=== PATIENT | male | born 1935 | race Caucasian/White ===

== ENCOUNTER 2016-11-17 00:15 | Inpatient (IN) | payer MEDICARE, BC, OTHER ==
[~2016-11-17] VITALS: Ht 175.3 cm; Wt 97.6 kg
[2016-11-17] VITALS (14 sets, daily range): BP systolic 132–182; BP diastolic 69–89; PULSE 83–114; RESP 18–26; TEMP 97.8–98.6; O2SAT 94–100
--- NOTE | 2016-11-17 00:27 | PD ---
HPI Chief Complaint: Stroke Alert Time Seen by Provider: 00:26 Travel History International Travel<30 days: No Contact w/Intl Traveler<30days: No Traveled to known affect area: No History of Present Illness HPI The patient is an 81 year old male who presents to the [facility] emergency department with a history of walking out of the bathroom according to his and having sudden onset of difficulty speaking. She reports that he was trying to talk, however none of the things that he was saying made any sense. She told him to clear his throat and try again, however he continued to not be able to talk. She reports that he was trying to talk and seemed to understand what she was saying. She also noticed that he was experiencing right upper and right lower extremity weakness. He was however able to weight-bear. The patient's symptoms began at 10 PM. The patient denies any prior history of stroke. He denies having any recent surgeries. He denies being on any aspirin or other blood thinners. His reports that his recent history is significant for undergoing radiation therapy to his face related to a skin cancer. The patient also has a history of intermittent hematuria that is cauterized by cystoscopy by his urologist. Within the last few days he did have an episode of pink urine. She denies denies him having any blood in his stool or black or tarry stools. The patient is unable to provide any history other than to shake his head yes or no to answer questions due to aphasia. The patient is awake and alert and able to follow commands. They deny him having any recent fevers, cough, congestion, chest pain, chest pressure, or shortness of breath. He has not had any vomiting, or diarrhea. He has not had any abdominal pain. He has been experiencing pains in his arms and legs recently. [facility] Past Medical History Narrative Medical The patient's past medical history is significant for neuropathy, skin cancer, rheumatoid arthritis diabetes, gout, hypercholesterolemia, hypertension, history of prostate cancer status post radiation treatment. Past Surgical History Narrative Surgical The patient's past surgical history is significant for radiation treatment for prostate cancer Social History Alcohol Use: No Tobacco Use: No Substance Use: No Allergies-Medications (Allergen,Severity, Reaction): Coded Allergies: No Known Allergies (Unverified , 11/17/16) Review of Systems Except as stated in HPI: all other systems reviewed are Neg General / Constitutional: No: Fever Eyes: No: Visual changes HENT: No: Headaches Cardiovascular: No: Chest Pain or Discomfort Respiratory: No: Shortness of Breath Gastrointestinal: No: Abdominal Pain Genitourinary: No: Dysuria Musculoskeletal: No: Pain Skin: No Rash Neurologic: Positive: Weakness, Focal Abnormalities, Slurred Speech, Other ( aphasia), No: Change in Mentation, Sensory Disturbance Psychiatric: No: Depression Endocrine: No: Polydipsia Hematologic/Lymphatic: No: Easy Bruising Physical Exam Narrative General: The patient is a well-developed well-nourished male, noted to be drooling initially on arrival of the right side of his mouth. The patient attempts to answer questions with unintelligible speech. Head and Neck exam: Head is normocephalic atraumatic. Eyes: EOMI, pupils are equal round and reactive to light. Nose: Midline septum with pink mucous membranes Mouth: Dentition unremarkable. Moist mucus membranes. Posterior oropharynx is not erythematous. No tonsillar hypertrophy. Uvula midline. Airway patent. Neck: No palpable lymphadenopathy. No nuchal rigidity. No thyromegaly. Cardiovascular: Sinus tachycardia in the low 100s without murmurs, gallops, or rubs. No pulse deficit to the extremities and simultaneous auscultation and palpation of his radial artery. Lungs: Clear to auscultation bilaterally. No wheezes, rhonchi, or rales. Abdomen: Soft, without tenderness to palpation in all 4 quadrants of the abdomen. No guarding, rebound, or rigidity. Normal bowel sounds are audible. Extremities: No clubbing, cyanosis, or edema. 2+ pulses in all 4 extremities. No Tenderness on palpation. Back: No spinous process tenderness to palpation. No costovertebral angle tenderness to palpation. Neurologic Exam: The patient on examination is alert, however he is unable to speak words intelligibly. The patient is able to shake his head yes and no to answer questions. He is also able to follow commands easily. The patient is unable to repeat any phrases. The patient has 4 over 5 strength in the right upper and right lower extremity, 5 over 5 strength in the left upper and left lower extremity. No change in sensation over all dermatomes. No dysdiadochokinesis. Good finger to nose and Heel to olivera bilaterally. Skin Exam: No rash noted. Intact skin that is warm and dry. Data Data Last Documented VS Vital Signs Date Time Temp Pulse Resp B/P Pulse Ox O2 Delivery O2 Flow Rate FiO2 11/17/16 00:20 96 Nasal Cannula 2 11/17/16 00:20 18 11/17/16 00:19 98.6 114 138/89 Orders Diet Npo (11/17/16 Breakfast) Activity Bed Rest (11/17/16 ) Electrocardiogram (11/17/16 ) I-Stat Creatinine (11/17/16 00:27) I-Stat Profile (11/17/16:) Prothrombin Time / Inr (Pt) (11/17/16:) Act Partial Throm Time (Ptt) (11/17/16:) Complete Blood Count With Diff (11/17/16:) Fibrinogen (11/17/16:) Creatine Kinase (Cpk) (11/17/16:) Troponin I (11/17/16:) Ua Includes Microscopic (11/17/16:) Drug Screen, Random Urine (11/17/16:) Type And Screen (11/17/16:) Ct Brain W/O Iv Contrast(Rout) (11/17/16 ) Cta Brain W Iv Contrast W 3d (11/17/16:27) Cta Neck W Iv Contrast W 3d (11/17/16 00:27) Consult Neurology (11/17/16 ) Blood Glucose (11/17/16 00:27) Ecg Monitoring (11/17/16 00:) Neuro Checks Q2HX12,Q4H (11/17/16 00:) Nursing Bedside Swallow Assess .ONCE (11/17/16 00:27) Iv Access Insert/Monitor (11/17/16 00:27) NPO (11/17/16 00:27) Oximetry (11/17/16 00:27) Oxygen Administration (11/17/16:) Resp Oxygen Jong C Titrat 1-4 L (11/17/16 00:27) Cath For Specimen (11/17/16 00:27) Sodium Chlor 0.9% 1000 Ml Inj (Ns 1000 M (11/17/16 01:00) ^ Call Pharmacy (11/17/16 00:55) Nih Stroke Scale - Nihss .ONCE (11/17/16 00:55) Urinary Catheter Management [id number].[id number] (11/17/16 00:55) Urinary Catheter Insert/Apply (11/17/16 00:55) ^ Anticoagulant Alert (11/17/16 00:55) ^ Post Infusion Restrictions (11/17/16 00:55) ^ Medication Alert (11/17/16 00:55) Vital Signs (Adult) .As directed (11/17/16 00:55) ^ Notify Dr: Blood Pressure (11/17/16 00:55) ^ Medication Alert (11/17/16 00:55) Alteplase Bolus (Activase Bolus) (11/17/16 01:00) Alteplase Drip (Activase Drip) (11/17/16 01:00) Misc Nursing Information (11/17/16 01:00) Resp Oxygen Jong C Titrat 1-4 L (11/17/16 ) (Hub Use Only)Inp Phy Cons/Ref (11/17/16 ) Labetalol Inj (Trandate Inj) (11/17/16 01:15) Labetalol Inj (Trandate Inj) (11/17/16 01:45) Admit Order (Ed Use Only) (11/17/16 01:57) Labs Laboratory Tests Test 11/17/16 11/17/16 00:30 01:00 White Blood Count 16.6 TH/MM3 Red Blood Count 4.73 MIL/MM3 Hemoglobin 15.1 GM/DL Bedside Hemoglobin 15.0 G/DL Hematocrit 44.7 % Bedside Hematocrit 44.0 % Mean Corpuscular Volume 94.4 FL Mean Corpuscular Hemoglobin 32.0 PG Mean Corpuscular Hemoglobin 33.9 % Concent Red Cell Distribution Width 14.8 % Platelet Count 86 TH/MM3 Mean Platelet Volume 7.0 FL Neutrophils (%) (Auto) 39.4 % Lymphocytes (%) (Auto) 56.1 % Monocytes (%) (Auto) 4.0 % Eosinophils (%) (Auto) 0.3 % Basophils (%) (Auto) 0.2 % Neutrophils # (Auto) 6.5 TH/MM3 Lymphocytes # (Auto) 9.3 TH/MM3 Monocytes # (Auto) 0.7 TH/MM3 Eosinophils # (Auto) 0.1 TH/MM3 Basophils # (Auto) 0.0 TH/MM3 CBC Comment AUTO DIFF Differential Total Cells 100 Counted Neutrophils % (Manual) 45 % Lymphocytes % 41 % Monocytes % 3 % Neutrophils # (Manual) 7.5 TH/MM3 Differential Comment FINAL DIFF MANUAL Atypical Lymphocytes 11 % Platelet Estimate LOW Platelet Morphology Comment NORMAL Red Cell Morphology Comment NORMAL Prothrombin Time 11.4 SEC Prothromb Time International 1.0 RATIO Ratio Activated Partial 29.3 SEC Thromboplast Time Fibrinogen 375 mg/dL Bedside Sodium 137 MMOL/L Bedside Potassium 3.9 MMOL/L Bedside Chloride 105 MMOL/L Bedside Blood Urea Nitrogen 22 MG/DL Bedside Creatinine 1.6 MG/DL Bedside Glucose 174 MG/DL Total Creatine Kinase 139 U/L Troponin I 0.15 NG/ML Blood Type O POSITIVE Antibody Screen NEGATIVE Blood Bank Comment Urine Color LIGHT-YELLOW Urine Turbidity CLEAR Urine pH 6.5 Urine Specific [place] 1.007 Urine Protein 100 mg/dL Urine Glucose (UA) NEG mg/dL Urine Ketones NEG mg/dL Urine Occult Blood SMALL Urine Nitrite NEG Urine Bilirubin NEG Urine Urobilinogen LESS THAN 2.0 MG/DL Urine Leukocyte Esterase NEG Urine RBC 14 /hpf Urine WBC LESS THAN 1 /hpf Urine Bacteria RARE /hpf Urine Hyaline Casts 1 /lpf Urine Mucus FEW /lpf Urine Opiates Screen NEG Urine Barbiturates Screen NEG Urine Amphetamines Screen NEG Urine Benzodiazepines Screen NEG Urine Cocaine Screen NEG Urine Cannabinoids Screen NEG MDM Medical Decision Making Medical Screen Exam Complete: Yes Emergency Medical Condition: Yes Medical Record Reviewed: Yes Interpretation(s) Last Impressions Head CT 11/17/16 0000 Signed Impressions: Service Date/Time: Thursday, November 17, 2016 00:33 - CONCLUSION: No acute intracranial abnormality Alex Rose MD Differential Diagnosis Ischemic stroke, versus hemorrhagic stroke, versus intracranial mass Narrative Course During the course of the patients emergency department visit, the patients history, examination, and differential diagnosis were reviewed with the patient. The patient had IV access obtained and blood work sent for analysis. The patient's was on a nurse monitoring with oximetry and blood pressure monitoring. A stroke alert was called immediately on his arrival. I spoke to the neurologist on-call regarding this patient's case. The patient had a blood sugar collected and he was not hypo-glycemic. The patient appear to meet criteria for TPA administration as he arrived within the timeframe and is not on any other blood thinners, no other contraindication has been identified. The patient was provided normal saline at [address] scan was reported to me by the reading radiologist as being negative for acute bleed. I spoke again to the neurologist custom protection officer who was agreeable that the patient met criteria for TPA administration. Risks and benefits for tPA were discussed with the patient's , daughter, and himself. Risks including hemorrhage, including potentially fatal GI and intracranial bleeding which can result in long-term serious disability or were discussed. Benefits including resolution of symptoms were discussed. The patient and the patient's family consented verbally to proceed with therapy. The patients laboratory studies were reviewed and remarkable for a white count of 16.6, hemoglobin 15.1, platelets 86- a call was placed out to the neurologist custom protection officer regarding the patient's thrombocytopenia. The patient's family was not aware of him having a history of low platelets. The patient's case was discussed with Dr. Brooke, the diamond driller helper as well as the neurologist regarding the patient's thrombocytopenia. Both physicians agree that the patient's TPA can be continued in spite of his thrombocytopenia. The patient's PT is 11.4, INR 1.0, PTT 29.3, urinalysis shows 100 protein, small occult blood , 14 rbc's, rare bacteria. Sodium is 137, creatinine 1.6, CPK 139, troponin I 0.15. The patients results were discussed with the patient, including the plan of care. I explained that further testing and/ or monitoring is indicated based on the patients history, examination, and/ or laboratory findings. Therefore, I recommended admission for additional evaluation. The patient expressed understanding and was agreeable with this plan. The patient was admitted to the hospital in guarded condition and sent to a bed under the care of the diamond driller helper. Critical Care Narrative Aggregate critical care time was 52 minutes. Time to perform other separately billable procedures was not included in the critical care time. My time did not include minutes spent treating any other patients simultaneously or on activities that did not directly contribute to the patient's treatment. The services I provided to this patient were to treat and/or prevent clinically significant deterioration that could result in: Respiratory failure, progression of disability and paralysis. I provided critical care services requiring my management, as noted below: Chart data review, documentation time, medication orders and management, vital sign assessments/reviewing monitor data, ordering and reviewing lab tests, ordering and interpreting/reviewing x-rays and diagnostic studies, care of the patient and discussion of the patient with the admitting physicians. Physician Communication Physician Communication At 12:25 AM I spoke to Dr. Alvarado regarding this patient's case and the fact that he is a stroke alert at onset of symptoms reportedly at [address] scan of the brain was read as negative by Dr. Rose and called to me at 12:44 AM 12:46 AM I spoke to again regarding the patient's case. He did agree with the administration of TPA. The patient and the patient's family consented. I spoke to Dr. Brooke, the diamond driller helper custom protection officer at approximately 2 AM regarding this patient's case. He did agree to admit the patient to the intensive care unit for close monitoring. Diagnosis Primary Impression: Stroke Qualified Code: I63.9 - Cerebrovascular accident (CVA), unspecified mechanism Admitting Information Admitting Physician Requests: it Oliva Morrison MD Nov 17, 2016 00:27
--- NOTE | 2016-11-17 00:46 | RADRPT ---
EXAM DATE/TIME: 11/17/2016 00:33 [facility] COMPARISON: No previous studies available for comparison. INDICATIONS : Stroke alert; right sided weakness and dysphasia RADIATION DOSE: 42.84 CTDIvol (mGy) This report was called by Rose to Prince at 12: 44am MEDICAL HISTORY : Non-responsive. SURGICAL HISTORY : Non-responsive. ENCOUNTER: Initial ACUITY: 1 day PAIN SCALE: Non-responsive LOCATION: Bilateral cranial TECHNIQUE: Multiple contiguous axial images were obtained of the head. Using automated exposure control and adj ustment of the mA and/or kV according to patient size, radiation dose was kept as low as reasonably a chievable to obtain optimal diagnostic quality images. FINDINGS: CEREBRUM: The ventricles are normal for age. No evidence of midline shift, mass lesion, hemorrhage or acute in farction. No extra-axial fluid collections are seen. POSTERIOR FOSSA: The cerebellum and brainstem are intact. The 4th ventricle is midline. The cerebellopontine angle i s unremarkable. EXTRACRANIAL: The visualized portion of the orbits is intact. SKULL: The calvaria is intact. No evidence of skull fracture. CONCLUSION: No acute intracranial abnormality Alex Rose MD on November 17, 2016 at 0:41 Board Certified Radiologist. This report was verified electronically.
[2016-11-17 00:47] LABS: AUTOMATED NEUTROPHIL # 6.5 TH/MM3 (1.8-7.7); BASOPHIL % 0.2 % (0.0-2.0); EOSINOPHIL # 0.1 TH/MM3 (0-0.4); EOSINOPHIL % 0.3 % (0.0-4.0); HEMATOCRIT 44.7 % (39.0-51.0); LYMPH % 56.1 % (9.0-44.0); LYMPHOCYTE # 9.3 TH/MM3 (1.0-4.8); MEAN CELL VOLUME 94.4 FL (80.0-100.0); MEAN CORPUSCULAR HGB CONC 33.9 % (32.0-36.0); NEUT % 39.4 % (16.0-70.0); PLATELET COUNT 86 TH/MM3 (150-450); RED BLOOD COUNT 4.73 MIL/MM3 (4.50-5.90); RED CELL DISTRIBUTION WIDTH 14.8 % (11.6-17.2); WHITE BLOOD COUNT 16.6 TH/MM3 (4.0-11.0)
[2016-11-17 00:50] LABS: I-STAT POTASSIUM 3.9 MMOL/L (3.5-4.9)
[2016-11-17 00:54] LABS: APTT (PATIENT) 29.3 SEC (24.3-30.1); PROTHROMBIN TIME - PATIENT 11.4 SEC (9.8-11.6)
[2016-11-17] MEDS ORDERED: SODIUM CHLOR 0.9% 1000 ML INJ 1,000 ML IV SCH (01:00)
[2016-11-17] MEDS ORDERED: ALTEPLASE BOLUS 9 MG/9 ML SYR IV ONE (01:00)
[2016-11-17] MEDS ORDERED: MISCELLANEOUS NURSING INFORMATION XX PRN (01:00)
[2016-11-17] MEDS ORDERED: ALTEPLASE DRIP IV ONE (01:00)
[2016-11-17] MEDS ORDERED: LABETALOL HCL 100 MG/20 ML VIAL IV PUSH ONE ×2 (01:15→01:45)
[2016-11-17 01:22] LABS: HEMO FLAGS AUTO DIFF
[2016-11-17 01:26] LABS: ATYPICAL LYMPHOCYTES 11 % (0-0); NEUTROPHIL # MANUAL DIFF 7.5 TH/MM3 (1.8-7.7); POLYS (SEG NEUTROPHILS) 45 % (16-70); WBC DIFF SAMPLE 100
[2016-11-17 01:29] LABS: SCAN/DIFF FINAL DIFF MANUAL
[2016-11-17 01:30] LABS: PLATELET ESTIMATE SMEAR LOW (NORMAL); PLATELET MORPHOLOGY NORMAL (NORMAL)
[2016-11-17 01:30] LABS: AMPHETAMINE, URINE NEG (NEG); BARBITURATES, URINE NEG (NEG); COCAINE, URINE NEG (NEG)
[2016-11-17 01:40] LABS: BACTERIA, URINE RARE /hpf; BLOOD, URINE SMALL (NEG); GLUCOSE,URINE NEG (NEG); HYALINE CAST, URINE 1 /lpf (RARE); KETONE, URINE NEG (NEG); MUCUS URINE FEW /lpf (OCC); NITRITE,URINE NEG (NEG); PH, URINE 6.5 (5.0-8.5); URINE COLOR LIGHT-YELLOW (YELLW/STRAW)
[2016-11-17] MEDS ORDERED: IOHEXOL 350 MG/ML 10 ML VIAL (for RAD DIAG) IV ONE (02:44)
[2016-11-17] MEDS ORDERED: RAPA8CAP PO (03:02)
[2016-11-17] MEDS ORDERED: ALLO300T2 PO (03:02)
[2016-11-17] MEDS ORDERED: FOLI5CAP PO (03:02)
[2016-11-17] MEDS ORDERED: METO50TA PO (03:02)
[2016-11-17] MEDS ORDERED: THEO200T9 PO (03:02)
[2016-11-17] MEDS ORDERED: LISI-515 PO (03:02)
[2016-11-17] MEDS ORDERED: ATOR40TA16 PO (03:02)
[2016-11-17] MEDS ORDERED: GABA100C4 PO (03:02)
--- NOTE | 2016-11-17 03:17 | RADRPT ---
EXAM DATE/TIME: 11/17/2016 02:37 [facility] COMPARISON: No previous studies available for comparison. INDICATIONS : Dysphasic with right sided weakness. IV CONTRAST: 72 cc Omnipaque 350 (iohexol) IV ; Cumulative dose for multiple exams. RADIATION DOSE: 28.14 CTDIvol (mGy) ; Combined studies MEDICAL HISTORY : Non-responsive. SURGICAL HISTORY : Non-responsive. ENCOUNTER: Initial ACUITY: 1 day PAIN SCALE: 0/10 LOCATION: Bilateral cranial TECHNIQUE: Volumetric scanning was performed using a multi-row detector CT scanner. The data was post processed with a variety of visualization algorithms including full volume maximum intensity projection, multi -planar sliding thin slab reformation, curved planar reformation, and surface rendering techniques. Using automated exposure control and adjustment of the mA and/or kV according to patient size, radiat ion dose was kept as low as reasonably achievable to obtain optimal diagnostic quality images. FINDINGS: There is excellent visualization of the major intracranial arteries out to the second-order branch ve ssels. There is no evidence for aneurysm, vessel truncation or stenosis, and no evidence for vascula r malformation. Anterior communicating artery seen. Left-sided posterior communicating artery noted. CONCLUSION: 1. No aneurysm or stenosis. No thrombus seen. 2. Normal variants as described above. Alex Rose MD on November 17, 2016 at 3:14 Board Certified Radiologist. This report was verified electronically.
--- NOTE | 2016-11-17 03:19 | RADRPT ---
EXAM DATE/TIME: 11/17/2016 02:37 [facility] COMPARISON: No previous studies available for comparison. INDICATIONS : Dysphasic and right sided weakness. IV CONTRAST: 72 cc Omnipaque 350 (iohexol) IV ; Cumulative dose for multiple exams. RADIATION DOSE: 28.14 CTDIvol (mGy) ; Combined studies MEDICAL HISTORY : Non-responsive. SURGICAL HISTORY : Non-responsive. ENCOUNTER: Initial ACUITY: 1 day PAIN SCALE: 0/10 LOCATION: Bilateral neck TECHNIQUE: Volumetric scanning was performed using a multirow detector CT scanner. The data was post processed with a variety of visualization algorithms including full-volume maximum intensity projection, multip lanar sliding thin-slab reformation, curved-planar reformation, and surface-rendering techniques. Us ing automated exposure control and adjustment of the mA and/or kV according to patient size, radiatio n dose was kept as low as reasonably achievable to obtain optimal diagnostic quality images. FINDINGS: AORTIC ARCH: There is a three-vessel origin of the great vessels from the aorta. No evidence of ostial narrowing. RIGHT CAROTID: The common carotid artery is intact. Mild plaque in the right bulb. No stenosis in the internal carot id. The external carotid artery is intact. LEFT CAROTID: The common carotid artery is intact. Mild plaque in the bulb. No stenosis in the internal carotid. Th e external carotid artery is intact. VERTEBRALS: The vertebral arteries have a symmetric diameter. No stenotic lesions are seen. CONCLUSION: 1. No carotid stenosis or thrombus. 2. Vertebral arteries are patent. Alex Rose MD on November 17, 2016 at 3:16 Board Certified Radiologist. This report was verified electronically.
[2016-11-17] MEDS: SODIUM CHLOR 0.9% 1000 ML INJ 1,000 ML IV SCH ×2 (05:06→20:29)
--- NOTE | 2016-11-17 05:06 | HHI.HP ---
HPI Service Critical Care Medicine Primary Care Physician Michael Jeronimo Admission Diagnosis Ischemic stroke s/p TPA Diagnosis: Chief Complaint: Slurred speech, right sided weakness, sudden onset. Travel History International Travel<30 Days: No Contact w/Intl Traveler <30 Da: No Traveled to Known Affected Are: No History of Present Illness 81 y/o right-handed man developed sudden onset slurred speech, right side weakness. 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 Received tPA after discussion with Neurologist. Right side weakness improved and speech improved, though not back to baseline. He also has LLQ tenderness to deep palpation. Review of Systems ROS No chest pain or SOB. Past Family Social History Allergies: Coded Allergies: No Known Allergies (Unverified , 11/17/16) Past Medical History Past Medical History Narrative Medical The patient's past medical history is significant for neuropathy, skin cancer, rheumatoid arthritis diabetes, gout, hypercholesterolemia, hypertension, history of prostate cancer status post radiation treatment. Past Surgical History Narrative Surgical The patient's past surgical history is significant for radiation treatment for prostate cancer Social History Alcohol Use: No Tobacco Use: No Substance Use: No Allergies-Medications (Allergen,Severity, Reaction): Coded Allergies: No Known Allergies (Unverified , 11/17/16) Physical Exam Vital Signs Vital Signs Date Time Temp Pulse Resp B/P Pulse Ox O2 Delivery O2 Flow Rate FiO2 11/17/16 04:00 98.6 96 20 162/77 100 11/17/16 04:00 94 11/17/16 03:52 100 Nasal Cannula 2.00 11/17/16 03:52 98.6 96 20 162/77 100 11/17/16 03:47 98 11/17/16 00:20 96 Nasal Cannula 2 11/17/16 00:20 96 Nasal Cannula 2.00 11/17/16 00:20 18 96 Nasal Cannula 2 11/17/16 00:20 96 2.00 11/17/16 00:19 98.6 114 18 138/89 96 11/17/16 00:19 114 18 96 Room Air Physical Exam PE: Gen: Alert. Head: Atraumatic. Neck: Supple, airway widely patent. Lungs: Clear, no wheezes or crackles. Comfortable pattern. Heart: NL S1S2, freq PMB. RRR. No JVD. Abdomen: Soft but tender LLQ. No peritoneal irritation or guarding. BS active. Extremities: Warm, well perfused. Neuro: O X 3, alert, cooperative. Speech garbles but improved. Moves 4 limbs with 5/5 strength. EOMs, pupil response, shoulder shrug, tongue protrusion, smile, grimace symmetrical and intact. Laboratory Laboratory Tests Test 11/17/16 11/17/16 00:30 01:00 White Blood Count 16.6 Red Blood Count 4.73 Hemoglobin 15.1 Bedside Hemoglobin 15.0 Hematocrit 44.7 Bedside Hematocrit 44.0 Mean Corpuscular Volume 94.4 Mean Corpuscular Hemoglobin 32.0 Mean Corpuscular Hemoglobin 33.9 Concent Red Cell Distribution Width 14.8 Platelet Count 86 Mean Platelet Volume 7.0 Neutrophils (%) (Auto) 39.4 Lymphocytes (%) (Auto) 56.1 Monocytes (%) (Auto) 4.0 Eosinophils (%) (Auto) 0.3 Basophils (%) (Auto) 0.2 Neutrophils # (Auto) 6.5 Lymphocytes # (Auto) 9.3 Monocytes # (Auto) 0.7 Eosinophils # (Auto) 0.1 Basophils # (Auto) 0.0 CBC Comment AUTO DIFF Differential Total Cells 100 Counted Neutrophils % (Manual) 45 Lymphocytes % 41 Monocytes % 3 Neutrophils # (Manual) 7.5 Differential Comment FINAL DIFF MANUAL Atypical Lymphocytes 11 Platelet Estimate LOW Platelet Morphology Comment NORMAL Red Cell Morphology Comment NORMAL Prothrombin Time 11.4 Prothromb Time International 1.0 Ratio Activated Partial 29.3 Thromboplast Time Fibrinogen 375 Bedside Sodium 137 Bedside Potassium 3.9 Bedside Chloride 105 Bedside Blood Urea Nitrogen 22 Bedside Creatinine 1.6 Bedside Glucose 174 Total Creatine Kinase 139 Troponin I 0.15 Blood Type O POSITIVE Antibody Screen NEGATIVE Blood Bank Comment Urine Color LIGHT-YELLOW Urine Turbidity CLEAR Urine pH 6.5 Urine Specific [place] 1.007 Urine Protein 100 Urine Glucose (UA) NEG Urine Ketones NEG Urine Occult Blood SMALL Urine Nitrite NEG Urine Bilirubin NEG Urine Urobilinogen LESS THAN 2.0 Urine Leukocyte Esterase NEG Urine RBC 14 Urine WBC LESS THAN 1 Urine Bacteria RARE Urine Hyaline Casts 1 Urine Mucus FEW Urine Opiates Screen NEG Urine Barbiturates Screen NEG Urine Amphetamines Screen NEG Urine Benzodiazepines Screen NEG Urine Cocaine Screen NEG Urine Cannabinoids Screen NEG Result Diagram: 11/17/16 0030 Assessment and Plan Problem List: (1) Stroke ICD Code: I63.9 Status: Acute Assessment and Plan Assess: 1. Acute CVA with garbled speech and right side motor weakness -> improved after tPA. 2. LLQ pain. Plan: 1. Post-tPA order set. 2. BP control. 3. Serial neuro exam. 4. Cardiac ECHO. 5. Pepcid. 6. Hold chemical DVT px for 24 hours. 7. SCDs. 8. Review WBC, LFTs. Overall impression: Acute CVA, improved after tPA with residual speech difficulty. Stable hemodynamics. Problem Qualifiers (1) Stroke: Qualified Code: I63.9 - Cerebrovascular accident (CVA), unspecified mechanism Ortiz Brooke MD Nov 17, 2016 05:06
[2016-11-17] MEDS ORDERED: ENALAPRILAT 1.25 MG/ML VIAL IV PRN (05:15)
[2016-11-17] MEDS ORDERED: GLUCAGON 1 MG/ML VIAL IM/SQ PRN (05:15)
[2016-11-17] MEDS ORDERED: DEXTROSE 50% IN WATER 50 ML VIAL(D50) IV PUSH PRN (05:15)
[2016-11-17] MEDS ORDERED: SODIUM CHLORIDE 0.9% FLUSH 5 ML FLUSH IVF PRN (05:15)
[2016-11-17] MEDS ORDERED: LABETALOL HCL 100 MG/20 ML VIAL IV PRN (05:15)
--- NOTE | 2016-11-17 06:05 | MB ---
cc: RAÚL CARDONA M.D. DATE OF CONSULTATION 11/16/2016 The patient is seen in neurological consultation. HISTORY OF PRESENT ILLNESS The patient is an 81-year-old who came in and an acute stroke. Stroke Alert was called. I spoke to Dr. Morrison on a couple of occasions before the patient was given the T-PA. Again I spoke to Dr. Morrison at the time of my visit to the patient in the emergency room. Apparently he was doing just fine at 10:00 p.m. when he developed major speech difficulty and some right-sided weakness. The patient lives with his . Initially they waited a little while and then after talking to the family members he was brought to the emergency room. I was called at about 12:30 a.m. His symptoms included significant difficulty verbalizing and some right-sided hemiparesis mostly involving the arm. The patient was felt to be a candidate for T-PA and this was promptly started after the family agreed. The patient has had some recent blood clots to his urine but a catheter was placed and the urine was clear before T-PA was started. PAST HISTORY 1. History of bladder cancer. 2. Prostate cancer. 3. Skin cancer. He has no history of diabetes. No history of stroke or seizures. NEUROLOGICAL EXAMINATION The patient was awake, alert and appears to be grossly oriented at least in a basic manner. He is now able to express himself and he seems to comprehend well. He has mild difficulty with his speech. It is mildly slow and slightly dysarthric/expressively. He seems to comprehend and he is able to express himself with mild difficulty. There is mild right hemiparesis. There is some pronation drift of the right arm/hand. He raised the right leg with mild difficulty in comparison to the left. The reflexes were essentially absent throughout. Plantar response flexor on the right. ASSESSMENT Acute ischemic stroke left hemisphere. He was felt to be a candidate for T-PA and this was a given. He is showing improvement in his neurologic deficits. PLAN 1. T-PA was started at about 3 hours after the onset of symptoms. 2. He is to be further evaluated with echocardiogram, carotid ultrasound, lipid profile. 3. Follow-up CT brain or MRI in about 12 hours. 4. Continue head of bed flat. 5. I will follow the neurological course. Thank you for asking us to assist in his care. MD ALICIA Werner/LIZ /1:56 AM /5:56 AM
[2016-11-17 06:07] LABS: ANION GAP 11 MEQ/L (5-15); BICARBONATE 23.2 MEQ/L (21.0-32.0); BLOOD UREA NITROGEN 20 MG/DL (7-18); CHLORIDE 105 MEQ/L (98-107); GLOMERULAR FILTRATION RATE 39 ML/MIN (>89); POTASSIUM 4.1 MEQ/L (3.5-5.1); SODIUM (NA) 139 MEQ/L (136-145)
[2016-11-17] MEDS: INSULIN ASPART SUPPLEMENTAL SCALE SQ SCH ×4 (06:46→20:29)
[2016-11-17] MEDS ORDERED: EPINEPHrine HCL (1:10,000) 1 MG/10 ML SYRINGE ONE (08:04)
[2016-11-17] MEDS ORDERED: ATROPINE SULFATE 1 MG/10 ML SYRINGE ONE (08:04)
[2016-11-17] MEDS ORDERED: LIDOCAINE HCL 2% 100 MG/5 ML SYRINGE ONE (08:04)
--- NOTE | 2016-11-17 08:48 | RADRPT ---
EXAM DATE/TIME: 11/17/2016 08:34 [facility] COMPARISON: CT BRAIN W/O CONTRAST, November 17, 2016, 0:33. INDICATIONS : Post TPA, now has recurring right side weakness. RADIATION DOSE: 43.38 CTDIvol (mGy) MEDICAL HISTORY : Hypertension. Diabetes mellitus type 1. Carcinoma, prostate. SURGICAL HISTORY : None. ENCOUNTER: Initial ACUITY: 1 day PAIN SCALE: 0/10 LOCATION: cranial TECHNIQUE: Multiple contiguous axial images were obtained of the head. Using automated exposure control and adj ustment of the mA and/or kV according to patient size, radiation dose was kept as low as reasonably a chievable to obtain optimal diagnostic quality images. FINDINGS: CEREBRUM: The ventricles are normal for age. No evidence of midline shift, mass lesion, hemorrhage or acute in farction. No extra-axial fluid collections are seen. POSTERIOR FOSSA: The cerebellum and brainstem are intact. The 4th ventricle is midline. The cerebellopontine angle i s unremarkable. EXTRACRANIAL: The visualized portion of the orbits is intact. SKULL: The calvaria is intact. No evidence of skull fracture. CONCLUSION: Normal examination. Yohana Escamilla MD on November 17, 2016 at 8:44 Board Certified Radiologist. This report was verified electronically.
[2016-11-17] MEDS: SODIUM CHLORIDE 0.9% FLUSH 5 ML FLUSH IVF SCH ×2 (09:00→20:29)
[2016-11-17 17:46] LABS: HEMOGLOBIN A1a 0.9 %; HEMOGLOBIN LA1C 2.4 %; HEMOGLOBIN P3 3.9 %
--- NOTE | 2016-11-17 22:30 | EKG ---
Date Performed: 11/17/2016 Time Performed: 00:26:54 PTAGE: 81 years EKG: SINUS TACHYCARDIA WITH FREQUENT ECTOPIC PREMATURE COMPLEXES MARKED LEFT AXIS DEVIATION NONS PECIFIC T-WAVE ABNORMALITY ABNORMAL ECG NO PREVIOUS TRACING DOCTOR: Yony De La Cruz Interpretating Date/Time 11/17/2016 22:27:43
[2016-11-17] MEDS ORDERED: ACETAMINOPHEN 325 MG TAB PO PRN (22:45)
[2016-11-18] VITALS (12 sets, daily range): BP systolic 161–191; BP diastolic 74–93; PULSE 80–102; RESP 16–26; TEMP 97.7–98.9; O2SAT 93–99
--- NOTE | 2016-11-18 02:09 | RADRPT ---
EXAM DATE/TIME: 11/18/2016 00:24 [facility] COMPARISON: CT BRAIN W/O CONTRAST, November 17, 2016, 8:34. INDICATIONS : Post TPA scan. Evaluate for hemorrhage. RADIATION DOSE: 69.15 CTDIvol (mGy) MEDICAL HISTORY : Hypertension. Diabetes mellitus type 2. Carcinoma, prostate. SURGICAL HISTORY : None. ENCOUNTER: Subsequent ACUITY: 1 day PAIN SCALE: 0/10 LOCATION: cranial TECHNIQUE: Multiple contiguous axial images were obtained of the head. Using automated exposure control and adj ustment of the mA and/or kV according to patient size, radiation dose was kept as low as reasonably a chievable to obtain optimal diagnostic quality images. FINDINGS: CEREBRUM: The ventricles are normal for age. No evidence of midline shift, mass lesion, hemorrhage or acute in farction. No extra-axial fluid collections are seen. POSTERIOR FOSSA: The cerebellum and brainstem are intact. The 4th ventricle is midline. The cerebellopontine angle i s unremarkable. EXTRACRANIAL: The visualized portion of the orbits is intact. SKULL: The calvaria is intact. No evidence of skull fracture. CONCLUSION: No acute intracranial disease. Alex Rose MD on November 18, 2016 at 2:07 Board Certified Radiologist. This report was verified electronically.
[2016-11-18 04:06] LABS: BASOPHIL # 0.1 TH/MM3 (0-0.2); BASOPHIL % 0.3 % (0.0-2.0); EOSINOPHIL # 0.1 TH/MM3 (0-0.4); EOSINOPHIL % 0.6 % (0.0-4.0); HEMATOCRIT 45.2 % (39.0-51.0); LYMPH % 60.3 % (9.0-44.0); LYMPHOCYTE # 10.5 TH/MM3 (1.0-4.8); MEAN CORPUSCULAR HEMOGLOBIN 31.3 PG (27.0-34.0); MEAN CORPUSCULAR HGB CONC 32.9 % (32.0-36.0); MONO % 4.7 % (0.0-8.0); NEUT % 34.1 % (16.0-70.0); PLATELET COUNT 91 TH/MM3 (150-450); RED BLOOD COUNT 4.75 MIL/MM3 (4.50-5.90); RED CELL DISTRIBUTION WIDTH 14.5 % (11.6-17.2); WHITE BLOOD COUNT 17.5 TH/MM3 (4.0-11.0)
[2016-11-18 04:14] LABS: HEMO FLAGS AUTO DIFF
[2016-11-18 04:57] LABS: BANDS 1 % (0-6); NEUTROPHIL # MANUAL DIFF 7.9 TH/MM3 (1.8-7.7); POLYS (SEG NEUTROPHILS) 44 % (16-70); WBC DIFF SAMPLE 100
[2016-11-18 04:58] LABS: PLATELET ESTIMATE SMEAR LOW (NORMAL); PLATELET MORPHOLOGY NORMAL (NORMAL); SMUDGE CELLS PRESENT PRESENT
[2016-11-18 04:59] LABS: SCAN/DIFF FINAL DIFF MANUAL
[2016-11-18 05:18] LABS: ALKALINE PHOSPHATASE 205 U/L (45-117); ALT (GPT) 17 U/L (12-78); ANION GAP 9 MEQ/L (5-15); AST (GOT) 20 U/L (15-37); BICARBONATE 25.8 MEQ/L (21.0-32.0); BLOOD UREA NITROGEN 18 MG/DL (7-18); CHLORIDE 106 MEQ/L (98-107); GLOMERULAR FILTRATION RATE 47 ML/MIN (>89); LDL CHOLESTEROL 53 MG/DL (0-99); POTASSIUM 4.1 MEQ/L (3.5-5.1); SODIUM (NA) 141 MEQ/L (136-145); TOTAL BILIRUBIN ADULT 0.9 MG/DL (0.2-1.0)
[2016-11-18] MEDS: INSULIN ASPART SUPPLEMENTAL SCALE SQ SCH ×4 (06:45→21:00)
--- NOTE | 2016-11-18 07:00 | HHI.CCPN ---
Subjective Remarks/Hospital Course 81 y/o right-handed man developed sudden onset slurred speech, right side weakness. 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 Received tPA after discussion with Neurologist. Right side weakness improved and speech improved, though not back to baseline. Objective Vital Signs Date Time Temp Pulse Resp B/P Pulse Ox O2 Delivery O2 Flow Rate FiO2 11/18/16 04:00 98.7 98 23 191/89 98 11/17/16 20:53 21 11/17/16 20:00 Room Air 11/17/16 08:00 2.00 Intake and Output 11/17/16 11/17/16 11/18/16 08:00 16:00 00:00 Intake Total 345 ml 647 ml 658 ml Output Total 850 ml 650 ml 650 ml Balance -505 ml -3 ml 8 ml Result Diagram: 11/18/1632111/18/16321 Objective Remarks PE: Gen: Alert. Head: Atraumatic. Neck: Supple, airway widely patent. Lungs: Clear, no wheezes or crackles. Comfortable pattern. Heart: NL S1S2, freq PMB. RRR. No JVD. Abdomen: Soft but tender LLQ. No peritoneal irritation or guarding. BS active. Extremities: Warm, well perfused. Neuro: O X 3, alert, cooperative. Speech garbles but improved. Moves 4 limbs with 5/5 strength. EOMs, pupil response, shoulder shrug, tongue protrusion, smile, grimace symmetrical and intact. A/P Problem List: (1) Stroke ICD Code: I63.9 Status: Acute Assessment and Plan Assess: 1. Acute CVA with garbled speech and right side motor weakness -> improved after tPA. 2. LLQ pain. Plan: 1. Post-tPA order set. 2. BP control with a goal of SBP < 180 3. Serial neuro exam per ICU routine 4. Cardiac ECHO 5. Pepcid for GI Prophylaxis 6. Hold chemical DVT px for 24 hours. 7. SCDs. 8.Follow up WBC, LFTs. 9. RUQ US Overall impression: Acute CVA, improved after tPA with residual speech difficulty. Stable hemodynamics. Problem Qualifiers (1) Stroke: Qualified Code: I63.9 - Cerebrovascular accident (CVA), unspecified mechanism Andrew Mancilla MD 12, 2017 07:00
[2016-11-18] MEDS: SODIUM CHLORIDE 0.9% FLUSH 5 ML FLUSH IVF SCH ×2 (09:00→21:08)
--- NOTE | 2016-11-18 09:05 | HHI.PR ---
Review/Management Daily Summary doing well, speech much better overall fully recovered? ldl below 60 echo pending if feasible run mri brain without contrast ok to start bp tx to bring it under control gradually pt/ot, rehab i will out of town, if needed one of my partners will be available Subjective Subjective Comments No acute events reported No headache No chest pain No dyspnea Active Medications Current Medications Medications (Trade) Dose Ordered Sig/Robert Route Start Time Stop Time Status Last Admin (NS Flush) 2 ml BID IVF 11/17/16 09:00 11/17/16 20:29 IV Flush 2 ml 2 ml UNSCH PRN IVF 11/17/16 05:15 (NS 1000 ml Inj) 1,000 ml @ 70 mls/hr [id number] IV 11/17/16 05:06 11/17/16 20:29 (Vasotec Inj) 1.25 mg Q4H PRN IV 11/17/16 05:15 (Trandate Inj) 10 mg Q2H PRN IV 11/17/16 05:15 (D50w (Vial) Inj) 25 ml UNSCH PRN IV PUSH 11/17/16 05:15 (Glucagon Inj) 1 mg UNSCH PRN IM/SQ 11/17/16 05:15 (Tylenol) 650 mg Q6H PRN PO 11/17/16 22:45 11/17/16 23:19 Allergies Allergies Coded Allergies No Known Allergies (Unverified11/17/16) Exam I&O / VS 11/17/16 11/17/16 11/18/16 15:00 23:00 07:00 Intake Total 647 ml 658 ml 601 ml Output Total 650 ml 650 ml 400 ml Balance -3 ml 8 ml 201 ml Intake Oral 100 ml 240 ml 100 ml IV Total 547 ml 418 ml 501 ml Output Urine Total 650 ml 650 ml 400 ml # Bowel Movements 0 0 0 Vital Signs Date Time Temp Pulse Resp B/P Pulse Ox O2 Delivery O2 Flow Rate FiO2 11/18/16 07:48 98 21 11/18/16 04:00 98.7 98 23 191/89 98 11/18/16 00:19 26 11/18/16 00:00 98.9 102 26 161/93 98 11/17/16 20:53 94 21 11/17/16 20:00 100 11/17/16 20:00 98.1 100 24 174/84 94 11/17/16 20:00 Room Air 11/17/16 18:00 100 11/17/16 16:00 97.8 92 25 182/79 97 11/17/16 16:00 92 11/17/16 12:00 97.9 83 26 156/70 96 11/17/16 12:00 83 11/17/16 11:18 98 11/17/16 10:00 81 Objective Micro and Labs Laboratory Tests Test 11/18/16 03:22 White Blood Count 17.5 Red Blood Count 4.75 Hemoglobin 14.9 Hematocrit 45.2 Mean Corpuscular Volume 95.0 Mean Corpuscular Hemoglobin 31.3 Mean Corpuscular Hemoglobin 32.9 Concent Red Cell Distribution Width 14.5 Platelet Count 91 Mean Platelet Volume 6.7 Neutrophils (%) (Auto) 34.1 Lymphocytes (%) (Auto) 60.3 Monocytes (%) (Auto) 4.7 Eosinophils (%) (Auto) 0.6 Basophils (%) (Auto) 0.3 Neutrophils # (Auto) 6.0 Lymphocytes # (Auto) 10.5 Monocytes # (Auto) 0.8 Eosinophils # (Auto) 0.1 Basophils # (Auto) 0.1 CBC Comment AUTO DIFF Differential Total Cells 100 Counted Neutrophils % (Manual) 44 Band Neutrophils % 1 Lymphocytes % 51 Monocytes % 4 Neutrophils # (Manual) 7.9 Differential Comment FINAL DIFF MANUAL Smudge Cells PRESENT Platelet Estimate LOW Platelet Morphology Comment NORMAL Red Cell Morphology Comment NORMAL Sodium Level 141 Potassium Level 4.1 Chloride Level 106 Carbon Dioxide Level 25.8 Anion Gap 9 Blood Urea Nitrogen 18 Creatinine 1.43 Estimat Glomerular Filtration 47 Rate Random Glucose 106 Calcium Level 7.6 Phosphorus Level 3.4 Magnesium Level 2.0 Total Bilirubin 0.9 Aspartate Amino Transf 20 (AST/SGOT) Alanine Aminotransferase 17 (ALT/SGPT) Alkaline Phosphatase 205 Total Protein 5.7 Albumin 2.5 Triglycerides Level 103 Cholesterol Level 125 LDL Cholesterol 53 HDL Cholesterol 51.0 Cholesterol/HDL Ratio 2.45 Ramona Alvarado MD Nov 18, 2016 09:05
[2016-11-18] MEDS: SODIUM CHLOR 0.9% 1000 ML INJ 1,000 ML IV SCH (09:42)
[2016-11-18 10:51] LABS: HEMOGLOBIN A1b 0.9 %; HEMOGLOBIN Ao 85.8 %; HEMOGLOBIN F 1.1 %; HEMOGLOBIN P3 3.7 %
[2016-11-18] MEDS: LISINOPRIL 20 MG TAB PO SCH (14:56)
[2016-11-18] MEDS: METOPROLOL TARTRATE 50 MG TAB PO SCH (16:26)
[2016-11-18] MEDS: GABAPENTIN 100 MG CAP PO SCH (16:29)
[2016-11-18] MEDS: THEOPHYLLINE ER 12 HR 200 MG TABCR PO SCH (16:29)
--- NOTE | 2016-11-18 17:35 | RADRPT ---
EXAM DATE/TIME: 11/18/2016 16:47 [facility] COMPARISON: No previous studies available for comparison. INDICATIONS : Right upper quandant pain. MEDICAL HISTORY : Hypercholesterolemia. Hypertension. Arthritis. Renal disease. Diabetes. Neuropathy. Prostate Cancer. Skin cancer. SURGICAL HISTORY : Prostate radiation and surgery. ENCOUNTER: Initial ACUITY: 3 days PAIN SCORE: 5/10 LOCATION: Right upper quadrant MEASUREMENTS: LIVER: 16.9 cm length COMMON DUCT: 7 mm RIGHT KIDNEY: 10.2 x 4.9 x 6.5 cm FINDINGS: LIVER: Liver is sono dense without ductal dilatation. COMMON DUCT: No intraluminal mass or stone visualized. GALLBLADDER: The wall is thickened without sludge or stones. PANCREAS: The visualized portions are within normal limits. RIGHT KIDNEY: No evidence of hydronephrosis, stone, or mass. CONCLUSION: Minimal gallbladder wall thickening without stones. Amari Ross MD FACR on November 18, 2016 at 17:30 Board Certified Radiologist. This report was verified electronically.
--- NOTE | 2016-11-18 17:49 | RADRPT ---
EXAM DATE/TIME: 11/18/2016 17:14 [facility] COMPARISON: No previous studies available for comparison. INDICATIONS : Stroke. Left facial droop with slurred speech, now resolved. MEDICAL HISTORY : Hypertension. Carcinoma, prostate. Melanoma. SURGICAL HISTORY : Tonsillectomy. ENCOUNTER: Subsequent ACUITY: 2 day PAIN SCORE: 0/10 LOCATION: Head. TECHNIQUE: Multiplanar, multisequence MRI of the brain was performed without contrast. FINDINGS: There is subtle focal restricted diffusion on the cortical surface of the brain sitting at the motor strip. Marked periventricular white matter changes are evident. Midline structures ar e intact. There is no parenchymal hemorrhage. CONCLUSION: Focal area of restricted diffusion high in the left parietal occipital region. This measures less than 1 cm. Two other very faint areas are seen in the left centrum semiovale. Amari Ross MD FACR on November 18, 2016 at 17:38 Board Certified Radiologist. This report was verified electronically.
[2016-11-18] MEDS: ATORVASTATIN 40 MG TAB PO SCH (21:08)
[2016-11-19] VITALS (11 sets, daily range): BP systolic 143–170; BP diastolic 65–79; PULSE 72–85; RESP 19–27; TEMP 97.4–98.4; O2SAT 93–97
[2016-11-19] MEDS: SODIUM CHLOR 0.9% 1000 ML INJ 1,000 ML IV SCH (00:15)
[2016-11-19] MEDS: THEOPHYLLINE ER 12 HR 200 MG TABCR PO SCH ×2 (03:26→16:03)
[2016-11-19 04:35] LABS: AUTOMATED NEUTROPHIL # 7.1 TH/MM3 (1.8-7.7); BASOPHIL # 0.1 TH/MM3 (0-0.2); BASOPHIL % 0.5 % (0.0-2.0); EOSINOPHIL # 0.1 TH/MM3 (0-0.4); EOSINOPHIL % 0.7 % (0.0-4.0); HEMATOCRIT 47.4 % (39.0-51.0); LYMPHOCYTE # 12.4 TH/MM3 (1.0-4.8); MEAN CELL VOLUME 94.1 FL (80.0-100.0); MEAN CORPUSCULAR HEMOGLOBIN 31.3 PG (27.0-34.0); MEAN CORPUSCULAR HGB CONC 33.3 % (32.0-36.0); MONO % 3.1 % (0.0-8.0); NEUT % 34.7 % (16.0-70.0); PLATELET COUNT 92 TH/MM3 (150-450); RED BLOOD COUNT 5.03 MIL/MM3 (4.50-5.90); RED CELL DISTRIBUTION WIDTH 14.5 % (11.6-17.2); WHITE BLOOD COUNT 20.4 TH/MM3 (4.0-11.0)
[2016-11-19 05:02] LABS: HEMO FLAGS AUTO DIFF
[2016-11-19 05:13] LABS: ALKALINE PHOSPHATASE 205 U/L (45-117); ALT (GPT) 18 U/L (12-78); ANION GAP 11 MEQ/L (5-15); AST (GOT) 24 U/L (15-37); BICARBONATE 22.6 MEQ/L (21.0-32.0); BLOOD UREA NITROGEN 18 MG/DL (7-18); CHLORIDE 107 MEQ/L (98-107); GLOMERULAR FILTRATION RATE 51 ML/MIN (>89); MAGNESIUM 2.1 MG/DL (1.5-2.5); SODIUM (NA) 141 MEQ/L (136-145); TOTAL BILIRUBIN ADULT 0.9 MG/DL (0.2-1.0)
[2016-11-19] MEDS: INSULIN ASPART SUPPLEMENTAL SCALE SQ SCH ×4 (06:18→20:40)
[2016-11-19] MEDS: TAMSULOSIN HCL 0.4 MG CAP PO SCH (08:26)
[2016-11-19] MEDS: FOLIC ACID 1 MG TAB PO SCH (08:26)
[2016-11-19] MEDS: ALLOPURINOL 300 MG TAB PO SCH (08:26)
[2016-11-19] MEDS: SODIUM CHLORIDE 0.9% FLUSH 5 ML FLUSH IVF SCH ×2 (08:27→20:40)
[2016-11-19] MEDS: METOPROLOL TARTRATE 50 MG TAB PO SCH (08:27)
[2016-11-19] MEDS: LISINOPRIL 20 MG TAB PO SCH (08:27)
[2016-11-19] MEDS: GABAPENTIN 100 MG CAP PO SCH ×3 (08:27→17:12)
[2016-11-19 09:08] LABS: NEUTROPHIL # MANUAL DIFF 5.3 TH/MM3 (1.8-7.7); POLYS (SEG NEUTROPHILS) 26 % (16-70); SCAN/DIFF FINAL DIFF MANUAL; SMUDGE CELLS PRESENT PRESENT; WBC DIFF SAMPLE 100
[2016-11-19 09:09] LABS: PLATELET ESTIMATE SMEAR LOW (NORMAL); PLATELET MORPHOLOGY NORMAL (NORMAL)
--- NOTE | 2016-11-19 09:34 | EC ---
Study Study Date:11/18/2016 STUDY CONCLUSIONS SUMMARY - Left ventricle: The cavity size was normal. Wall thickness was normal. Systolic function was normal. The estimated ejection fraction was in the range of 50% to 55%. Wall motion was normal; there were no regional wall motion abnormalities. - Mitral valve: Mild regurgitation. - Pulmonary arteries: PA peak pressure: 45mm Hg (S). Impressions: No cardiac source of emboli was indentified. If LV function is below 40, please consider prescribing an ACEI or ARB or document rationale for non-use. PROCEDURE DATA STUDY STATUS: Elective. Procedure: Transthoracic echocardiography. Image quality was good. Scanning was performed from the parasternal, apical, and subcostal acoustic windows. Study completion: The patient tolerated the procedure well. Transthoracic echocardiography. M-mode, complete 2D, complete spectral Doppler, and color Doppler. Patient status: Inpatient. CARDIAC ANATOMY LEFT VENTRICLE: The cavity size was normal. Wall thickness was normal. Systolic function was normal. The estimated ejection fraction was in the range of 50% to 55%. Wall motion was normal; there were no regional wall motion abnormalities. AORTIC VALVE: Trileaflet; normal thickness leaflets. Doppler: Transvalvular velocity was within the normal range. There was no stenosis. No regurgitation. AORTA: Aortic root: The aortic root was normal in size. MITRAL VALVE: Structurally normal valve. Doppler: Transvalvular velocity was within the normal range. There was no evidence for stenosis. Mild regurgitation. Peak gradient: 4mm Hg (D). LEFT ATRIUM: The atrium was normal in size. RIGHT VENTRICLE: The cavity size was normal. Wall thickness was normal. PULMONIC VALVE: Doppler: Transvalvular velocity was within the normal range. There was no evidence for stenosis. No regurgitation. TRICUSPID VALVE: Structurally normal valve. Doppler: Transvalvular velocity was within the normal range. No regurgitation. PULMONARY ARTERY: The main pulmonary artery was normal-sized. Systolic pressure was within the normal range. RIGHT ATRIUM: The atrium was normal in size. PERICARDIUM: There was no pericardial effusion. SYSTEMIC VEINS: Inferior vena cava: The vessel was normal in size. BASIC MEASUREMENTS ADULT NORMAL Left ventricle LV internal dimension, ED, chordal level, 49.1 mm 43-52 PLAX LV posterior wall thickness, ED 8.5 mm IVS/LVPW ratio, ED 1.1 <1.3 Ventricular septum Septal thickness, ED 9.35 mm Aortic valve Leaflet separation 20 mm 15-26 Left atrium Anterior-posterior dimension 40 mm Right ventricle RV internal dimension, ED, PLAX 23.8 mm 19-38 BASIC MEASUREMENTS ADULT NORMAL Aortic valve Leaflet separation 20 mm 15-26 Aorta Root diameter, ED 32 mm 20-37 DOPPLER MEASUREMENTS ADULT NORMAL Main pulmonary artery Pressure, S *45 mm Hg =30 Mitral valve Peak E-wave velocity 104 cm/s Peak A-wave velocity 121 cm/s Peak gradient, D 4 mm Hg Peak E/A ratio 0.9 Tricuspid valve Regurgitant peak velocity 297 cm/s Peak RV-RA gradient, S 35 mm Hg Maximal regurgitant velocity 297 cm/s Systemic veins Estimated CVP 10 mm Hg Right ventricle RV pressure, S *45 mm Hg <30 LEGEND: Mean values are shown as u=mean value. Asterisk (*) arteaga values outside specified normal range. Prepared and signed by Mike Reyes [id number]
--- NOTE | 2016-11-19 10:55 | HHI.PR ---
Subjective Remarks Follow-up CVA. Patient states that he does feel weak, but feels that he is getting much better. No numbness or tingling of his arms or legs. Had a headache this morning, but it has resolved. Denies chest pain or dyspnea. Objective Vitals Vital Signs Date Time Temp Pulse Resp B/P Pulse Ox O2 Delivery O2 Flow Rate FiO2 11/19/16 08:00 97.7 82 27 168/78 95 11/19/16 07:00 94 Room Air 11/19/16 06:00 79 11/19/16 04:00 82 11/19/16 04:00 98.4 82 24 170/77 93 11/19/16 02:00 85 11/19/16 00:00 80 11/19/16 00:00 98.4 80 22 168/74 97 11/18/16 22:00 80 11/18/16 21:04 93 21 11/18/16 20:00 98.0 87 16 176/84 95 11/18/16 20:00 83 11/18/16 19:00 96 Room Air 11/18/16 18:00 88 11/18/16 16:00 90 11/18/16 16:00 97.7 90 26 179/84 95 11/18/16 14:00 88 11/18/16 12:00 86 11/18/16 12:00 97.9 86 23 169/74 99 I/O 11/18/16 11/18/16 11/18/16 11/19/16 11/19/16 11/19/16 07:00 15:00 23:00 07:00 15:00 23:00 Intake Total 601 ml 481 ml 740 ml 530 ml Output Total 400 ml 250 ml 750 ml 550 ml Balance 201 ml 231 ml -10 ml -20 ml Intake Oral 100 ml 200 ml 240 ml 30 ml IV Total 501 ml 281 ml 500 ml 500 ml Output Urine Total 400 ml 250 ml 750 ml 550 ml # Bowel Movements 0 2 1 1 Result Diagram: 11/19/1633611/19/16336 Imaging Last Impressions Gall Bladder Ultrasound 11/18/16 0000 Signed Impressions: Service Date/Time: November 16:47 - CONCLUSION: Minimal gallbladder wall thickening without stones. Amari Ross MD FACR Brain MRI 11/18/16 0000 Signed Impressions: Service Date/Time: November 17:14 - CONCLUSION: Focal area of restricted diffusion high in the left parietal occipital region. This measures less than 1 cm. Two other very faint areas are seen in the left centrum semiovale. Amari Ross MD FACR Head CT 11/17/16 2200 Signed Impressions: Service Date/Time: November 00:24 - CONCLUSION: No acute intracranial disease. Alex Rose MD Neck CTA 11/17/1626 Signed Impressions: Service Date/Time: Thursday, November 17, 2016 02:37 - CONCLUSION: 1. No carotid stenosis or thrombus. 2. Vertebral arteries are patent. Alex Rose MD Head CTA 11/17/1626 Signed Impressions: Service Date/Time: Thursday, November 17, 2016 02:37 - CONCLUSION: 1. No aneurysm or stenosis. No thrombus seen. 2. Normal variants as described above. Alex Rose MD Objective Remarks General: No acute distress. Heart: Regular rate and rhythm. No murmur. Lungs: Clear to auscultation bilaterally. No wheezes, rales, or rhonchi. Breathing is nonlabored. Abdomen: Soft, nontender, nondistended. Extremities: No lower extremity edema. Psych: Alert and oriented. Urinary Catheter: Yes Assessment to: Remove Vascular Central Line Catheter: No A/P Problem List: (1) Acute ischemic stroke ICD Code: I63.9 Status: Acute (2) Received intravenous tissue plasminogen activator (t-PA) in emergency department ICD Code: Z92.82 Status: Acute (3) Diabetes mellitus ICD Code: E11.9 Status: Chronic (4) Hyperlipidemia ICD Code: E78.5 Status: Chronic (5) Neuropathy ICD Code: G62.9 Status: Chronic (6) Hypertension ICD Code: I10 Status: Chronic Assessment and Plan 1. Acute ischemic CVA: Patient presented with speech impairment and right-sided weakness. He was given TPA in the emergency department and had improvement of his motor symptoms. His speech has continued to improve as well. Appreciate neurology recommendations. Echocardiogram is unremarkable. Carotid artery ultrasound ordered. 2. Hyperlipidemia: Continue statin. 3. Hypertension: Blood pressure control improving. Home medications resumed. Continue lisinopril, metoprolol. Discharge Planning Possible discharge to [facility] later today. James Stark MD Nov 19, 2016 10:54
--- NOTE | 2016-11-19 11:00 | HHI.DCPOC ---
Discharge Care Plan Diagnosis: (1) Diabetes mellitus (2) Hyperlipidemia (3) Neuropathy (4) Hypertension (5) Acute ischemic stroke (6) Received intravenous tissue plasminogen activator (t-PA) in emergency department Goals to Promote Your Health * To prevent worsening of your condition and complications * To maintain your health at the optimal level Directions to Meet Your Goals Take your medications as prescribed Follow your dietary instruction Follow activity as directed Keep your appointments as scheduled Take your immunizations and boosters as scheduled If your symptoms worsen call your PCP, if no PCP go to Urgent Care Center or Emergency Room Smoking is Dangerous to Your Health. Avoid second hand smoke Call the 24-hour hour crisis hotline for domestic abuse at James Stark MD Nov 19, 2016 11:00
[2016-11-19] MEDS ORDERED: ASPI1TAB69 PO (12:24)
--- NOTE | 2016-11-19 13:31 | RADRPT ---
EXAM DATE/TIME: 11/19/2016 12:55 [facility] COMPARISON: No previous studies available for comparison. INDICATIONS : Short of breath, evaluate pneumonia MEDICAL HISTORY : Hypertension. Arthritis. Carcinoma, prostatic. renal disease, diabetic, skin cancer SURGICAL HISTORY : prostate ENCOUNTER: Subsequent ACUITY: 4 - 6 days PAIN SCORE: 0/10 LOCATION: Bilateral chest FINDINGS: There is infiltrate in the left base obscured left diaphragm. Likely small associated effusion. There may be minimal parenchymal opacity in the right base. Heart size and pulmonary vascular appear withi n normal limits. CONCLUSION: Basilar infiltrates and effusion, left worse than right Duncan Pitts MD on November 19, 2016 at 13:29 Board Certified Radiologist. This report was verified electronically.
[2016-11-19] MEDS ORDERED: LEVOFLOXACIN 750 MG PREMIX INJ 150 ML IV SCH (14:00)
[2016-11-19] MEDS: ATORVASTATIN 40 MG TAB PO SCH (20:40)
[2016-11-20] VITALS (7 sets, daily range): BP systolic 144–183; BP diastolic 67–86; PULSE 66–82; RESP 20–27; TEMP 97.6–97.9; O2SAT 93–98
[2016-11-20] MEDS: THEOPHYLLINE ER 12 HR 200 MG TABCR PO SCH (04:25)
[2016-11-20 05:12] LABS: BASOPHIL % 0.2 % (0.0-2.0); EOSINOPHIL # 0.1 TH/MM3 (0-0.4); EOSINOPHIL % 0.8 % (0.0-4.0); HEMATOCRIT 43.3 % (39.0-51.0); HEMO FLAGS AUTO DIFF; LYMPH % 61.4 % (9.0-44.0); LYMPHOCYTE # 10.9 TH/MM3 (1.0-4.8); MEAN CELL VOLUME 93.6 FL (80.0-100.0); MEAN CORPUSCULAR HEMOGLOBIN 31.5 PG (27.0-34.0); MEAN CORPUSCULAR HGB CONC 33.6 % (32.0-36.0); NEUT % 33.6 % (16.0-70.0); PLATELET COUNT 98 TH/MM3 (150-450); RED BLOOD COUNT 4.63 MIL/MM3 (4.50-5.90); RED CELL DISTRIBUTION WIDTH 14.5 % (11.6-17.2); WHITE BLOOD COUNT 17.8 TH/MM3 (4.0-11.0)
[2016-11-20] MEDS: INSULIN ASPART SUPPLEMENTAL SCALE SQ SCH ×2 (07:00→11:00)
--- NOTE | 2016-11-20 07:40 | HHI.DS ---
Discharge Summary Admission Date Nov 17, 2016 at 01:59 Discharge Date: Nov 20, 2016 Admitting Diagnosis Ischemic stroke s/p TPA (1) Acute ischemic stroke ICD Code: I63.9 (2) Received intravenous tissue plasminogen activator (t-PA) in emergency department ICD Code: Z92.82 (3) Diabetes mellitus ICD Code: E11.9 (4) Hyperlipidemia ICD Code: E78.5 (5) Neuropathy ICD Code: G62.9 (6) Hypertension ICD Code: I10 Procedures None Brief History - From Admission 81 y/o right-handed man developed sudden onset slurred speech, right side weakness. 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 Received tPA after discussion with Neurologist. Right side weakness improved and speech improved, though not back to baseline. He also has LLQ tenderness to deep palpation. CBC/BMP: 11/20/16 0358 11/19/16 0337 Significant Findings Laboratory Tests Test 11/18/16 11/19/16 11/20/16 03:22 03:37 03:58 White Blood Count 17.5 TH/MM3 20.4 TH/MM3 17.8 TH/MM3 (4.0-11.0) (4.0-11.0) (4.0-11.0) Platelet Count 91 TH/MM3 92 TH/MM3 98 TH/MM3 (150-450) (150-450) (150-450) Mean Platelet Volume 6.7 FL 6.6 FL 6.8 FL (7.0-11.0) (7.0-11.0) (7.0-11.0) Lymphocytes (%) (Auto) 60.3 % 61.0 % 61.4 % (9.0-44.0) (9.0-44.0) (9.0-44.0) Lymphocytes # (Auto) 10.5 TH/MM3 12.4 TH/MM3 10.9 TH/MM3 (1.0-4.8) (1.0-4.8) (1.0-4.8) Lymphocytes % 51 % (9-44) 70 % (9-44) Neutrophils # (Manual) 7.9 TH/MM3 (1.8-7.7) Platelet Estimate LOW (NORMAL) LOW (NORMAL) Creatinine 1.43 MG/DL 1.34 MG/DL (0.60-1.30) (0.60-1.30) Estimat Glomerular Filtration 47 ML/MIN (>89) 51 ML/MIN (>89) Rate Calcium Level 7.6 MG/DL 8.4 MG/DL (8.5-10.1) (8.5-10.1) Alkaline Phosphatase 205 U/L 205 U/L (45-117) (45-117) Total Protein 5.7 GM/DL 6.1 GM/DL (6.4-8.2) (6.4-8.2) Albumin 2.5 GM/DL 2.6 GM/DL (3.4-5.0) (3.4-5.0) Imaging Last Impressions Chest X-Ray 11/19/16 1224 Signed Impressions: Service Date/Time: Saturday, November 19, 2016 12:55 - CONCLUSION: Basilar infiltrates and effusion, left worse than right Duncan Pitts MD Gall Bladder Ultrasound 11/18/16 0000 Signed Impressions: Service Date/Time: November 16:47 - CONCLUSION: Minimal gallbladder wall thickening without stones. Amari Ross MD FACR Brain MRI 11/18/16 0000 Signed Impressions: Service Date/Time: November 17:14 - CONCLUSION: Focal area of restricted diffusion high in the left parietal occipital region. This measures less than 1 cm. Two other very faint areas are seen in the left centrum semiovale. Amari Ross MD FACR Head CT 11/17/16 2200 Signed Impressions: Service Date/Time: November 00:24 - CONCLUSION: No acute intracranial disease. Alex Rose MD Neck CTA 11/17/167 Signed Impressions: Service Date/Time: Thursday, November 17, 2016 02:37 - CONCLUSION: 1. No carotid stenosis or thrombus. 2. Vertebral arteries are patent. Alex Rose MD Head CTA 1/11/17 0027 Signed Impressions: Service Date/Time: Thursday, November 17, 2016 02:37 - CONCLUSION: 1. No aneurysm or stenosis. No thrombus seen. 2. Normal variants as described above. Alex Rose MD PE at Discharge General: No acute distress. Heart: Regular rate and rhythm. No murmur. Lungs: Breath sounds mildly diminished in bases, left greater than right. Otherwise clear. Breathing is nonlabored. Abdomen: Soft, nontender, nondistended. Extremities: No lower extremity edema. Psych: Alert and oriented. Pt update on day of discharge The patient has no complaints at this time. Denies chest pain, dyspnea, headache. Hospital Course The patient was admitted to the critical care service for acute ischemic CVA. Neurology was consulted. He was given TPA in the ER with improvement of his symptoms. His speech improved throughout the hospitalization. Weakness improved as well. PT/OT/ST were continued. Arrangements were made for the patient to be discharged to inpatient rehabilitation. He was noted to have increasing leukocytosis. Chest x-ray showed probable pneumonia. He was started on antibiotics. White blood cell count decreased. The patient remained stable on room air. He was felt to be stable for discharge to inpatient rehabilitation. The patient remained hypertensive. Initially permissive hypertension was allowed. Antihypertensive medications were restarted. Amlodipine was added. Pt Condition on Discharge: Stable Discharge Disposition: Rehab Inpatient Discharge Time: <= 30 minutes Discharge Instructions DIET: Follow Instructions for: Heart Healthy Diet, Diabetic Diet Activities you can perform: See Additionl Instruction Other Activity Instructions: With assistance Follow up Referrals: Neurology - 2 Weeks with Ramona Alvarado MD PCP Follow-up - 1 Week New Medications: Amlodipine (Amlodipine) 5 Mg Tab 5 MG PO DAILY Blood Pressure Management #30 Ref 0 TAB Aspirin (Aspirin) 81 Mg Tabdr 81 MG PO DAILY CVA #30 TAB Continued Medications: Allopurinol (Allopurinol) 300 Mg Tab 300 MG PO DAILY Gout #30 Ref 0 TAB Atorvastatin (Atorvastatin) 40 Mg Tab 40 MG PO HS Cholesterol Management #30 Ref 0 TAB Folic Acid (Folic Acid) 5 Mg Cap 1 MG PO DAILY Nutritional Supplement Ref 0 CAP Gabapentin (Gabapentin) 100 Mg Cap 100 MG PO TID #90 Ref 0 CAP Lisinopril (Lisinopril) 20 Mg Tab 20 MG PO DAILY #30 Ref 0 TAB Metoprolol Tartrate (Metoprolol Tartrate) 50 Mg Tab 50 MG PO DAILY #30 Ref 0 TAB Silodosin (Rapaflo) 8 Mg Cap 8 MG PO DAILY Manage Prostate Problems #30 Ref 0 CAP Theophylline ER 12 HR (Theophylline ER 12 HR) 200 Mg Tab 200 MG PO Q12H #60 Ref 0 TAB James Stark MD Nov 20, 2016 07:40
[2016-11-20] MEDS ORDERED: AMLO5TAB2 PO (07:41)
[2016-11-20] MEDS: METOPROLOL TARTRATE 50 MG TAB PO SCH (08:11)
[2016-11-20] MEDS: TAMSULOSIN HCL 0.4 MG CAP PO SCH (08:11)
[2016-11-20] MEDS: GABAPENTIN 100 MG CAP PO SCH ×2 (08:11→12:41)
[2016-11-20] MEDS: FOLIC ACID 1 MG TAB PO SCH (08:11)
[2016-11-20] MEDS: ALLOPURINOL 300 MG TAB PO SCH (08:11)
[2016-11-20] MEDS: LISINOPRIL 20 MG TAB PO SCH (08:11)
[2016-11-20] MEDS: SODIUM CHLORIDE 0.9% FLUSH 5 ML FLUSH IVF SCH (08:12)
[2016-11-20] MEDS ORDERED: ASPIRIN 81 MG CHEW TAB PO SCH (09:00)
[2016-11-20] MEDS ORDERED: amLODIPine BESYLATE 5 MG TAB PO SCH (09:00)
[2016-11-20 10:10] LABS: EOSINOPHILS 1 % (0-4); NEUTROPHIL # MANUAL DIFF 6.1 TH/MM3 (1.8-7.7); PLATELET ESTIMATE SMEAR LOW (NORMAL); PLATELET MORPHOLOGY NORMAL (NORMAL); POLYS (SEG NEUTROPHILS) 34 % (16-70); SCAN/DIFF FINAL DIFF MANUAL; SMUDGE CELLS PRESENT PRESENT; WBC DIFF SAMPLE 100
[2016-11-27] MEDS ORDERED: AMLO5 PO (15:43)
[2016-11-27] MEDS ORDERED: IPRASOL NEB (15:43)
[2016-11-27] MEDS ORDERED: TAMS5CAP PO (15:43)
[2016-11-27] MEDS ORDERED: LISI-515 PO (15:43)
[2016-11-27] MEDS ORDERED: THEO1CAP2 PO (15:43)
[2016-11-27] MEDS ORDERED: FOLI1TAB4 PO (15:43)
[2016-11-27] MEDS ORDERED: ACET325T PO (15:43)
[2016-11-27] MEDS ORDERED: METO-309 PO (15:43)
[2016-11-27] MEDS ORDERED: ULTR50TA5 PO (15:43)
[2016-11-27] MEDS ORDERED: [UNRECOGNIZED DRUG - OTHER] PO (15:43)
[2016-11-27] MEDS ORDERED: MAG-LIQ PO (15:43)
[2016-11-27] MEDS ORDERED: THERTAB15 PO (15:43)
[2016-11-27] MEDS ORDERED: ASPI81TA11 PO (15:43)
[2016-11-27] MEDS ORDERED: LIPI40TA PO (15:43)
[2016-11-27] MEDS ORDERED: GABA100C4 PO (15:43)
[2016-11-27] MEDS ORDERED: ALLO300 PO (15:43)
[2016-12-16] MEDS ORDERED: WHEEMIS3 (12:36)
[2016-12-16] MEDS ORDERED: COMMODE 3-IN-11 MIS (12:36)
[2017-01-04] MEDS ORDERED: HOSP BED1 (14:42)
[2017-01-11] MEDS ORDERED: VITA100T PO (09:07)
[2017-01-11] MEDS ORDERED: GABA100C4 PO (09:07)
[2017-01-11] MEDS ORDERED: THEO1CAP2 PO (09:07)
[2017-01-11] MEDS ORDERED: CARB25TA9 PO (09:07)
[2017-01-11] MEDS ORDERED: COUM1TAB PO (09:07)
[2017-01-11] MEDS ORDERED: ALLO300 PO (09:07)
[2017-01-11] MEDS ORDERED: LIPI40TA PO (09:07)
[2017-01-11] MEDS ORDERED: FOLI1TAB4 PO (09:07)
[2017-01-11] MEDS ORDERED: THERTAB15 PO (09:07)
[2017-02-14] MEDS ORDERED: LIPI40TA PO (12:43)
[2017-03-11] MEDS ORDERED: GABA100C4 PO (10:37)
[2017-03-11] MEDS ORDERED: CARB25TA9 PO (10:37)
[2017-03-11] MEDS ORDERED: FOLI1TAB4 PO (10:37)
== END 2016-11-20 14:00 | DRG 61 ==
LOC: NEPE 00:15 → NEDA 01:59 → N03B 02:46
PROVIDERS: ADMIT Family Medicine; ATTEND Family Medicine
DX: I63.9 Cerebral infarction, unspecified (principal); J18.9 Pneumonia, unspecified organism; G81.91 Hemiplegia, unspecified affecting right dominant side; D69.6 Thrombocytopenia, unspecified; G62.9 Polyneuropathy, unspecified; R47.01 Aphasia; E11.9 Type 2 diabetes mellitus without complications; R31.9 Hematuria, unspecified; M06.9 Rheumatoid arthritis, unspecified; I10 Essential (primary) hypertension; E78.00 Pure hypercholesterolemia, unspecified; E78.5 Hyperlipidemia, unspecified; M10.9 Gout, unspecified; R10.32 Left lower quadrant pain; R29.707 NIHSS score 7; Z92.3 Personal history of irradiation; Z85.46 Personal history of malignant neoplasm of prostate; Z85.828 Personal history of other malignant neoplasm of skin; Z85.51 Personal history of malignant neoplasm of bladder
CPT/HCPCS: 70450; 70496; 70498; 70551; 71010; 76705; 77412; 80048; 80053; 80061; 80307; 81001; 82435; 82550; 82565; 82947; 82948; 83036; 83735; 84100; 84132; 84295; 84484; 84520; 85007; 85027; 85384; 85610; 85730; 86850; 86900; 86901; 87641; 93005; 93306; 94150; 96361; 96374; 96375; 96376; J0171; J0461; J1815; J1956; J2997; J7030; Q9967

== ENCOUNTER 2016-11-27 15:52 | Inpatient (IN) | payer MEDICARE, BC, OTHER ==
[~2016-11-27] VITALS: Ht 175.3 cm; Wt 105.7 kg
[~2016-11-27 15:52] MED LIST: ACET325T PO; ALLO300 PO; ALLO300T2 PO; AMLO5 PO; AMLO5TAB2 PO; ASPI1TAB69 PO; ASPI81TA11 PO; ATOR40TA16 PO; FOLI1TAB4 PO; FOLI5CAP PO; GABA100C4 PO; IPRASOL NEB; LIPI40TA PO; LISI-515 PO; MAG-LIQ PO; METO-309 PO; METO50TA PO; RAPA8CAP PO; TAMS5CAP PO; THEO1CAP2 PO; THEO200T9 PO; THERTAB15 PO; ULTR50TA5 PO; [UNRECOGNIZED DRUG - OTHER] PO
[2016-11-27 20:00] VITALS: BP 147/83; PULSE 92; RESP 18; TEMP 98.7; O2SAT 95
[2016-11-27] MEDS ORDERED: Vancomycin Consult Pharmacy XX SCH (20:00)
[2016-11-27] MEDS ORDERED: SODIUM CHLORIDE FLUSH PRN IVF (20:00)
[2016-11-27] MEDS ORDERED: ONDANSETRON HCL 4 MG/2 ML VIAL IV PUSH PRN (20:00)
[2016-11-27] MEDS ORDERED: HYDROmorphone HCL PF 1 MG/ML VIAL IV PRN (20:00)
[2016-11-27] MEDS ORDERED: ACETAMINOPHEN 325 MG TAB PO PRN (20:00)
[2016-11-27] MEDS: METRONIDAZOLE 500 MG/100 ML ISONTONIC SOLN IV SCH (20:18)
[2016-11-27] MEDS ORDERED: MIDAZOLAM HCL 5 MG/5 ML VIAL ONE (21:05)
[2016-11-27] MEDS ORDERED: fentaNYL CITRATE 250 MCG/5 ML AMP ONE (21:05)
--- NOTE | 2016-11-27 21:26 | PD.RAD ---
Post Procedure Progress Note Pre Procedure Diagnosis: (1) Acute acalculous cholecystitis Post Procedure Diagnosis: (1) Acute acalculous cholecystitis Procedure Date: Nov 27, 2016 Supervising Radiologist: Jayden Bland Proceduralist/Assist: Lisa Prince, RT(R)(), Seamus Rdz RT(R)() Anesthesia: Local, Analgesia, Conscious Sedation Plan of Activity Patient to Unit: PACU Patient Condition: Good See PACS Report for procedural detail/treatment Drainage Procedure Procedure 1 Imaging Guidance: Fluoroscopy, Ultrasound Side: Right Procedure Type: Cholecystostomy Procedure: Placement Vietnamese: 7 Drainage: Landrum drainage Fluid Description: Bilious (Dark) Jayden Bland MD Nov 27, 2016 21:26
[2016-11-28] VITALS: BP 94/52; PULSE 85; RESP 18; TEMP 97.6; O2SAT 98
[2016-11-28] MEDS: THEOPHYLLINE ER 12 HR 200 MG TABCR PO SCH ×2 (00:17→10:52)
[2016-11-28] MEDS: GABAPENTIN 100 MG CAP PO SCH ×4 (00:17→23:45)
[2016-11-28] MEDS: SODIUM CHLORIDE FLUSH BID IVF SCH ×3 (00:17→21:14)
[2016-11-28] MEDS: cefTRIAXone 1,000 MG/NS 100 ML IV SCH ×4 (00:17→22:45)
[2016-11-28] MEDS: METRONIDAZOLE 500 MG/100 ML ISONTONIC SOLN IV SCH ×4 (03:16→21:14)
[2016-11-28 04:00] VITALS: BP 103/53; PULSE 78; RESP 18; TEMP 98.5; O2SAT 95
[2016-11-28 04:42] LABS: AUTOMATED NEUTROPHIL # 12.2 TH/MM3 (1.8-7.7); BASOPHIL # 0.2 TH/MM3 (0-0.2); BASOPHIL % 0.6 % (0.0-2.0); HEMATOCRIT 44.3 % (39.0-51.0); LYMPH % 50.2 % (9.0-44.0); LYMPHOCYTE # 13.7 TH/MM3 (1.0-4.8); MEAN CELL VOLUME 93.4 FL (80.0-100.0); MEAN CORPUSCULAR HEMOGLOBIN 31.8 PG (27.0-34.0); MONO % 4.6 % (0.0-8.0); NEUT % 44.6 % (16.0-70.0); PLATELET COUNT 128 TH/MM3 (150-450); RED BLOOD COUNT 4.75 MIL/MM3 (4.50-5.90); RED CELL DISTRIBUTION WIDTH 14.5 % (11.6-17.2); WHITE BLOOD COUNT 27.3 TH/MM3 (4.0-11.0)
[2016-11-28 04:45] LABS: HEMO FLAGS AUTO DIFF
[2016-11-28 04:58] LABS: INDIRECT BILIRUBIN 0.5 MG/DL (0.0-0.8); TOTAL BILIRUBIN ADULT 0.9 MG/DL (0.2-1.0)
[2016-11-28] MEDS ORDERED: DIATRIZOATE MEGLUM/DIATRIZOATE SOD 9 ML CUP PO ONE (06:00)
[2016-11-28 08:00] VITALS: BP 109/54; PULSE 76; RESP 16; TEMP 97.7; O2SAT 98
--- NOTE | 2016-11-28 08:36 | MB ---
cc: ZE MIKE DATE OF CONSULTATION: 11/28/[address] Sood. REASON FOR CONSULTATION Acute cholecystitis. HISTORY OF PRESENT ILLNESS The patient is a 81-year-old male who recently experienced a CVA and currently admitted to [facility] for stroke rehab. The patient developed right upper quadrant pain and workup showed dilated gallbladder on ultrasound. The patient underwent a HIDA scan on 11/27/2016 that showed nonvisualization of the gallbladder that could represent acute cholecystitis. The patient also known to have a white blood cell count of 27,000. After discussion with interventional radiology and surgery the patient is recommended to undergo percutaneous cholecystostomy tube due to his recent stroke and risk of anesthesia and overall poor performance status. The patient underwent a previous cholecystostomy on 11/27/2016 without difficulty with dark bile being aspirated. The patient states that he feels better since the aspiration and denies any fevers, chills or night sweats at this time. He states he is hungry and feels like he would like to continue rehab as soon as possible. He has no other complaints. Denies any vision changes, headache, chest pain, shortness of breath, any abdominal pain or any other complaints. REVIEW OF SYSTEMS A 12-point review of systems view of systems was performed with the patient and is negative except for the pertinent positives mentioned above in history of present illness. PAST MEDICAL HISTORY 1. Neuropathy. 2. Rheumatoid arthritis. 3. Diabetes. 4. Gout. 5. Hypertension. 6. Dyslipidemia. 7. History of prostate cancer. PAST SURGICAL HISTORY None. MEDICATIONS 1. Aspirin. 2. Amlodipine. 3. Allopurinol. 4. Metoprolol. 5. Atorvastatin. 6. Rapaflo. 7. Gabapentin. 8. Theophylline. 9. Lisinopril. ALLERGIES NO KNOWN DRUG ALLERGIES. FAMILY HISTORY Noncontributory. SOCIAL HISTORY The patient denies alcohol, tobacco or illicit drug use. Currently in [facility], transferred to inpatient at [facility]. PHYSICAL EXAMINATION VITAL SIGNS: Temperature 98.5 degrees. Blood pressure 103/53. Respiratory rate 18, heart rate 78. GENERAL: Patient is a chronically ill-appearing male in no acute distress. HEENT: Head is normocephalic, atraumatic. Pupils round, reactive accommodation to light. Sclerae anicteric. Mucous membranes are moist. NECK: Supple. No JVD. LUNG: Clear to auscultation and percussion bilaterally. Nonlabored breathing pattern. HEART: Regular rate and rhythm. ABDOMEN: Soft, obese, nontender to palpation. No organomegaly. No Sawyer sign. No rebound tenderness or peritonitis. Cholecystostomy tube in the right upper quadrant with old blood appearing drainage. EXTREMITIES: Positive trace edema. NEUROLOGIC: The patient is awake, alert and appropriate, oriented x4. ASSESSMENT/PLAN The patient is a 81-year-old male with acute cholecystitis as well as cholecystostomy tube with clinical improvement. I recommend continued management of the cholecystostomy tube per interventional radiology recommendations. This will likely stay in for several weeks. The patient to continue rehab once he is medically stable in the next 24-48 hours. I do agree with continued course of IV antibiotics for at least 7 days. We will see the patient when he has completed his rehab to follow with my office for long-term management of the cholecystostomy tube which will be either tube removal in the appropriate setting versus possible delayed cholecystectomy if he is cleared for surgery by his neurologist. Thank you very much, will follow along with the patient while he is in the hospital and will be available as the patient returns to [facility] or any further assistance we may provide. Thank you very much for this consultation. MD ALIDA Braden/TANIA /8:03 AM /8:15 AM
--- NOTE | 2016-11-28 09:10 | RADRPT ---
EXAM DATE/TIME: 11/28/2016 08:38 [facility] COMPARISON: US ABDOMEN - COMPLETE, November 27, 2016, 10:40. INDICATIONS : Abdomen pain, right upper side. nausea. ORAL CONTRAST: Prescribed oral contrast ingested. RADIATION DOSE: 16.48 CTDIvol (mGy) MEDICAL HISTORY : Hypertension. Renal failure, chronic. Carcinoma, prostate.diabetic SURGICAL HISTORY : None. ENCOUNTER: Initial ACUITY: 1 day PAIN SCALE: 5/10 LOCATION: abdomen TECHNIQUE: Volumetric scanning of the abdomen was performed. Using automated exposure control and adjustment of the mA and/or kV according to patient size, radiation dose was kept as low as reasonably achievable to obtain optimal diagnostic quality images. FINDINGS: LOWER LUNGS: There are small bilateral pleural effusions with associated compressive atelectasis and possible cons olidation. LIVER: Homogeneous density without lesion. There is no dilation of the biliary tree. The pigtail catheter/c holecystostomy tube is present within the fundal aspect of the gallbladder and the gallbladder is dec ompressed. There is induration of the fat surrounding the gallbladder and in the right upper quadrant . There are multiple punctate calcifications in the region of the gallbladder neck. SPLEEN: Enlarged measuring 14.4 cm in length. There is a wedge-shaped area of low density in the posterior as pect measuring approximately 4.1 cm. PANCREAS: Within normal limits. KIDNEYS: Normal in size and shape. There is no mass, stone, or hydronephrosis. ADRENAL GLANDS: Within normal limits. AORTA/RETROPERITONEAL: There is no aneurysm or lymphadenopathy. There is severe atherosclerotic disease. BOWEL/MESENTERY: The stomach and visualized small and large bowel demonstrate no abnormality. There is a small volume of free fluid around the liver and spleen. MUSCULOSKELETAL: There are degenerative changes of the lumbar spine. CONCLUSION: 1. Cholecystostomy tube is present within a decompressed gallbladder. There are inflammatory changes surrounding the gallbladder. These inflammatory changes could be related to the acute gallbladder dis ease or could be related to the recent procedure. There multiple punctate calcifications in the regio n of the gallbladder neck that may represent gallstones. 2. Splenomegaly with a wedge-shaped area of low-density in the posterior aspect. Although this is inc ompletely characterized on this examination the wedge-shaped appearance favors infarct. Mass is felt less likely given the shape but also a possibility. 3. Small bilateral pleural effusions with compressive atelectasis and/or consolidation at the lung ba ses. 4. There is a small volume of free fluid in the abdomen. Duncan Rajput MD on November 28, 2016 at 9:01 Board Certified Radiologist. This report was verified electronically.
[2016-11-28] MEDS: ALLOPURINOL 300 MG TAB PO SCH (09:35)
[2016-11-28] MEDS: ASPIRIN EC 81 MG TABEC PO SCH (09:35)
[2016-11-28] MEDS: LISINOPRIL 20 MG TAB PO SCH (09:35)
[2016-11-28] MEDS: TAMSULOSIN HCL 0.4 MG CAP PO SCH (09:35)
[2016-11-28] MEDS: FOLIC ACID 1 MG TAB PO SCH (09:35)
[2016-11-28] MEDS: ACETAMINOPHEN/HYDROcodone 325 MG/10 MG TAB PO PRN ×2 (09:41→21:15)
--- NOTE | 2016-11-28 09:44 | HHI.HP ---
HPI Service [facility] Hospitalists Primary Care Physician Unknown Admission Diagnosis Acute Cholecystitis Diagnoses: Chief Complaint: Abdominal pain Travel History International Travel<30 Days: No Contact w/Intl Traveler <30 Da: No Traveled to Known Affected Are: No Sepsis Criteria SIRS Criteria (2 or more): Heart rate over 90, WBC > 36602, < 4000 or > 10% bands Sepsis Criteria (SIRS+source): Infect source susp/known Severe Sepsis (+one): Acute Oliguria/Renal Failure Criteria Outcome: Meets severe sepsis criteria History of Present Illness This is an 81-year-old male who was initially admitted at [facility] for right-sided weakness, the patient was found to have an acute left ischemic CVA with speech impairment and right-sided weakness. Patient was given TPA in the emergency department which improved his symptoms. He was seen by neurology and he was cleared for discharge. Echocardiogram was unremarkable, CTA did not show any carotid stenosis or thrombus. On the day of discharge, patient started having leukocytosis, a chest x-ray showed infiltrates in the left lung base hence patient was started Levaquin for pneumonia. Patient was admitted at [facility]. While he was at [facility], patient started to complain of abdominal pain, described as midepigastric to the right upper quadrant region. He had episode of nausea and vomiting previous day. Pain started to get worse yesterday, WBC was elevated 21.5, HR 100-104. Patient meeting SIRS, severe sepsis criteria. His KUB did not show any significant changes or bowel obstruction. Ultrasound abdomen - Showed Distended gallbladder with mild wall thickening. No gallstones are present. However, the shuttlecock assembler reported the patient having focal pain when imaging over the gallbladder. This may represent acalculus cholecystitis. HIDA scan may be of benefit to evaluate for cystic duct obstruction. Stable coarsened echotexture of the liver with questionable nodular contour. Although nonspecific this raises suspicion for chronic liver disease/cirrhosis. There is also mild splenomegaly. Mild renal cortical thinning bilaterally. Total bili 0.9, AST 35, AST 26, alkaline phosphatase 230. Patient was started on ceftriaxone 1 g every 24, Flagyl 500 mg every 8, vancomycin 1500 mg. HIDA scan was done, showed nonvisualization of the gallbladder. In the appropriate clinical setting, findings could represent acute cholecystitis. Patient went to intravascular radiology for percutaneous cholangiogram, placement of cholecystostomy tube. Patient seen today. States his doing a lot better. Denies any abdominal pain, abdominal cramping. On 2 L nasal cannula but states he is not short of breath more than usual. Seen by Dr. Longoria this morning. Patient is worried about continuing rehabilitation with cholecystostomy tube. Discussed and explained with patient that he may go to rehabilitation with cholecystostomy tube as long as he is medically stable and okay for rehabilitation. Otherwise, denies pain and discomfort. Denies SOB/ dyspnea. Denies chestpain, palpitations, headaches, dizziness. Denies fevers, chills, n/v/d. Review of Systems Other Negative except for what is noted on history of present illness. Past Family Social History Past Medical History Neuropathy Skin cancer Rheumatoid arthritis Diabetes mellitus Got Dyslipidemia Hypertension Prostate cancer test was radiation treatment - followed by Dr. Elam cystoscopy every 3 months Past Surgical History Radiation treatment for prostate cancer Reported Medications Amlodipine (Amlodipine Besylate) 5 Mg Tab 5 Mg PO DAILY Aspirin 81 Mg Tabdr 81 Mg PO DAILY Allopurinol 300 Mg Tab 300 Mg PO DAILY Metoprolol Tartrate 50 Mg Tab 50 Mg PO DAILY Folic Acid 5 Mg Cap 1 Mg PO DAILY Atorvastatin (Atorvastatin Calcium) 40 Mg Tab 40 Mg PO HS Rapaflo (Silodosin) 8 Mg Cap 8 Mg PO DAILY Gabapentin 100 Mg Cap 100 Mg PO TID Theophylline ER 12 HR (Theophylline) 200 Mg Tab 200 Mg PO Q12H Lisinopril 20 Mg Tab 20 Mg PO MATY Allergies: Coded Allergies: No Known Allergies (Unverified , 11/17/16) Active Ordered Medications Current Medications Medications (Trade) Dose Ordered Sig/Robert Route Start Time Stop Time Status Last Admin Metronidazole 100 ml @ 100 mls/hr Q6H IV 11/27/16 20:00 11/28/16 03:16 (Rocephin Inj/NS Inj) 100 ml @ 200 mls/hr Q24H IV 11/27/16 21:00 11/28/16 00:17 (Dilaudid Pf Inj) 1 mg Q4H PRN IV 11/27/16 20:00 (NS Flush) 2 ml BID IVF 11/27/16 21:00 11/28/16 00:17 (NS Flush) 2 ml UNSCH PRN IVF 11/27/16 20:00 (Tylenol) 650 mg Q4H PRN PO 11/27/16 20:00 Ondansetron HCl 4 mg 4 mg Q6H PRN IV PUSH 11/27/16 20:00 (Vancomycin Consult Pharmacy) ml @ 0 mls/hr UNSCH XX 11/27/16 20:00 ([place] 10-325 Mg) 1 tab Q4H PRN PO 11/27/16 23:15 (Zyloprim) 300 mg DAILY PO 11/28/16 09:00 (Ecotrin Ec) 81 mg DAILY PO 11/28/16 09:00 (Folate) 1 mg DAILY PO 11/28/16 09:00 (Neurontin) 100 mg Q8H PO 11/27/16 23:00 11/28/16 05:28 (Prinivil) 20 mg DAILY PO 11/28/16 09:00 (Flomax) 0.4 mg DAILY PO 11/28/16 09:00 (Theochron) 200 mg Q12H PO 11/27/16 23:15 11/28/16 00:17 (Yaron-24) 200 mg DAILY@20 PO 11/28/16 20:00 Family History No family history of stroke or seizures Social History Denies alcohol use Denies tobacco use Denies illicit drug use Physical Exam Vital Signs Vital Signs Date Time Temp Pulse Resp B/P Pulse Ox O2 Delivery O2 Flow Rate FiO2 11/28/16 08:00 97.7 76 16 109/54 98 11/28/16 04:00 98.5 78 18 103/53 95 11/28/16 00:49 18 11/28/16 00:00 97.6 85 18 94/52 98 11/27/16 22:30 92 14 112/57 97 Nasal Cannula 2 11/27/16 22:15 98.1 89 12 105/53 97 Nasal Cannula 2 11/27/16 22:00 89 12 129/74 96 Nasal Cannula 2 11/27/16 21:50 92 12 126/75 91 Nasal Cannula 2 11/27/16 21:45 98.3 91 12 139/77 93 Room Air 11/27/16 20:00 98.7 92 18 147/83 95 Physical Exam GENERAL: This is a well-nourished, well-developed patient, in no apparent distress. SKIN: No rashes, ecchymoses or lesions. Cool and dry. HEAD: Atraumatic. Normocephalic. No temporal or scalp tenderness. EYES: Pupils equal round and reactive. Extraocular motions intact. No scleral icterus. No injection or drainage. ENT: Nose without bleeding. Throat without erythema. Uvula midline. Airway patent. NECK: Trachea midline. No JVD or lymphadenopathy. Supple, nontender, no meningeal signs. CARDIOVASCULAR: Regular rate and rhythm without murmurs, gallops, or rubs. RESPIRATORY: Clear to auscultation. Breath sounds equal bilaterally. No wheezes , rales, or rhonchi. GASTROINTESTINAL: Abdomen soft, non-tender, nondistended. Cholecystostomy tube and right upper quadrant draining serosanguineous/bilious-colored drain. MUSCULOSKELETAL: Extremities without clubbing, cyanosis, bilateral lower extremity trace edema. No joint tenderness, effusion, or edema noted. No calf tenderness. Negative Homans sign bilaterally. NEUROLOGICAL: Awake and alert. Oriented 3. Motor and sensory grossly within normal limits. Normal speech. Laboratory Laboratory Tests Test 11/28/16 04:28 White Blood Count 27.3 Red Blood Count 4.75 Hemoglobin 15.1 Hematocrit 44.3 Mean Corpuscular Volume 93.4 Mean Corpuscular Hemoglobin 31.8 Mean Corpuscular Hemoglobin 34.0 Concent Red Cell Distribution Width 14.5 Platelet Count 128 Mean Platelet Volume 6.7 Neutrophils (%) (Auto) 44.6 Lymphocytes (%) (Auto) 50.2 Monocytes (%) (Auto) 4.6 Eosinophils (%) (Auto) 0.0 Basophils (%) (Auto) 0.6 Neutrophils # (Auto) 12.2 Lymphocytes # (Auto) 13.7 Monocytes # (Auto) 1.3 Eosinophils # (Auto) 0.0 Basophils # (Auto) 0.2 CBC Comment AUTO DIFF Creatinine 2.03 Estimat Glomerular Filtration 32 Rate Total Bilirubin 0.9 Direct Bilirubin 0.4 Indirect Bilirubin 0.5 Aspartate Amino Transf 29 (AST/SGOT) Alanine Aminotransferase 22 (ALT/SGPT) Alkaline Phosphatase 188 Total Protein 5.5 Albumin 2.2 Random Vancomycin Level 12.4 Result Diagram: 11/28/1642711/28/16427 Assessment and Plan Problem List: (1) Acute acalculous cholecystitis ICD Code: K81.0 Status: Acute (2) Pneumonia ICD Code: J18.9 Status: Acute (3) Diabetes mellitus ICD Code: E11.9 Status: Resolved (4) Hypertension ICD Code: I10 Status: Chronic (5) Neuropathy ICD Code: G62.9 Status: Chronic (6) Hyperlipidemia ICD Code: E78.5 Status: Chronic (7) Acute ischemic stroke ICD Code: I63.9 Status: Acute (8) Abdominal pain ICD Code: R10.9 Status: Acute (9) Severe sepsis ICD Code: A41.9 Status: Acute (10) Acute renal failure ICD Code: N17.9 Status: Acute Assessment and Plan This is an 81-year-old male with recent left ischemic CVA with right sided weakness also discharged with pneumonia. Admitted to [facility]. Patient developed abdominal pain, found to have acute cholecystitis, severe sepsis. Transferred back to inpatient [facility] for further management. Abdominal x-ray showed Nonobstructed bowel gas pattern with out pneumoperitoneum. S-shaped scoliosis of the thoracolumbar spine with associated degenerative changes. Ultrasound abdomen - Showed Distended gallbladder with mild wall thickening. No gallstones are present. However, the shuttlecock assembler reported the patient having focal pain when imaging over the gallbladder. This may represent acalculus cholecystitis. HIDA scan may be of benefit to evaluate for cystic duct obstruction. Stable coarsened echotexture of the liver with questionable nodular contour. Although nonspecific this raises suspicion for chronic liver disease/cirrhosis. There is also mild splenomegaly. Mild renal cortical thinning bilaterally. HIDA scan was done, showed nonvisualization of the gallbladder. In the appropriate clinical setting, findings could represent acute cholecystitis. Patient went to intravascular radiology for percutaneous cholangiogram, placement of cholecystostomy tube. SIRS, severe Sepsis Acute Cholecystitis, status post cholecystostomy tube placement - Continue Ceftriaxone 1gm q24, Flagyl 500mg Q8, Vancomycin pharmacy to dose. If patient better, may stop vancomycin in a day or 2 - General surgery consulted, input appreciated. Discussed extensively with Dr. Longoria. Recommended jose-cholecystostomy tube placement, discussed with Dr. Bland, continue with cholecystostomy tube. Patient will follow up as outpatient for long-term management of cholecystostomy tube, removal of the tube versus surgical intervention. Patient will probably need to chew for several weeks, once more stable, transfer back to [facility] for therapy. - WBC 27.3 11/28/15 -Check labs marguerite Left ischemic infarct- with very mild right-sided weakness, improved, continue therapy. Continue aspirin, statin and blood pressure control. Very mild residuals. History left-sided pneumonia - DuoNeb's schedule, continue theophylline. -Monitor respiratory status Hypertension-controlled, continue Norvasc, metoprolol, clonidine as needed. Acute kidney failure on chronic kidney disease - Possible chronic kidney disease -Baseline creatinine around 1.3-1.5. - [employer] 2.03 - IV fluid hydration NS 100 mL - Check BMP tomorrow DVT prophylaxis SCDs Written by Da Fisher, acting as scribe for Dr. Sood on 11/28/16 at 08: 13. The documentation accurately reflects the work performed [id number] by me on at 08:13 Code Status Full code Discussed Condition With Patient, nursing, Dr. Longoria, Dr. Bland Physician Certification 2 Midnight Certification Type: Admission for Inpatient Services Order for Inpatient Services The services are ordered in accordance with Medicare regulations or non- Medicare payer requirements, as applicable. In the case of services not specified as inpatient-only, they are appropriately provided as inpatient services in accordance with the 2-midnight benchmark. Estimated LOS (days): 2 days is the estimated time the patient will need to remain in the hospital, assuming treatment plan goals are met and no additional complications. Post-Hospital Plan: Inpatient Rehab [facility] Nov 28, 2016 09:44 Kj Sood MD Nov 28, 2016 10:45 days is the estimated time the patient will need to remain in the hospital, assuming treatment plan goals are met and no additional complications. Post-Hospital Plan: Inpatient Rehab [facility] Nov 28, 2016 09:44
[2016-11-28] MEDS ORDERED: RESP: ALBUTEROL 2.5 MG/IPRATROPIUM 0.5 MG NEB (PRN) NEB (09:45)
[2016-11-28 10:05] LABS: NEUTROPHIL # MANUAL DIFF 7.9 TH/MM3 (1.8-7.7); POLYS (SEG NEUTROPHILS) 29 % (16-70); WBC DIFF SAMPLE 100
[2016-11-28 10:07] LABS: PLATELET ESTIMATE SMEAR LOW (NORMAL); PLATELET MORPHOLOGY NORMAL (NORMAL); SCAN/DIFF FINAL DIFF MANUAL; SMUDGE CELLS PRESENT PRESENT
[2016-11-28] MEDS: SODIUM CHLOR 0.9% 1000 ML INJ 1,000 ML IV SCH ×2 (10:47→21:13)
[2016-11-28 12:00] VITALS: BP 108/57; PULSE 90; RESP 17; TEMP 98.5; O2SAT 93
[2016-11-28] MEDS: RESP: ALBUTEROL 2.5 MG/IPRATROPIUM 0.5 MG NEB (SCH) NEB ×2 (12:21→19:43)
[2016-11-28] MEDS: THEOPHYLLINE 200 MG EXTENDED RELEASE CAP PO SCH (14:34)
[2016-11-28] MEDS ORDERED: VANCOMYCIN INJ 1,500 MG in SODIUM CHLORID 0.9% 500 ML INJ 500 ML IV ONE (15:00)
[2016-11-28 16:00] VITALS: BP 102/54; PULSE 86; RESP 16; TEMP 96; O2SAT 96
--- NOTE | 2016-11-28 16:29 | RADRPT ---
EXAM DATE/TIME: 11/27/2016 21:07 [place] COMPARISON: No previous studies available for comparison. INDICATIONS : Patient with a history of acute cholecystitis. MEDICAL HISTORY : Neuropathy Skin cancer Rheumatoid arthritis Diabetes Gout Hypercholesterolemia HTN Prostate cancer SURGICAL HISTORY : Radiation treatment for prostate cancer ENCOUNTER: Initial ACUITY: 1 day PAIN SCORE: 7/10 LOCATION: flank FLUORO TIME: 0.7 minutes SEDATION TIME: 30 minutes MEDICATION(S): 1.) 0.5 mg midazolam (Versed) IV 2.) 50 mcg fentanyl (Sublimaze) IV DEVICE(S): 1.) 7 [place]an 7FR Skater catheter PROCEDURE : 1. Ultrasound guided puncture of the gallbladder. 2. Percutaneous cholangiogram. 3. Percutaneous cholecystostomy tube placement. 4. Conscious sedation with continuous EKG and oximetry monitoring. The risks, benefits and alternatives to the procedure were explained and verbal and written consent w as obtained. The site was prepped in sterile fashion. Full sterile technique was used, including ca p, mask, sterile gloves and gown and a large sterile sheet. Hand hygiene and 2% chlorhexidine and/or betadine/alcohol prep was utilized per protocol for cutaneous antisepsis. The skin and subcutaneous tissues were infiltrated with local anesthetic solution. With ultrasound and fluoroscopic guidance the gallbladder was punctured with a micropuncture set and a 4 [place]an dilator was placed. Injection of positive contrast demonstrates position within the gallb ladder. A 0.035 guidewire was placed within the gallbladder lumen and dilatation was performed to ac cept the prescribed catheter. Conscious sedation was performed with the prescribed dosages and duration as above. The patient tole rated the procedure well and there were no complications. EKG and oximetry remained stable throughou t the procedure. The patient was sent to post anesthesia recovery in stable condition. CONCLUSION: Uncomplicated percutaneous cholecystostomy as above. Jayden Bland MD on November 28, 2016 at 16:27 Board Certified Radiologist. This report was verified electronically.
[2016-11-29] VITALS (8 sets, daily range): BP systolic 99–124; BP diastolic 54–60; PULSE 82–108; RESP 18–20; TEMP 96.2–98.1; O2SAT 94–99
[2016-11-29] MEDS: METRONIDAZOLE 500 MG/100 ML ISONTONIC SOLN IV SCH ×4 (02:30→21:01)
[2016-11-29] MEDS: ACETAMINOPHEN/HYDROcodone 325 MG/10 MG TAB PO PRN ×2 (05:50→16:40)
[2016-11-29] MEDS: SODIUM CHLOR 0.9% 1000 ML INJ 1,000 ML IV SCH ×2 (05:50→15:45)
[2016-11-29] MEDS: GABAPENTIN 100 MG CAP PO SCH ×3 (05:50→14:02)
[2016-11-29 05:55] LABS: AUTOMATED NEUTROPHIL # 6.2 TH/MM3 (1.8-7.7); BASOPHIL % 0.2 % (0.0-2.0); EOSINOPHIL % 0.2 % (0.0-4.0); LYMPH % 65.1 % (9.0-44.0); LYMPHOCYTE # 12.8 TH/MM3 (1.0-4.8); MEAN CELL VOLUME 94.2 FL (80.0-100.0); MEAN CORPUSCULAR HEMOGLOBIN 31.6 PG (27.0-34.0); MEAN CORPUSCULAR HGB CONC 33.6 % (32.0-36.0); MONO % 2.9 % (0.0-8.0); NEUT % 31.6 % (16.0-70.0); PLATELET COUNT 112 TH/MM3 (150-450); RED BLOOD COUNT 4.03 MIL/MM3 (4.50-5.90); RED CELL DISTRIBUTION WIDTH 14.4 % (11.6-17.2); WHITE BLOOD COUNT 19.7 TH/MM3 (4.0-11.0)
[2016-11-29 06:24] LABS: BICARBONATE 24.9 MEQ/L (21.0-32.0); CALCIUM-PROTEIN CORRECTED 8.4 MG/DL (8.5-10.1); POTASSIUM 4.1 MEQ/L (3.5-5.1); TOTAL BILIRUBIN ADULT 0.6 MG/DL (0.2-1.0)
[2016-11-29 06:26] LABS: HEMO FLAGS AUTO DIFF
[2016-11-29] MEDS: RESP: ALBUTEROL 2.5 MG/IPRATROPIUM 0.5 MG NEB (SCH) NEB (07:26)
[2016-11-29] MEDS: FOLIC ACID 1 MG TAB PO SCH (07:51)
[2016-11-29] MEDS: LISINOPRIL 20 MG TAB PO SCH (07:52)
[2016-11-29] MEDS: ASPIRIN EC 81 MG TABEC PO SCH (07:52)
[2016-11-29] MEDS: TAMSULOSIN HCL 0.4 MG CAP PO SCH (07:52)
[2016-11-29] MEDS: ALLOPURINOL 300 MG TAB PO SCH (07:52)
[2016-11-29] MEDS: THEOPHYLLINE 200 MG EXTENDED RELEASE CAP PO SCH (07:53)
[2016-11-29] MEDS: SODIUM CHLORIDE FLUSH BID IVF SCH ×2 (07:53→21:00)
[2016-11-29 09:30] LABS: BANDS 1 % (0-6); BASOPHILS 1 % (0-2); EOSINOPHILS 1 % (0-4); NEUTROPHIL # MANUAL DIFF 6.3 TH/MM3 (1.8-7.7); POLYS (SEG NEUTROPHILS) 31 % (16-70); WBC DIFF SAMPLE 100
[2016-11-29 09:31] LABS: SMUDGE CELLS PRESENT PRESENT
[2016-11-29 09:32] LABS: PLATELET ESTIMATE SMEAR LOW (NORMAL); PLATELET MORPHOLOGY NORMAL (NORMAL); SCAN/DIFF FINAL DIFF MANUAL
[2016-11-29] MEDS ORDERED: VANCOMYCIN INJ 1,500 MG in SODIUM CHLORID 0.9% 500 ML INJ 500 ML IV ONE (17:00)
--- NOTE | 2016-11-29 17:49 | HHI.PR ---
Subjective Remarks Patient feels better states felt chills after getting [place] denies cp/sob denies fevers denies nausea or vomiting passing gas Objective Vitals Vital Signs Date Time Temp Pulse Resp B/P Pulse Ox O2 Delivery O2 Flow Rate FiO2 11/29/16 12:00 96.9 107 20 121/58 95 11/29/16 08:00 96.2 87 18 112/56 99 11/29/16 07:29 98 21 11/29/16 04:00 98.0 91 20 99/54 94 11/29/16 00:00 97.4 82 18 110/58 97 11/28/16 22:45 16 I/O 11/28/16 11/28/16 11/28/16 11/29/16 11/29/16 11/29/16 07:00 15:00 23:00 07:00 15:00 23:00 Intake Total 1549 ml 1200 ml 480 ml 0 ml 650 ml Output Total 425 ml 100 ml 500 ml 500 ml 450 ml Balance 1124 ml 1100 ml -20 ml -500 ml 200 ml Intake Oral 240 ml 1200 ml 480 ml 0 ml 650 ml IV Total 1309 ml 0 ml Output Urine Total 300 ml 500 ml 500 ml 450 ml Drainage Total 125 ml 100 ml # Voids 2 # Bowel Movements 2 0 0 Result Diagram: 11/29/16 0502 11/29/16 0502 Imaging Last Impressions Percutaneous Cholangiogram 11/27/16 0000 Signed Impressions: Service Date/Time: Sunday, November 27, 2016 21:07 - CONCLUSION: Uncomplicated percutaneous cholecystostomy as above. Jayden Bland MD Abdomen CT 11/27/16 0000 Signed Impressions: Service Date/Time: Monday, November 28, 2016 08:38 - CONCLUSION: 1. Cholecystostomy tube is present within a decompressed gallbladder. There are inflammatory changes surrounding the gallbladder. These inflammatory changes could be related to the acute gallbladder disease or could be related to the recent procedure. There multiple punctate calcifications in the region of the gallbladder neck that may represent gallstones. 2. Splenomegaly with a wedge-shaped area of low-density in the posterior aspect. Although this is incompletely characterized on this examination the wedge-shaped appearance favors infarct. Mass is felt less likely given the shape but also a possibility. 3. Small bilateral pleural effusions with compressive atelectasis and/or consolidation at the lung bases. 4. There is a small volume of free fluid in the abdomen. Duncan Rajput MD Objective Remarks GENERAL: This is a well-nourished, well-developed patient, in no apparent distress. SKIN: No rashes, ecchymoses or lesions. Cool and dry. HEAD: Atraumatic. Normocephalic. No temporal or scalp tenderness. EYES: Pupils equal round and reactive. Extraocular motions intact. No scleral icterus. No injection or drainage. ENT: Nose without bleeding. Throat without erythema. Uvula midline. Airway patent. NECK: Trachea midline. No JVD or lymphadenopathy. Supple, nontender, no meningeal signs. CARDIOVASCULAR: Regular rate and rhythm without murmurs, gallops, or rubs. RESPIRATORY: Clear to auscultation. Breath sounds equal bilaterally. No wheezes , rales, or rhonchi. GASTROINTESTINAL: Abdomen soft, non-tender, nondistended. Cholecystostomy tube and right upper quadrant draining bilious-colored drain. MUSCULOSKELETAL: Extremities without clubbing, cyanosis, bilateral lower extremity trace edema. No joint tenderness, effusion, or edema noted. No calf tenderness. Negative Homans sign bilaterally. NEUROLOGICAL: Awake and alert. Oriented 3. Motor and sensory grossly within normal limits. Normal speech. Procedures Percutaneous cholecystostomy tube drain placement on 11/28/16 Medications and IVs Current Medications Medications (Trade) Dose Ordered Sig/Robert Route Start Time Stop Time Status Last Admin (Flagyl 500 Mg Inj) 100 ml @ 100 mls/hr Q6H IV 11/27/16 20:00 11/29/16 14:02 (Dilaudid Pf Inj) 1 mg Q4H PRN IV 11/27/16 20:00 (NS Flush) 2 ml BID IVF 11/27/16 21:00 11/28/16 21:14 (NS Flush) 2 ml UNSCH PRN IVF 11/27/16 20:00 (Tylenol) 650 mg Q4H PRN PO 11/27/16 20:00 Ondansetron HCl 4 mg 4 mg Q6H PRN IV PUSH 11/27/16 20:00 (Vancomycin Consult Pharmacy) ml @ 0 mls/hr UNSCH XX 11/27/16 20:00 (Zyloprim) 300 mg DAILY PO 11/28/16 09:00 11/29/16 07:52 (Ecotrin Ec) 81 mg DAILY PO 11/28/16 09:00 11/29/16 07:52 (Folate) 1 mg DAILY PO 11/28/16 09:00 11/29/16 07:51 (Neurontin) 100 mg Q8H PO 11/27/16 23:00 11/29/16 14:02 (Prinivil) 20 mg DAILY PO 11/28/16 09:00 11/29/16 07:52 (Flomax) 0.4 mg DAILY PO 11/28/16 09:00 11/29/16 07:52 Theophylline 400 mg 400 mg DAILY PO 11/28/16 16:00 11/29/16 07:53 (NS 1000 ml Inj) 1,000 ml @ 100 mls/hr Q10H IV 11/28/16 09:45 11/29/16 05:50 Miscellaneous Information SPECIFIC LAB TO BE DRAWN:THEOPHYL... ONCE ONCE XX 11/30/16 08:00 11/30/16 08:01 Vancomycin HCl 1500 mg/Sodium Chloride 515 ml @ 257.5 mls/ hr ONCE ONCE IV 11/29/16 17:00 11/29/16 18:59 11/29/16 18:10 Ciprofloxacin/ Dextrose 200 ml @ 200 mls/hr Q24H IV 11/29/16 18:00 (Calcium Chloride Inj/NS Inj) 120 ml @ 120 mls/hr ONCE ONCE IV 11/29/16 18:30 11/29/16 19:29 (Percocet 5-325 Mg) 1 tab Q4H PRN PO 11/29/16 18:00 A/P Problem List: (1) Sepsis ICD Code: A41.9 Status: Acute Plan: Sepsis due to acalculous cholecystitis. Surgery consulted and following. Follow up recommendations. Patient is status post placement of percutaneous cholecystostomy draining tube by interventional radiology. Sepsis syndrome improving with leukocytosis trending down, patient still tachycardic, no fever. Continue to monitor vital signs, IV fluids. I will discontinue IV Rocephin and start IV ciprofloxacin and continue metronidazole and discontinue IV vancomycin given rise in creatinine. Blood cultures are negative to date, continue to monitor (2) Acute acalculous cholecystitis ICD Code: K81.0 Status: Acute Plan: As above. Alkaline phosphatase trending down. (3) Diabetes mellitus ICD Code: E11.9 Status: Resolved (4) Hypertension ICD Code: I10 Status: Chronic Plan: Patient had an episode of hypotension this am, bp now better. Will increase IV fluid rate to 125 ml/hour. Continue to monitor bp. I will hold LULU inhibitor due to rising creatinine but will continue other antihypertensive medications with holding parameters. (5) Acute ischemic stroke ICD Code: I63.9 Status: Resolved Plan: With very mild right-sided weakness, improved, continue physical therapy. Continue aspirin and statin and blood pressure control. (6) Abdominal pain ICD Code: R10.9 Status: Resolved Plan: Due to acalculous cholecystitis. Continue pain control with oral Percocet. We'll discontinue [place] due to the patient complaining of chills after ingestion of this medication. (7) ANDREI (acute kidney injury) ICD Code: N17.9 Status: Acute Plan: AK I on chronic kidney disease stage III. Patient's baseline creatinine is around 1.3 to 1.4. Patient's creatinine slightly elevated from 2.03-2.20. Will discontinue vancomycin, increase IV normal saline to 125 mL per hour and continue to monitor BUN/creatinine. Renally adjust antibiotics and medications , monitor strict I's and O's. Should there be worsening of the patient's kidney function then we'll consider consulting nephrology. Problem Qualifiers (1) Sepsis: Qualified Code: A41.9 - Sepsis, due to unspecified organism (2) Diabetes mellitus: Isma Robertson MD Nov 29, 2016 17:49
[2016-11-29] MEDS ORDERED: CIPROFLOXACIN 400 MG PREMIX 200 ML IV SCH ×2 (18:00→20:00)
[2016-11-29] MEDS ORDERED: oxyCODONE/ACETAMINOPHEN 5 MG/325 MG TAB PO PRN (18:00)
[2016-11-29] MEDS: CALCIUM CHLORIDE INJ 2 GM in SODIUM CHLORIDE 0.9% INJ 100 ML IV ONE (18:27)
[2016-11-30] VITALS: BP 142/66; PULSE 89; RESP 20; TEMP 96.8; O2SAT 97
[2016-11-30] MEDS: CALCIUM CHLORIDE INJ 2 GM in SODIUM CHLORIDE 0.9% INJ 100 ML IV ONE (00:01)
[2016-11-30] MEDS: SODIUM CHLOR 0.9% 1000 ML INJ 1,000 ML IV SCH ×3 (00:18→17:17)
[2016-11-30] MEDS: METRONIDAZOLE 500 MG/100 ML ISONTONIC SOLN IV SCH ×4 (03:32→20:31)
[2016-11-30] MEDS: GABAPENTIN 100 MG CAP PO SCH ×3 (06:15→20:31)
[2016-11-30 08:00] VITALS: BP 157/75; PULSE 104; RESP 18; TEMP 96.5; O2SAT 97
[2016-11-30] MEDS ORDERED: PHARMACY ORDERED LAB XX ONE (08:00)
[2016-11-30] MEDS: TAMSULOSIN HCL 0.4 MG CAP PO SCH (09:07)
[2016-11-30] MEDS: FOLIC ACID 1 MG TAB PO SCH (09:08)
[2016-11-30] MEDS: ALLOPURINOL 300 MG TAB PO SCH (09:08)
[2016-11-30] MEDS: ASPIRIN EC 81 MG TABEC PO SCH (09:08)
[2016-11-30] MEDS: SODIUM CHLORIDE FLUSH BID IVF SCH ×2 (09:09→20:32)
[2016-11-30 10:39] LABS: AUTOMATED NEUTROPHIL # 8.1 TH/MM3 (1.8-7.7); BASOPHIL # 0.1 TH/MM3 (0-0.2); BASOPHIL % 0.6 % (0.0-2.0); EOSINOPHIL # 0.1 TH/MM3 (0-0.4); EOSINOPHIL % 0.5 % (0.0-4.0); HEMATOCRIT 44.7 % (39.0-51.0); LYMPH % 56.8 % (9.0-44.0); LYMPHOCYTE # 11.5 TH/MM3 (1.0-4.8); MEAN CELL VOLUME 93.9 FL (80.0-100.0); MEAN CORPUSCULAR HEMOGLOBIN 31.3 PG (27.0-34.0); MEAN CORPUSCULAR HGB CONC 33.3 % (32.0-36.0); MONO % 2.2 % (0.0-8.0); NEUT % 39.9 % (16.0-70.0); PLATELET COUNT 138 TH/MM3 (150-450); RED BLOOD COUNT 4.75 MIL/MM3 (4.50-5.90); RED CELL DISTRIBUTION WIDTH 14.3 % (11.6-17.2); WHITE BLOOD COUNT 20.2 TH/MM3 (4.0-11.0)
[2016-11-30 10:42] LABS: HEMO FLAGS AUTO DIFF
[2016-11-30] MEDS: THEOPHYLLINE 200 MG EXTENDED RELEASE CAP PO SCH (10:53)
[2016-11-30 11:04] LABS: ALKALINE PHOSPHATASE 178 U/L (45-117); ALT (GPT) 19 U/L (12-78); ANION GAP 8 MEQ/L (5-15); AST (GOT) 23 U/L (15-37); BICARBONATE 25.5 MEQ/L (21.0-32.0); BLOOD UREA NITROGEN 36 MG/DL (7-18); CHLORIDE 107 MEQ/L (98-107); GLOMERULAR FILTRATION RATE 39 ML/MIN (>89); MAGNESIUM 2.2 MG/DL (1.5-2.5); POTASSIUM 4.2 MEQ/L (3.5-5.1); SODIUM (NA) 140 MEQ/L (136-145); TOTAL BILIRUBIN ADULT 0.7 MG/DL (0.2-1.0)
[2016-11-30 11:15] LABS: BASOPHILS 1 % (0-2); NEUTROPHIL # MANUAL DIFF 7.3 TH/MM3 (1.8-7.7); POLYS (SEG NEUTROPHILS) 36 % (16-70); WBC DIFF SAMPLE 100
[2016-11-30 11:17] LABS: PLATELET ESTIMATE SMEAR LOW (NORMAL); PLATELET MORPHOLOGY NORMAL (NORMAL); SCAN/DIFF FINAL DIFF MANUAL; SMUDGE CELLS PRESENT PRESENT
--- NOTE | 2016-11-30 11:37 | HHI.PR ---
Subjective Remarks Patient feels better c/o left lower extremity edema denies cp/sob denies fevers/chills patient still tachycardic c/o pain in the RUQ Objective Vitals Vital Signs Date Time Temp Pulse Resp B/P Pulse Ox O2 Delivery O2 Flow Rate FiO2 11/30/16 08:00 96.5 104 18 157/75 97 11/30/16 00:00 96.8 89 20 142/66 97 11/29/16 21:10 95 Nasal Cannula 11/29/16 20:00 98.1 93 19 120/60 97 11/29/16 16:00 97.1 108 20 124/58 94 11/29/16 12:00 96.9 107 20 121/58 95 I/O 11/29/16 11/29/16 11/29/16 11/30/16 11/30/16 11/30/16 07:00 15:00 23:00 07:00 15:00 23:00 Intake Total 0 ml 1237 ml 834 ml 666 ml Output Total 500 ml 550 ml 475 ml 1050 ml Balance -500 ml 687 ml 359 ml -384 ml Intake Oral 0 ml 650 ml 240 ml 120 ml IV Total 587 ml 594 ml 546 ml Output Urine Total 500 ml 450 ml 400 ml 950 ml Drainage Total 100 ml 75 ml 100 ml # Voids 1 2 # Bowel Movements 0 0 0 Result Diagram: 11/30/16 1016 11/30/16 1016 Objective Remarks GENERAL: This is a well-nourished, well-developed patient, in no apparent distress. SKIN: No rashes, ecchymoses or lesions. Cool and dry. HEAD: Atraumatic. Normocephalic. No temporal or scalp tenderness. EYES: Pupils equal round and reactive. Extraocular motions intact. No scleral icterus. No injection or drainage. ENT: Nose without bleeding. Throat without erythema. Uvula midline. Airway patent. NECK: Trachea midline. No JVD or lymphadenopathy. Supple, nontender, no meningeal signs. CARDIOVASCULAR: Regular rate and rhythm without murmurs, gallops, or rubs. RESPIRATORY: Clear to auscultation. Breath sounds equal bilaterally. No wheezes , rales, or rhonchi. GASTROINTESTINAL: Abdomen soft, non-tender, nondistended. Cholecystostomy tube and right upper quadrant draining bilious-colored drain. MUSCULOSKELETAL: Extremities without clubbing, cyanosis, bilateral lower extremity trace edema. No joint tenderness, effusion, or edema noted. No calf tenderness. Negative Homans sign bilaterally. NEUROLOGICAL: Awake and alert. Oriented 3. Motor and sensory grossly within normal limits. Normal speech. Procedures Percutaneous cholecystostomy tube drain placement on 11/28/16 Medications and IVs Current Medications Medications (Trade) Dose Ordered Sig/Robert Route Start Time Stop Time Status Last Admin (Flagyl 500 Mg Inj) 100 ml @ 100 mls/hr Q6H IV 11/27/16 20:00 11/30/16 20:31 (Dilaudid Pf Inj) 1 mg Q4H PRN IV 11/27/16 20:00 (NS Flush) 2 ml BID IVF 11/27/16 21:00 11/30/16 09:09 (NS Flush) 2 ml UNSCH PRN IVF 11/27/16 20:00 (Tylenol) 650 mg Q4H PRN PO 11/27/16 20:00 Ondansetron HCl 4 mg 4 mg Q6H PRN IV PUSH 11/27/16 20:00 (Vancomycin Consult Pharmacy) ml @ 0 mls/hr UNSCH XX 11/27/16 20:00 (Zyloprim) 300 mg DAILY PO 11/28/16 09:00 11/30/16 09:08 (Ecotrin Ec) 81 mg DAILY PO 11/28/16 09:00 11/30/16 09:08 (Folate) 1 mg DAILY PO 11/28/16 09:00 11/30/16 09:08 (Neurontin) 100 mg Q8H PO 11/27/16 23:00 11/30/16 20:31 (Prinivil) 20 mg DAILY PO 11/28/16 09:00 Hold 11/29/16 07:52 (Flomax) 0.4 mg DAILY PO 11/28/16 09:00 11/30/16 09:07 Theophylline 400 mg 400 mg DAILY PO 11/28/16 16:00 11/30/16 10:53 (NS 1000 ml Inj) 1,000 ml @ 84 mls/hr [id number] IV 11/28/16 09:45 11/29/16 05:50 (Percocet 5-325 Mg) 1 tab Q4H PRN PO 11/29/16 18:00 Clonidine 0.1 mg 0.1 mg Q6H PRN PO 11/30/16 10:00 11/30/16 20:40 (Cipro 400 Mg Premix) 200 ml @ 200 mls/hr Q12H IV 12/01/16 02:00 A/P Problem List: (1) Sepsis ICD Code: A41.9 Status: Acute (2) Acute acalculous cholecystitis ICD Code: K81.0 Status: Acute (3) Diabetes mellitus ICD Code: E11.9 Status: Resolved (4) Hypertension ICD Code: I10 Status: Chronic (5) Acute ischemic stroke ICD Code: I63.9 Status: Resolved (6) Abdominal pain ICD Code: R10.9 Status: Resolved (7) ANDREI (acute kidney injury) ICD Code: N17.9 Status: Acute (8) Edema of left lower extremity ICD Code: R60.0 Status: Acute Assessment and Plan (1) Sepsis Plan: Sepsis due to acalculous cholecystitis. Surgery consulted and following. Follow up recommendations. Patient is status post placement of percutaneous cholecystostomy draining tube by interventional radiology. Sepsis syndrome improving with leukocytosis trending down, patient still tachycardic, no fever. Continue to monitor vital signs, IV fluids. I will discontinue IV Rocephin and start IV ciprofloxacin and continue metronidazole and discontinue IV vancomycin given rise in creatinine. Blood cultures are negative to date, continue to monitor 11/30 WBC still elevated, Continue Cipro and Flagyl IV, resume Vancomycin. Will consult ID. (2) Acute acalculous cholecystitis Plan: As above. Alkaline phosphatase trending down. (3) Diabetes mellitus Check hemoglobin A1c, Blood sugar stable this am. Monitor accuchecks and place on SSI with insulin Novolog. (4) Hypertension Patient had an episode of hypotension on 11/29 improved after Iv fluid administration. Will increase IV fluid rate to 125 ml/hour. Continue to monitor bp. I will hold LULU inhibitor due to rising creatinine but will continue other antihypertensive medications with holding parameters. 11/30 resume LULU inhibitor. (5) Acute ischemic stroke Plan: With very mild right-sided weakness, improved, continue physical therapy. Continue aspirin and statin and blood pressure control. (6) Abdominal pain Plan: Due to acalculous cholecystitis. Continue pain control with oral Percocet. We'll discontinue [place] due to the patient complaining of chills after ingestion of this medication. (7) ANDREI (acute kidney injury) Plan: AK I on chronic kidney disease stage III. Patient's baseline creatinine is around 1.3 to 1.4. Patient's creatinine slightly elevated from 2.03-2.20. Will discontinue vancomycin, increase IV normal saline to 125 mL per hour and continue to monitor BUN/creatinine. Renally adjust antibiotics and medications , monitor strict I's and O's. Should there be worsening of the patient's kidney function then we'll consider consulting nephrology. Problem Qualifiers (1) Sepsis: Qualified Code: A41.9 - Sepsis, due to unspecified organism (2) Diabetes mellitus: Isma Robertson MD Nov 30, 2016 11:37
[2016-11-30] MEDS ORDERED: VANCOMYCIN INJ 1,000 MG in SODIUM CHLOR 0.9% 250 ML INJ 250 ML IV SCH (11:45)
[2016-11-30 12:00] VITALS: BP 161/72; PULSE 96; RESP 18; TEMP 96.2; O2SAT 98
[2016-11-30] MEDS ORDERED: CIPROFLOXACIN 400 MG PREMIX 200 ML IV SCH (13:00)
[2016-11-30 16:00] VITALS: BP 155/72; PULSE 84; RESP 19; TEMP 96.2; O2SAT 97
--- NOTE | 2016-11-30 17:35 | RADRPT ---
EXAM DATE/TIME: 11/30/2016 16:32 [facility] COMPARISON: No previous studies available for comparison. INDICATIONS : Swelling in left lower extremity. MEDICAL HISTORY : Hypercholesterolemia. Hypertension. Arthritis. Neuropathy. Sleep apnea - CPAP. Renal disease. Pros turner cancer. Diabetes. Melanoma right face. SURGICAL HISTORY : Cataract surgery. Tooth extractions. Bladder cystoscopy. Radiation - right eye. Percutaneous cholecys tostomy drain. ENCOUNTER: Initial ACUITY: 3 months PAIN SCORE: 5/10 LOCATION: Left leg. TECHNIQUE: Venous ultrasound of the leg was performed from the inguinal ligament to the proximal calf. Real-rusty e, color Doppler and spectral tracing, compression and augmentation techniques were used. FINDINGS: There is normal compressibility of the deep venous system from the inguinal region to the proximal ca lf. No echogenic clot is seen in the lumen of the common femoral, femoral, popliteal, and posterior tibial veins. There is a normal response of the venous system to proximal and distal augmentation an d respiration. CONCLUSION: Normal examination. No evidence of DVT Jitendra Arias MD on November 30, 2016 at 17:33 Board Certified Radiologist. This report was verified electronically.
[2016-11-30 20:00] VITALS: BP 125/68; PULSE 94; RESP 20; TEMP 96.6; O2SAT 96
[2016-11-30] MEDS: cloNIDine HCL 0.1 MG TAB PO PRN (20:40)
[2016-12-01] VITALS: BP 122/92; PULSE 94; RESP 20; TEMP 96.6; O2SAT 96
[2016-12-01] MEDS: CIPROFLOXACIN/DEXT 400 MG/200 ML IV SCH ×2 (01:43→14:36)
[2016-12-01] MEDS: METRONIDAZOLE 500 MG/100 ML ISONTONIC SOLN IV SCH ×3 (02:29→14:37)
[2016-12-01] MEDS: GABAPENTIN 100 MG CAP PO SCH ×3 (05:01→21:24)
[2016-12-01] MEDS: SODIUM CHLOR 0.9% 1000 ML INJ 1,000 ML IV SCH ×2 (05:03→17:57)
[2016-12-01 08:00] VITALS: BP 127/60; PULSE 82; RESP 18; TEMP 98.6; O2SAT 95
[2016-12-01] MEDS: ASPIRIN EC 81 MG TABEC PO SCH (09:00)
[2016-12-01] MEDS: SODIUM CHLORIDE FLUSH BID IVF SCH ×2 (09:48→21:07)
[2016-12-01] MEDS: FOLIC ACID 1 MG TAB PO SCH (09:49)
[2016-12-01] MEDS: TAMSULOSIN HCL 0.4 MG CAP PO SCH (09:49)
[2016-12-01] MEDS: ALLOPURINOL 300 MG TAB PO SCH (09:50)
[2016-12-01] MEDS: THEOPHYLLINE 200 MG EXTENDED RELEASE CAP PO SCH (09:50)
[2016-12-01] MEDS: LISINOPRIL 20 MG TAB PO SCH (09:53)
[2016-12-01 12:00] VITALS: BP 160/96; PULSE 66; RESP 18; TEMP 98; O2SAT 96
[2016-12-01] MEDS ORDERED: VANCOMYCIN INJ 1,750 MG in SODIUM CHLORID 0.9% 500 ML INJ 500 ML IV ONE (14:00)
[2016-12-01 16:00] VITALS: BP 119/58; PULSE 75; RESP 16; TEMP 98.2; O2SAT 97
--- NOTE | 2016-12-01 17:04 | RADRPT ---
EXAM DATE/TIME: 12/01/2016 16:30 [facility] COMPARISON: CHEST PA & LAT, November 23, 2016, 15:19. INDICATIONS : Short of breath. MEDICAL HISTORY : Hypertension. Carcinoma, prostate. Melanoma. SURGICAL HISTORY : None. ENCOUNTER: Initial ACUITY: 2 weeks PAIN SCORE: 0/10 LOCATION: Bilateral chest FINDINGS: A single view of the chest demonstrates the lungs to be symmetrically aerated without evidence of mas s, infiltrate or effusion. The cardiomediastinal contours are unremarkable. Osseous structures are intact mild scoliosis of the mid to lower thoracic spine to the right and mild hypertrophic spurring. . CONCLUSION: No acute disease. No significant change has occurred. Jitendra Arias MD on December 01, 2016 at 17:02 Board Certified Radiologist. This report was verified electronically.
--- NOTE | 2016-12-01 17:39 | PD.ID.CON ---
History of Present Illness Service ID Consult Requested By Dr. Roland Reason for Consult Evaluation and Mment of possible sepsis, high grade leucocytosis in patient with Cholecystitis s/p Cholecystostomy tube. Primary Care Physician Unknown Diagnoses: History of Present Illness is an 81 y/o CM who was admitted to for ischemic CVA with speech impairment and right sided weakness. Patient was given TPA in the emergency department which improved his symptoms. He was seen by neurology and he was cleared for discharge. Echocardiogram was unremarkable, CTA did not show any carotid stenosis or thrombus. On the day of discharge, patient started having leukocytosis, a chest x-ray showed infiltrates in the left lung base hence patient was started Levaquin for pneumonia. Patient was admitted at [facility]. While he was at [place], patient started to complain of abdominal pain, described as midepigastric to the right upper quadrant region. He had episode of nausea and vomiting previous day. Pain started to get worse yesterday, WBC was elevated 21.5, HR 100-104. Patient meeting SIRS, severe sepsis criteria. His KUB did not show any significant changes or bowel obstruction. Ultrasound abdomen - s/o acalculous cholecystitis. HIDA scan was done, showed nonvisualization of the gallbladder. In the appropriate clinical setting, findings could represent acute cholecystitis. Patient went to intravascular radiology for percutaneous cholangiogram, placement of cholecystostomy tube. Denies SOB/ dyspnea. Denies chestpain, palpitations, headaches, dizziness. Denies fevers, chills, n/v/d. ID was consulted for concern for sepsis given IC status and high grade leucocytosis. Review of Systems Constitutional: DENIES: Diaphoretic episodes, Fatigue, Fever, Weight gain, Weight loss, Chills, Dizziness, Change in appetite, Night Sweats Endocrine: DENIES: Heat/cold intolerance, Polydipsia, Polyuria, Polyphagia Eyes: DENIES: Blurred vision, Diplopia, Eye inflammation, Eye pain, Vision loss , Photosensitivity, Double Vision Ears, nose, mouth, throat: DENIES: Tinnitus, Hearing loss, Vertigo, Nasal discharge, Oral lesions, Throat pain, Hoarseness, Ear Pain, Running Nose, Epistaxis, Sinus Pain, Toothache, Odynophagia Respiratory: DENIES: Apneas, Cough, Snoring, Wheezing, Hemoptysis, Sputum production, Shortness of breath Cardiovascular: DENIES: Chest pain, Palpitations, Syncope, Dyspnea on Exertion , PND, Lower Extremity Edema, Orthopnea, Claudication Gastrointestinal: COMPLAINS OF: Abdominal pain, DENIES: Black stools, Bloody stools, Constipation, Diarrhea, Nausea, Vomiting, Difficulty Swallowing, Anorexia Genitourinary: DENIES: Sexual dysfunction, Urinary frequency, Urinary incontinence, Urgency, Hematuria, Dysuria, Nocturia, Penile Discharge, Testicular Pain, Testicular Swelling Musculoskeletal: DENIES: Joint pain, Muscle aches, Stiffness, Joint Swelling, Back pain, Neck pain Integumentary: DENIES: Abnormal pigmentation, Nail changes, Pruritus, Rash Hematologic/lymphatic: DENIES: Bruising, Lymphadenopathy Immunologic/allergic: DENIES: Eczema, Urticaria Neurologic: DENIES: Abnormal gait, Headache, Localized weakness, Paresthesias, Seizures, Speech Problems, Tremor, Poor Balance Psychiatric: DENIES: Anxiety, Confusion, Mood changes, Depression, Hallucinations, Agitation, Suicidal Ideation, Homicidal Ideation, Delusions Past Family Social History Allergies: Coded Allergies: No Known Allergies (Unverified , 11/17/16) Past Medical History Neuropathy Skin cancer Rheumatoid arthritis Diabetes mellitus Gout Dyslipidemia Hypertension Prostate cancer test was radiation treatment - followed by Dr. Elam cystoscopy every 3 months Patient reports he sees a [facility] Nurse [facility] who follows his high WBC and thinks he may have been told he has leukemia. Past Surgical History Radiation treatment for prostate cancer. Cholecystostomy tube placement. Reported Medications Reported Meds & Active Scripts Active Ultram (Tramadol HCl) 50 Mg Tab 50 Mg PO Q6H PRN 1 Days Yaron-24 (Theophylline) 200 Mg Cap 200 Mg PO DAILY@20 1 Days Flomax (Tamsulosin HCl) 0.4 Mg Cap 0.4 Mg PO DAILY 1 Days Thera/Beta-Carotene (Multiple Vitamin) 1 Tab Tab 1 Tab PO DAILY 1 Days Lopressor (Metoprolol Tartrate) 50 Mg Tab 50 Mg PO DAILY 1 Days Sm Magnesium Citrate (Magnesium Citrate) 1.745 Gm/30 Ml Sulma 300 Ml PO DAILY PRN 1 Days Lisinopril 20 Mg Tab 20 Mg PO DAILY 1 Days Duoneb (Ipratropium-Albuterol Neb) 0.5-2.5 Mg/3 Ml Neb 1 Ampule NEB Q6HR NEB PRN 3 Days Gabapentin 100 Mg Cap 100 Mg PO Q8H 1 Days Folate (Folic Acid) 1 Mg Tab 1 Mg PO DAILY 1 Days Lipitor (Atorvastatin Calcium) 40 Mg Tab 40 Mg PO HS 1 Days Aspirin EC (Aspirin) 81 Mg Tabdr 81 Mg PO DAILY 1 Days Norvasc (Amlodipine Besylate) 5 Mg Tab 5 Mg PO DAILY 1 Days Mag-Al Plus Liq (Tegopfno-Gtgufnoxx-Ezavaiiwxtg Liq) 200-200-20 Mg/5 Ml Susp 30 Ml PO Q6H PRN 1 Days Zyloprim (Allopurinol) 300 Mg Tab 300 Mg PO DAILY 1 Days Acetaminophen 325 Mg Tab 650 Mg PO Q4H PRN 1 Days Reported Theophylline ER 12 HR (Theophylline) 200 Mg Tab 200 Mg PO Q12H Active Ordered Medications Current Medications Medications (Trade) Dose Ordered Sig/Robert Route Start Time Stop Time Status Last Admin (Dilaudid Pf Inj) 1 mg Q4H PRN IV 11/27/16 20:00 (NS Flush) 2 ml BID IVF 11/27/16 21:00 12/01/16 09:48 (NS Flush) 2 ml UNSCH PRN IVF 11/27/16 20:00 (Tylenol) 650 mg Q4H PRN PO 11/27/16 20:00 (Zofran Inj) 4 mg Q6H PRN IV PUSH 11/27/16 20:00 (Zyloprim) 300 mg DAILY PO 11/28/16 09:00 12/01/16 09:50 (Ecotrin Ec) 81 mg DAILY PO 11/28/16 09:00 12/01/16 09:00 (Folate) 1 mg DAILY PO 11/28/16 09:00 12/01/16 09:49 (Neurontin) 100 mg Q8H PO 11/27/16 23:00 12/01/16 21:24 (Prinivil) 20 mg DAILY PO 11/28/16 09:00 12/01/16 09:53 (Flomax) 0.4 mg DAILY PO 11/28/16 09:00 12/01/16 09:49 (Yaron-24) 400 mg DAILY PO 11/28/16 16:00 12/01/16 09:50 (Percocet 5-325 Mg) 1 tab Q4H PRN PO 11/29/16 18:00 Clonidine 0.1 mg 0.1 mg Q6H PRN PO 11/30/16 10:00 12/01/16 21:26 (Maxipime Inj/NS Inj) 100 ml @ 200 mls/hr Q12H IV 12/01/16 18:00 12/01/16 18:11 (Flagyl) 500 mg Q8HR PO 12/01/16 22:00 12/01/16 21:24 (Diflucan) 100 mg DAILY PO 12/01/16 17:30 12/01/16 18:12 (D50w (Vial) Inj) 25 ml UNSCH PRN IV PUSH 12/01/16 18:45 (Glucagon Inj) 1 mg UNSCH PRN OTHER 12/01/16 18:45 Family History reviewed and NC to age. Social History lives at home with . Daughter in room. Denies alcohol, smoking or drugs. Physical Exam Vital Signs Vital Signs Date Time Temp Pulse Resp B/P Pulse Ox O2 Delivery O2 Flow Rate FiO2 12/01/16 16:00 98.2 75 16 119/58 97 12/01/16 12:00 98.0 66 18 160/96 96 12/01/16 08:00 98.6 82 18 127/60 95 12/01/16 00:00 96.6 94 20 122/92 96 11/30/16 22:39 Full Face Mask 21.0 11/30/16 20:00 96.6 94 20 125/68 96 Physical Exam GENERAL: This is a well-nourished, well-developed patient, in no apparent distress. SKIN: No rashes, ecchymoses or lesions. Cool and dry. HEAD: Atraumatic. Normocephalic. No temporal or scalp tenderness. EYES: Pupils equal round and reactive. Extraocular motions intact. No scleral icterus. No injection or drainage. ENT: Nose without bleeding, purulent drainage or septal hematoma. Throat without erythema, tonsillar hypertrophy or exudate. Uvula midline. Airway patent. NECK: Trachea midline. Supple, nontender, no meningeal signs. CARDIOVASCULAR: HS audible RESPIRATORY: Clear to auscultation. Breath sounds equal bilaterally. No wheezes , rales, or rhonchi. GASTROINTESTINAL: Abdomen soft, non-tender, nondistended. Cholecystostomy tube in place. MUSCULOSKELETAL: Extremities without clubbing, cyanosis, or edema. No joint tenderness, effusion, or edema noted. No calf tenderness. Negative Homans sign bilaterally. NEUROLOGICAL: Awake and alert. Oriented x 3 Psych: pleasant, cooperative IV line sites with no e/o infection. Laboratory Laboratory Tests Test 12/01/16 06:30 Creatinine 1.51 Estimat Glomerular Filtration 44 Rate Random Vancomycin Level 11.9 Date/Time Procedure Status Source Growth 11/30/16 10:27 Aerobic Blood Culture - Preliminary Resulted Blood Peripheral NO GROWTH IN 1 DAY 11/30/16 10:27 Anaerobic Blood Culture - Preliminary Resulted Blood Peripheral NO GROWTH IN 1 DAY Result Diagram: 11/30/16 1016 12/01/16 0630 Imaging Last Impressions Chest X-Ray 12/01/16 0000 Signed Impressions: Service Date/Time: Thursday, December 01, 2016 16:30 - CONCLUSION: No acute disease. No significant change has occurred. Jitendra Arias MD Lower Extremity Ultrasound 11/30/16 0000 Signed Impressions: Service Date/Time: Wednesday, November 30, 2016 16:32 - CONCLUSION: Normal examination. No evidence of DVT Jitendra Arias MD Percutaneous Cholangiogram 11/27/16 0000 Signed Impressions: Service Date/Time: Sunday, November 27, 2016 21:07 - CONCLUSION: Uncomplicated percutaneous cholecystostomy as above. Jayden Bland MD Abdomen CT 11/27/16 0000 Signed Impressions: Service Date/Time: Monday, November 28, 2016 08:38 - CONCLUSION: 1. Cholecystostomy tube is present within a decompressed gallbladder. There are inflammatory changes surrounding the gallbladder. These inflammatory changes could be related to the acute gallbladder disease or could be related to the recent procedure. There multiple punctate calcifications in the region of the gallbladder neck that may represent gallstones. 2. Splenomegaly with a wedge-shaped area of low-density in the posterior aspect. Although this is incompletely characterized on this examination the wedge-shaped appearance favors infarct. Mass is felt less likely given the shape but also a possibility. 3. Small bilateral pleural effusions with compressive atelectasis and/or consolidation at the lung bases. 4. There is a small volume of free fluid in the abdomen. Duncan Rajput MD Assessment and Plan Assessment and Plan Acalculous cholecystitis s/p cholecystostomy tube placement by IR. High grade leucocytosis: ? CLL, component of infection, cholecystitis. 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 Skin cancer Rheumatoid arthritis Diabetes mellitus Gout Dyslipidemia Hypertension Recs: DC Cipro IV Start Cefepime IV Change flagyl to oral. Start Diflucan DC Vanco IV Follow cultures Follow clinically. Upon discussion with patient and family it appears he was seeing some [facility] Nurse Staff as outpt who was following his white count. 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 Consult Hematology to help with establishing hematological cause for high grade leucocytosis so we can tease out what his baseline is and if there is any residual infection if at all at this point. Also recommend checking Immuneglobulins to assess his immune status and risk for recurrent infections. Pamella Cantu and patients family. Eula Reyes MD Dec 01, 2016 17:39
[2016-12-01] MEDS: CEFEPIME INJ 2,000 MG in SODIUM CHLORIDE 0.9% INJ 100 ML IV SCH (18:11)
[2016-12-01] MEDS: FLUCONAZOLE 100 MG TAB PO SCH (18:12)
[2016-12-01] MEDS ORDERED: DEXTROSE 50% IN WATER 50 ML VIAL(D50) IV PUSH PRN (18:45)
[2016-12-01] MEDS ORDERED: GLUCAGON 1 MG/ML VIAL OTHER PRN (18:45)
--- NOTE | 2016-12-01 18:47 | HHI.PR ---
Subjective Remarks Patient feels much better today was up and ambulating denies cp/sob denies fevers or chills no abdominal pain no nausea or vomiting Objective Vitals Vital Signs Date Time Temp Pulse Resp B/P Pulse Ox O2 Delivery O2 Flow Rate FiO2 12/01/16 16:00 98.2 75 16 119/58 97 12/01/16 12:00 98.0 66 18 160/96 96 12/01/16 08:00 98.6 82 18 127/60 95 12/01/16 00:00 96.6 94 20 122/92 96 11/30/16 22:39 Full Face Mask 21.0 11/30/16 20:00 96.6 94 20 125/68 96 I/O 11/30/16 11/30/16 11/30/16 12/01/16 12/01/16 12/01/16 07:00 15:00 23:00 07:00 15:00 23:00 Intake Total 666 ml 500 ml 842 ml 782 ml 600 ml Output Total 1050 ml 250 ml 800 ml 500 ml 300 ml Balance -384 ml 250 ml 42 ml 282 ml 300 ml Intake Oral 120 ml 500 ml 240 ml 120 ml 600 ml IV Total 546 ml 602 ml 662 ml Output Urine Total 950 ml 250 ml 700 ml 500 ml 200 ml Drainage Total 100 ml 100 ml 100 ml # Voids 2 2 1 1 # Bowel Movements 0 1 0 0 1 Result Diagram: 11/30/16 1016 12/01/16 0630 Imaging Last Impressions Chest X-Ray 12/01/16 0000 Signed Impressions: Service Date/Time: Thursday, December 01, 2016 16:30 - CONCLUSION: No acute disease. No significant change has occurred. Jitendra Arias MD Lower Extremity Ultrasound 11/30/16 0000 Signed Impressions: Service Date/Time: Wednesday, November 30, 2016 16:32 - CONCLUSION: Normal examination. No evidence of DVT Jitendra Arias MD Percutaneous Cholangiogram 11/27/16 0000 Signed Impressions: Service Date/Time: Sunday, November 27, 2016 21:07 - CONCLUSION: Uncomplicated percutaneous cholecystostomy as above. Jayden Bland MD Abdomen CT 11/27/16 0000 Signed Impressions: Service Date/Time: Monday, November 28, 2016 08:38 - CONCLUSION: 1. Cholecystostomy tube is present within a decompressed gallbladder. There are inflammatory changes surrounding the gallbladder. These inflammatory changes could be related to the acute gallbladder disease or could be related to the recent procedure. There multiple punctate calcifications in the region of the gallbladder neck that may represent gallstones. 2. Splenomegaly with a wedge-shaped area of low-density in the posterior aspect. Although this is incompletely characterized on this examination the wedge-shaped appearance favors infarct. Mass is felt less likely given the shape but also a possibility. 3. Small bilateral pleural effusions with compressive atelectasis and/or consolidation at the lung bases. 4. There is a small volume of free fluid in the abdomen. Duncan Rajput MD Objective Remarks GENERAL: This is a well-nourished, well-developed patient, in no apparent distress. SKIN: No rashes, ecchymoses or lesions. Cool and dry. HEAD: Atraumatic. Normocephalic. No temporal or scalp tenderness. EYES: Pupils equal round and reactive. Extraocular motions intact. No scleral icterus. No injection or drainage. ENT: Nose without bleeding. Throat without erythema. Uvula midline. Airway patent. NECK: Trachea midline. No JVD or lymphadenopathy. Supple, nontender, no meningeal signs. CARDIOVASCULAR: Regular rate and rhythm without murmurs, gallops, or rubs. RESPIRATORY: Clear to auscultation. Breath sounds equal bilaterally. No wheezes , rales, or rhonchi. GASTROINTESTINAL: Abdomen soft, non-tender, nondistended. Cholecystostomy tube and right upper quadrant draining bilious-colored drain. MUSCULOSKELETAL: Extremities without clubbing, cyanosis, bilateral lower extremity trace edema. No joint tenderness, effusion, or edema noted. No calf tenderness. Negative Homans sign bilaterally. NEUROLOGICAL: Awake and alert. Oriented 3. Motor and sensory grossly within normal limits. Normal speech. Procedures Percutaneous cholecystostomy tube drain placement on 11/28/16 Medications and IVs Current Medications Medications (Trade) Dose Ordered Sig/Robert Route Start Time Stop Time Status Last Admin (Dilaudid Pf Inj) 1 mg Q4H PRN IV 11/27/16 20:00 (NS Flush) 2 ml BID IVF 11/27/16 21:00 12/01/16 09:48 (NS Flush) 2 ml UNSCH PRN IVF 11/27/16 20:00 (Tylenol) 650 mg Q4H PRN PO 11/27/16 20:00 (Zofran Inj) 4 mg Q6H PRN IV PUSH 11/27/16 20:00 (Zyloprim) 300 mg DAILY PO 11/28/16 09:00 12/01/16 09:50 (Ecotrin Ec) 81 mg DAILY PO 11/28/16 09:00 12/01/16 09:00 (Folate) 1 mg DAILY PO 11/28/16 09:00 12/01/16 09:49 (Neurontin) 100 mg Q8H PO 11/27/16 23:00 12/01/16 14:36 (Prinivil) 20 mg DAILY PO 11/28/16 09:00 12/01/16 09:53 (Flomax) 0.4 mg DAILY PO 11/28/16 09:00 12/01/16 09:49 Theophylline 400 mg 400 mg DAILY PO 11/28/16 16:00 12/01/16 09:50 (NS 1000 ml Inj) 1,000 ml @ 84 mls/hr [id number] IV 11/28/16 09:45 11/29/16 05:50 (Percocet 5-325 Mg) 1 tab Q4H PRN PO 11/29/16 18:00 Clonidine 0.1 mg 0.1 mg Q6H PRN PO 11/30/16 10:00 11/30/16 20:40 (Maxipime Inj/NS Inj) 100 ml @ 200 mls/hr Q12H IV 12/01/16 18:00 12/01/16 18:11 (Flagyl) 500 mg Q8HR PO 12/01/16 22:00 (Diflucan) 100 mg DAILY PO 12/01/16 17:30 12/01/16 18:12 Urinary Catheter: No Vascular Central Line Catheter: No A/P Problem List: (1) Sepsis ICD Code: A41.9 Status: Acute (2) Acute acalculous cholecystitis ICD Code: K81.0 Status: Acute (3) Diabetes mellitus ICD Code: E11.9 Status: Resolved (4) Hypertension ICD Code: I10 Status: Chronic (5) Acute ischemic stroke ICD Code: I63.9 Status: Resolved (6) Abdominal pain ICD Code: R10.9 Status: Resolved (7) ANDREI (acute kidney injury) ICD Code: N17.9 Status: Acute (8) Edema of left lower extremity ICD Code: R60.0 Status: Acute (9) Leukocytosis ICD Code: D72.829 Status: Acute Plan: With lymphocytosis. Patient's elicits that patient has history of Leukemia and follows up with Dr Mantilla from [facility]. Will consult hematology. This is likely the cause of the persistent leukocytosis. Assessment and Plan (1) Sepsis Plan: Sepsis due to acalculous cholecystitis. Surgery consulted and following. Follow up recommendations. Patient is status post placement of percutaneous cholecystostomy draining tube by interventional radiology. Sepsis syndrome improving with leukocytosis trending down, patient still tachycardic, no fever. Continue to monitor vital signs, IV fluids. I will discontinue IV Rocephin and start IV ciprofloxacin and continue metronidazole and discontinue IV vancomycin given rise in creatinine. Blood cultures are negative to date, continue to monitor 11/30 WBC still elevated, Continue Cipro and Flagyl IV, resume Vancomycin. Will consult ID. 12/01 Stable vital signs, afebrile, tachycardia resolved. 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 Consult hematology. Blood cultures negative to date. (2) Acute acalculous cholecystitis Plan: As above. Alkaline phosphatase trending down. (3) Diabetes mellitus Check hemoglobin A1c, Blood sugar stable this am. Monitor accuchecks and place on SSI with insulin Novolog. (4) Hypertension Patient had an episode of hypotension on 11/29 improved after Iv fluid administration. Will increase IV fluid rate to 125 ml/hour. Continue to monitor bp. I will hold LULU inhibitor due to rising creatinine but will continue other antihypertensive medications with holding parameters. 11/30 resume LULU inhibitor. 12/01 Bp stable, continue to monitor BP. (5) Acute ischemic stroke Plan: With very mild right-sided weakness, improved, continue physical therapy. Continue aspirin and statin and blood pressure control. (6) Abdominal pain Plan: Due to acalculous cholecystitis. Continue pain control with oral Percocet. We'll discontinue [place] due to the patient complaining of chills after ingestion of this medication. (7) ANDREI (acute kidney injury) Plan: AK I on chronic kidney disease stage III. Patient's baseline creatinine is around 1.3 to 1.4. Patient's creatinine slightly elevated from 2.03-2.20. Will discontinue vancomycin, increase IV normal saline to 125 mL per hour and continue to monitor BUN/creatinine. Renally adjust antibiotics and medications , monitor strict I's and O's. Should there be worsening of the patient's kidney function then we'll consider consulting nephrology. 12/01 Creatinine much improved and trending down to 1.5. Will DC IV fluids and continue to monitor BUN and creatinine as well as I's and O's. Encourage oral intake of fluids. Discharge Planning Pending hematology consult and ID clearance. Problem Qualifiers (1) Sepsis: Qualified Code: A41.9 - Sepsis, due to unspecified organism (2) Diabetes mellitus: (3) Leukocytosis: Qualified Code: D72.820 - Lymphocytosis Isma Robertson MD Dec 01, 2016 18:47
[2016-12-01 20:00] VITALS: BP 168/82; PULSE 96; RESP 18; TEMP 97.8; O2SAT 97
[2016-12-01] MEDS: INSULIN ASPART SUPPLEMENTAL SCALE SQ SCH (21:00)
[2016-12-01] MEDS: metroNIDAZOLE 500 MG TAB PO SCH (21:24)
[2016-12-01] MEDS: cloNIDine HCL 0.1 MG TAB PO PRN (21:26)
[2016-12-02] VITALS (10 sets, daily range): BP systolic 108–146; BP diastolic 55–71; PULSE 88–95; RESP 16–22; TEMP 96.9–98.7; O2SAT 94–98
[2016-12-02] MEDS: CEFEPIME INJ 2,000 MG in SODIUM CHLORIDE 0.9% INJ 100 ML IV SCH ×2 (05:18→18:15)
[2016-12-02] MEDS: GABAPENTIN 100 MG CAP PO SCH ×3 (05:18→21:47)
[2016-12-02] MEDS: metroNIDAZOLE 500 MG TAB PO SCH ×3 (05:18→21:47)
[2016-12-02] MEDS: INSULIN ASPART SUPPLEMENTAL SCALE SQ SCH ×4 (05:25→21:00)
[2016-12-02 05:31] LABS: BASOPHIL # 0.1 TH/MM3 (0-0.2); BASOPHIL % 0.4 % (0.0-2.0); EOSINOPHIL # 0.1 TH/MM3 (0-0.4); EOSINOPHIL % 0.7 % (0.0-4.0); HEMATOCRIT 36.2 % (39.0-51.0); LYMPH % 55.6 % (9.0-44.0); LYMPHOCYTE # 7.2 TH/MM3 (1.0-4.8); MEAN CELL VOLUME 93.5 FL (80.0-100.0); MEAN CORPUSCULAR HEMOGLOBIN 31.9 PG (27.0-34.0); MEAN CORPUSCULAR HGB CONC 34.1 % (32.0-36.0); MONO % 4.6 % (0.0-8.0); NEUT % 38.7 % (16.0-70.0); PLATELET COUNT 100 TH/MM3 (150-450); RED BLOOD COUNT 3.87 MIL/MM3 (4.50-5.90); RED CELL DISTRIBUTION WIDTH 14.1 % (11.6-17.2)
[2016-12-02 05:33] LABS: HEMO FLAGS AUTO DIFF
[2016-12-02 05:57] LABS: ALKALINE PHOSPHATASE 152 U/L (45-117); ALT (GPT) 15 U/L (12-78); ANION GAP 7 MEQ/L (5-15); AST (GOT) 27 U/L (15-37); BICARBONATE 24.1 MEQ/L (21.0-32.0); BLOOD UREA NITROGEN 24 MG/DL (7-18); CALCIUM-PROTEIN CORRECTED 8.7 MG/DL (8.5-10.1); CHLORIDE 110 MEQ/L (98-107); GLOMERULAR FILTRATION RATE 42 ML/MIN (>89); MAGNESIUM 1.7 MG/DL (1.5-2.5); POTASSIUM 3.8 MEQ/L (3.5-5.1); SODIUM (NA) 141 MEQ/L (136-145); TOTAL BILIRUBIN ADULT 0.5 MG/DL (0.2-1.0)
[2016-12-02 08:22] LABS: EOSINOPHILS 1 % (0-4); NEUTROPHIL # MANUAL DIFF 3.5 TH/MM3 (1.8-7.7); POLYS (SEG NEUTROPHILS) 27 % (16-70); WBC DIFF SAMPLE 100
[2016-12-02 08:23] LABS: SCAN/DIFF FINAL DIFF MANUAL
[2016-12-02 08:24] LABS: PLATELET ESTIMATE SMEAR LOW (NORMAL); PLATELET MORPHOLOGY NORMAL (NORMAL); SMUDGE CELLS PRESENT PRESENT
[2016-12-02] MEDS: LISINOPRIL 20 MG TAB PO SCH (08:59)
[2016-12-02] MEDS: TAMSULOSIN HCL 0.4 MG CAP PO SCH (08:59)
[2016-12-02] MEDS: FLUCONAZOLE 100 MG TAB PO SCH (08:59)
[2016-12-02] MEDS: ALLOPURINOL 300 MG TAB PO SCH (09:00)
[2016-12-02] MEDS: FOLIC ACID 1 MG TAB PO SCH (09:00)
[2016-12-02] MEDS: THEOPHYLLINE 200 MG EXTENDED RELEASE CAP PO SCH (09:00)
[2016-12-02] MEDS: ASPIRIN EC 81 MG TABEC PO SCH (09:02)
[2016-12-02] MEDS: SODIUM CHLOR 0.9% 1000 ML INJ 1,000 ML IV SCH ×2 (11:47→20:00)
[2016-12-02] MEDS: SODIUM CHLORIDE FLUSH BID IVF SCH ×2 (11:49→21:47)
[2016-12-02 11:58] LABS: HEMOGLOBIN Ao 85.1 %; HEMOGLOBIN LA1C 2.3 %
--- NOTE | 2016-12-02 13:43 | HHI.PR ---
Subjective Remarks The patient denies any chest pain or shortness of breath and Denies fevers or chills Stable vital signs Creatinine slightly higher WBC trending down As per was at bedside, patient not drinking much fluids Objective Vitals Vital Signs Date Time Temp Pulse Resp B/P Pulse Ox O2 Delivery O2 Flow Rate FiO2 12/02/16 12:00 96.9 92 16 108/55 97 12/02/16 09:29 94 21 12/02/16 08:00 97.7 88 17 129/71 96 12/02/16 07:55 Room Air 12/02/16 00:00 98.1 90 18 130/65 97 12/01/16 22:00 Room Air 12/01/16 20:00 97.8 96 18 168/82 97 12/01/16 16:00 98.2 75 16 119/58 97 I/O 12/01/16 12/01/16 12/01/16 12/02/16 12/02/16 12/02/16 07:00 15:00 23:00 07:00 15:00 23:00 Intake Total 782 ml 600 ml 840 ml 320 ml Output Total 500 ml 300 ml 300 ml 250 ml Balance 282 ml 300 ml 540 ml 70 ml Intake Oral 120 ml 600 ml 240 ml 120 ml IV Total 662 ml 600 ml 200 ml Output Urine Total 500 ml 200 ml 200 ml 200 ml Drainage Total 100 ml 100 ml 50 ml # Voids 1 # Bowel Movements 0 1 1 0 Result Diagram: 12/02/165 12/02/16 0425 Imaging Last Impressions Chest X-Ray 12/01/16 0000 Signed Impressions: Service Date/Time: Thursday, December 01, 2016 16:30 - CONCLUSION: No acute disease. No significant change has occurred. Jitendra Arias MD Lower Extremity Ultrasound 11/30/16 0000 Signed Impressions: Service Date/Time: Wednesday, November 30, 2016 16:32 - CONCLUSION: Normal examination. No evidence of DVT Jitendra Arias MD Percutaneous Cholangiogram 11/27/16 0000 Signed Impressions: Service Date/Time: Sunday, November 27, 2016 21:07 - CONCLUSION: Uncomplicated percutaneous cholecystostomy as above. Jayden Bland MD Abdomen CT 11/27/16 0000 Signed Impressions: Service Date/Time: Monday, November 28, 2016 08:38 - CONCLUSION: 1. Cholecystostomy tube is present within a decompressed gallbladder. There are inflammatory changes surrounding the gallbladder. These inflammatory changes could be related to the acute gallbladder disease or could be related to the recent procedure. There multiple punctate calcifications in the region of the gallbladder neck that may represent gallstones. 2. Splenomegaly with a wedge-shaped area of low-density in the posterior aspect. Although this is incompletely characterized on this examination the wedge-shaped appearance favors infarct. Mass is felt less likely given the shape but also a possibility. 3. Small bilateral pleural effusions with compressive atelectasis and/or consolidation at the lung bases. 4. There is a small volume of free fluid in the abdomen. Duncan Rajput MD Objective Remarks GENERAL: This is a well-nourished, well-developed patient, in no apparent distress. SKIN: No rashes, ecchymoses or lesions. Cool and dry. HEAD: Atraumatic. Normocephalic. No temporal or scalp tenderness. EYES: Pupils equal round and reactive. Extraocular motions intact. No scleral icterus. No injection or drainage. ENT: Nose without bleeding. Throat without erythema. Uvula midline. Airway patent. NECK: Trachea midline. No JVD or lymphadenopathy. Supple, nontender, no meningeal signs. CARDIOVASCULAR: Regular rate and rhythm without murmurs, gallops, or rubs. RESPIRATORY: Clear to auscultation. Breath sounds equal bilaterally. No wheezes , rales, or rhonchi. GASTROINTESTINAL: Abdomen soft, non-tender, nondistended. Cholecystostomy tube and right upper quadrant draining bilious-colored drain. MUSCULOSKELETAL: Extremities without clubbing, cyanosis, bilateral lower extremity trace edema. No joint tenderness, effusion, or edema noted. No calf tenderness. Negative Homans sign bilaterally. NEUROLOGICAL: Awake and alert. Oriented 3. Motor and sensory grossly within normal limits. Normal speech. Procedures Percutaneous cholecystostomy tube drain placement on 11/28/16 Medications and IVs Current Medications Medications (Trade) Dose Ordered Sig/Robert Route Start Time Stop Time Status Last Admin (Dilaudid Pf Inj) 1 mg Q4H PRN IV 11/27/16 20:00 (NS Flush) 2 ml BID IVF 11/27/16 21:00 12/02/16 11:49 (NS Flush) 2 ml UNSCH PRN IVF 11/27/16 20:00 (Tylenol) 650 mg Q4H PRN PO 11/27/16 20:00 (Zofran Inj) 4 mg Q6H PRN IV PUSH 11/27/16 20:00 (Zyloprim) 300 mg DAILY PO 11/28/16 09:00 12/02/16 09:00 (Ecotrin Ec) 81 mg DAILY PO 11/28/16 09:00 12/02/16 09:02 (Folate) 1 mg DAILY PO 11/28/16 09:00 12/02/16 09:00 (Neurontin) 100 mg Q8H PO 11/27/16 23:00 12/02/16 05:18 (Prinivil) 20 mg DAILY PO 11/28/16 09:00 12/02/16 08:59 (Flomax) 0.4 mg DAILY PO 11/28/16 09:00 12/02/16 08:59 (Yaron-24) 400 mg DAILY PO 11/28/16 16:00 12/02/16 09:00 (Percocet 5-325 Mg) 1 tab Q4H PRN PO 11/29/16 18:00 Clonidine 0.1 mg 0.1 mg Q6H PRN PO 11/30/16 10:00 12/01/16 21:26 (Maxipime Inj/NS Inj) 100 ml @ 200 mls/hr Q12H IV 12/01/16 18:00 12/02/16 05:18 (Flagyl) 500 mg Q8HR PO 12/01/16 22:00 12/02/16 12:35 (Diflucan) 100 mg DAILY PO 12/01/16 17:30 12/02/16 08:59 (D50w (Vial) Inj) 25 ml UNSCH PRN IV PUSH 12/01/16 18:45 Glucagon 1 mg 1 mg UNSCH PRN OTHER 12/01/16 18:45 (NS 1000 ml Inj) 1,000 ml @ 100 mls/hr Q10H IV 12/02/16 10:00 12/02/16 11:47 (K-Phos Neutral) 250 mg Q6HR PO 12/02/16 13:45 Urinary Catheter: No Vascular Central Line Catheter: No A/P Problem List: (1) Sepsis ICD Code: A41.9 Status: Acute (2) Acute acalculous cholecystitis ICD Code: K81.0 Status: Acute (3) Diabetes mellitus ICD Code: E11.9 Status: Resolved (4) Hypertension ICD Code: I10 Status: Chronic (5) Acute ischemic stroke ICD Code: I63.9 Status: Resolved (6) Abdominal pain ICD Code: R10.9 Status: Resolved (7) ANDREI (acute kidney injury) ICD Code: N17.9 Status: Acute (8) Edema of left lower extremity ICD Code: R60.0 Status: Acute (9) Leukocytosis ICD Code: D72.829 Status: Acute Assessment and Plan (1) Sepsis Plan: Sepsis due to acalculous cholecystitis. Surgery consulted and following. Follow up recommendations. Patient is status post placement of percutaneous cholecystostomy draining tube by interventional radiology. Sepsis syndrome improving with leukocytosis trending down, patient still tachycardic, no fever. Continue to monitor vital signs, IV fluids. I will discontinue IV Rocephin and start IV ciprofloxacin and continue metronidazole and discontinue IV vancomycin given rise in creatinine. Blood cultures are negative to date, continue to monitor 11/30 WBC still elevated, Continue Cipro and Flagyl IV, resume Vancomycin. Will consult ID. 12/01 Stable vital signs, afebrile, tachycardia resolved. 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 Consult hematology. Blood cultures negative to date. 12/02 stable vital signs, afebrile. Hematology consult still pending. Continue IV antibiotics as per ID. Patient currently on cefepime IV, fluconazole and Flagyl (2) Acute acalculous cholecystitis Plan: As above. Alkaline phosphatase trending down. (3) Diabetes mellitus A1c 5.4. Continue SSI with insulin NovoLog. Blood sugar seems to be very stable. (4) Hypertension Patient had an episode of hypotension on 11/29 improved after Iv fluid administration. Will increase IV fluid rate to 125 ml/hour. Continue to monitor bp. I will hold LULU inhibitor due to rising creatinine but will continue other antihypertensive medications with holding parameters. 11/30 resume LULU inhibitor. 12/01 Bp stable, continue to monitor BP. (5) Acute ischemic stroke Plan: With very mild right-sided weakness, improved, continue physical therapy. Continue aspirin and statin and blood pressure control. (6) Abdominal pain Plan: Due to acalculous cholecystitis. Continue pain control with oral Percocet. We'll discontinue [place] due to the patient complaining of chills after ingestion of this medication. (7) ANDREI (acute kidney injury) Plan: AK I on chronic kidney disease stage III. Patient's baseline creatinine is around 1.3 to 1.4. Patient's creatinine slightly elevated from 2.03-2.20. Will discontinue vancomycin, increase IV normal saline to 125 mL per hour and continue to monitor BUN/creatinine. Renally adjust antibiotics and medications , monitor strict I's and O's. Should there be worsening of the patient's kidney function then we'll consider consulting nephrology. 12/01 Creatinine much improved and trending down to 1.5. Will DC IV fluids and continue to monitor BUN and creatinine as well as I's and O's. Encourage oral intake of fluids. 12/02 resume IV fluids since creatinine trending up, now 1.59. Discharge Planning Possible discharge in a.m. pending hematology and ID clearance. Problem Qualifiers (1) Sepsis: Qualified Code: A41.9 - Sepsis, due to unspecified organism (2) Diabetes mellitus: (3) Leukocytosis: Qualified Code: D72.820 - Lymphocytosis Isma Robertson MD Dec 02, 2016 13:43
[2016-12-02] MEDS: POTASSIUM PHOSPHATE/SODIUM PHOSPHATE 250 MG TAB PO SCH ×2 (18:00→18:15)
--- NOTE | 2016-12-02 19:35 | HHI.IDPN ---
Subjective Subjective Remarks is an 81 y/o CM who was admitted to for ischemic CVA with speech impairment and right sided weakness. s/p TPA and Cholecystostomy tube. Overnight events reviewed. No fever No rash No diarrhea. Antibiotics Cefepime IV flagyl oral diflucan oral. Lines Line sites with no e.o infection. Past Medical History reviewed Allergies: Coded Allergies: No Known Allergies (Unverified , 11/17/16) Objective . Vital Signs Date Time Temp Pulse Resp B/P Pulse Ox O2 Delivery O2 Flow Rate FiO2 12/02/16 19:25 96 Nasal Cannula 12/02/16 16:00 97.6 89 17 146/70 98 12/02/16 12:00 96.9 92 16 108/55 97 12/02/16 09:29 94 21 12/02/16 08:00 97.7 88 17 129/71 96 12/02/16 07:55 Room Air 12/02/16 00:00 98.1 90 18 130/65 97 12/01/16 22:00 Room Air 12/01/16 20:00 97.8 96 18 168/82 97 12/01/16 12/01/16 12/02/16 15:00 23:00 07:00 Intake Total 600 ml 840 ml 320 ml Output Total 300 ml 300 ml 250 ml Balance 300 ml 540 ml 70 ml Intake Oral 600 ml 240 ml 120 ml IV Total 600 ml 200 ml Output Urine Total 200 ml 200 ml 200 ml Drainage Total 100 ml 100 ml 50 ml # Bowel Movements 1 1 0 . Laboratory Tests Test 12/02/16 04:25 White Blood Count 13.0 TH/MM3 Red Blood Count 3.87 MIL/MM3 Hemoglobin 12.3 GM/DL Hematocrit 36.2 % Mean Corpuscular Volume 93.5 FL Mean Corpuscular Hemoglobin 31.9 PG Mean Corpuscular Hemoglobin 34.1 % Concent Red Cell Distribution Width 14.1 % Platelet Count 100 TH/MM3 Mean Platelet Volume 6.8 FL Neutrophils (%) (Auto) 38.7 % Lymphocytes (%) (Auto) 55.6 % Monocytes (%) (Auto) 4.6 % Eosinophils (%) (Auto) 0.7 % Basophils (%) (Auto) 0.4 % Neutrophils # (Auto) 5.0 TH/MM3 Lymphocytes # (Auto) 7.2 TH/MM3 Monocytes # (Auto) 0.6 TH/MM3 Eosinophils # (Auto) 0.1 TH/MM3 Basophils # (Auto) 0.1 TH/MM3 CBC Comment AUTO DIFF Differential Total Cells 100 Counted Neutrophils % (Manual) 27 % Lymphocytes % 69 % Monocytes % 3 % Eosinophils % 1 % Neutrophils # (Manual) 3.5 TH/MM3 Differential Comment FINAL DIFF MANUAL Smudge Cells PRESENT Platelet Estimate LOW Platelet Morphology Comment NORMAL Laboratory Tests Test 12/01/16 12/02/16 06:30 04:25 Creatinine 1.51 MG/DL 1.59 MG/DL Estimat Glomerular Filtration 44 ML/MIN 42 ML/MIN Rate Sodium Level 141 MEQ/L Potassium Level 3.8 MEQ/L Chloride Level 110 MEQ/L Carbon Dioxide Level 24.1 MEQ/L Anion Gap 7 MEQ/L Blood Urea Nitrogen 24 MG/DL Random Glucose 118 MG/DL Hemoglobin A1c 5.4 % Calcium Level 7.3 MG/DL Protein Corrected Calcium 8.7 MG/DL Phosphorus Level 2.1 MG/DL Magnesium Level 1.7 MG/DL Total Bilirubin 0.5 MG/DL Aspartate Amino Transf 27 U/L (AST/SGOT) Alanine Aminotransferase 15 U/L (ALT/SGPT) Alkaline Phosphatase 152 U/L Total Protein 4.7 GM/DL Albumin 2.0 GM/DL Microbiology Date/Time Procedure Status Source Growth 11/30/16 10:16 Aerobic Blood Culture - Preliminary Resulted Blood Peripheral NO GROWTH IN 2 DAYS 11/30/16 10:16 Anaerobic Blood Culture - Preliminary Resulted Blood Peripheral NO GROWTH IN 2 DAYS 11/30/16 10:27 Aerobic Blood Culture - Preliminary Resulted Blood Peripheral NO GROWTH IN 2 DAYS 11/30/16 10:27 Anaerobic Blood Culture - Preliminary Resulted Blood Peripheral NO GROWTH IN 2 DAYS Imaging Last Impressions Chest X-Ray 12/01/16 0000 Signed Impressions: Service Date/Time: Thursday, December 01, 2016 16:30 - CONCLUSION: No acute disease. No significant change has occurred. Jitendra Arias MD Lower Extremity Ultrasound 11/30/16 0000 Signed Impressions: Service Date/Time: Wednesday, November 30, 2016 16:32 - CONCLUSION: Normal examination. No evidence of DVT Jitendra Arias MD Percutaneous Cholangiogram 11/27/16 0000 Signed Impressions: Service Date/Time: Sunday, November 27, 2016 21:07 - CONCLUSION: Uncomplicated percutaneous cholecystostomy as above. Jayden Bland MD Abdomen CT 11/27/16 0000 Signed Impressions: Service Date/Time: Monday, November 28, 2016 08:38 - CONCLUSION: 1. Cholecystostomy tube is present within a decompressed gallbladder. There are inflammatory changes surrounding the gallbladder. These inflammatory changes could be related to the acute gallbladder disease or could be related to the recent procedure. There multiple punctate calcifications in the region of the gallbladder neck that may represent gallstones. 2. Splenomegaly with a wedge-shaped area of low-density in the posterior aspect. Although this is incompletely characterized on this examination the wedge-shaped appearance favors infarct. Mass is felt less likely given the shape but also a possibility. 3. Small bilateral pleural effusions with compressive atelectasis and/or consolidation at the lung bases. 4. There is a small volume of free fluid in the abdomen. Duncan Rajput MD Physical Exam GENERAL: This is a well-nourished, well-developed patient, in no apparent distress. SKIN: No rashes, ecchymoses or lesions. Cool and dry. HEAD: Atraumatic. Normocephalic. No temporal or scalp tenderness. EYES: Pupils equal round and reactive. Extraocular motions intact. No scleral icterus. No injection or drainage. ENT: Nose without bleeding, purulent drainage or septal hematoma. Throat without erythema, tonsillar hypertrophy or exudate. Uvula midline. Airway patent. NECK: Trachea midline. Supple, nontender, no meningeal signs. CARDIOVASCULAR: HS audible RESPIRATORY: Clear to auscultation. Breath sounds equal bilaterally. No wheezes , rales, or rhonchi. GASTROINTESTINAL: Abdomen soft, non-tender, nondistended. Cholecystostomy tube in place. MUSCULOSKELETAL: Extremities without clubbing, cyanosis, or edema. No joint tenderness, effusion, or edema noted. No calf tenderness. Negative Homans sign bilaterally. NEUROLOGICAL: Awake and alert. Oriented x 3 Psych: pleasant, cooperative IV line sites with no e/o infection. Assessment & Plan Remarks Acalculous cholecystitis s/p cholecystostomy tube placement by IR. High grade leucocytosis: ? CLL, component of infection, cholecystitis. 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 Skin cancer Rheumatoid arthritis Diabetes mellitus Gout Dyslipidemia Hypertension Recs: DC Cefepime IV Start Levaquin oral recommend 10 more days. Continue oral flagyl recommend 10 more days. Continue Diflucan recommend 10 more days. Follow cultures Follow clinically. [place].w and patients family. If with new regimen WBC trends down further ok to DC to rehab from my standpoint. Will sign off please call back if any change in clinical condition. Eula Reyes MD Dec 02, 2016 19:35
[2016-12-02] MEDS ORDERED: LEVOFLOXACIN 500 MG TAB PO ONE (20:00)
[2016-12-03] VITALS (7 sets, daily range): BP systolic 123–157; BP diastolic 60–72; PULSE 84–99; RESP 16–24; TEMP 96–99.3; O2SAT 95–99
[2016-12-03] MEDS: SODIUM CHLOR 0.9% 1000 ML INJ 1,000 ML IV SCH (05:15)
[2016-12-03] MEDS: POTASSIUM PHOSPHATE/SODIUM PHOSPHATE 250 MG TAB PO SCH ×5 (05:15→23:04)
[2016-12-03] MEDS: metroNIDAZOLE 500 MG TAB PO SCH ×3 (05:15→20:33)
[2016-12-03] MEDS: GABAPENTIN 100 MG CAP PO SCH ×3 (05:18→23:04)
[2016-12-03] MEDS: INSULIN ASPART SUPPLEMENTAL SCALE SQ SCH ×4 (05:18→20:36)
[2016-12-03 06:10] LABS: AUTOMATED NEUTROPHIL # 5.9 TH/MM3 (1.8-7.7); BASOPHIL # 0.1 TH/MM3 (0-0.2); BASOPHIL % 0.3 % (0.0-2.0); EOSINOPHIL # 0.1 TH/MM3 (0-0.4); EOSINOPHIL % 0.6 % (0.0-4.0); HEMATOCRIT 37.1 % (39.0-51.0); LYMPH % 53.3 % (9.0-44.0); LYMPHOCYTE # 7.7 TH/MM3 (1.0-4.8); MEAN CELL VOLUME 93.7 FL (80.0-100.0); MEAN CORPUSCULAR HEMOGLOBIN 31.6 PG (27.0-34.0); MEAN CORPUSCULAR HGB CONC 33.8 % (32.0-36.0); MONO % 5.1 % (0.0-8.0); NEUT % 40.7 % (16.0-70.0); PLATELET COUNT 101 TH/MM3 (150-450); RED BLOOD COUNT 3.97 MIL/MM3 (4.50-5.90); RED CELL DISTRIBUTION WIDTH 14.3 % (11.6-17.2); WHITE BLOOD COUNT 14.5 TH/MM3 (4.0-11.0)
[2016-12-03 06:13] LABS: HEMO FLAGS AUTO DIFF
[2016-12-03 06:30] LABS: BICARBONATE 22.2 MEQ/L (21.0-32.0); MAGNESIUM 1.6 MG/DL (1.5-2.5)
[2016-12-03 06:33] LABS: CALCIUM-PROTEIN CORRECTED 8.8 MG/DL (8.5-10.1); TOTAL BILIRUBIN ADULT 0.7 MG/DL (0.2-1.0)
[2016-12-03 07:55] LABS: BASOPHILS 1 % (0-2); EOSINOPHILS 1 % (0-4); NEUTROPHIL # MANUAL DIFF 5.5 TH/MM3 (1.8-7.7); POLYS (SEG NEUTROPHILS) 38 % (16-70); WBC DIFF SAMPLE 100
[2016-12-03 07:56] LABS: PLATELET ESTIMATE SMEAR LOW (NORMAL); PLATELET MORPHOLOGY NORMAL (NORMAL); SCAN/DIFF FINAL DIFF MANUAL; SMUDGE CELLS PRESENT PRESENT
--- NOTE | 2016-12-03 08:27 | MB ---
cc: ADOLPH PIÑA DATE OF CONSULTATION: 12/02/2016 REASON FOR CONSULTATION Elevated white count with an elevated lymphocyte count and the possibility that the patient might have chronic lymphocytic leukemia. PATIENT PROFILE The patient is an 81-year-old male. He is . He has four children. He was born in [facility]. He is retired. He had worked for the [employer]. He stopped smoking 41 years ago and smoked approximately a pack a day for 18 years. Alcohol intake is rare. HISTORY OF PRESENT ILLNESS The patient is an 81-year-old male who had a recent stroke leaving him with left-sided weakness. He was admitted to [facility] facility. He developed right upper quadrant pain and was felt to have acute cholecystitis. He was transferred to [facility] for evaluation and treatment. He was found to have a consistently elevated white cell count and consistently elevated lymphocyte count. He has had white counts ranging from as low as 13,000 on 12/02/2016 to as high as 21,000 on 11/27/2016. The peripheral smears have consistently revealed a lymphocytosis with a normal neutrophil count. On 11/30/2016 hemoglobin was 14.9, white count 20,000, platelets 138,000, 56% lymphocytes, 39% neutrophils. On 12/02/2016 hemoglobin 12.3, white count 13,000, platelets 100,000 with 55% lymphocytes, which produces an absolute lymphocyte count of 7200. The neutrophil count is normal at 5000. He had a CAT scan of the abdomen and pelvis performed on 11/27/2016. There is no lymphadenopathy. The spleen is enlarged measuring 14.4 cm in length. There is a wedge-shaped area of low density in the posterior aspect measuring 4.1 cm. On 11/27/2016 he had an ultrasound-guided puncture of the gallbladder. He is on antibiotics and appears to be doing well with decreasing pain in the right upper quadrant and is afebrile with a falling white count. PAST SURGICAL HISTORY 1. The patient has frequent cystoscopies about every 3-4 months. At some point he was identified as having superficial bladder cancer. These cystoscopies are done by Dr. Kehinde Elam. 2. Approximately 10 years ago he was found to have a prostate cancer and was treated with radiation therapy. He indicates that there has been no evidence of recurrence and he believes the PSA is approximately 4. PAST MEDICAL HISTORY 1. Recent stroke resulting in left-sided weakness. 2. Rheumatoid arthritis. 3. Diabetes. 4. Gout. 5. Hypertension. 6. Hyperlipidemia. 7. 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 ALLERGIES No known allergies. FAMILY HISTORY Noncontributory. REVIEW OF SYSTEMS No change in vision or hearing. No chest pain. No shortness of breath. He has had recent right upper quadrant abdominal pain. He has weakness on the left side. PHYSICAL EXAMINATION GENERAL: An obese male. He is comfortable. He has a drain in the right upper quadrant. VITAL SIGNS: Blood pressure 140/70, respiratory rate 18, pulse 80, afebrile, 96% saturation. HEENT: Normocephalic. Sclera and conjunctiva are normal. LYMPH NODE SURVEY: There is no cervical, supraclavicular, axillary or inguinal adenopathy. HEART: Regular rhythm. LUNGS: Decreased sounds at the bases. ABDOMEN: The abdomen is soft. There is a drain in the right upper quadrant, minimal if any tenderness there. The belly is protuberant. I cannot feel the spleen. EXTREMITIES: +1 edema. MUSCULOSKELETAL: No obvious bone pain. NEUROLOGIC: Mild left arm and left leg weakness. ASSESSMENT The patient is an 81-year male. He has a persistent lymphocytosis and splenomegaly. This is consistent with chronic lymphocytic leukemia. In speaking to him I learned that he saw Dr. Austin Mantilla who is a cereal chemist oncologist. I called Dr. Mantilla this evening and Dr. Mantilla has seen Mr. Olivier on three or four occasions. The patient has undergone flow cytometry. A diagnosis of CLL was established and both Dr. 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 No treatment is indicated and at the present time the lymphocytosis should be ignored. The patient will follow-up with Dr. Mantilla. MD JORDEN Cummins/ANISH /7:56 PM /8:17 AM JANELLE
[2016-12-03] MEDS: SODIUM CHLORIDE FLUSH BID IVF SCH ×2 (09:00→20:33)
[2016-12-03] MEDS: LISINOPRIL 20 MG TAB PO SCH (09:08)
[2016-12-03] MEDS: ASPIRIN EC 81 MG TABEC PO SCH (09:08)
[2016-12-03] MEDS: FOLIC ACID 1 MG TAB PO SCH (09:08)
[2016-12-03] MEDS: ALLOPURINOL 300 MG TAB PO SCH (09:08)
[2016-12-03] MEDS: TAMSULOSIN HCL 0.4 MG CAP PO SCH (09:08)
[2016-12-03] MEDS: FLUCONAZOLE 100 MG TAB PO SCH (09:08)
[2016-12-03] MEDS: THEOPHYLLINE 200 MG EXTENDED RELEASE CAP PO SCH (13:01)
--- NOTE | 2016-12-03 14:41 | HHI.PR ---
Subjective Remarks denies cp/sob denies fevers/chills stable vital signs creatinine improved good oral intake as per who is at bedside son at bedside as well Objective Vitals Vital Signs Date Time Temp Pulse Resp B/P Pulse Ox O2 Delivery O2 Flow Rate FiO2 12/03/16 12:00 96.0 84 21 123/60 98 12/03/16 08:00 96.6 92 16 136/63 95 12/03/16 00:00 99.3 99 22 132/63 95 12/02/16 23:30 96 21 12/02/16 22:39 96 21 12/02/16 21:10 96 12/02/16 21:10 Room Air 12/02/16 20:00 98.7 95 22 141/65 96 12/02/16 19:25 96 Nasal Cannula 12/02/16 16:00 97.6 89 17 146/70 98 I/O 12/02/16 12/02/16 12/02/16 12/03/16 12/03/16 12/03/16 07:00 15:00 23:00 07:00 15:00 23:00 Intake Total 320 ml 1500 ml 977 ml Output Total 250 ml 400 ml 550 ml Balance 70 ml 1100 ml 427 ml Intake Oral 120 ml 1200 ml 320 ml IV Total 200 ml 300 ml 657 ml Output Urine Total 200 ml 400 ml 400 ml Drainage Total 50 ml 150 ml # Voids 1 # Bowel Movements 0 1 2 Result Diagram: 12/03/16 0530 12/03/16 0530 Imaging Last Impressions Chest X-Ray 12/01/16 0000 Signed Impressions: Service Date/Time: Thursday, December 01, 2016 16:30 - CONCLUSION: No acute disease. No significant change has occurred. Jitendra Arias MD Lower Extremity Ultrasound 11/30/16 0000 Signed Impressions: Service Date/Time: Wednesday, November 30, 2016 16:32 - CONCLUSION: Normal examination. No evidence of DVT Jitendra Arias MD Percutaneous Cholangiogram 11/27/16 0000 Signed Impressions: Service Date/Time: Sunday, November 27, 2016 21:07 - CONCLUSION: Uncomplicated percutaneous cholecystostomy as above. Jayden Bland MD Abdomen CT 11/27/16 0000 Signed Impressions: Service Date/Time: Monday, November 28, 2016 08:38 - CONCLUSION: 1. Cholecystostomy tube is present within a decompressed gallbladder. There are inflammatory changes surrounding the gallbladder. These inflammatory changes could be related to the acute gallbladder disease or could be related to the recent procedure. There multiple punctate calcifications in the region of the gallbladder neck that may represent gallstones. 2. Splenomegaly with a wedge-shaped area of low-density in the posterior aspect. Although this is incompletely characterized on this examination the wedge-shaped appearance favors infarct. Mass is felt less likely given the shape but also a possibility. 3. Small bilateral pleural effusions with compressive atelectasis and/or consolidation at the lung bases. 4. There is a small volume of free fluid in the abdomen. Duncan Rajput MD Objective Remarks GENERAL: This is a well-nourished, well-developed patient, in no apparent distress. SKIN: No rashes, ecchymoses or lesions. Cool and dry. HEAD: Atraumatic. Normocephalic. No temporal or scalp tenderness. EYES: Pupils equal round and reactive. Extraocular motions intact. No scleral icterus. No injection or drainage. ENT: Nose without bleeding. Throat without erythema. Uvula midline. Airway patent. NECK: Trachea midline. No JVD or lymphadenopathy. Supple, nontender, no meningeal signs. CARDIOVASCULAR: Regular rate and rhythm without murmurs, gallops, or rubs. RESPIRATORY: Clear to auscultation. Breath sounds equal bilaterally. No wheezes , rales, or rhonchi. GASTROINTESTINAL: Abdomen soft, non-tender, nondistended. Cholecystostomy tube and right upper quadrant draining bilious-colored drain. MUSCULOSKELETAL: Extremities without clubbing, cyanosis, bilateral lower extremity trace edema. No joint tenderness, effusion, or edema noted. No calf tenderness. Negative Homans sign bilaterally. NEUROLOGICAL: Awake and alert. Oriented 3. Motor and sensory grossly within normal limits. Normal speech. Procedures Percutaneous cholecystostomy tube drain placement on 11/28/16 Medications and IVs Current Medications Medications (Trade) Dose Ordered Sig/Robert Route Start Time Stop Time Status Last Admin (Dilaudid Pf Inj) 1 mg Q4H PRN IV 11/27/16 20:00 (NS Flush) 2 ml BID IVF 11/27/16 21:00 12/02/16 21:47 (NS Flush) 2 ml UNSCH PRN IVF 11/27/16 20:00 (Tylenol) 650 mg Q4H PRN PO 11/27/16 20:00 (Zofran Inj) 4 mg Q6H PRN IV PUSH 11/27/16 20:00 (Zyloprim) 300 mg DAILY PO 11/28/16 09:00 12/03/16 09:08 (Ecotrin Ec) 81 mg DAILY PO 11/28/16 09:00 12/03/16 09:08 (Folate) 1 mg DAILY PO 11/28/16 09:00 12/03/16 09:08 (Neurontin) 100 mg Q8H PO 11/27/16 23:00 12/03/16 05:18 (Prinivil) 20 mg DAILY PO 11/28/16 09:00 12/03/16 09:08 (Flomax) 0.4 mg DAILY PO 11/28/16 09:00 12/03/16 09:08 (Yaron-24) 400 mg DAILY PO 11/28/16 16:00 12/03/16 13:01 (Percocet 5-325 Mg) 1 tab Q4H PRN PO 11/29/16 18:00 (Catapres) 0.1 mg Q6H PRN PO 11/30/16 10:00 12/01/16 21:26 (Flagyl) 500 mg Q8HR PO 12/01/16 22:00 12/03/16 13:01 (Diflucan) 100 mg DAILY PO 12/01/16 17:30 12/03/16 09:08 (D50w (Vial) Inj) 25 ml UNSCH PRN IV PUSH 12/01/16 18:45 (Glucagon Inj) 1 mg UNSCH PRN OTHER 12/01/16 18:45 Potassium Phos/ Sodium Phos 250 mg 250 mg Q6HR PO 12/02/16 13:45 12/03/16 13:01 (Levaquin 250 Mg Premix Inj) 50 ml @ 50 mls/hr Q24H IV 12/03/16 20:00 Urinary Catheter: No Vascular Central Line Catheter: No A/P Problem List: (1) Sepsis ICD Code: A41.9 Status: Resolved (2) Acute acalculous cholecystitis ICD Code: K81.0 Status: Resolved (3) Diabetes mellitus ICD Code: E11.9 Status: Resolved (4) Hypertension ICD Code: I10 Status: Chronic (5) Acute ischemic stroke ICD Code: I63.9 Status: Resolved (6) Abdominal pain ICD Code: R10.9 Status: Resolved (7) ANDREI (acute kidney injury) ICD Code: N17.9 Status: Acute (8) Edema of left lower extremity ICD Code: R60.0 Status: Acute (9) Leukocytosis ICD Code: D72.829 Status: Chronic Plan: With lymphocytosis likely due to previously diagnosed CLL. appreciate Hematology consultation. Patient has followed up for this with Dr Mantilla. Patient advised to follow up. Assessment and Plan (1) Sepsis Plan: Sepsis due to acalculous cholecystitis. Surgery consulted and following. Follow up recommendations. Patient is status post placement of percutaneous cholecystostomy draining tube by interventional radiology. Sepsis syndrome improving with leukocytosis trending down, patient still tachycardic, no fever. Continue to monitor vital signs, IV fluids. I will discontinue IV Rocephin and start IV ciprofloxacin and continue metronidazole and discontinue IV vancomycin given rise in creatinine. Blood cultures are negative to date, continue to monitor 11/30 WBC still elevated, Continue Cipro and Flagyl IV, resume Vancomycin. Will consult ID. 12/01 Stable vital signs, afebrile, tachycardia resolved. 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 Consult hematology. Blood cultures negative to date. 12/02 stable vital signs, afebrile. Hematology consult still pending. Continue IV antibiotics as per ID. Patient currently on cefepime IV, fluconazole and Flagyl 12/03 IV antibiotics switched to PO Levaquin x 10 more days (2) Acute acalculous cholecystitis Plan: As above. Alkaline phosphatase trending down. (3) Diabetes mellitus A1c 5.4. Continue SSI with insulin NovoLog. Blood sugar seems to be very stable. Diabetes is controlled. (4) Hypertension Patient had an episode of hypotension on 11/29 improved after Iv fluid administration. Will increase IV fluid rate to 125 ml/hour. Continue to monitor bp. I will hold LULU inhibitor due to rising creatinine but will continue other antihypertensive medications with holding parameters. 11/30 resume LULU inhibitor. 12/01 Bp stable, continue to monitor BP. (5) Acute ischemic stroke Plan: With very mild right-sided weakness, improved, continue physical therapy. Continue aspirin and statin and blood pressure control. (6) Abdominal pain Plan: Due to acalculous cholecystitis. Continue pain control with oral Percocet. We'll discontinue [place] due to the patient complaining of chills after ingestion of this medication. (7) ANDREI (acute kidney injury) Plan: AK I on chronic kidney disease stage III. Patient's baseline creatinine is around 1.3 to 1.4. Patient's creatinine slightly elevated from 2.03-2.20. Will discontinue vancomycin, increase IV normal saline to 125 mL per hour and continue to monitor BUN/creatinine. Renally adjust antibiotics and medications , monitor strict I's and O's. Should there be worsening of the patient's kidney function then we'll consider consulting nephrology. 12/01 Creatinine much improved and trending down to 1.5. Will DC IV fluids and continue to monitor BUN and creatinine as well as I's and O's. Encourage oral intake of fluids. 12/02 resume IV fluids since creatinine trending up, now 1.59. 12/03 Creatinine trending down now 1.52, patient has good oral intake. Dc IV fluids. Discharge Planning As per case management note there is no bed available at inpatient rehabilitation today. I will discharge more morning. Problem Qualifiers (1) Sepsis: Qualified Code: A41.9 - Sepsis, due to unspecified organism (2) Diabetes mellitus: (3) Leukocytosis: Qualified Code: D72.820 - Lymphocytosis Isma Robertson MD Dec 03, 2016 14:41
[2016-12-03] MEDS ORDERED: LEVA750T PO (14:48)
--- NOTE | 2016-12-03 14:51 | HHI.DCPOC ---
Discharge Care Plan Diagnosis: (1) Sepsis (2) Leukocytosis (3) Acute acalculous cholecystitis (4) Edema of left lower extremity (5) ANDREI (acute kidney injury) (6) Acute ischemic stroke (7) Abdominal pain (8) Severe sepsis (9) Pneumonia (10) Hypertension (11) Neuropathy (12) Hyperlipidemia (13) Diabetes mellitus (14) CLL (chronic lymphocytic leukemia) Goals to Promote Your Health * To prevent worsening of your condition and complications * To maintain your health at the optimal level Directions to Meet Your Goals Take your medications as prescribed Follow your dietary instruction Follow activity as directed Keep your appointments as scheduled Take your immunizations and boosters as scheduled If your symptoms worsen call your PCP, if no PCP go to Urgent Care Center or Emergency Room Smoking is Dangerous to Your Health. Avoid second hand smoke Call the 24-hour hour crisis hotline for domestic abuse at Isma Robertson MD Dec 03, 2016 14:51
--- NOTE | 2016-12-03 15:01 | HHI.DS ---
Discharge Summary Admission Date Nov 27, 2016 at 19:20 Discharge Date: Dec 04, 2016 Admitting Diagnosis Acute Cholecystitis (1) Sepsis ICD Code: A41.9 Diagnosis: Principal (2) Acute acalculous cholecystitis ICD Code: K81.0 Diagnosis: Principal (3) Diabetes mellitus ICD Code: E11.9 Diagnosis: Secondary (4) Hypertension ICD Code: I10 Diagnosis: Secondary (5) Acute ischemic stroke ICD Code: I63.9 Diagnosis: Principal (6) Abdominal pain ICD Code: R10.9 Diagnosis: Principal (7) ANDREI (acute kidney injury) ICD Code: N17.9 Diagnosis: Principal (8) Edema of left lower extremity ICD Code: R60.0 Diagnosis: Principal (9) Leukocytosis ICD Code: D72.829 Diagnosis: Principal Procedures Percutaneous cholecystostomy tube drain placement on 11/28/16 Brief History - From Admission This is an 81-year-old male who was initially admitted at [facility] for right-sided weakness, the patient was found to have an acute left ischemic CVA with speech impairment and right-sided weakness. Patient was given TPA in the emergency department which improved his symptoms. He was seen by neurology and he was cleared for discharge. Echocardiogram was unremarkable, CTA did not show any carotid stenosis or thrombus. On the day of discharge, patient started having leukocytosis, a chest x-ray showed infiltrates in the left lung base hence patient was started Levaquin for pneumonia. Patient was admitted at [facility]. While he was at [place], patient started to complain of abdominal pain, described as midepigastric to the right upper quadrant region. He had episode of nausea and vomiting previous day. Pain started to get worse yesterday, WBC was elevated 21.5, HR 100-104. Patient meeting SIRS, severe sepsis criteria. His KUB did not show any significant changes or bowel obstruction. Ultrasound abdomen - Showed Distended gallbladder with mild wall thickening. No gallstones are present. However, the roving can tender reported the patient having focal pain when imaging over the gallbladder. This may represent acalculus cholecystitis. HIDA scan may be of benefit to evaluate for cystic duct obstruction. Stable coarsened echotexture of the liver with questionable nodular contour. Although nonspecific this raises suspicion for chronic liver disease/cirrhosis. There is also mild splenomegaly. Mild renal cortical thinning bilaterally. Total bili 0.9, AST 35, AST 26, alkaline phosphatase 230. Patient was started on ceftriaxone 1 g every 24, Flagyl 500 mg every 8, vancomycin 1500 mg. HIDA scan was done, showed nonvisualization of the gallbladder. In the appropriate clinical setting, findings could represent acute cholecystitis. Patient went to intravascular radiology for percutaneous cholangiogram, placement of cholecystostomy tube. Patient seen today. States his doing a lot better. Denies any abdominal pain, abdominal cramping. On 2 L nasal cannula but states he is not short of breath more than usual. Seen by Dr. Longoria this morning. Patient is worried about continuing rehabilitation with cholecystostomy tube. Discussed and explained with patient that he may go to rehabilitation with cholecystostomy tube as long as he is medically stable and okay for rehabilitation. Otherwise, denies pain and discomfort. Denies SOB/ dyspnea. Denies chestpain, palpitations, headaches, dizziness. Denies fevers, chills, n/v/d. CBC/BMP: 12/03/16 0530 12/03/16 0530 Significant Findings Laboratory Tests Test 12/01/16 12/02/16 12/03/16 06:30 04:25 05:30 Creatinine 1.51 MG/DL 1.59 MG/DL 1.52 MG/DL (0.60-1.30) (0.60-1.30) (0.60-1.30) Estimat Glomerular Filtration 44 ML/MIN (>89) 42 ML/MIN (>89) 44 ML/MIN (>89) Rate White Blood Count 13.0 TH/MM3 14.5 TH/MM3 (4.0-11.0) (4.0-11.0) Red Blood Count 3.87 MIL/MM3 3.97 MIL/MM3 (4.50-5.90) (4.50-5.90) Hemoglobin 12.3 GM/DL 12.5 GM/DL (13.0-17.0) (13.0-17.0) Hematocrit 36.2 % 37.1 % (39.0-51.0) (39.0-51.0) Platelet Count 100 TH/MM3 101 TH/MM3 (150-450) (150-450) Mean Platelet Volume 6.8 FL 6.8 FL (7.0-11.0) (7.0-11.0) Lymphocytes (%) (Auto) 55.6 % 53.3 % (9.0-44.0) (9.0-44.0) Lymphocytes # (Auto) 7.2 TH/MM3 7.7 TH/MM3 (1.0-4.8) (1.0-4.8) Lymphocytes % 69 % (9-44) 59 % (9-44) Platelet Estimate LOW (NORMAL) LOW (NORMAL) Chloride Level 110 MEQ/L 110 MEQ/L (98-107) (98-107) Blood Urea Nitrogen 24 MG/DL (7-18) 20 MG/DL (7-18) Random Glucose 118 MG/DL (74-106) Calcium Level 7.3 MG/DL 7.4 MG/DL (8.5-10.1) (8.5-10.1) Phosphorus Level 2.1 MG/DL 2.3 MG/DL (2.5-4.9) (2.5-4.9) Alkaline Phosphatase 152 U/L 133 U/L (45-117) (45-117) Total Protein 4.7 GM/DL 4.7 GM/DL (6.4-8.2) (6.4-8.2) Albumin 2.0 GM/DL 2.0 GM/DL (3.4-5.0) (3.4-5.0) Imaging Last Impressions Chest X-Ray 12/01/16 0000 Signed Impressions: Service Date/Time: Thursday, December 01, 2016 16:30 - CONCLUSION: No acute disease. No significant change has occurred. Jitendra Arias MD Lower Extremity Ultrasound 11/30/16 0000 Signed Impressions: Service Date/Time: Wednesday, November 30, 2016 16:32 - CONCLUSION: Normal examination. No evidence of DVT Jitendra Arias MD Percutaneous Cholangiogram 11/27/16 0000 Signed Impressions: Service Date/Time: Sunday, November 27, 2016 21:07 - CONCLUSION: Uncomplicated percutaneous cholecystostomy as above. Jayden Bland MD Abdomen CT 11/27/16 0000 Signed Impressions: Service Date/Time: Monday, November 28, 2016 08:38 - CONCLUSION: 1. Cholecystostomy tube is present within a decompressed gallbladder. There are inflammatory changes surrounding the gallbladder. These inflammatory changes could be related to the acute gallbladder disease or could be related to the recent procedure. There multiple punctate calcifications in the region of the gallbladder neck that may represent gallstones. 2. Splenomegaly with a wedge-shaped area of low-density in the posterior aspect. Although this is incompletely characterized on this examination the wedge-shaped appearance favors infarct. Mass is felt less likely given the shape but also a possibility. 3. Small bilateral pleural effusions with compressive atelectasis and/or consolidation at the lung bases. 4. There is a small volume of free fluid in the abdomen. Duncan Rajput MD PE at Discharge GENERAL: This is a well-nourished, well-developed patient, in no apparent distress. SKIN: No rashes, ecchymoses or lesions. Cool and dry. HEAD: Atraumatic. Normocephalic. No temporal or scalp tenderness. EYES: Pupils equal round and reactive. Extraocular motions intact. No scleral icterus. No injection or drainage. ENT: Nose without bleeding. Throat without erythema. Uvula midline. Airway patent. NECK: Trachea midline. No JVD or lymphadenopathy. Supple, nontender, no meningeal signs. CARDIOVASCULAR: Regular rate and rhythm without murmurs, gallops, or rubs. RESPIRATORY: Clear to auscultation. Breath sounds equal bilaterally. No wheezes , rales, or rhonchi. GASTROINTESTINAL: Abdomen soft, non-tender, nondistended. Cholecystostomy tube and right upper quadrant draining bilious-colored drain. MUSCULOSKELETAL: Extremities without clubbing, cyanosis, bilateral lower extremity trace edema. No joint tenderness, effusion, or edema noted. No calf tenderness. Negative Homans sign bilaterally. NEUROLOGICAL: Awake and alert. Oriented 3. Motor and sensory grossly within normal limits. Normal speech. Hospital Course (1) Sepsis Sepsis due to acalculous cholecystitis. Surgery consulted and following. Follow up recommendations. Patient is status post placement of percutaneous cholecystostomy draining tube by interventional radiology. Sepsis syndrome improving with leukocytosis trending down, patient still tachycardic, no fever. Continue to monitor vital signs, IV fluids. I will discontinue IV Rocephin and start IV ciprofloxacin and continue metronidazole and discontinue IV vancomycin given rise in creatinine. Blood cultures are negative to date, continue to monitor 11/30 WBC still elevated, Continue Cipro and Flagyl IV, resume Vancomycin. Will consult ID. 12/01 Stable vital signs, afebrile, tachycardia resolved. 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 Consult hematology. Blood cultures negative to date. 12/02 stable vital signs, afebrile. Hematology consult still pending. Continue IV antibiotics as per ID. 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 Being followed outpatient by Dr. Mantilla. Patient to follow up as an outpatient. sepsis resolved prior to DC. (2) Acute acalculous cholecystitis As above. Alkaline phosphatase trending down. (3) Diabetes mellitus A1c 5.4. Continue SSI with insulin NovoLog. Blood sugar seems to be very stable. Diabetes is controlled. (4) Hypertension Patient had an episode of hypotension on 11/29 improved after Iv fluid administration. Will increase IV fluid rate to 125 ml/hour. Continue to monitor bp. I will hold LULU inhibitor due to rising creatinine but will continue other antihypertensive medications with holding parameters. 11/30 resume LULU inhibitor. 12/01 Bp stable, continue to monitor BP. (5) Acute ischemic stroke Plan: With very mild right-sided weakness, improved, continue physical therapy. Continue aspirin and statin and blood pressure control. (6) Abdominal pain Plan: Due to acalculous cholecystitis. Continue pain control with oral Percocet. We'll discontinue [place] due to the patient complaining of chills after ingestion of this medication. (7) ANDREI (acute kidney injury) Plan: AK I on chronic kidney disease stage III. Patient's baseline creatinine is around 1.3 to 1.4. Patient's creatinine slightly elevated from 2.03-2.20. Will discontinue vancomycin, increase IV normal saline to 125 mL per hour and continue to monitor BUN/creatinine. Renally adjust antibiotics and medications , monitor strict I's and O's. Should there be worsening of the patient's kidney function then we'll consider consulting nephrology. 12/01 Creatinine much improved and trending down to 1.5. Will DC IV fluids and continue to monitor BUN and creatinine as well as I's and O's. Encourage oral intake of fluids. 12/02 resume IV fluids since creatinine trending up, now 1.59. 12/03 Creatinine trending down now 1.52, patient has good oral intake. Dc IV fluids. Pt Condition on Discharge: Stable Discharge Disposition: Rehab Inpatient Discharge Time: > 30 minutes Discharge Instructions DIET: Follow Instructions for: As Tolerated, No Restrictions Activities you can perform: See Additionl Instruction Activities to Avoid: Strenuous Activity Other Activity Instructions: OOB with assistance Follow up Referrals: PCP Follow-up - 1 Week Surgical - 1 Week with Juan Antonio Longoria MD New Medications: Levofloxacin (Levaquin) 750 Mg Tab 750 MG PO DAILY Infection #7 Ref 0 TAB Continued Medications: Acetaminophen (Acetaminophen) 325 Mg Tab 650 MG PO Q4H PRN Fever/ Pain 1-2 Days 1 TAB Allopurinol (Zyloprim) 300 Mg Tab 300 MG PO DAILY Days 1 TAB Vzmyttqo-Urwohjemc-Csqbdmgbguv Liq (Mag-Al Plus Liq) 200-200-20 Mg/5 Ml Susp 30 ML PO Q6H PRN GI DISTRESS Days 1 ML Amlodipine (Norvasc) 5 Mg Tab 5 MG PO DAILY Days [address] (Aspirin EC) 81 Mg Tabdr 81 MG PO DAILY Days 1 TAB Atorvastatin (Lipitor) 40 Mg Tab 40 MG PO HS Days 1 TAB Folic Acid (Folate) 1 Mg Tab 1 MG PO DAILY Days 1 TAB Gabapentin (Gabapentin) 100 Mg Cap 100 MG PO Q8H Days 1 CAP Ipratropium-Albuterol Neb (Duoneb) 0.5-2.5 Mg/3 Ml Neb 1 AMPULE NEB Q6HR NEB PRN sob Days 3 ML Lisinopril (Lisinopril) 20 Mg Tab 20 MG PO DAILY Days 1 TAB Magnesium Citrate (Sm Magnesium Citrate) 1.745 Gm/30 Ml Sulma 300 ML PO DAILY PRN constipation Days 1 ML Metoprolol Tartrate (Lopressor) 50 Mg Tab 50 MG PO DAILY Days 1 TAB Multiple Vitamin (Thera/Beta-Carotene) 1 Tab Tab 1 TAB PO DAILY Days 1 TAB Tamsulosin (Flomax) 0.4 Mg Cap 0.4 MG PO DAILY Days 1 CAP Theophylline ER 12 HR (Theophylline ER 12 HR) 200 Mg Tab 200 MG PO Q12H #60 Ref 0 TAB Theophylline ER 24 HR (Yaron-24) 200 Mg Cap 200 MG PO DAILY@20 Days 1 CAP Tramadol (Ultram) 50 Mg Tab 50 MG PO Q6H PRN pain 3-10 Days 1 TAB Isma Robertson MD Dec 03, 2016 15:01
[2016-12-03] MEDS ORDERED: LEVOFLOXACIN/DEXTROSE 250 MG/50 ML IV SCH (20:00)
[2016-12-04] VITALS: BP 131/63; PULSE 105; RESP 24; TEMP 99.8; O2SAT 96
[2016-12-04] MEDS: POTASSIUM PHOSPHATE/SODIUM PHOSPHATE 250 MG TAB PO SCH (04:48)
[2016-12-04] MEDS: GABAPENTIN 100 MG CAP PO SCH (04:48)
[2016-12-04] MEDS: metroNIDAZOLE 500 MG TAB PO SCH (04:48)
[2016-12-04] MEDS: INSULIN ASPART SUPPLEMENTAL SCALE SQ SCH (04:50)
[2016-12-04] MEDS: FLUCONAZOLE 100 MG TAB PO SCH (07:52)
[2016-12-04] MEDS: ALLOPURINOL 300 MG TAB PO SCH (07:52)
[2016-12-04] MEDS: SODIUM CHLORIDE FLUSH BID IVF SCH (07:53)
[2016-12-04] MEDS: ASPIRIN EC 81 MG TABEC PO SCH (07:53)
[2016-12-04] MEDS: FOLIC ACID 1 MG TAB PO SCH (07:53)
[2016-12-04] MEDS: LISINOPRIL 20 MG TAB PO SCH (07:53)
[2016-12-04] MEDS: THEOPHYLLINE 200 MG EXTENDED RELEASE CAP PO SCH (07:53)
[2016-12-04] MEDS: TAMSULOSIN HCL 0.4 MG CAP PO SCH (07:53)
[2016-12-04 08:00] VITALS: BP 116/69; PULSE 117; RESP 18; TEMP 97.7; O2SAT 95
[2016-12-16] MEDS ORDERED: WHEEMIS3 (12:36)
[2016-12-16] MEDS ORDERED: COMMODE 3-IN-11 MIS (12:36)
[2017-01-04] MEDS ORDERED: HOSP BED1 (14:42)
[2017-01-11] MEDS ORDERED: LIPI40TA PO (09:07)
[2017-01-11] MEDS ORDERED: THERTAB15 PO (09:07)
[2017-01-11] MEDS ORDERED: FOLI1TAB4 PO (09:07)
[2017-01-11] MEDS ORDERED: GABA100C4 PO (09:07)
[2017-01-11] MEDS ORDERED: CARB25TA9 PO (09:07)
[2017-01-11] MEDS ORDERED: THEO1CAP2 PO (09:07)
[2017-01-11] MEDS ORDERED: ALLO300 PO (09:07)
[2017-01-11] MEDS ORDERED: VITA100T PO (09:07)
[2017-01-11] MEDS ORDERED: COUM1TAB PO (09:07)
[2017-02-14] MEDS ORDERED: LIPI40TA PO (12:43)
[2017-03-11] MEDS ORDERED: FOLI1TAB4 PO (10:37)
[2017-03-11] MEDS ORDERED: CARB25TA9 PO (10:37)
[2017-03-11] MEDS ORDERED: GABA100C4 PO (10:37)
== END 2016-12-04 10:09 | DRG 871 ==
LOC: N07B 19:20
PROVIDERS: ADMIT Hospitalist; ATTEND Hospitalist
PROC: 0F9430Z Drainage of Gallbladder with Drainage Device, Percutaneous Approach (ICD-10-PCS; principal; 2016-11-27)
PROC: BF121ZZ Fluoroscopy of Gallbladder using Low Osmolar Contrast (ICD-10-PCS; 2016-11-27)
DX: A41.9 Sepsis, unspecified organism (principal); J18.9 Pneumonia, unspecified organism; N17.9 Acute kidney failure, unspecified; K81.0 Acute cholecystitis; C91.10 Chronic lymphocytic leukemia of B-cell type not having achieved remission; N18.3 Chronic kidney disease, stage 3 (moderate); E11.22 Type 2 diabetes mellitus with diabetic chronic kidney disease; I69.351 Hemiplegia and hemiparesis following cerebral infarction affecting right dominant side; E11.40 Type 2 diabetes mellitus with diabetic neuropathy, unspecified; M06.9 Rheumatoid arthritis, unspecified; Z85.51 Personal history of malignant neoplasm of bladder; Z85.46 Personal history of malignant neoplasm of prostate; Z92.3 Personal history of irradiation; M41.9 Scoliosis, unspecified; I12.9 Hypertensive chronic kidney disease with stage 1 through stage 4 chronic kidney disease, or unspecified chronic kidney disease; E78.5 Hyperlipidemia, unspecified; M10.9 Gout, unspecified; Z85.828 Personal history of other malignant neoplasm of skin
CPT/HCPCS: 47490; 71010; 74150; 76937; 80053; 80076; 80198; 80202; 82565; 82948; 83036; 83735; 84100; 85007; 85027; 87040; 93971; 94002; 94640; 94664; 99152; 99153; C1729; C1769; J0692; J0696; J0744; J1956; J2250; J3010; J3370; J7030; J7040; Q9963

== ENCOUNTER 2016-12-17 09:58 | Inpatient (IN) | payer MEDICARE, BC, OTHER ==
[~2016-12-17 09:58] MED LIST changes: -ALLO300T2 PO; -AMLO5TAB2 PO; -ASPI1TAB69 PO; -ATOR40TA16 PO; +COMMODE 3-IN-11 MIS; -FOLI5CAP PO; +LEVA750T PO; -METO50TA PO; -RAPA8CAP PO; +WHEEMIS3
[2016-12-17] MEDS ORDERED: HEPARIN SODIUM - IV 10,000 UNITS/10 ML VIAL ONE (11:08)
--- NOTE | 2016-12-17 12:09 | MB ---
cc: SARATH WOODS DATE OF CONSULTATION: 12/17/2016 HISTORY OF PRESENT ILLNESS An 81-year-old right-handed man with a history of some chronic renal insufficiency, bladder cancer, who had a stroke on November 17, 2016, seen by Dr. Alvarado. He came in with an acute stroke. A Stroke Alert was called. He had speech problems and right-sided weakness. He was brought to the ER. The patient got TPA. He was able to express himself. He had some mild right-sided weakness. An echocardiogram showed a normal ejection fraction. The aortic valve was normal, mitral valve was normal, left atrial size was read as normal, left atrium was read as 40. He was put on aspirin and sent to rehab. A CTA of the neck and morongo of Wright were normal. He was in the shower this morning, approximately 30 minutes ago, when he developed a left facial droop, left upper extremity weakness, and a Stroke Alert was called. MEDICATIONS 1. He has been on 81 mg of aspirin a day. 2. p.r.n. tramadol. 3. Tylenol. 4. Catapres. 5. Neurontin 100 q.8h. 6. Lipitor. 7. Theophylline. 8. Flomax. 9. Theragran 10.Zyloprim. 11.Lopressor. REVIEW OF SYSTEMS He denied any history of hypertension, diabetes, hypercholesterolemia, CA, atrial fibrillation, Coumadin, hepatic or pulmonary disease, thyroid disease, lupus, ulcer, seizure. SOCIAL HISTORY He is not a smoker or a drinker. Lives with his . FAMILY HISTORY Negative for cancer, seizure or stroke. PHYSICAL EXAMINATION VITAL SIGNS: 123/72, 20. He has not been on tele. Afebrile. NECK: There were no carotid bruits. HEART: Regular rhythm at this time. NEUROLOGIC: Pupils are equal. Visual rivera are full. Extraocular movements are intact. He has a left facial droop. It is hard to tell his sensation. He says he feels a pinprick all over even when I am checking with the blunt end of the pin. He does have a neuropathy. Toes are downgoing bilaterally. He knows the year. Speech is slurred but not aphasic. He has normal strength in the upper and lower extremities bilaterally. He is awake and alert. LABORATORY DATA White count today was 19. CBC otherwise unremarkable. UA a few days ago: 11 white cells, small amount of leukocyte esterase. Creatinine is 1.7 today. His GFR has been about 39-41. Creatinine has come down a bit. Glucose 116. Sodium is normal. Other labs are pending here. LDL cholesterol was normal in November when he had a stroke. LFTs are normal. Urine drug screen negative in November. Coags were normal in November. IMAGING CTA as noted of the neck and morongo of Wright were normal prior. MRI of the brain was positive for a left hemisphere infarct. In reviewing those films he has acute infarcts about his left hemisphere, about four or five of them. There is probably some shine through area on the high right hemisphere also. This was done 11/18/2016. No hemorrhage was noted. IMPRESSION Likely a cardioembolic event. I would want to put him on anticoagulation. He is in MRI right now. If there is anything that could be occluded we could go up and try to pull that out with an extraction device but he appears to have had significant improvement here in radiology at this time. Right now his NIH Stroke Scale I would put at a 2. He will need prolonged cardiac monitoring for atrial fibrillation. ADDENDUM The patient did not get TPA when he first presented in rehab because he just had a stroke on November 17, 2016. As such he was not a candidate for IV TPA, but we did find a right middle cerebral artery proximal occlusion and he was sent to the interventional lab and they were able to extract the clot. Now that he has had bilateral events in the last 30 days, we are going to start him on some IV heparin as long as the follow-up MRI does not show any bleeding and put him on Coumadin, and will have to do some prolonged monitoring. MD ACE Wilson/ANISH /9:44 AM /2:30 PM
[2016-12-17] MEDS ORDERED: ALUMINUM/MAGNESIUM/SIMETH 30 ML CUP PO PRN (14:30)
[2016-12-17] MEDS ORDERED: NALOXONE HCL 0.4 MG/ML AMP IV PRN (14:30)
[2016-12-17] MEDS ORDERED: ACETAMINOPHEN 325 MG TAB PO PRN (14:30)
[2016-12-17] MEDS ORDERED: SODIUM CHLORIDE 0.9% FLUSH 5 ML FLUSH FLUSH PRN (14:30)
[2016-12-17] MEDS ORDERED: MAGNESIUM CITRATE SOLN 300 ML BTL PO PRN (14:30)
[2016-12-17] MEDS: SODIUM CHLOR 0.9% 1000 ML INJ 1,000 ML IV SCH ×2 (15:00→20:45)
[2016-12-17] MEDS ORDERED: DEXTROSE 50% IN WATER 50 ML VIAL(D50) IV PUSH PRN (15:15)
[2016-12-17] MEDS ORDERED: GLUCAGON 1 MG/ML VIAL OTHER PRN (15:15)
[2016-12-17] MEDS ORDERED: RESP: ALBUTEROL 2.5 MG/IPRATROPIUM 0.5 MG NEB (PRN) NEB (15:15)
--- NOTE | 2016-12-17 15:59 | MB ---
cc: ERICA TAVAREZ M.D. DATE OF CONSULTATION: 12/17/2016. HISTORY OF PRESENT ILLNESS: The patient is an 81-year-old male with past medical history of prostate cancer, dyslipidemia, hypertension, diabetes mellitus and CVA on November 17 status post tPA. The patient was admitted back on November 17 for stroke and was seen by Dr. Alvarado. He had speech problems and right-sided weakness. He underwent tPA and an echocardiogram showed normal ejection fraction and a CT of the neck and ruby of Wright were normal. He also underwent cholecystostomy tube placement on November 27 for acalculous cholecystitis and was on broad-spectrum antibiotics per infectious disease. The patient was placed on aspirin and eventually was sent to [facility]. Earlier today the patient developed left facial droop and left upper extremity weakness and a stroke alert was called. The patient was seen by Dr. Parekh from neurology and he had an MRA of the head which showed the truncation of the proximal portion of the right middle cerebral artery with no significant filling of the distal branches suggesting thrombosis. MRA of the neck showed no evidence of any hemodynamically significant lesion. The patient also underwent MRI of the brain which showed areas of diffusion restriction in the high parietal convexities bilaterally suggesting an embolic event to the intracranial circulation. The patient was sent to interventional radiology where he underwent thrombectomy. The patient was transferred to [facility] for close observation and critical care medicine was consulted for critical care management. The patient is on 2 liters oxygen with good saturation. On admission his current blood pressure is 133/62 with a pulse of 83. The patient denies any chest pain, shortness of breath, cough or any constitutional symptoms. In addition, he denies any nausea, vomiting or abdominal pain. PAST MEDICAL HISTORY: His past medical history is significant for: 1. CVA with left-sided weakness. 2. Neuropathy. 3. Rheumatoid arthritis. 4. Hypertension. 5. Diabetes mellitus. 6. Dyslipidemia. 7. Prostate cancer treated with radiation treatment. PAST SURGICAL HISTORY: 1. Previous cholecystostomy tube placement for acalculous cholecystitis on November 27. 2. Previous cystoscopy for bladder cancer. ALLERGIES: LYRICA. MEDICATIONS: Current medications include: 1. Allopurinol. 2. Folic acid. 3. Flomax. 4. Lipitor. 5. Neurontin. FAMILY HISTORY: Noncontributory. SOCIAL HISTORY: Remote history of tobacco and alcohol use; quit over 50 years ago. REVIEW OF SYSTEMS: The review of systems is as per the history of present illness, and the rest of the review of systems is unremarkable. PHYSICAL EXAMINATION: GENERAL: An 81-year-old male lying in bed in no acute respiratory distress. VITAL SIGNS: Afebrile, pulse of 83, blood pressure 133/62, saturation of 94% to 98%. HEAD, EYES, EARS, NOSE, THROAT: Normocephalic and atraumatic. Pupils equal, round and reactive to light and accommodation. Extraocular muscles intact. Conjunctivae are pink. Nonicteric sclerae. Oral mucosa within normal limits. NECK: The neck is supple. No jugular venous distention, adenopathy or thyromegaly. Trachea in the midline. CARDIOVASCULAR: Regular rate and rhythm. Normal S1 and S2. No murmurs, rubs or gallops noted. PULMONARY: Bilateral equal air entry. No rales or wheezing. ABDOMEN: The abdomen is soft, nontender and no distention. Positive bowel sounds. EXTREMITIES: No cyanosis, clubbing or edema. NEUROLOGIC: Mild left facial droop noted. Mild slurred speech. Normal strength in the upper and lower extremities. The patient is awake, alert. LABORATORY DATA: WBCs 19.2, hemoglobin 14, hematocrit 42, platelet count 113,000. Sodium 138, potassium 3.8, chloride 100, CO2 26, BUN 30, creatinine 1.6, glucose 116. INR 1.2, PT 13.1, PTT 29.5. RADIOGRAPHY: CT of the brain showed mild periventricular and subcortical white matter small vessel ischemic changes noted. No acute infarct, acute hemorrhage or mass effect. MRI of the brain showed diffusion restriction suggesting an embolic event to the intracranial circulation. MRA of the brain showed findings suggestive of thrombosis in the proximal portion of the right middle cerebral artery. IMPRESSION: 1. Acute CVA involving the right middle cerebral artery status post thrombectomy. 2. Recent CVA on November 17 status post tPA. 3. Acalculous cholecystitis status post cholecystostomy tube placement on November 27. 4. Leukocytosis. 5. Chronic kidney disease. 6. Diabetes. 7. Hypertension. 8. Dyslipidemia. 9. History of prostate and bladder CA. RECOMMENDATIONS: 1. Monitor neuro status closely and avoid any sedatives. 2. Patient status post thrombectomy, neurology is following, Dr. Parekh. 3. No further anticoagulation. 4. Will defer further anticoagulation with IV heparin for neurology. 5. MRI of the brain from this morning showed findings compatible with cardioembolic events to the intracranial circulation. 6. Continue with oxygen and maintain sats above 92%. 7. Bronchodilators in the form of DuoNeb q. 6+ q. 2 p.r.n. for shortness of breath. 8. Monitor heart rate and blood pressure closely and maintain MAP greater than 65 mmHg. 9. Monitor renal function, intakes and outputs and electrolyte replacement as needed. 10. Continue with IV fluids. The patient is on normal saline at 75 mL an hour. 11. Keep n.p.o. 12. Speech evaluation. 13. Diet per speech. 14. Monitor CBC for signs of infection which include fever and WBCs. 15. The patient is status post antibiotics. He was given Levaquin, Diflucan and Flagyl. 16. Re-consult infectious disease. 17. Cultures for any fever. 18. Monitor CBC and coags. 19. Sliding scale insulin if needed for glycemic control. 20. GI prophylaxis and DVT prophylaxis. Further recommendations will be based on the hospital course. The case was discussed with Dr. Aguila from [facility] and the ICU nursing staff. MD ZOLTAN Jasimne/HAILEY /3:14 PM /3:46 PM
[2016-12-17 16:00] VITALS: BP 132/67; PULSE 86; RESP 20; TEMP 98.5; O2SAT 95
[2016-12-17] MEDS: GABAPENTIN 100 MG CAP PO SCH ×2 (16:00→21:57)
[2016-12-17] MEDS: INSULIN NovoLIN REGULAR SUPPLEMENTAL SCALE SQ SCH ×2 (16:00→22:00)
[2016-12-17] MEDS: RESP: ALBUTEROL 2.5 MG/IPRATROPIUM 0.5 MG NEB (SCH) NEB ×2 (16:17→20:22)
[2016-12-17 16:18] VITALS: O2SAT 95
--- NOTE | 2016-12-17 16:28 | RADRPT ---
EXAM DATE/TIME: 12/17/2016 15:33 [place] COMPARISON: CHEST SINGLE AP, December 01, 2016, 16:30. INDICATIONS : Short of breath. MEDICAL HISTORY : Stroke. Carcinoma, prostatic. SURGICAL HISTORY : None. ENCOUNTER: Initial ACUITY: 1 day PAIN SCORE: 7/10 LOCATION: Bilateral chest FINDINGS: A single view of the chest demonstrates the lungs to be symmetrically aerated with bibasilar atelecta tic changes and possible small associated effusions. Heart size is normal. Degenerative spurring of t he dorsal spine. Osseous structures are otherwise intact. CONCLUSION: 1. Minimal bibasilar atelectatic changes and possible small associated effusions. 2. Heart size is normal. Jayden Bland MD on December 17, 2016 at 16:18 Board Certified Radiologist. This report was verified electronically.
--- NOTE | 2016-12-17 16:28 | RADRPT ---
EXAM DATE/TIME: 12/17/2016 15:14 [facility] COMPARISON: CT BRAIN W/O CONTRAST, December 17, 2016, 9:31. MRI BRAIN W/O CONTRAST, December 17, 2016, 10:17. INDICATIONS : CVA. Post TPA. MEDICAL HISTORY : Hypertension. Carcinoma, prostate. SURGICAL HISTORY : Tonsillectomy. ENCOUNTER: Initial ACUITY: 1 day PAIN SCORE: 0/10 LOCATION: head TECHNIQUE: Multiplanar, multisequence MRI of the brain was performed without contrast. FINDINGS: CEREBRUM: The ventricles are normal for age. There are gyriform areas of increased T2 flair signal intensity in the subarachnoid space of the right temporal lobe and high convexity left parietal lobe characterist ic of subarachnoid hemorrhage. The pituitary gland and suprasellar cistern are normal in configurati on. WHITE MATTER: Stable periventricular white matter changes. POSTERIOR FOSSA: The cerebellum and brainstem are intact. The 4th ventricle is midline. The cerebellopontine angle is unremarkable. The cerebellar tonsils are normal in position. DIFFUSION IMAGING: Focal areas of diffusion restriction in the right jorgensen radiata and bilateral centrum semiovale sugg esting small embolic infarcts, unchanged from the exam earlier this morning. EXTRACRANIAL: The visualized portions of the orbits and paranasal sinuses are unremarkable. CONCLUSION: 1. MR findings suggest interval development of small amount subarachnoid hemorrhage in the right temp oral lobe and high convexity left parietal lobe. 2. Otherwise stable with periventricular and deep white matter tracks no vessel ischemic demyelinatio n and probable subacute embolic event to the right jorgensen radiata and bilateral centrum semiovale. 3. Results were called to Dr. Parekh at this dictation. Jayden Bland MD on December 17, 2016 at 15:47 Board Certified Radiologist. This report was verified electronically.
[2016-12-17 17:12] LABS: AUTOMATED NEUTROPHIL # 5.3 TH/MM3 (1.8-7.7); BASOPHIL % 0.2 % (0.0-2.0); EOSINOPHIL # 0.1 TH/MM3 (0-0.4); EOSINOPHIL % 0.8 % (0.0-4.0); HEMATOCRIT 37.8 % (39.0-51.0); LYMPH % 61.5 % (9.0-44.0); LYMPHOCYTE # 9.6 TH/MM3 (1.0-4.8); MEAN CELL VOLUME 91.7 FL (80.0-100.0); MEAN CORPUSCULAR HEMOGLOBIN 31.6 PG (27.0-34.0); MEAN CORPUSCULAR HGB CONC 34.5 % (32.0-36.0); MONO % 3.5 % (0.0-8.0); PLATELET COUNT 104 TH/MM3 (150-450); RED BLOOD COUNT 4.13 MIL/MM3 (4.50-5.90); WHITE BLOOD COUNT 15.6 TH/MM3 (4.0-11.0)
[2016-12-17 17:15] LABS: HEMO FLAGS AUTO DIFF
[2016-12-17 17:29] LABS: ALT (GPT) 13 U/L (12-78); ANION GAP 8 MEQ/L (5-15); AST (GOT) 27 U/L (15-37); BICARBONATE 27.2 MEQ/L (21.0-32.0); BLOOD UREA NITROGEN 30 MG/DL (7-18); CHLORIDE 106 MEQ/L (98-107); GLOMERULAR FILTRATION RATE 47 ML/MIN (>89); MAGNESIUM 2.8 MG/DL (1.5-2.5); POTASSIUM 4.6 MEQ/L (3.5-5.1); SODIUM (NA) 141 MEQ/L (136-145)
[2016-12-17 17:31] LABS: ALKALINE PHOSPHATASE 140 U/L (45-117); TOTAL BILIRUBIN ADULT 0.7 MG/DL (0.2-1.0)
[2016-12-17 18:02] LABS: EOSINOPHILS 1 % (0-4); NEUTROPHIL # MANUAL DIFF 7.5 TH/MM3 (1.8-7.7); POLYS (SEG NEUTROPHILS) 48 % (16-70); WBC DIFF SAMPLE 100
[2016-12-17 18:03] LABS: PLATELET ESTIMATE SMEAR LOW (NORMAL); PLATELET MORPHOLOGY NORMAL (NORMAL); SCAN/DIFF FINAL DIFF MANUAL; SMUDGE CELLS PRESENT PRESENT
--- NOTE | 2016-12-17 18:24 | PD.CONS ---
HPI Service Neurosurgery Consult Requested By Dr Parekh Reason for Consult SAH after thrombectomy Primary Care Physician Unknown History of Present Illness 81 yr old gentleman with prostate CA had a successful right M2 thrombectomy this am but follow up MRI of the brain showed a trace SAH in the left hemisphere. No diffusion defect is seen though in the right MCA distribution. This is the second stroke for this gentleman; he had a successful TPA injection for left sided thrombus last November. He has limited mobility from neuropathy and tremor but walks with a wheeled walker and is oriented x 3. He is fully aware of the present medical condition. Review of Systems Constitutional: DENIES: Diaphoretic episodes, Fatigue, Fever, Weight gain, Weight loss, Chills, Dizziness, Change in appetite, Night Sweats Endocrine: DENIES: Heat/cold intolerance, Polydipsia, Polyuria, Polyphagia Eyes: DENIES: Blurred vision, Diplopia, Eye inflammation, Eye pain, Vision loss , Photosensitivity, Double Vision Ears, nose, mouth, throat: DENIES: Tinnitus, Hearing loss, Vertigo, Nasal discharge, Oral lesions, Throat pain, Hoarseness, Ear Pain, Running Nose, Epistaxis, Sinus Pain, Toothache, Odynophagia Respiratory: DENIES: Apneas, Cough, Snoring, Wheezing, Hemoptysis, Sputum production, Shortness of breath Cardiovascular: DENIES: Chest pain, Palpitations, Syncope, Dyspnea on Exertion , PND, Lower Extremity Edema, Orthopnea, Claudication Gastrointestinal: DENIES: Abdominal pain, Black stools, Bloody stools, Constipation, Diarrhea, Nausea, Vomiting, Difficulty Swallowing, Anorexia Musculoskeletal: DENIES: Joint pain, Muscle aches, Stiffness, Joint Swelling, Back pain, Neck pain Integumentary: DENIES: Abnormal pigmentation, Nail changes, Pruritus, Rash Hematologic/lymphatic: COMPLAINS OF: Bruising Immunologic/allergic: DENIES: Eczema, Urticaria Neurologic: COMPLAINS OF: Tremor, Poor Balance Psychiatric: DENIES: Anxiety, Confusion, Mood changes, Depression, Hallucinations, Agitation, Suicidal Ideation, Homicidal Ideation, Delusions Past Family Social History Allergies: Coded Allergies: Lyrica (Verified Allergy, Severe, Drowsiness, 1/28/17) Past Medical History HTN especially with exertion Prostate CA, cauterized by his urologist in the past several yrs. Neuropathy Past Surgical History recent biliary stent Reported Medications Reported Meds & Active Scripts Active Commode 3-in-1 (Device) 1 Mis Mis 1 Ea .ROUTE DIRECTED Wheelchair (Device) 1 Mis Mis 1 Ea .ROUTE DIRECTED Ultram (Tramadol HCl) 50 Mg Tab 50 Mg PO Q6H PRN 1 Days Yaron-24 (Theophylline) 200 Mg Cap 200 Mg PO DAILY@20 1 Days Flomax (Tamsulosin HCl) 0.4 Mg Cap 0.4 Mg PO DAILY 1 Days Thera/Beta-Carotene (Multiple Vitamin) 1 Tab Tab 1 Tab PO DAILY 1 Days Sm Magnesium Citrate (Magnesium Citrate) 1.745 Gm/30 Ml Sulma 300 Ml PO DAILY PRN 1 Days Gabapentin 100 Mg Cap 100 Mg PO Q8H 1 Days Folate (Folic Acid) 1 Mg Tab 1 Mg PO DAILY 1 Days Lipitor (Atorvastatin Calcium) 40 Mg Tab 40 Mg PO HS 1 Days Aspirin EC (Aspirin) 81 Mg Tabdr 81 Mg PO DAILY 1 Days Mag-Al Plus Liq (Lieeatsh-Pgkhbemzw-Calpkudveyg Liq) 200-200-20 Mg/5 Ml Susp 30 Ml PO Q6H PRN 1 Days Zyloprim (Allopurinol) 300 Mg Tab 300 Mg PO DAILY 1 Days Acetaminophen 325 Mg Tab 650 Mg PO Q4H PRN 1 Days Family History Father had prostate CA, Social History Lives with his family, does not smoke Physical Exam Vital Signs Vital Signs Date Time Temp Pulse Resp B/P Pulse Ox O2 Delivery O2 Flow Rate FiO2 12/17/16 16:18 95 Nasal Cannula 2.00 Physical Exam Alert and oriented x 3, pupils equal, EOMI, face symmetric, Voice normal, tongue midline, No pronator drift, some difficulty with fine motor repetitive finger taping bilaterally, Action tremor in both hands, mild Motor strength at least 4/5 in both grasps, bic/tri, gatsroc, ant tib Peripheral pulses DP palpable christiana, peripheral edema and sensory loss christiana, no claf tenderness Extensive bruising in both hands Laboratory Laboratory Tests Test 12/17/16 12/17/16 16:20 16:26 Sodium Level 141 Potassium Level 4.6 Chloride Level 106 Carbon Dioxide Level 27.2 Anion Gap 8 Blood Urea Nitrogen 30 Creatinine 1.44 Estimat Glomerular Filtration 47 Rate Random Glucose 99 Calcium Level 7.7 Phosphorus Level 2.7 Magnesium Level 2.8 Total Bilirubin 0.7 Aspartate Amino Transf 27 (AST/SGOT) Alanine Aminotransferase 13 (ALT/SGPT) Alkaline Phosphatase 140 Total Protein 5.6 Albumin 2.3 White Blood Count 15.6 Red Blood Count 4.13 Hemoglobin 13.0 Hematocrit 37.8 Mean Corpuscular Volume 91.7 Mean Corpuscular Hemoglobin 31.6 Mean Corpuscular Hemoglobin 34.5 Concent Red Cell Distribution Width 14.0 Platelet Count 104 Mean Platelet Volume 7.3 Neutrophils (%) (Auto) 34.0 Lymphocytes (%) (Auto) 61.5 Monocytes (%) (Auto) 3.5 Eosinophils (%) (Auto) 0.8 Basophils (%) (Auto) 0.2 Neutrophils # (Auto) 5.3 Lymphocytes # (Auto) 9.6 Monocytes # (Auto) 0.5 Eosinophils # (Auto) 0.1 Basophils # (Auto) 0.0 CBC Comment AUTO DIFF Result Diagram: 12/17/16 1626 12/17/16 1620 Imaging Last Impressions Brain MRI 12/17/16 1401 Signed Impressions: Service Date/Time: Saturday, December 17, 2016 15:14 - CONCLUSION: 1. MR findings suggest interval development of small amount subarachnoid hemorrhage in the right temporal lobe and high convexity left parietal lobe. 2. Otherwise stable with periventricular and deep white matter tracks no vessel ischemic demyelination and probable subacute embolic event to the right jorgensen radiata and bilateral centrum semiovale. 3. Results were called to Dr. Parekh at this dictation. Jayden Bland MD Chest X-Ray 12/17/16 0000 Signed Impressions: Service Date/Time: Saturday, December 17, 2016 15:33 - CONCLUSION: 1. Minimal bibasilar atelectatic changes and possible small associated effusions. 2. Heart size is normal. Jayden Bland MD Assessment and Plan Diagnosis: (1) SAH (subarachnoid hemorrhage) Plan: Small amount of SAH due to heparin bolus for thrombectomy, will be followed by CT in the am. If it is improved, low dose heparin SQ can be initiated. 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 We will start low dose heparin as soon as possible and recommend low dose coumadin with INR 2-2.5 if low dose heparin is tolerated. SCDs ordered when he is in bed. I will follow. ICD Code: I63.9 Problem Qualifiers (1) Stroke: Qualified Code: I63.311 - Cerebrovascular accident (CVA) due to thrombosis of right middle cerebral artery Andrey Albert Dec 17, 2016 18:24
[2016-12-17 20:00] VITALS: BP 130/69; PULSE 101; RESP 22; TEMP 98.1; O2SAT 95
[2016-12-17] MEDS ORDERED: niMODipine 30 MG CAP PO SCH (20:00)
[2016-12-17 20:22] VITALS: O2SAT 95
[2016-12-17] MEDS: SODIUM CHLORIDE 0.9% FLUSH 5 ML FLUSH FLUSH SCH (20:44)
[2016-12-17] MEDS: ATORVASTATIN 40 MG TAB PO SCH ×2 (20:52→21:00)
[2016-12-17 22:00] VITALS: PULSE 108
[2016-12-17] MEDS: CHLORHEXIDINE GLUCONATE 2 % 1 PACK (2 CLOTHS)(taper/protocol) TOP SCH (22:28)
[2016-12-17] MEDS ORDERED: CHLORHEXIDINE GLUCONATE 2 % 1 PACK (2 CLOTHS)(extra cloths) TOP PRN (22:30)
[2016-12-18] VITALS (14 sets, daily range): BP systolic 110–140; BP diastolic 56–67; PULSE 100–119; RESP 16–28; TEMP 98–99; O2SAT 93–98
[2016-12-18] MEDS: INSULIN NovoLIN REGULAR SUPPLEMENTAL SCALE SQ SCH ×4 (03:01→21:09)
[2016-12-18] MEDS: RESP: ALBUTEROL 2.5 MG/IPRATROPIUM 0.5 MG NEB (SCH) NEB ×4 (03:37→20:28)
[2016-12-18] MEDS ORDERED: EPINEPHrine HCL (1:10,000) 1 MG/10 ML SYRINGE ONE (05:20)
[2016-12-18 05:54] LABS: AUTOMATED NEUTROPHIL # 5.4 TH/MM3 (1.8-7.7); BASOPHIL # 0.1 TH/MM3 (0-0.2); BASOPHIL % 0.4 % (0.0-2.0); EOSINOPHIL # 0.1 TH/MM3 (0-0.4); EOSINOPHIL % 0.5 % (0.0-4.0); HEMATOCRIT 36.8 % (39.0-51.0); LYMPH % 55.3 % (9.0-44.0); LYMPHOCYTE # 7.6 TH/MM3 (1.0-4.8); MEAN CELL VOLUME 93.1 FL (80.0-100.0); MEAN CORPUSCULAR HEMOGLOBIN 30.8 PG (27.0-34.0); MEAN CORPUSCULAR HGB CONC 33.1 % (32.0-36.0); MONO % 4.2 % (0.0-8.0); NEUT % 39.6 % (16.0-70.0); PLATELET COUNT 95 TH/MM3 (150-450); RED BLOOD COUNT 3.96 MIL/MM3 (4.50-5.90); RED CELL DISTRIBUTION WIDTH 14.1 % (11.6-17.2); WHITE BLOOD COUNT 13.7 TH/MM3 (4.0-11.0)
--- NOTE | 2016-12-18 06:00 | RADRPT ---
EXAM DATE/TIME: 12/18/2016 05:47 [facility] COMPARISON: MRI BRAIN W/O CONTRAST, December 17, 2016, 15:14. CT BRAIN W/O CONTRAST, December 17, 2016, 9:31. INDICATIONS : Follow up stroke. RADIATION DOSE: 64.08 CTDIvol (mGy) MEDICAL HISTORY : Hypertension. Cardiovascular disease Prostate cancer, Diabetes SURGICAL HISTORY : None. ENCOUNTER: Subsequent ACUITY: 1 day PAIN SCALE: Non-responsive LOCATION: cranial TECHNIQUE: Multiple contiguous axial images were obtained of the head. Using automated exposure control and adj ustment of the mA and/or kV according to patient size, radiation dose was kept as low as reasonably a chievable to obtain optimal diagnostic quality images. FINDINGS: CEREBRUM: The ventricles are normal for age. No evidence of midline shift, mass lesion, hemorrhage or acute in farction. The suspected small subarachnoid hemorrhage on the comparison MRI is not clearly seen. No extra-axial fluid collections are seen. POSTERIOR FOSSA: The cerebellum and brainstem are intact. The 4th ventricle is midline. The cerebellopontine angle i s unremarkable. EXTRACRANIAL: The visualized portion of the orbits is intact. SKULL: The calvaria is intact. No evidence of skull fracture. CONCLUSION: There remains no evidence of an acute abnormality by non-contrast head CT. The small subarachnoid blo od and scattered embolic infarcts evident by MRI are not clearly seen. Duncan Johnson MD on December 18, 2016 at 5:55 Board Certified Radiologist. This report was verified electronically.
[2016-12-18 06:04] LABS: HEMO FLAGS AUTO DIFF
[2016-12-18 06:09] LABS: BICARBONATE 25.2 MEQ/L (21.0-32.0); POTASSIUM 4.4 MEQ/L (3.5-5.1)
[2016-12-18] MEDS: FOLIC ACID 1 MG TAB PO SCH (08:45)
[2016-12-18] MEDS: GABAPENTIN 100 MG CAP PO SCH ×2 (08:45→15:57)
[2016-12-18] MEDS: TAMSULOSIN HCL 0.4 MG CAP PO SCH (08:45)
[2016-12-18] MEDS: HEPARIN SODIUM - SQ 10,000 UNITS/ML VIAL SQ SCH ×2 (08:45→20:08)
[2016-12-18] MEDS: SODIUM CHLORIDE 0.9% FLUSH 5 ML FLUSH FLUSH SCH ×2 (08:46→20:08)
[2016-12-18] MEDS: ALLOPURINOL 300 MG TAB PO SCH (08:46)
[2016-12-18] MEDS ORDERED: METOPROLOL SUCCINATE 25 MG EXTENDED RELEASE TAB PO SCH (09:00)
[2016-12-18 09:23] LABS: NEUTROPHIL # MANUAL DIFF 5.1 TH/MM3 (1.8-7.7); POLYS (SEG NEUTROPHILS) 37 % (16-70); WBC DIFF SAMPLE 100
[2016-12-18 09:24] LABS: SMUDGE CELLS PRESENT PRESENT
[2016-12-18 09:25] LABS: PLATELET ESTIMATE SMEAR LOW (NORMAL); PLATELET MORPHOLOGY NORMAL (NORMAL); SCAN/DIFF FINAL DIFF MANUAL
--- NOTE | 2016-12-18 10:05 | HHI.PR ---
Objective Vital Signs Date Time Temp Pulse Resp B/P Pulse Ox O2 Delivery O2 Flow Rate FiO2 12/18/16 10:00 100 12/18/16 08:00 109 12/18/16 08:00 98.3 109 21 126/66 96 12/18/16 06:00 110 12/18/16 04:00 109 12/18/16 04:00 98.0 109 20 129/61 98 12/18/16 02:00 107 12/18/16 00:00 108 12/18/16 00:00 98.6 108 22 110/65 95 12/17/16 22:00 108 12/17/16 20:22 95 Nasal Cannula 2.00 12/17/16 20:00 101 12/17/16 20:00 98.1 101 22 130/69 95 12/17/16 16:18 95 Nasal Cannula 2.00 12/17/16 16:00 98.5 86 20 132/67 95 I/O 12/17/16 12/17/16 12/17/16 12/18/16 12/18/16 12/18/16 07:00 15:00 23:00 07:00 15:00 23:00 Intake Total 220 ml 688 ml Output Total 450 ml 450 ml Balance -230 ml 238 ml Intake IV Total 220 ml 688 ml Output Urine Total 450 ml 450 ml Result Diagram: 12/18/16 0537 12/18/16 0537 Objective Remarks awake alert no new co vff face sym 5/5 t/o bilat speech nl Assessment and Plan Assessment and Plan imp ct neg blood i will recheck mri in am and if blood cleared start coumadin then Pete Parekh MD Dec 18, 2016 10:05
--- NOTE | 2016-12-18 12:36 | HHI.CCPN ---
Subjective Remarks/Hospital Course The patient is an 81-year-old male with past medical history of prostate cancer , dyslipidemia, hypertension, diabetes mellitus and CVA on November 17 status post tPA. The patient was admitted back on November 17 for stroke and was seen by Dr. Alvarado. He had speech problems and right-sided weakness. He underwent tPA and an echocardiogram showed normal ejection fraction and a CT of the neck and [place] were normal. He also underwent cholecystostomy tube placement on November 27 for acalculous cholecystitis and was on broad-spectrum antibiotics per infectious disease. The patient was placed on aspirin and eventually was sent to [facility] Earlier today the patient developed left facial droop and left upper extremity weakness and a stroke alert was called. The patient was seen by Dr. Parekh from neurology and he had an MRA of the head which showed the truncation of the proximal portion of the right middle cerebral artery with no significant filling of the distal branches suggesting thrombosis. MRA of the neck showed no evidence of any hemodynamically significant lesion. The patient also underwent MRI of the brain which showed areas of diffusion restriction in the high parietal convexities bilaterally suggesting an embolic event to the intracranial circulation The patient was sent to interventional radiology where he underwent thrombectomy. The patient was transferred to [facility] for close observation and critical care medicine was consulted for critical care management. The patient is on 2 liters oxygen with good saturation. On admission his current blood pressure is 133/62 with a pulse of 83. The patient denies any chest pain, shortness of breath, cough or any constitutional symptoms. In addition, he denies any nausea, vomiting or abdominal pain. Subjective 12/18: Currently resting in bed. Afebrile. Positive BM. Tolerating diet. Has left facial droop which is his baseline according to records otherwise neurologically unchanged. Does have peripheral neuropathy. Speech somewhat slurred. Objective Vital Signs Date Time Temp Pulse Resp B/P Pulse Ox O2 Delivery O2 Flow Rate FiO2 12/18/16 10:11 94 Nasal Cannula 1.00 12/18/16 10:00 100 12/18/16 08:00 98.3 21 126/66 Intake and Output 12/17/16 12/17/16 12/18/16 08:00 16:00 00:00 Intake Total 220 ml Output Total 450 ml Balance -230 ml Result Diagram: 12/18/16 0537 12/18/16 0537 Imaging Last Impressions Head CT 12/18/16 0600 Signed Impressions: Service Date/Time: Sunday, December 18, 2016 05:47 - CONCLUSION: There remains no evidence of an acute abnormality by non-contrast head CT. The small subarachnoid blood and scattered embolic infarcts evident by MRI are not clearly seen. Duncan Johnson MD Brain MRI 12/17/16 1401 Signed Impressions: Service Date/Time: Saturday, December 17, 2016 15:14 - CONCLUSION: 1. MR findings suggest interval development of small amount subarachnoid hemorrhage in the right temporal lobe and high convexity left parietal lobe. 2. Otherwise stable with periventricular and deep white matter tracks no vessel ischemic demyelination and probable subacute embolic event to the right jorgensen radiata and bilateral centrum semiovale. 3. Results were called to Dr. Parekh at this dictation. Jayden Bland MD Chest X-Ray 12/17/16 0000 Signed Impressions: Service Date/Time: Saturday, December 17, 2016 15:33 - CONCLUSION: 1. Minimal bibasilar atelectatic changes and possible small associated effusions. 2. Heart size is normal. Jayden Bland MD Objective Remarks GENERAL: 81-year-old male, resting in bed in no acute distress SKIN: Warm and dry. No rash HEAD: Atraumatic. Normocephalic. EYES: Pupils equal and round about 3 mm bilaterally and reactive. No scleral icterus. No injection or drainage. ENT: No nasal bleeding or discharge. Mucous membranes pink and moist. NECK: Trachea midline. No JVD. CARDIOVASCULAR: Regular rate and rhythm. S1, S2. No S4. Without murmur RESPIRATORY: Socially clear to auscultation laterally without wheezes rales or rhonchi. Breath sounds equal bilaterally. GASTROINTESTINAL: Abdomen soft, non-tender, nondistended. MUSCULOSKELETAL: Extremities without significant peripheral edema. No obvious deformities. NEUROLOGICAL: Awake and alert. Left facial droop. Motor grossly within normal limits. Five out of 5 muscle strength in the arms and legs. Slurred speech. 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 Continue Neurontin 100 mg by mouth 3 times a day for neuropathy/home medication Acetaminophen for fever Neuro checks every hour Follow up MRI brain in a.m. per Dr. Parekh. Initiate heparin/Coumadin at that time CV: Hypertension Dyslipidemia Echocardiogram 11/23 revealed EF 50-55%. No regional wall motion abnormality. Mild MR.. PAT 45 mmHg. No cardiac embolic source identified Currently on Lipitor 40 milligrams by mouth daily for dyslipidemia. Goal systolic blood pressure less than 150. Use labetalol/hydralazine and Nitropaste Resp: Obstructive sleep apnea Nasal cannula to maintain saturations greater than equal to 92% Incentive spirometry while awake As RT regarding's CPAP at night. He states his machine is broken at home. As needed bronchodilator therapy On theophylline 200 mg by mouth daily. Recheck level in a.m. 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 IV fluids discontinued Accurate I's and O's Monitor closely Urine output Heme: Leukocytosis Normocytic anemia CLL? Monitor CBC daily. Follow trends ID: Monitor for infection FEN: Replace electrolyte as clinically indicated Rheum/MSK: Rheumatoid arthritis? Currently in folic acid 1 mg daily. Access - Utilize peripheral IV. Central line if indicated Prophylaxis - GI - Protonix - DVT - SCD/heparin/Coumadin order per neurosurgery Critical Care: The total critical care time was 35 minutes. Time to perform other separately billable procedures was not included in the critical care time. Jack Simon MD Dec 18, 2016 12:36
[2016-12-18 13:54] LABS: INTERNATIONAL NORMALIZED RATIO 1.2 RATIO; PROTHROMBIN TIME - PATIENT 13.1 SEC (9.8-11.6)
[2016-12-18] MEDS ORDERED: hydrALAZINE HCL 20 MG/ML VIAL IV PUSH PRN (15:15)
[2016-12-18] MEDS ORDERED: NITROGLYCERIN 2% OINT 1 GM PACKET TOPICAL PRN (15:15)
[2016-12-18] MEDS ORDERED: LABETALOL HCL 100 MG/20 ML VIAL IV PUSH PRN (15:15)
[2016-12-18] MEDS: WARFARIN SOD 5 MG TAB PO SCH (15:57)
--- NOTE | 2016-12-18 16:14 | HHI.NSPN ---
History Chief Complaint: tired Interval History Day 2 after thrombectomy of the right MCA, awaiting rehab evaluation. He tolerated PT this am but has not yet been OOB Review of Systems General: Negative for: fever, chills, insomnia Cardiovascular: Negative for: chest pain, palpitations, orthopnea Gastrointestinal: Negative for: nausea, vomitting, diarrhea, constipation Exam Results Vital Signs Date Time Temp Pulse Resp B/P Pulse Ox O2 Delivery O2 Flow Rate FiO2 12/18/16 10:11 94 Nasal Cannula 1.00 12/18/16 10:00 100 12/18/16 08:00 98.3 21 126/66 Intake and Output 12/17/16 12/17/16 12/18/16 08:00 16:00 00:00 Intake Total 220 ml Output Total 450 ml Balance -230 ml Physical Examination Awake, cooperative, oriented to place date and events Pupils are small, EOMI, face symmetric, voice wnl No pronator drift, moves all extremities with good strength mild left leg neglect Lab, Micro, Other Results Last Impressions Head CT 12/18/16 0600 Signed Impressions: Service Date/Time: Sunday, December 18, 2016 05:47 - CONCLUSION: There remains no evidence of an acute abnormality by non-contrast head CT. The small subarachnoid blood and scattered embolic infarcts evident by MRI are not clearly seen. Duncan Johnson MD Brain MRI 12/17/16 1401 Signed Impressions: Service Date/Time: Saturday, December 17, 2016 15:14 - CONCLUSION: 1. MR findings suggest interval development of small amount subarachnoid hemorrhage in the right temporal lobe and high convexity left parietal lobe. 2. Otherwise stable with periventricular and deep white matter tracks no vessel ischemic demyelination and probable subacute embolic event to the right jorgensen radiata and bilateral centrum semiovale. 3. Results were called to Dr. Parekh at this dictation. Jayden Bland MD Chest X-Ray 12/17/16 0000 Signed Impressions: Service Date/Time: Saturday, December 17, 2016 15:33 - CONCLUSION: 1. Minimal bibasilar atelectatic changes and possible small associated effusions. 2. Heart size is normal. Jayden Bland MD Laboratory Tests Test 12/17/16 12/17/16 12/18/16 12/18/16 16:20 16:26 05:37 12:22 Sodium Level 141 MEQ/L 140 MEQ/L Potassium Level 4.6 MEQ/L 4.4 MEQ/L Chloride Level 106 MEQ/L 107 MEQ/L Carbon Dioxide Level 27.2 MEQ/L 25.2 MEQ/L Anion Gap 8 MEQ/L 8 MEQ/L Blood Urea Nitrogen 30 MG/DL 26 MG/DL Creatinine 1.44 MG/DL 1.35 MG/DL Estimat Glomerular Filtration 47 ML/MIN 50 ML/MIN Rate Random Glucose 99 MG/DL 90 MG/DL Calcium Level 7.7 MG/DL 7.5 MG/DL Phosphorus Level 2.7 MG/DL Magnesium Level 2.8 MG/DL Total Bilirubin 0.7 MG/DL Aspartate Amino Transf 27 U/L (AST/SGOT) Alanine Aminotransferase 13 U/L (ALT/SGPT) Alkaline Phosphatase 140 U/L Total Protein 5.6 GM/DL Albumin 2.3 GM/DL White Blood Count 15.6 TH/MM3 13.7 TH/MM3 Red Blood Count 4.13 MIL/MM3 3.96 MIL/MM3 Hemoglobin 13.0 GM/DL 12.2 GM/DL Hematocrit 37.8 % 36.8 % Mean Corpuscular Volume 91.7 FL 93.1 FL Mean Corpuscular Hemoglobin 31.6 PG 30.8 PG Mean Corpuscular Hemoglobin 34.5 % 33.1 % Concent Red Cell Distribution Width 14.0 % 14.1 % Platelet Count 104 TH/MM3 95 TH/MM3 Mean Platelet Volume 7.3 FL 7.0 FL Neutrophils (%) (Auto) 34.0 % 39.6 % Lymphocytes (%) (Auto) 61.5 % 55.3 % Monocytes (%) (Auto) 3.5 % 4.2 % Eosinophils (%) (Auto) 0.8 % 0.5 % Basophils (%) (Auto) 0.2 % 0.4 % Neutrophils # (Auto) 5.3 TH/MM3 5.4 TH/MM3 Lymphocytes # (Auto) 9.6 TH/MM3 7.6 TH/MM3 Monocytes # (Auto) 0.5 TH/MM3 0.6 TH/MM3 Eosinophils # (Auto) 0.1 TH/MM3 0.1 TH/MM3 Basophils # (Auto) 0.0 TH/MM3 0.1 TH/MM3 CBC Comment AUTO DIFF AUTO DIFF Differential Total Cells 100 100 Counted Neutrophils % (Manual) 48 % 37 % Lymphocytes % 49 % 61 % Monocytes % 2 % 2 % Eosinophils % 1 % Neutrophils # (Manual) 7.5 TH/MM3 5.1 TH/MM3 Differential Comment FINAL DIFF FINAL DIFF MANUAL MANUAL Smudge Cells PRESENT PRESENT Platelet Estimate LOW LOW Platelet Morphology Comment NORMAL NORMAL Red Cell Morphology Comment NORMAL NORMAL Prostate Specific Antigen 3.17 NG/ML Screen Prothrombin Time 13.1 SEC Prothromb Time International 1.2 RATIO Ratio Medical Decision Making Impression and Plan 81 yr old s/p thrombectomy, now on low dose heparin, awaiting repeat MRI in the am. Plan for continued rehab. He is stable neurologically at this time. Total Minutes: 10 Andrey Albert Dec 18, 2016 16:14
[2016-12-18] MEDS ORDERED: METOPROLOL TARTRATE 25 MG TAB PO ONE (16:30)
[2016-12-18] MEDS: THEOPHYLLINE 200 MG EXTENDED RELEASE CAP PO SCH (20:08)
[2016-12-18] MEDS: METOPROLOL TARTRATE 25 MG TAB PO SCH (20:08)
[2016-12-18] MEDS: ATORVASTATIN 40 MG TAB PO SCH (20:08)
[2016-12-19] VITALS (14 sets, daily range): BP systolic 113–125; BP diastolic 56–69; PULSE 86–107; RESP 22–24; TEMP 98.4–99.3; O2SAT 92–98
[2016-12-19] MEDS: GABAPENTIN 100 MG CAP PO SCH ×3 (00:47→16:28)
[2016-12-19] MEDS: CHLORHEXIDINE GLUCONATE 2 % 1 PACK (2 CLOTHS)(taper/protocol) TOP SCH (04:00)
[2016-12-19] MEDS: INSULIN NovoLIN REGULAR SUPPLEMENTAL SCALE SQ SCH ×4 (04:00→21:37)
[2016-12-19] MEDS: RESP: ALBUTEROL 2.5 MG/IPRATROPIUM 0.5 MG NEB (SCH) NEB ×4 (04:14→21:19)
--- NOTE | 2016-12-19 04:59 | RADRPT ---
EXAM DATE/TIME: 12/19/2016 03:19 [facility] COMPARISON: CHEST SINGLE AP, December 17, 2016, 15:33. INDICATIONS : Shortness of breath, possible pulmonary disease. MEDICAL HISTORY : Stroke. Carcinoma, prostatic. SURGICAL HISTORY : None. ENCOUNTER: Subsequent ACUITY: 2 days PAIN SCORE: Non-responsive. LOCATION: Bilateral chest FINDINGS: There is worsening bibasilar consolidation and small to moderate pleural effusions. No pneumothorax s een. Heart size stable, upper limits of normal. CONCLUSION: Worsening bibasilar consolidation/effusions. Duncan Johnson MD on December 19, 2016 at 4:57 Board Certified Radiologist. This report was verified electronically.
[2016-12-19 06:06] LABS: AUTOMATED NEUTROPHIL # 3.9 TH/MM3 (1.8-7.7); BASOPHIL % 0.3 % (0.0-2.0); EOSINOPHIL # 0.1 TH/MM3 (0-0.4); EOSINOPHIL % 0.6 % (0.0-4.0); HEMATOCRIT 34.4 % (39.0-51.0); LYMPH % 64.7 % (9.0-44.0); LYMPHOCYTE # 8.1 TH/MM3 (1.0-4.8); MEAN CELL VOLUME 95.5 FL (80.0-100.0); MEAN CORPUSCULAR HEMOGLOBIN 31.5 PG (27.0-34.0); MONO % 3.5 % (0.0-8.0); NEUT % 30.9 % (16.0-70.0); PLATELET COUNT 96 TH/MM3 (150-450); RED CELL DISTRIBUTION WIDTH 14.4 % (11.6-17.2); WHITE BLOOD COUNT 12.5 TH/MM3 (4.0-11.0)
[2016-12-19 06:07] LABS: HEMO FLAGS AUTO DIFF
[2016-12-19 06:08] LABS: APTT (PATIENT) 33.4 SEC (24.3-30.1); INTERNATIONAL NORMALIZED RATIO 1.2 RATIO; PROTHROMBIN TIME - PATIENT 13.2 SEC (9.8-11.6)
[2016-12-19 06:28] LABS: BICARBONATE 23.2 MEQ/L (21.0-32.0); CALCIUM-PROTEIN CORRECTED 8.5 MG/DL (8.5-10.1); MAGNESIUM 2.4 MG/DL (1.5-2.5); POTASSIUM 4.3 MEQ/L (3.5-5.1); THEOPHYLLINE 2.2 MCG/ML (10.0-20.0); TOTAL BILIRUBIN ADULT 0.6 MG/DL (0.2-1.0)
[2016-12-19 07:48] LABS: NEUTROPHIL # MANUAL DIFF 3.6 TH/MM3 (1.8-7.7); POLYS (SEG NEUTROPHILS) 29 % (16-70); WBC DIFF SAMPLE 100
[2016-12-19 07:49] LABS: PLATELET ESTIMATE SMEAR LOW (NORMAL); PLATELET MORPHOLOGY NORMAL (NORMAL); SMUDGE CELLS PRESENT PRESENT
[2016-12-19 07:50] LABS: SCAN/DIFF FINAL DIFF MANUAL
[2016-12-19] MEDS: METOPROLOL TARTRATE 25 MG TAB PO SCH ×2 (08:31→20:00)
[2016-12-19] MEDS: FOLIC ACID 1 MG TAB PO SCH (08:31)
[2016-12-19] MEDS: HEPARIN SODIUM - SQ 10,000 UNITS/ML VIAL SQ SCH ×2 (08:31→20:01)
[2016-12-19] MEDS: SODIUM CHLORIDE 0.9% FLUSH 5 ML FLUSH FLUSH SCH ×2 (08:31→20:00)
[2016-12-19] MEDS: ALLOPURINOL 300 MG TAB PO SCH (08:31)
[2016-12-19] MEDS: TAMSULOSIN HCL 0.4 MG CAP PO SCH (08:31)
--- NOTE | 2016-12-19 09:01 | HHI.PR ---
Objective Vital Signs Date Time Temp Pulse Resp B/P Pulse Ox O2 Delivery O2 Flow Rate FiO2 12/19/16 08:34 94 Nasal Cannula 2.00 12/19/16 06:00 94 12/19/16 04:00 90 12/19/16 04:00 98.6 86 23 113/56 96 12/19/16 02:00 90 12/19/16 00:00 98.5 92 23 120/60 92 12/19/16 00:00 92 12/18/16 22:00 105 12/18/16 20:28 95 Nasal Cannula 2.00 12/18/16 20:00 112 12/18/16 20:00 98.0 112 16 127/56 93 12/18/16 18:00 112 12/18/16 16:00 119 12/18/16 16:00 99.0 119 28 137/63 95 12/18/16 14:00 112 12/18/16 12:00 101 12/18/16 12:00 98.4 101 20 140/67 96 12/18/16 10:11 94 Nasal Cannula 1.00 12/18/16 10:00 100 I/O 12/18/16 12/18/16 12/18/16 12/19/16 12/19/16 12/19/16 07:00 15:00 23:00 07:00 15:00 23:00 Intake Total 688 ml 540 ml 980 ml Output Total 450 ml 500 ml 150 ml 150 ml Balance 238 ml 40 ml -150 ml 830 ml Intake Oral 120 ml 480 ml IV Total 688 ml 420 ml 500 ml Output Urine Total 450 ml 500 ml 150 ml Drainage Total 150 ml # Voids 2 Result Diagram: 12/19/1618 12/19/1618 Objective Remarks awake alert no new co vff face sym 5/5 t/o bilat speech nl still no change Assessment and Plan Assessment and Plan imp ct neg blood i will recheck mri this am already on coumadin and sq hep stable neuro Pete Parekh MD Dec 19, 2016 09:01
--- NOTE | 2016-12-19 10:52 | HHI.CCPN ---
Subjective Remarks/Hospital Course The patient is an 81-year-old male with past medical history of prostate cancer , dyslipidemia, hypertension, diabetes mellitus and CVA on November 17 status post tPA. The patient was admitted back on November 17 for stroke and was seen by Dr. Alvarado. He had speech problems and right-sided weakness. He underwent tPA and an echocardiogram showed normal ejection fraction and a CT of the neck and [place] of [place] were normal. He also underwent cholecystostomy tube placement on November 27 for acalculous cholecystitis and was on broad-spectrum antibiotics per infectious disease. The patient was placed on aspirin and eventually was sent to [facility] Earlier today the patient developed left facial droop and left upper extremity weakness and a stroke alert was called. The patient was seen by Dr. Parekh from neurology and he had an MRA of the head which showed the truncation of the proximal portion of the right middle cerebral artery with no significant filling of the distal branches suggesting thrombosis. MRA of the neck showed no evidence of any hemodynamically significant lesion. The patient also underwent MRI of the brain which showed areas of diffusion restriction in the high parietal convexities bilaterally suggesting an embolic event to the intracranial circulation The patient was sent to interventional radiology where he underwent thrombectomy. The patient was transferred to [facility] for close observation and critical care medicine was consulted for critical care management. The patient is on 2 liters oxygen with good saturation. On admission his current blood pressure is 133/62 with a pulse of 83. The patient denies any chest pain, shortness of breath, cough or any constitutional symptoms. In addition, he denies any nausea, vomiting or abdominal pain. Subjective 12/18: Currently resting in bed. Afebrile. Positive BM. Tolerating diet. Has left facial droop which is his baseline according to records otherwise neurologically unchanged. Does have peripheral neuropathy. Speech somewhat slurred. 12/19: Afebrile. Patient awake and alert sitting up in bed watching TV. No dysarthria noted, facial symmetry. Awaiting transport to MRI. Objective Vital Signs Date Time Temp Pulse Resp B/P Pulse Ox O2 Delivery O2 Flow Rate FiO2 12/19/16 10:00 98 12/19/16 08:34 94 Nasal Cannula 2.00 12/19/16 08:00 98.4 24 123/61 Intake and Output 12/18/16 12/18/16 12/19/16 08:00 16:00 00:00 Intake Total 688 ml 540 ml Output Total 450 ml 500 ml 150 ml Balance 238 ml 40 ml -150 ml Result Diagram: 12/19/1651712/19/16 0518 Imaging Last Impressions Head CT 12/18/16 0600 Signed Impressions: Service Date/Time: Sunday, December 18, 2016 05:47 - CONCLUSION: There remains no evidence of an acute abnormality by non-contrast head CT. The small subarachnoid blood and scattered embolic infarcts evident by MRI are not clearly seen. Duncan Johnson MD Brain MRI 12/17/16 1401 Signed Impressions: Service Date/Time: Saturday, December 17, 2016 15:14 - CONCLUSION: 1. MR findings suggest interval development of small amount subarachnoid hemorrhage in the right temporal lobe and high convexity left parietal lobe. 2. Otherwise stable with periventricular and deep white matter tracks no vessel ischemic demyelination and probable subacute embolic event to the right jorgensen radiata and bilateral centrum semiovale. 3. Results were called to Dr. Parekh at this dictation. Jayden Bland MD Chest X-Ray 12/17/16 0000 Signed Impressions: Service Date/Time: Saturday, December 17, 2016 15:33 - CONCLUSION: 1. Minimal bibasilar atelectatic changes and possible small associated effusions. 2. Heart size is normal. Jayden Bland MD Objective Remarks GENERAL: 81-year-old male, resting in bed . SKIN: Warm and dry. HEAD: Atraumatic. Normocephalic. EYES: Pupils equal and round about 3 mm bilaterally and reactive. EOMI. No scleral icterus. No injection or drainage. ENT: No nasal bleeding or discharge. Mucous membranes pink and moist. NECK: Trachea midline. No JVD. CARDIOVASCULAR: Regular rate and rhythm. S1, S2. No S4. Without murmur. Holter monitor RESPIRATORY: Socially clear to auscultation laterally without wheezes rales or rhonchi. Breath sounds equal bilaterally. GASTROINTESTINAL: Abdomen soft, non-tender, nondistended. Normoactive bowel sounds MUSCULOSKELETAL: Extremities without significant peripheral edema. No obvious deformities. NEUROLOGICAL: Awake and alert. Facial symmetry. Motor grossly within normal limits. 5/ 5 muscle strength in the arms and legs, left, 4/5 RUE. 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 Continue Neurontin 100 mg by mouth 3 times a day for neuropathy/home medication Acetaminophen for fever Neuro checks every hour Follow up MRI brain this am per Dr. Parekh. Initiate heparin/Coumadin at that time CV: Hypertension Dyslipidemia Echocardiogram 11/23 revealed EF 50-55%. No regional wall motion abnormality. Mild MR.. PAT 45 mmHg. No cardiac embolic source identified Currently on Lipitor 40 milligrams by mouth daily for dyslipidemia. Goal systolic blood pressure less than 150. Use labetalol/hydralazine and Nitropaste PRN Multifocal PVCs, Holter monitoring in progress. Resp: Obstructive sleep apnea Nasal cannula to maintain saturations greater than equal to 92% Incentive spirometry while awake As RT regarding's CPAP at night. He states his machine is broken at home. As needed bronchodilator therapy On theophylline 200 mg by mouth daily. Recheck level in a.m. GI: Regular diet Protonix for GI prophylaxis Colace/as needed Senokot for bowel regimen : BPH Continue Flomax 4 mg by mouth daily/home medication Endo: Gout Continue allopurinol 300 mg by mouth daily Renal: Chronic kidney disease stage II to III Creatinine currently 1.35. IV fluids discontinued Accurate I's and O's Monitor closely Urine output Heme: Leukocytosis Normocytic anemia CLL? Monitor CBC daily. Follow trends ID: Monitor for infection FEN: Replace electrolyte as clinically indicated Rheum/MSK: Rheumatoid arthritis? Currently in folic acid 1 mg daily. Access - Utilize peripheral IV. Central line if indicated Prophylaxis - GI - Protonix - DVT - SCD/heparin/Coumadin order per neurosurgery Critical Care: Level 3 Physician Leta Silveira MD Dec 19, 2016 10:52
--- NOTE | 2016-12-19 13:20 | RADRPT ---
EXAM DATE/TIME: 12/19/2016 11:47 [place] COMPARISON: MRI BRAIN W/O CONTRAST, December 17, 2016, 15:14. INDICATIONS : CVA. MEDICAL HISTORY : Hypertension. Diabetes mellitus type 2. Carcinoma, bladder. Carcinoma, prostate, chronic renal insuff iciency SURGICAL HISTORY : Tonsillectomy. Biliary drain. ENCOUNTER: Initial ACUITY: 3 day PAIN SCORE: 0/10 LOCATION: cranial TECHNIQUE: Multiplanar, multisequence MRI of the brain was performed without contrast. FINDINGS: Today's exam is compared to the prior study. There continue to be several tiny scattered high signal areas on the diffusion weighted images which were previously seen on the study of 12/17/2016. Most of them appear to be stable. However there appears to be a new tiny area of increased signal along the r ight insula which did not appear to be present on the prior study. Otherwise, the diffusion weighted images are stable. The bilateral chronic white matter changes are stable. The previously described alaniz barachnoid hemorrhage along the left cerebral vertex is no longer demonstrated. There is no mass effe ct or midline shift. The ventricles cisterns and sulci are stable and within normal limits for patien t's age.. CONCLUSION: 1. The previously described subarachnoid hemorrhage is no longer demonstrated on this examination. 2. Single new tiny area of increased signal in the right insular area on the diffusion weighted image s. Otherwise, the rest of the diffusion images are stable compared to the prior study. 3. Stable bilateral cortical atrophy and chronic bilateral white matter changes. Danilo Del Rosario MD on December 19, 2016 at 13:15 Board Certified Radiologist. This report was verified electronically.
[2016-12-19] MEDS: WARFARIN SOD 5 MG TAB PO SCH (16:28)
[2016-12-19] MEDS: THEOPHYLLINE 200 MG EXTENDED RELEASE CAP PO SCH (20:00)
[2016-12-19] MEDS: ATORVASTATIN 40 MG TAB PO SCH (20:00)
[2016-12-20] VITALS (14 sets, daily range): BP systolic 108–137; BP diastolic 55–64; PULSE 86–107; RESP 18–24; TEMP 97.9–98.6; O2SAT 92–98
[2016-12-20] MEDS: GABAPENTIN 100 MG CAP PO SCH ×3 (00:27→16:14)
[2016-12-20] MEDS: RESP: ALBUTEROL 2.5 MG/IPRATROPIUM 0.5 MG NEB (SCH) NEB ×4 (03:52→20:37)
[2016-12-20] MEDS: INSULIN NovoLIN REGULAR SUPPLEMENTAL SCALE SQ SCH ×5 (04:00→23:50)
[2016-12-20] MEDS: CHLORHEXIDINE GLUCONATE 2 % 1 PACK (2 CLOTHS)(taper/protocol) TOP SCH (04:00)
[2016-12-20 04:44] LABS: HEMATOCRIT 34.2 % (39.0-51.0); MEAN CELL VOLUME 92.3 FL (80.0-100.0); MEAN CORPUSCULAR HEMOGLOBIN 30.7 PG (27.0-34.0); MEAN CORPUSCULAR HGB CONC 33.3 % (32.0-36.0); PLATELET COUNT 94 TH/MM3 (150-450); RED BLOOD COUNT 3.71 MIL/MM3 (4.50-5.90); RED CELL DISTRIBUTION WIDTH 14.2 % (11.6-17.2); WHITE BLOOD COUNT 12.9 TH/MM3 (4.0-11.0)
[2016-12-20 04:47] LABS: INTERNATIONAL NORMALIZED RATIO 1.4 RATIO
[2016-12-20 04:48] LABS: REVIEW FLAG FINAL
[2016-12-20 05:15] LABS: BICARBONATE 23.5 MEQ/L (21.0-32.0); MAGNESIUM 2.3 MG/DL (1.5-2.5); POTASSIUM 4.3 MEQ/L (3.5-5.1)
--- NOTE | 2016-12-20 08:30 | HHI.PR ---
Subjective Remarks nonew spells Objective Vital Signs Date Time Temp Pulse Resp B/P Pulse Ox O2 Delivery O2 Flow Rate FiO2 12/20/16 08:27 96 Nasal Cannula 2.00 12/20/16 06:00 107 12/20/16 04:00 98.6 93 24 122/60 94 12/20/16 04:00 93 12/20/16 02:00 96 12/20/16 00:00 98.5 96 22 119/56 94 12/20/16 00:00 96 12/19/16 22:00 103 12/19/16 20:00 104 12/19/16 20:00 98.6 104 24 125/58 92 12/19/16 19:33 98 12/19/16 19:00 95 Nasal Cannula 2.00 12/19/16 18:00 107 12/19/16 16:00 99.3 105 24 120/63 94 12/19/16 16:00 105 12/19/16 14:00 90 12/19/16 12:00 98.5 94 22 124/69 95 12/19/16 12:00 95 12/19/16 10:00 98 12/19/16 08:34 94 Nasal Cannula 2.00 I/O 12/19/16 12/19/16 12/19/16 12/20/16 12/20/16 12/20/16 07:00 15:00 23:00 07:00 15:00 23:00 Intake Total 980 ml 720 ml 240 ml 240 ml Output Total 150 ml 420 ml 150 ml Balance 830 ml 300 ml 90 ml 240 ml Intake Oral 480 ml 720 ml 240 ml 240 ml IV Total 500 ml Output Urine Total 150 ml 400 ml 150 ml Drainage Total 20 ml # Voids 2 2 1 Result Diagram: 12/20/1640212/20/16402 Objective Remarks awake alert no new co vff face sym 5/5 t/o bilat speech nl still no change again Assessment and Plan Assessment and Plan imp ct neg blood mri yest blood all gone small r cva already on coumadin and sq hep inr 1.4 stable neuro ok to tele floor Pete Espino MD Dec 20, 2016 08:30
[2016-12-20] MEDS: SODIUM CHLORIDE 0.9% FLUSH 5 ML FLUSH FLUSH SCH ×2 (09:17→20:28)
[2016-12-20] MEDS: FOLIC ACID 1 MG TAB PO SCH (09:17)
[2016-12-20] MEDS: ALLOPURINOL 300 MG TAB PO SCH (09:17)
[2016-12-20] MEDS: TAMSULOSIN HCL 0.4 MG CAP PO SCH (09:17)
[2016-12-20] MEDS: METOPROLOL TARTRATE 25 MG TAB PO SCH ×2 (09:17→20:28)
[2016-12-20] MEDS: HEPARIN SODIUM - SQ 10,000 UNITS/ML VIAL SQ SCH ×2 (09:18→20:29)
--- NOTE | 2016-12-20 15:55 | HHI.CCPN ---
Subjective Remarks/Hospital Course The patient is an 81-year-old male with past medical history of prostate cancer , dyslipidemia, hypertension, diabetes mellitus and CVA on November 17 status post tPA. The patient was admitted back on November 17 for stroke and was seen by Dr. Alvarado. He had speech problems and right-sided weakness. He underwent tPA and an echocardiogram showed normal ejection fraction and a CT of the neck and [place] of [place] were normal. He also underwent cholecystostomy tube placement on November 27 for acalculous cholecystitis and was on broad-spectrum antibiotics per infectious disease. The patient was placed on aspirin and eventually was sent to [facility] Earlier today the patient developed left facial droop and left upper extremity weakness and a stroke alert was called. The patient was seen by Dr. Parekh from neurology and he had an MRA of the head which showed the truncation of the proximal portion of the right middle cerebral artery with no significant filling of the distal branches suggesting thrombosis. MRA of the neck showed no evidence of any hemodynamically significant lesion. The patient also underwent MRI of the brain which showed areas of diffusion restriction in the high parietal convexities bilaterally suggesting an embolic event to the intracranial circulation The patient was sent to interventional radiology where he underwent thrombectomy. The patient was transferred to [facility] for close observation and critical care medicine was consulted for critical care management. The patient is on 2 liters oxygen with good saturation. On admission his current blood pressure is 133/62 with a pulse of 83. The patient denies any chest pain, shortness of breath, cough or any constitutional symptoms. In addition, he denies any nausea, vomiting or abdominal pain. Subjective 12/18: Currently resting in bed. Afebrile. Positive BM. Tolerating diet. Has left facial droop which is his baseline according to records otherwise neurologically unchanged. Does have peripheral neuropathy. Speech somewhat slurred. 12/19: Afebrile. Patient awake and alert sitting up in bed watching TV. No dysarthria noted, facial symmetry. Awaiting transport to MRI. 12/20: No acute events overnight. Neuro status unchanged. Leila revealed previous subarachnoid hemorrhage not longer demonstrated. Cholecystostomy tube minimal drainage 75 cc in the last 24 hours. Objective Vital Signs Date Time Temp Pulse Resp B/P Pulse Ox O2 Delivery O2 Flow Rate FiO2 12/20/16 14:00 86 12/20/16 12:00 98.1 22 110/61 96 12/20/16 08:27 Nasal Cannula 2.00 Intake and Output 12/19/16 12/19/16 12/20/16 08:00 16:00 00:00 Intake Total 980 ml 720 ml 240 ml Output Total 150 ml 420 ml 150 ml Balance 830 ml 300 ml 90 ml Result Diagram: 12/20/16 04012/20/16 0403 Imaging Last Impressions Chest X-Ray 12/19/16599 Signed Impressions: Service Date/Time: Monday, December 19, 2016 03:19 - CONCLUSION: Worsening bibasilar consolidation/effusions. Duncan Johnson MD Brain MRI 12/19/16599 Signed Impressions: Service Date/Time: Monday, December 19, 2016 11:47 - CONCLUSION: 1. The previously described subarachnoid hemorrhage is no longer demonstrated on this examination. 2. Single new tiny area of increased signal in the right insular area on the diffusion weighted images. Otherwise, the rest of the diffusion images are stable compared to the prior study. 3. Stable bilateral cortical atrophy and chronic bilateral white matter changes. Danilo Del Rosario MD Head CT 12/18/16599 Signed Impressions: Service Date/Time: Sunday, December 18, 2016 05:47 - CONCLUSION: There remains no evidence of an acute abnormality by non-contrast head CT. The small subarachnoid blood and scattered embolic infarcts evident by MRI are not clearly seen. Duncan Johnson MD Last Impressions Head CT 12/18/16599 Signed Impressions: Service Date/Time: Sunday, December 18, 2016 05:47 - CONCLUSION: There remains no evidence of an acute abnormality by non-contrast head CT. The small subarachnoid blood and scattered embolic infarcts evident by MRI are not clearly seen. Duncan Johnson MD Brain MRI 12/17/16 1401 Signed Impressions: Service Date/Time: Saturday, December 17, 2016 15:14 - CONCLUSION: 1. MR findings suggest interval development of small amount subarachnoid hemorrhage in the right temporal lobe and high convexity left parietal lobe. 2. Otherwise stable with periventricular and deep white matter tracks no vessel ischemic demyelination and probable subacute embolic event to the right jorgensen radiata and bilateral centrum semiovale. 3. Results were called to Dr. Parekh at this dictation. Jayden Bland MD Chest X-Ray 2/10/17 0000 Signed Impressions: Service Date/Time: Saturday, December 17, 2016 15:33 - CONCLUSION: 1. Minimal bibasilar atelectatic changes and possible small associated effusions. 2. Heart size is normal. Jayden Bland MD Objective Remarks GENERAL: 81-year-old male, semirecumbent in bed in no acute distress SKIN: Warm and dry. HEAD: Atraumatic. Normocephalic. EYES: Pupils equal and round about 3 mm bilaterally and reactive. EOMI. No scleral icterus. No injection or drainage. ENT: No nasal bleeding or discharge. Mucous membranes pink and moist. Nasal cannula NECK: Trachea midline. No JVD. CARDIOVASCULAR: Regular rate and rhythm. S1, S2. No S4. Without murmur. Holter monitor RESPIRATORY: Breath sounds equal bilaterally. Clear to auscultation GASTROINTESTINAL: Abdomen soft, non-tender, nondistended. Normoactive bowel sounds MUSCULOSKELETAL: Extremities without significant peripheral edema. No obvious deformities. NEUROLOGICAL: Awake and alert. Facial symmetry. Motor grossly within normal limits. 5/ 5 muscle strength in the arms and legs, left, 4/5 RUE. 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 Repeat MRI 12/19 subarachnoid hemorrhage no longer demonstrated Continue Neurontin 100 mg by mouth 3 times a day for neuropathy/home medication Acetaminophen for fever Neuro checks every hour Initiated Heparin/Coumadin 12/[address] Albert GCS 15 CV: Hypertension Dyslipidemia Echocardiogram 11/23 revealed EF 50-55%. No regional wall motion abnormality. Mild MR.. PAT 45 mmHg. No cardiac embolic source identified Currently on Lipitor 40 milligrams by mouth daily for dyslipidemia. Goal systolic blood pressure less than 150. Use labetalol/hydralazine and Nitropaste PRN S/P Holter monitor 12/19 F/U report Resp: Obstructive sleep apnea Nasal cannula to maintain saturations greater than equal to 92% Incentive spirometry while awake As RT regarding's CPAP at night. He states his machine is broken at home. As needed bronchodilator therapy On theophylline 200 mg by mouth daily. GI: Regular diet Protonix for GI prophylaxis Colace/as needed Senokot for bowel regimen Cholecystostomy drain 95cc in 24 hours IR to assess cholecystostomy drain today regarding possible removal : BPH Continue Flomax 4 mg by mouth daily/home medication Endo: Gout Continue allopurinol 300 mg by mouth daily Renal: Chronic kidney disease stage II to III Creatinine currently 1.3 IV heplocked Accurate I's and O's Monitor closely Urine output Heme: Leukocytosis Normocytic anemia CLL? Monitor CBC daily. Follow trends ID: Monitor for infection FEN: Replace electrolyte as clinically indicated Rheum/MSK: Rheumatoid arthritis? Currently in folic acid 1 mg daily. Access - Utilize peripheral IV. Central line if indicated Prophylaxis - GI - Protonix - DVT - SCD/heparin/Coumadin order per neurosurgery Critical Care: Level 2 Dispo: Transfer to Center hospitalist. Transfer to neuro floor 5N Physician Leta Silveira MD Dec 20, 2016 15:55
[2016-12-20] MEDS: WARFARIN SOD 5 MG TAB PO SCH (16:14)
[2016-12-20] MEDS: ATORVASTATIN 40 MG TAB PO SCH (20:28)
[2016-12-20] MEDS: THEOPHYLLINE 200 MG EXTENDED RELEASE CAP PO SCH (20:28)
[2016-12-21] VITALS (9 sets, daily range): BP systolic 102–117; BP diastolic 56–61; PULSE 73–92; RESP 15–31; TEMP 97.6–98.5; O2SAT 92–96
[2016-12-21] MEDS: GABAPENTIN 100 MG CAP PO SCH ×2 (01:12→08:14)
[2016-12-21] MEDS: CHLORHEXIDINE GLUCONATE 2 % 1 PACK (2 CLOTHS)(taper/protocol) TOP SCH (04:00)
[2016-12-21] MEDS: RESP: ALBUTEROL 2.5 MG/IPRATROPIUM 0.5 MG NEB (SCH) NEB ×2 (04:34→09:38)
[2016-12-21] MEDS: INSULIN NovoLIN REGULAR SUPPLEMENTAL SCALE SQ SCH ×2 (04:53→12:00)
[2016-12-21 07:30] LABS: INTERNATIONAL NORMALIZED RATIO 1.7 RATIO; PROTHROMBIN TIME - PATIENT 19.3 SEC (9.8-11.6)
[2016-12-21 07:47] LABS: POTASSIUM 4.3 MEQ/L (3.5-5.1); THEOPHYLLINE 2.1 MCG/ML (10.0-20.0)
--- NOTE | 2016-12-21 08:01 | HHI.PR ---
Subjective Remarks nonew spells sr Objective Vital Signs Date Time Temp Pulse Resp B/P Pulse Ox O2 Delivery O2 Flow Rate FiO2 12/21/16 07:00 93 Nasal Cannula 2.00 12/21/16 06:00 87 12/21/16 04:00 98.4 85 28 117/56 96 12/21/16 04:00 85 12/21/16 02:00 86 12/21/16 00:00 98.5 92 15 102/57 96 12/21/16 00:00 92 12/20/16 22:00 106 12/20/16 20:38 98 Nasal Cannula 2.00 12/20/16 20:00 100 12/20/16 20:00 98.3 100 23 116/56 92 12/20/16 19:00 92 Nasal Cannula 3.00 12/20/16 18:00 104 12/20/16 16:00 97.9 91 18 137/64 93 12/20/16 16:00 91 12/20/16 14:00 86 12/20/16 12:00 98.1 100 22 110/61 96 12/20/16 12:00 100 12/20/16 10:00 98 12/20/16 08:27 96 Nasal Cannula 2.00 I/O 12/20/16 12/20/16 12/20/16 12/21/16 12/21/16 12/21/16 07:00 15:00 23:00 07:00 15:00 23:00 Intake Total 240 ml 680 ml 120 ml 240 ml Output Total 400 ml 225 ml 150 ml Balance 240 ml 280 ml -105 ml 90 ml Intake Oral 240 ml 680 ml 120 ml 240 ml IV Total 0 ml 0 ml Output Urine Total 325 ml 225 ml 150 ml Stool Total 0 ml Drainage Total 75 ml 0 ml 0 ml # Voids 1 # Bowel Movements 0 0 0 Result Diagram: 12/20/16 0403 12/21/16 0534 Objective Remarks awake alert no new co vff face sym 5/5 t/o bilat speech nl still Assessment and Plan Assessment and Plan imp ct neg blood mri yest blood all gone small r cva already on coumadin and sq hep inr 1.7 stable neuro ok to tele floor oob staqble overnoc Pete Parekh MD Dec 21, 2016 08:01
[2016-12-21] MEDS: TAMSULOSIN HCL 0.4 MG CAP PO SCH (08:14)
[2016-12-21] MEDS: SODIUM CHLORIDE 0.9% FLUSH 5 ML FLUSH FLUSH SCH (08:14)
[2016-12-21] MEDS: METOPROLOL TARTRATE 25 MG TAB PO SCH (08:14)
[2016-12-21] MEDS: ALLOPURINOL 300 MG TAB PO SCH (08:14)
[2016-12-21] MEDS: FOLIC ACID 1 MG TAB PO SCH (08:14)
[2016-12-21] MEDS: HEPARIN SODIUM - SQ 10,000 UNITS/ML VIAL SQ SCH (08:15)
[2016-12-21] MEDS ORDERED: BISACODYL 10 MG SUPP PR PRN (08:30)
[2016-12-21] MEDS ORDERED: DOCUSATE SODIUM 100 MG CAP PO PRN (08:30)
[2016-12-21] MEDS ORDERED: LACTULOSE SYRUP 20 GM/30 ML CUP PO PRN (08:30)
[2016-12-21] MEDS ORDERED: DOCUSATE SODIUM 50 MG/SENNA 8.6 MG TAB PO SCH (09:00)
--- NOTE | 2016-12-21 11:17 | HHI.PR ---
Subjective Remarks Follow-up CVA. Consulted by critical care medicine for transfer care medical management. Chart reviewed. Case discussed with RN. Patient has no complaints denies headache, dizziness, chest pain and shortness of breath. Cholecystostomy tube without drainage for the past 24 hours. He is going to IR to evaluate the tube Objective Vitals Vital Signs Date Time Temp Pulse Resp B/P Pulse Ox O2 Delivery O2 Flow Rate FiO2 12/21/16 10:00 90 12/21/16 09:39 93 Nasal Cannula 2.00 12/21/16 08:00 84 12/21/16 08:00 97.9 85 23 112/59 92 12/21/16 07:00 93 Nasal Cannula 2.00 12/21/16 06:00 87 12/21/16 04:00 98.4 85 28 117/56 96 12/21/16 04:00 85 12/21/16 02:00 86 12/21/16 00:00 98.5 92 15 102/57 96 12/21/16 00:00 92 12/20/16 22:00 106 12/20/16 20:38 98 Nasal Cannula 2.00 12/20/16 20:00 100 12/20/16 20:00 98.3 100 23 116/56 92 12/20/16 19:00 92 Nasal Cannula 3.00 12/20/16 18:00 104 12/20/16 16:00 97.9 91 18 137/64 93 12/20/16 16:00 91 12/20/16 14:00 86 12/20/16 12:00 98.1 100 22 110/61 96 12/20/16 12:00 100 I/O 12/20/16 12/20/16 12/20/16 12/21/16 12/21/16 12/21/16 07:00 15:00 23:00 07:00 15:00 23:00 Intake Total 240 ml 680 ml 120 ml 240 ml Output Total 400 ml 225 ml 150 ml Balance 240 ml 280 ml -105 ml 90 ml Intake Oral 240 ml 680 ml 120 ml 240 ml IV Total 0 ml 0 ml Output Urine Total 325 ml 225 ml 150 ml Stool Total 0 ml Drainage Total 75 ml 0 ml 0 ml # Voids 1 # Bowel Movements 0 0 0 Result Diagram: 12/20/16 0403 12/21/16 0534 Imaging Last Impressions Chest X-Ray 12/19/16599 Signed Impressions: Service Date/Time: Monday, December 19, 2016 03:19 - CONCLUSION: Worsening bibasilar consolidation/effusions. Duncan Johnson MD Brain MRI 12/19/16599 Signed Impressions: Service Date/Time: Monday, December 19, 2016 11:47 - CONCLUSION: 1. The previously described subarachnoid hemorrhage is no longer demonstrated on this examination. 2. Single new tiny area of increased signal in the right insular area on the diffusion weighted images. Otherwise, the rest of the diffusion images are stable compared to the prior study. 3. Stable bilateral cortical atrophy and chronic bilateral white matter changes. Danilo Del Rosario MD Head CT 12/18/16599 Signed Impressions: Service Date/Time: Sunday, December 18, 2016 05:47 - CONCLUSION: There remains no evidence of an acute abnormality by non-contrast head CT. The small subarachnoid blood and scattered embolic infarcts evident by MRI are not clearly seen. Duncan Johnson MD Objective Remarks GENERAL: 81-year-old male, obese, well-developed in no distress SKIN: Warm and dry. HEAD: Atraumatic. Normocephalic. EYES: Pupils equal and round about 3 mm bilaterally and reactive. EOMI. No scleral icterus. No injection or drainage. ENT: No nasal bleeding or discharge. Mucous membranes pink and moist. Nasal cannula NECK: Trachea midline. No JVD. CARDIOVASCULAR: Regular rate and rhythm. S1, S2. No S4. Without murmur. Holter monitor RESPIRATORY: Breath sounds equal bilaterally. Clear to auscultation GASTROINTESTINAL: Abdomen soft, non-tender, nondistended. Normoactive bowel sounds MUSCULOSKELETAL: Extremities without significant peripheral edema. No obvious deformities. NEUROLOGICAL: Awake and alert. Facial symmetry. Motor grossly within normal limits. 5/ 5 muscle strength in the arms and legs, left, 4/5 RUE. 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 Repeat MRI 12/19 subarachnoid hemorrhage no longer demonstrated Continue Neurontin 100 mg by mouth 3 times a day for neuropathy/home medication Acetaminophen for fever Neuro checks every hour Initiated Heparin/Coumadin 12/[address] Albert keep INR between 2-2.5 GCS 15 CV: Hypertension Dyslipidemia Echocardiogram 11/23 revealed EF 50-55%. No regional wall motion abnormality. Mild MR.. PAT 45 mmHg. No cardiac embolic source identified Currently on Lipitor 40 milligrams by mouth daily for dyslipidemia. Goal systolic blood pressure less than 150. Use labetalol/hydralazine and Nitropaste PRN S/P Holter monitor 12/19 F/U report Resp: Obstructive sleep apnea Nasal cannula to maintain saturations greater than equal to 92% Incentive spirometry while awake As RT regarding's CPAP at night. He states his machine is broken at home. As needed bronchodilator therapy On theophylline 200 mg by mouth daily. GI: Regular diet Protonix for GI prophylaxis Colace/as needed Senokot for bowel regimen Cholecystostomy drain without drainage in 24 hours IR to assess cholecystostomy drain today regarding possible removal : BPH Continue Flomax 4 mg by mouth daily/home medication Endo: A1c 5.4 Gout Continue allopurinol 300 mg by mouth daily Renal: Chronic kidney disease stage II to III Creatinine currently 1.3 IV heplocked. Repeat BMP and magnesium in the morning. Avoid nephrotoxins Accurate I's and O's Monitor closely Urine output Heme: Leukocytosis Normocytic anemia History of CLL Monitor CBC daily. Follow trends ID: Monitor for infection FEN: Replace electrolyte as clinically indicated Rheum/MSK: Rheumatoid arthritis? Currently in folic acid 1 mg daily. Access - Utilize peripheral IV. Central line if indicated Prophylaxis - GI - Protonix - DVT - SCD/heparin/Coumadin order per neurosurgery Discharge Planning He is stable for transfer to floor and discharge back to rehabilitation Problem Qualifiers (1) Stroke: Qualified Code: I63.311 - Cerebrovascular accident (CVA) due to thrombosis of right middle cerebral artery Víctor Liz MD Dec 21, 2016 11:17
--- NOTE | 2016-12-21 14:14 | PD.RAD ---
Post Procedure Progress Note Pre Procedure Diagnosis: (1) Acute acalculous cholecystitis Post Procedure Diagnosis: (1) Acute acalculous cholecystitis Procedure Date: Dec 21, 2016 Supervising Radiologist: Daniele Ross Plan of Activity Patient to Unit: Nursing Unit Patient Condition: Fair Additional Comments: Cholangiogram demonstrates stones with the gallbladder and a single small stone in the proximal CBD. Cystic duct and CBD are patent. Tube removed from the gallbladder See PACS Report for procedural detail/treatment Daniele Ross MD Dec 21, 2016 14:14
[2016-12-21] MEDS ORDERED: IOHEXOL 350 MG/ML 50 ML BTL (for RAD DIAG) IV ONE (14:30)
[2016-12-21] MEDS ORDERED: METO25TA3 PO (15:08)
[2016-12-21] MEDS ORDERED: HEPA10003 SQ (15:08)
[2016-12-21] MEDS ORDERED: SENN1TAB PO (15:08)
[2016-12-21] MEDS ORDERED: COUM5TAB PO (15:08)
--- NOTE | 2016-12-21 15:09 | HHI.DCPOC ---
Discharge Care Plan Diagnosis: (1) Stroke (2) SAH (subarachnoid hemorrhage) Your Health Problems Are: Difficulty with ADL Exercise Tolerance Goals to Promote Your Health * To prevent worsening of your condition and complications * To maintain your health at the optimal level Directions to Meet Your Goals Take your medications as prescribed Follow your dietary instruction Follow activity as directed Keep your appointments as scheduled Take your immunizations and boosters as scheduled If your symptoms worsen call your PCP, if no PCP go to Urgent Care Center or Emergency Room Smoking is Dangerous to Your Health. Avoid second hand smoke Call the 24-hour hour crisis hotline for domestic abuse at Víctor Liz MD Dec 21, 2016 15:09
--- NOTE | 2016-12-22 05:41 | HHI.DS ---
Discharge Summary Admission Date Dec 17, 2016 at 10:41 Discharge Date: Dec 21, 2016 Admitting Diagnosis (1) SAH (subarachnoid hemorrhage) ICD Code: I60.9 Diagnosis: Principal (2) Stroke ICD Code: I63.9 Diagnosis: Principal Procedures right M2 thrombectomy Brief History - From Admission The patient is an 81-year-old male with past medical history of prostate cancer, dyslipidemia, hypertension, diabetes mellitus and CVA on November 17 status post tPA. The patient was admitted back on November 17 for stroke and was seen by Dr. Alvarado. He had speech problems and right-sided weakness. He underwent tPA and an echocardiogram showed normal ejection fraction and a CT of the neck and [place] were normal. He also underwent cholecystostomy tube placement on November 27 for acalculous cholecystitis and was on broad-spectrum antibiotics per infectious disease. The patient was placed on aspirin and eventually was sent to [facility]. Earlier today the patient developed left facial droop and left upper extremity weakness and a stroke alert was called. CBC/BMP: 12/20/16 0403 12/21/16 0534 Significant Findings Laboratory Tests Test 12/20/16 12/21/16 04:03 05:34 White Blood Count 12.9 TH/MM3 (4.0-11.0) Red Blood Count 3.71 MIL/MM3 (4.50-5.90) Hemoglobin 11.4 GM/DL (13.0-17.0) Hematocrit 34.2 % (39.0-51.0) Platelet Count 94 TH/MM3 (150-450) Mean Platelet Volume 6.8 FL (7.0-11.0) Prothrombin Time 16.0 SEC 19.3 SEC (9.8-11.6) (9.8-11.6) Chloride Level 108 MEQ/L (98-107) Blood Urea Nitrogen 20 MG/DL (7-18) 19 MG/DL (7-18) Creatinine 1.31 MG/DL 1.38 MG/DL (0.60-1.30) (0.60-1.30) Estimat Glomerular Filtration 52 ML/MIN (>89) 49 ML/MIN (>89) Rate Random Glucose 110 MG/DL (74-106) Calcium Level 7.8 MG/DL 7.5 MG/DL (8.5-10.1) (8.5-10.1) Theophylline Level 2.1 MCG/ML (10.0-20.0) Imaging Last Impressions Chest X-Ray 12/19/16599 Signed Impressions: Service Date/Time: Monday, December 19, 2016 03:19 - CONCLUSION: Worsening bibasilar consolidation/effusions. Duncan Johnson MD Brain MRI 12/19/16599 Signed Impressions: Service Date/Time: Monday, December 19, 2016 11:47 - CONCLUSION: 1. The previously described subarachnoid hemorrhage is no longer demonstrated on this examination. 2. Single new tiny area of increased signal in the right insular area on the diffusion weighted images. Otherwise, the rest of the diffusion images are stable compared to the prior study. 3. Stable bilateral cortical atrophy and chronic bilateral white matter changes. Danilo Del Rosario MD Head CT 12/18/16599 Signed Impressions: Service Date/Time: Sunday, December 18, 2016 05:47 - CONCLUSION: There remains no evidence of an acute abnormality by non-contrast head CT. The small subarachnoid blood and scattered embolic infarcts evident by MRI are not clearly seen. Duncan Johnson MD PE at Discharge GENERAL: 81-year-old male, obese, well-developed in no distress SKIN: Warm and dry. HEAD: Atraumatic. Normocephalic. EYES: Pupils equal and round about 3 mm bilaterally and reactive. EOMI. No scleral icterus. No injection or drainage. ENT: No nasal bleeding or discharge. Mucous membranes pink and moist. Nasal cannula NECK: Trachea midline. No JVD. CARDIOVASCULAR: Regular rate and rhythm. S1, S2. No S4. Without murmur. Holter monitor RESPIRATORY: Breath sounds equal bilaterally. Clear to auscultation GASTROINTESTINAL: Abdomen soft, non-tender, nondistended. Normoactive bowel sounds MUSCULOSKELETAL: Extremities without significant peripheral edema. No obvious deformities. NEUROLOGICAL: Awake and alert. Facial symmetry. Motor grossly within normal limits. 5/ 5 muscle strength in the arms and legs, left, 4/5 RUE. 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 Repeat MRI 12/19 subarachnoid hemorrhage no longer demonstrated Continue Neurontin 100 mg by mouth 3 times a day for neuropathy/home medication Acetaminophen for fever Neuro checks every hour Initiated Heparin/Coumadin 12/[address] Albert keep INR between 2-2.5 GCS 15 CV: Hypertension Dyslipidemia Echocardiogram 11/23 revealed EF 50-55%. No regional wall motion abnormality. Mild MR.. PAT 45 mmHg. No cardiac embolic source identified Currently on Lipitor 40 milligrams by mouth daily for dyslipidemia. Goal systolic blood pressure less than 150. Use labetalol/hydralazine and Nitropaste PRN S/P Holter monitor 12/19 F/U report Resp: Obstructive sleep apnea Nasal cannula to maintain saturations greater than equal to 92% Incentive spirometry while awake As RT regarding's CPAP at night. He states his machine is broken at home. As needed bronchodilator therapy On theophylline 200 mg by mouth daily. GI: Regular diet Protonix for GI prophylaxis Colace/as needed Senokot for bowel regimen Cholecystostomy drain without drainage in 24 hours IR to assess cholecystostomy drain today regarding possible removal : BPH Continue Flomax 4 mg by mouth daily/home medication Endo: A1c 5.4 Gout Continue allopurinol 300 mg by mouth daily Renal: Chronic kidney disease stage II to III Creatinine currently 1.3 IV heplocked. Repeat BMP and magnesium in the morning. Avoid nephrotoxins Accurate I's and O's Monitor closely Urine output Heme: Leukocytosis Normocytic anemia History of CLL Monitor CBC daily. Follow trends ID: Monitor for infection FEN: Replace electrolyte as clinically indicated Rheum/MSK: Rheumatoid arthritis? Currently in folic acid 1 mg daily. Access - Utilize peripheral IV. Central line if indicated Prophylaxis - GI - Protonix - DVT - SCD/heparin/Coumadin order per neurosurgery Pt Condition on Discharge: Stable Discharge Disposition: Rehab Inpatient Discharge Time: > 30 minutes Discharge Instructions DIET: Follow Instructions for: Heart Healthy Diet Activities you can perform: Regular-No Restrictions Activities to Avoid: Driving Follow up Referrals: PCP Follow-up - 1 Week New Medications: Heparin Sodium (Porcine) (Heparin Sodium) 10,000 Unit/Ml Inj 5000 UNITS SQ Q12HR stop when INR > 2 Prevent Blood Clot #14 INJECTION Metoprolol Tartrate (Metoprolol Tartrate) 25 Mg Tab 25 MG PO Q12HR Blood Pressure Management #60 TAB Sennosides-Docusate Sodium (Senna Plus 8.6-50 mg) 1 Tab Tab 2 TAB PO BID Prevent Constipation #60 TAB Warfarin (Coumadin) 5 Mg Tab 5 MG PO DAILY@1600 keep INR 2-2.5 Prevent Blood Clot #30 TAB Continued Medications: Acetaminophen (Acetaminophen) 325 Mg Tab 650 MG PO Q4H PRN Fever/ Pain 1-2 Days 1 TAB Allopurinol (Zyloprim) 300 Mg Tab 300 MG PO DAILY Days 1 TAB Atorvastatin (Lipitor) 40 Mg Tab 40 MG PO HS Days 1 TAB Folic Acid (Folate) 1 Mg Tab 1 MG PO DAILY Days 1 TAB Gabapentin (Gabapentin) 100 Mg Cap 100 MG PO Q8H Days 1 CAP Multiple Vitamin (Thera/Beta-Carotene) 1 Tab Tab 1 TAB PO DAILY Days 1 TAB Tamsulosin (Flomax) 0.4 Mg Cap 0.4 MG PO DAILY Days 1 CAP Theophylline ER 24 HR (Yaron-24) 200 Mg Cap 200 MG PO DAILY@20 Days 1 CAP Víctor Liz MD Dec 22, 2016 05:41
--- NOTE | 2016-12-22 12:19 | RADRPT ---
EXAM DATE/TIME: 12/21/2016 13:51 [place] COMPARISON: CHOLANGIOGRAM THRU EXISTING CATHETER, December 21, 2016, 0:00. INDICATIONS : Patient presents with acute cholecystitis in need of cholangiogram with possible removal. MEDICAL HISTORY : Hx stroke Skin cancer HTN Diabetes Gout Dyslipidemia Prostate cancer Rheumatoid arthritis SURGICAL HISTORY : Radiation treatment for prostate cancer ENCOUNTER: Subsequent ACUITY: 4 - 6 days PAIN SCORE: 0/10 LOCATION: N/A FLUORO TIME: 1.9 minutes CONTRAST: 10 cc Omnipaque (iohexol) 350 PROCEDURE : The examination demonstrates gallstones within the gallbladder. The cystic duct is widely patent. The common duct is patent. There are 2 small stones within the common duct the first is at the junction of the cystic duct and CBD the second is in the distal common duct approximately 1 cm above the ampul la. Contrast freely flowed around these areas CONCLUSION: 1. The cystic duct and common duct are patent. There are 2 small filling defects within the common du ct most consistent with small stones. There is flow of contrast around these areas. The common duct i s normal in caliber. 2. There are stones within the gallbladder. 3. The patient's cholecystostomy drain was removed at the conclusion of the exam. Daniele Ross MD on December 22, 2016 at 8:21 Board Certified Radiologist. This report was verified electronically.
[2017-01-04] MEDS ORDERED: HOSP BED1 (14:42)
[2017-01-11] MEDS ORDERED: COUM1TAB PO (09:07)
[2017-01-11] MEDS ORDERED: THERTAB15 PO (09:07)
[2017-01-11] MEDS ORDERED: THEO1CAP2 PO (09:07)
[2017-01-11] MEDS ORDERED: VITA100T PO (09:07)
[2017-01-11] MEDS ORDERED: FOLI1TAB4 PO (09:07)
[2017-01-11] MEDS ORDERED: CARB25TA9 PO (09:07)
[2017-01-11] MEDS ORDERED: LIPI40TA PO (09:07)
[2017-01-11] MEDS ORDERED: GABA100C4 PO (09:07)
[2017-01-11] MEDS ORDERED: ALLO300 PO (09:07)
[2017-02-14] MEDS ORDERED: LIPI40TA PO (12:43)
[2017-03-11] MEDS ORDERED: FOLI1TAB4 PO (10:37)
[2017-03-11] MEDS ORDERED: GABA100C4 PO (10:37)
[2017-03-11] MEDS ORDERED: CARB25TA9 PO (10:37)
== END 2016-12-21 16:10 | DRG 23 ==
LOC: HIMN 10:41
PROVIDERS: ADMIT Internal Medicine; ATTEND Internal Medicine
PROC: 03CG3ZZ Extirpation of Matter from Intracranial Artery, Percutaneous Approach (ICD-10-PCS; 2016-12-17)
PROC: 0FPBX0Z Removal of Drainage Device from Hepatobiliary Duct, External Approach (ICD-10-PCS; principal; 2016-12-21)
DX: I63.311 Cerebral infarction due to thrombosis of right middle cerebral artery (principal); I60.8 Other nontraumatic subarachnoid hemorrhage; I69.354 Hemiplegia and hemiparesis following cerebral infarction affecting left non-dominant side; E11.22 Type 2 diabetes mellitus with diabetic chronic kidney disease; I12.9 Hypertensive chronic kidney disease with stage 1 through stage 4 chronic kidney disease, or unspecified chronic kidney disease; E78.5 Hyperlipidemia, unspecified; R29.810 Facial weakness; R47.81 Slurred speech; Z85.46 Personal history of malignant neoplasm of prostate; N18.2 Chronic kidney disease, stage 2 (mild); Z92.3 Personal history of irradiation; Z87.891 Personal history of nicotine dependence; Z85.6 Personal history of leukemia; Z85.51 Personal history of malignant neoplasm of bladder; K80.70 Calculus of gallbladder and bile duct without cholecystitis without obstruction; G62.9 Polyneuropathy, unspecified; M06.9 Rheumatoid arthritis, unspecified; G47.33 Obstructive sleep apnea (adult) (pediatric); M10.9 Gout, unspecified; D64.9 Anemia, unspecified
CPT/HCPCS: 47531; 70450; 70551; 71010; 80048; 80053; 80198; 83735; 84100; 85007; 85027; 85384; 85610; 85730; 87641; 94150; 94640; 94664; C1769; G0103; J0171; J1644; J7030; Q9967

== ENCOUNTER 2017-02-01 10:44 | Emergency (ER) | payer MEDICARE, BC, OTHER ==
[~2017-02-01 10:44] MED LIST changes: -AMLO5 PO; -ASPI81TA11 PO; +CARB25TA9 PO; +COUM1TAB PO; +HOSP BED1; -IPRASOL NEB; -LEVA750T PO; -LISI-515 PO; -METO-309 PO; -TAMS5CAP PO; -THEO200T9 PO; -ULTR50TA5 PO; +VITA100T PO; -[UNRECOGNIZED DRUG - OTHER] PO
[2017-02-14] MEDS ORDERED: LIPI40TA PO (12:43)
[2017-03-11] MEDS ORDERED: GABA100C4 PO (10:37)
[2017-03-11] MEDS ORDERED: FOLI1TAB4 PO (10:37)
[2017-03-11] MEDS ORDERED: CARB25TA9 PO (10:37)
== END 2017-02-01 11:29 | disposition left against medical advice (07) ==
LOC: NED 10:44
DX: R10.9 Unspecified abdominal pain (principal)
CPT/HCPCS: 99281

== ENCOUNTER 2017-02-01 11:54 | Inpatient (IN) | payer MEDICARE, BC, OTHER ==
[~2017-02-01] VITALS: Ht 172.7 cm; Wt 102.0 kg
[2017-02-01 12:02] VITALS: BP 178/102; PULSE 100; RESP 16; TEMP 98.7; O2SAT 99
[2017-02-01] MEDS ORDERED: SODIUM CHLORIDE 0.9% FLUSH 10 ML FLUSH IVF PRN (12:30)
[2017-02-01 12:35] VITALS: O2SAT 99
[2017-02-01] MEDS ORDERED: MORPHINE SULFATE 4 MG/ML INJ IV PUSH ONE ×2 (12:45→13:45)
[2017-02-01] MEDS ORDERED: ONDANSETRON HCL 4 MG/2 ML VIAL IV PUSH ONE (12:45)
[2017-02-01 12:47] LABS: BASOPHIL # 0.2 TH/MM3 (0-0.2); EOSINOPHIL % 0.1 % (0.0-4.0); HEMATOCRIT 42.6 % (39.0-51.0); LYMPH % 31.5 % (9.0-44.0); MEAN CELL VOLUME 93.2 FL (80.0-100.0); MEAN CORPUSCULAR HEMOGLOBIN 30.5 PG (27.0-34.0); MEAN CORPUSCULAR HGB CONC 32.8 % (32.0-36.0); MONO % 4.5 % (0.0-8.0); NEUT % 62.9 % (16.0-70.0); PLATELET COUNT 111 TH/MM3 (150-450); RED BLOOD COUNT 4.57 MIL/MM3 (4.50-5.90); RED CELL DISTRIBUTION WIDTH 15.6 % (11.6-17.2); WHITE BLOOD COUNT 15.9 TH/MM3 (4.0-11.0)
[2017-02-01 12:48] LABS: HEMO FLAGS AUTO DIFF
[2017-02-01 12:50] LABS: CHLORIDE 106 MEQ/L (98-107); POTASSIUM 3.5 MEQ/L (3.5-5.1); SODIUM (NA) 144 MEQ/L (136-145)
[2017-02-01 12:54] LABS: ANION GAP 9 MEQ/L (5-15); APTT (PATIENT) 33.2 SEC (24.3-30.1); BICARBONATE 29.5 MEQ/L (21.0-32.0); BLOOD UREA NITROGEN 14 MG/DL (7-18); INTERNATIONAL NORMALIZED RATIO 1.9 RATIO; PROTHROMBIN TIME - PATIENT 21.1 SEC (9.8-11.6)
--- NOTE | 2017-02-01 12:54 | PD ---
HPI Chief Complaint: Hypertension Time Seen by Provider: 12:07 Travel History International Travel<30 days: No Contact w/Intl Traveler<30days: No Traveled to known affect area: No History of Present Illness HPI Patient is an 81-year-old male who presents to emergency room with his family with multiple complaints. Patient reports that he checked his blood pressure this morning, reports that his blood pressure was 190/100, reports that he called EMS and was told to go to the emergency room for evaluation as he was recently discharged from the hospital after he had two "[id number] strokes." Family is concerned as patient is on Coumadin due to his strokes. Patient this time with no headache or dizziness, no vision changes. Patient reports that he does have history of hypertension, reports that he was on lisinopril in the past , reports that he was taken off of lisinopril 2 months ago and was not put on another antihypertensive at that time. Patient also reports that he has been having increased right upper quadrant abdominal pain since last night. Patient reports that he has a "gall bladder problem" and reports that he was supposed to have surgery to his gallbladder by Dr. Longoria, reports that he was deemed too high risk given his 2 strokes as well as the fact that he is on coumadin. Reports that he is still having pains to his right upper quadrant at this time. Patient with no nausea or vomiting at this time. Patient with no fevers or chills. Reports that there was consideration for surgery after he was treated for his strokes PFSH Past Medical History Hx Anticoagulant Therapy: Yes (WARFARIN) Arthritis: Yes Asthma: No Autoimmune Disease: No Anxiety: No Depression: No Heart Rhythm Problems: No Cancer: Yes Cardiovascular Problems: Yes (CHOL) High Cholesterol: Yes Chemotherapy: No Chest Pain: No Congestive Heart Failure: No COPD: Yes Cerebrovascular Accident: Yes (X's 2) Diabetes: Yes Deep Vein Thrombosis: Yes Endocrine: Yes GERD: No Genitourinary: No Hiatal Hernia: No Hypertension: Yes Immune Disorder: No Kidney Stones: No Musculoskeletal: Yes Psychiatric: No Reproductive: No Respiratory: Yes (COPD) Migraines: No Radiation Therapy: Yes Renal Failure: No Seizures: No Sickle Cell Disease: No Sleep Apnea: Yes Thyroid Disease: No Ulcer: No Tetanus Vaccination: Unknown Influenza Vaccination: Yes Past Surgical History Abdominal Surgery: No AICD: No Arteriovenous Shunt: No Cardiac Surgery: No Ear Surgery: No Endocrine Surgery: No Eye Surgery: No Genitourinary Surgery: No Gynecologic Surgery: No Insulin Pump: No Joint Replacement: No Oral Surgery: No Pacemaker: No Thoracic Surgery: No Tonsillectomy: Yes Other Surgery: Yes (PROSTATE) Social History Alcohol Use: Yes (Rarely) Tobacco Use: No Substance Use: No Allergies-Medications (Allergen,Severity, Reaction): Coded Allergies: Lyrica (Verified Adverse Reaction, Severe, Drowsiness, 02/01/17) Reported Meds & Prescriptions Reported Meds & Active Scripts Active Vitamin B-12 (Cyanocobalamin) 100 Mcg Tab 100 Mcg PO DAILY Carbidopa-Levodopa 25-100 Mg Tab 1 Tab PO TID@07,12,16 Coumadin (Warfarin) 1 Mg Tab 1.5 Mg PO DAILY@16 Gabapentin 100 Mg Cap 100 Mg PO Q8H Folate (Folic Acid) 1 Mg Tab 1 Mg PO DAILY Lipitor (Atorvastatin Calcium) 40 Mg Tab 40 Mg PO HS Review of Systems General / Constitutional: No: Fever Eyes: No: Blurred Vision, Photophobia, Drainage, Visual changes HENT: No: Headaches Cardiovascular: No: Chest Pain or Discomfort, Palpitations, Irregular Rhythm, Tachycardia Respiratory: No: Shortness of Breath Gastrointestinal: Positive: Abdominal Pain, No: Nausea, Vomiting Genitourinary: No: Dysuria Musculoskeletal: No: Pain Skin: No Rash Neurologic: No: Weakness Psychiatric: No: Depression Endocrine: No: Polydipsia Hematologic/Lymphatic: No: Easy Bruising Physical Exam Narrative GENERAL: nad, nontoxic SKIN: Warm and dry. HEAD: Atraumatic. Normocephalic. EYES: Pupils equal and round. ENT: No nasal bleeding or discharge. Mucous membranes pink and moist. NECK: Trachea midline. No JVD. CARDIOVASCULAR: Regular rate and rhythm. No murmur appreciated. RESPIRATORY: No accessory muscle use. Clear to auscultation. Breath sounds equal bilaterally. GASTROINTESTINAL: Abdomen soft, non-tender, nondistended. Hepatic and splenic margins not palpable. MUSCULOSKELETAL: No obvious deformities. No clubbing. No cyanosis. +2 edema to B/L lower extremities NEUROLOGICAL: Awake and alert. No obvious cranial nerve deficits. Motor grossly within normal limits. Normal speech. PSYCHIATRIC: Appropriate mood and affect; insight and judgment normal. Data Data Last Documented VS Vital Signs Date Time Temp Pulse Resp B/P Pulse Ox O2 Delivery O2 Flow Rate FiO2 02/01/17 14:35 107 18 181/97 94 Room Air 02/01/17 12:02 98.7 Orders Complete Blood Count With Diff (02/01/17 12:20) Comprehensive Metabolic Panel (02/01/17 12:20) Prothrombin Time / Inr (Pt) (02/01/17 12:20) Act Partial Throm Time (Ptt) (02/01/17 12:20) Ct Brain W/O Iv Contrast(Rout) (02/01/17 12:20) Ecg Monitoring (02/01/17 12:20) Iv Access Insert/Monitor (02/01/17 12:20) Oximetry (02/01/17 12:20) Oxygen Administration (02/01/17 12:20) Sodium Chloride 0.9% Flush (Ns Flush) (02/01/17 12:30) Electrocardiogram (02/01/17 12:20) Lipase (02/01/17 12:20) Chest, Single Ap (02/01/17 12:20) Urinalysis - C+S If Indicated (02/01/17 12:20) Us Abdomen Gallbladder (02/01/17 ) Morphine Inj (Morphine Inj) (02/01/17 12:45) Ondansetron Inj (Zofran Inj) (02/01/17 12:45) Morphine Inj (Morphine Inj) (02/01/17 13:45) Ciprofloxacin 400 Mg Premix (Cipro 400 M (02/01/17 15:15) Metronidazole 500 Mg Inj (Flagyl 500 Mg (02/01/17 15:15) Admit Order (Ed Use Only) (02/01/17 15:12) Consult General Surgery (02/01/17 ) Labs Laboratory Tests Test 02/01/17 02/01/17 12:30 13:20 White Blood Count 15.9 TH/MM3 Red Blood Count 4.57 MIL/MM3 Hemoglobin 13.9 GM/DL Hematocrit 42.6 % Mean Corpuscular Volume 93.2 FL Mean Corpuscular Hemoglobin 30.5 PG Mean Corpuscular Hemoglobin 32.8 % Concent Red Cell Distribution Width 15.6 % Platelet Count 111 TH/MM3 Mean Platelet Volume 6.3 FL Neutrophils (%) (Auto) 62.9 % Lymphocytes (%) (Auto) 31.5 % Monocytes (%) (Auto) 4.5 % Eosinophils (%) (Auto) 0.1 % Basophils (%) (Auto) 1.0 % Neutrophils # (Auto) 10.0 TH/MM3 Lymphocytes # (Auto) 5.0 TH/MM3 Monocytes # (Auto) 0.7 TH/MM3 Eosinophils # (Auto) 0.0 TH/MM3 Basophils # (Auto) 0.2 TH/MM3 CBC Comment AUTO DIFF Differential Total Cells 100 Counted Neutrophils % (Manual) 63 % Band Neutrophils % 3 % Lymphocytes % 23 % Monocytes % 9 % Basophils % 2 % Neutrophils # (Manual) 10.5 TH/MM3 Differential Comment FINAL DIFF MANUAL Platelet Estimate LOW Platelet Morphology Comment NORMAL Red Cell Morphology Comment NORMAL Prothrombin Time 21.1 SEC Prothromb Time International 1.9 RATIO Ratio Activated Partial 33.2 SEC Thromboplast Time Sodium Level 144 MEQ/L Potassium Level 3.5 MEQ/L Chloride Level 106 MEQ/L Carbon Dioxide Level 29.5 MEQ/L Anion Gap 9 MEQ/L Blood Urea Nitrogen 14 MG/DL Creatinine 1.30 MG/DL Estimat Glomerular Filtration 53 ML/MIN Rate Random Glucose 134 MG/DL Calcium Level 8.3 MG/DL Total Bilirubin 1.2 MG/DL Aspartate Amino Transf 30 U/L (AST/SGOT) Alanine Aminotransferase 8 U/L (ALT/SGPT) Alkaline Phosphatase 187 U/L Total Protein 6.7 GM/DL Albumin 2.9 GM/DL Lipase 208 U/L Urine Collection Type CLEAN CATCH Urine Color DARK-YELLOW Urine Turbidity CLEAR Urine pH 6.0 Urine Specific [place] 1.020 Urine Protein 300 OR GREATER mg/dL Urine Glucose (UA) NEG mg/dL Urine Ketones NEG mg/dL Urine Occult Blood MOD Urine Nitrite NEG Urine Bilirubin NEG Urine Leukocyte Esterase NEG Urine RBC 0-3 /hpf Urine WBC 0-2 /hpf Urine Squamous Epithelial 0-5 /hpf Cells Microscopic Urinalysis Comment CULT NOT INDICATED MDM Medical Decision Making Medical Screen Exam Complete: Yes Emergency Medical Condition: Yes Interpretation(s) EKG at 1224: NSR at 94bpm, qt/qtc: 370/429, no acute st or t wave changes Vital Signs Date Time Temp Pulse Resp B/P Pulse Ox O2 Delivery O2 Flow Rate FiO2 02/01/17 12:35 99 Room Air 02/01/17 12:35 99 Room Air 02/01/17 12:02 98.7 100 16 178/102 99 Differential Diagnosis htn, renal insuffiency, arrhythmia, intracranial hemorrhage, cholecystitis, DVT , electrolyte abnormality Narrative Course Patient is an 81-year-old male who presents to emergency room for multiple complaints. 1) hypertension: patient reports history of hypertension in the past and was on lisinopril and was taken off of it 2 months ago, bp at home per family was 190/ 100. BP in ER was 178/102. Labs as well as UA ordered to evaluate for end organ damage. CT of head ordered to evaluate for possible ICH as pt is on Coumadin with recent cva. 2) patient with RUQ abdominal pain since last night. LFTS as well as RUQ US ordered to evaluate for possible acute cholecystitis. Will medicate patient with pain meds and will monitor. Patient does have b/l LE's swelling - patient reports that he was recently diagnosed with DVT to [facility] on last admission and was started on Coumadin for DVT as well as for tx of ischemic stroke. Will check INR. Laboratory Tests Test 02/01/17 02/01/17 12:30 13:20 White Blood Count 15.9 TH/MM3 (4.0-11.0) Red Blood Count 4.57 MIL/MM3 (4.50-5.90) Hemoglobin 13.9 GM/DL (13.0-17.0) Hematocrit 42.6 % (39.0-51.0) Mean Corpuscular Volume 93.2 FL (80.0-100.0) Mean Corpuscular Hemoglobin 30.5 PG (27.0-34.0) Mean Corpuscular Hemoglobin 32.8 % Concent (32.0-36.0) Red Cell Distribution Width 15.6 % (11.6-17.2) Platelet Count 111 TH/MM3 (150-450) Mean Platelet Volume 6.3 FL (7.0-11.0) Neutrophils (%) (Auto) 62.9 % (16.0-70.0) Lymphocytes (%) (Auto) 31.5 % (9.0-44.0) Monocytes (%) (Auto) 4.5 % (0.0-8.0) Eosinophils (%) (Auto) 0.1 % (0.0-4.0) Basophils (%) (Auto) 1.0 % (0.0-2.0) Neutrophils # (Auto) 10.0 TH/MM3 (1.8-7.7) Lymphocytes # (Auto) 5.0 TH/MM3 (1.0-4.8) Monocytes # (Auto) 0.7 TH/MM3 (0-0.9) Eosinophils # (Auto) 0.0 TH/MM3 (0-0.4) Basophils # (Auto) 0.2 TH/MM3 (0-0.2) CBC Comment AUTO DIFF Differential Total Cells 100 Counted Neutrophils % (Manual) 63 % (16-70) Band Neutrophils % 3 % (0-6) Lymphocytes % 23 % (9-44) Monocytes % 9 % (0-8) Basophils % 2 % (0-2) Neutrophils # (Manual) 10.5 TH/MM3 (1.8-7.7) Differential Comment FINAL DIFF MANUAL Platelet Estimate LOW (NORMAL) Platelet Morphology Comment NORMAL (NORMAL) Red Cell Morphology Comment NORMAL (NORMAL) Prothrombin Time 21.1 SEC (9.8-11.6) Prothromb Time International 1.9 RATIO Ratio Activated Partial 33.2 SEC Thromboplast Time (24.3-30.1) Sodium Level 144 MEQ/L (136-145) Potassium Level 3.5 MEQ/L (3.5-5.1) Chloride Level 106 MEQ/L (98-107) Carbon Dioxide Level 29.5 MEQ/L (21.0-32.0) Anion Gap 9 MEQ/L (5-15) Blood Urea Nitrogen 14 MG/DL (7-18) Creatinine 1.30 MG/DL (0.60-1.30) Estimat Glomerular Filtration 53 ML/MIN (>89) Rate Random Glucose 134 MG/DL (74-106) Calcium Level 8.3 MG/DL (8.5-10.1) Total Bilirubin 1.2 MG/DL (0.2-1.0) Aspartate Amino Transf 30 U/L (15-37) (AST/SGOT) Alanine Aminotransferase 8 U/L (12-78) (ALT/SGPT) Alkaline Phosphatase 187 U/L (45-117) Total Protein 6.7 GM/DL (6.4-8.2) Albumin 2.9 GM/DL (3.4-5.0) Lipase 208 U/L (73-393) Urine Collection Type CLEAN CATCH Urine Color DARK-YELLOW (YELLW/STRAW) Urine Turbidity CLEAR (CLEAR) Urine pH 6.0 (5.0-8.5) Urine Specific [place] 1.020 (1.002-1.035) Urine Protein 300 OR GREATER mg/dL (NEG-TRACE) Urine Glucose (UA) NEG mg/dL (NEG) Urine Ketones NEG mg/dL (NEG) Urine Occult Blood MOD (NEG) Urine Nitrite NEG (NEG) Urine Bilirubin NEG (NEG) Urine Leukocyte Esterase NEG (NEG) Urine RBC 0-3 /hpf (0-3) Urine WBC 0-2 /hpf (0-5) Urine Squamous Epithelial 0-5 /hpf (0-5) Cells Microscopic Urinalysis Comment CULT NOT INDICATED Last Impressions Head CT 02/01/17 1220 Signed Impressions: Service Date/Time: Wednesday, February 01, 2017 12:45 - CONCLUSION: No acute intracranial findings. Leonard Blair MD Chest X-Ray 02/01/17 1220 Signed Impressions: Service Date/Time: Wednesday, February 01, 2017 12:27 - CONCLUSION: No acute cardiopulmonary disease identified. Leonard Blair MD Gall Bladder Ultrasound 02/01/17 0000 Signed Impressions: Service Date/Time: Wednesday, February 01, 2017 13:42 - CONCLUSION: 1. Cholelithiasis and diffuse gallbladder wall thickening suggesting acute versus chronic cholecystitis. 2. Diffuse coarse echotexture of the liver, nonspecific. No focal masses. 3. Small amount of free fluid in the right upper quadrant. Leonard Blair MD Case reviewed with Dr. Arellano with Gen. surgery, request the patient be admitted to [facility] for possible cholecystectomy versus percutaneous cholecystostomy tube. Case reviewed with Dr. Stark who accepts pt to service. Discussed course of care with patient and family who are in agreement with plan of care and to transfer [facility] Diagnosis Primary Impression: Acute cholecystitis Admitting Information Admitting Physician Requests: Observation Sera Ng DO Feb 01, 2017 12:54
[2017-02-01 12:57] LABS: ALT (GPT) 8 U/L (12-78); AST (GOT) 30 U/L (15-37); GLOMERULAR FILTRATION RATE 53 ML/MIN (>89)
[2017-02-01 12:59] LABS: TOTAL BILIRUBIN ADULT 1.2 MG/DL (0.2-1.0)
[2017-02-01 13:00] LABS: ALKALINE PHOSPHATASE 187 U/L (45-117)
[2017-02-01 13:08] LABS: BANDS 3 % (0-6); BASOPHILS 2 % (0-2); NEUTROPHIL # MANUAL DIFF 10.5 TH/MM3 (1.8-7.7); POLYS (SEG NEUTROPHILS) 63 % (16-70); WBC DIFF SAMPLE 100
[2017-02-01 13:09] LABS: PLATELET ESTIMATE SMEAR LOW (NORMAL); PLATELET MORPHOLOGY NORMAL (NORMAL); SCAN/DIFF FINAL DIFF MANUAL
[2017-02-01 13:28] LABS: BLOOD, URINE MOD (NEG); GLUCOSE,URINE NEG (NEG); KETONE, URINE NEG (NEG); NITRITE,URINE NEG (NEG)
[2017-02-01 13:29] LABS: METHOD OF COLLECTION CLEAN CATCH; URINE COLOR DARK-YELLOW (YELLW/STRAW)
[2017-02-01 13:32] LABS: COMMENT (UR) CULT NOT INDICATED; CULTURE IF INDICATED CULT NOT INDICATED; RBC, URINE 0-3 /hpf (0-3); SQUAMOUS EPITHELIAL CELL URINE 0-5 /hpf (0-5); WBC, URINE 0-2 /hpf (0-5)
--- NOTE | 2017-02-01 13:43 | RADHPO ---
EXAM DATE/TIME: 02/01/2017 12:27 [facility] COMPARISON: CHEST SINGLE AP, December 23, 2016, 12:44. INDICATIONS : Patient states chest pains. MEDICAL HISTORY : Stroke. Hypertension SURGICAL HISTORY : None. ENCOUNTER: Initial ACUITY: 1 day PAIN SCORE: 2/10 LOCATION: Bilateral chest FINDINGS: Single AP view of the chest. The lungs are clear. Cardiomediastinal silhouette within normal limits. No evidence of pleural effusion or pneumothorax. CONCLUSION: No acute cardiopulmonary disease identified. Leonard Blair MD on February 01, 2017 at 13:40 Board Certified Radiologist. This report was verified electronically.
--- NOTE | 2017-02-01 14:09 | RADHPO ---
EXAM DATE/TIME: 02/01/2017 12:45 [facility] COMPARISON: CT BRAIN W/O CONTRAST, December 18, 2016, 5:47. INDICATIONS : Cephalgia. High blood pressure. RADIATION DOSE: 58.80 CTDIvol (mGy) MEDICAL HISTORY : Cerebrovascular disease. Hypertension. Deep venous thrombosis.COPD. Renal disease. Diabetes. SURGICAL HISTORY : Tonsillectomy. ENCOUNTER: Initial ACUITY: 1 day PAIN SCALE: 0/10 LOCATION: cranial TECHNIQUE: Multiple contiguous axial images were obtained of the head. Using automated exposure control and adj ustment of the mA and/or kV according to patient size, radiation dose was kept as low as reasonably a chievable to obtain optimal diagnostic quality images. FINDINGS: CEREBRUM: The ventricles are normal for age. No evidence of midline shift, mass lesion, hemorrhage or acute in farction. No extra-axial fluid collections are seen. POSTERIOR FOSSA: The cerebellum and brainstem are intact. The 4th ventricle is midline. The cerebellopontine angle i s unremarkable. EXTRACRANIAL: The visualized portion of the orbits is intact. SKULL: The calvaria is intact. No evidence of skull fracture. CONCLUSION: No acute intracranial findings. Leonard Blair MD on February 01, 2017 at 14:06 Board Certified Radiologist. This report was verified electronically.
[2017-02-01 14:35] VITALS: BP 181/97; PULSE 107; RESP 18; O2SAT 94
--- NOTE | 2017-02-01 14:40 | RADHPO ---
EXAM DATE/TIME: 02/01/2017 13:42 [facility] COMPARISON: CT ABDOMEN W/O CONTRAST, November 28, 2016, 8:38. ABDOMEN KUB ONLY, December 22, 2016, 10:46. CT BRA IN W/O CONTRAST, February 01, 2017, 12:45. INDICATIONS : Right upper quadrant pain. MEDICAL HISTORY : Hypercholesterolemia. Chronic obstructive pulmonary disease. Hypertension. CVA. DVT. Renal disease. A rthritis. Diabetes. SURGICAL HISTORY : Tonsillectomy. Cholecystectomy. ENCOUNTER: Subsequent ACUITY: 1 day PAIN SCORE: 4/10 LOCATION: Right upper quadrant MEASUREMENTS: LIVER: 15.4 cm length COMMON DUCT: 5 mm RIGHT KIDNEY: 12.2 x 5.2 x 6.3 cm FINDINGS: LIVER: Diffuse coarse echotexture of the liver and small amount of perihepatic fluid. No focal masses identi fied. Portal venous flow is hepatopedal. COMMON DUCT: No intraluminal mass or stone visualized. GALLBLADDER: Multiple gallstones are seen in the gallbladder measuring up to 1.4 cm in diameter. Diffuse gallbladd er wall thickening. PANCREAS: The visualized portions are within normal limits. RIGHT KIDNEY: No evidence of hydronephrosis, stone, or mass. CONCLUSION: 1. Cholelithiasis and diffuse gallbladder wall thickening suggesting acute versus chronic cholecystit is. 2. Diffuse coarse echotexture of the liver, nonspecific. No focal masses. 3. Small amount of free fluid in the right upper quadrant. Leonard Blair MD on February 01, 2017 at 14:31 Board Certified Radiologist. This report was verified electronically.
[2017-02-01] MEDS ORDERED: CIPROFLOXACIN 400 MG PREMIX 200 ML IV ONE (15:15)
[2017-02-01] MEDS ORDERED: metroNIDAZOLE 500 MG INJ 100 ML IV ONE (15:15)
[2017-02-01] MEDS ORDERED: SODIUM CHLORIDE 0.9% FLUSH 10 ML FLUSH IV FLUSH PRN (16:00)
[2017-02-01] MEDS ORDERED: NALOXONE HCL 0.4 MG/ML AMP IV PRN (16:00)
[2017-02-01 16:25] VITALS: BP 172/81; PULSE 104; RESP 16; O2SAT 95
[2017-02-01] MEDS ORDERED: ENALAPRILAT 1.25 MG/ML VIAL IV PUSH PRN (16:30)
[2017-02-01] MEDS ORDERED: RESP: ALBUTEROL 2.5 MG/3 ML NEB (PRN) NEB (16:30)
--- NOTE | 2017-02-01 16:33 | HHI.HP ---
[facility] Service [facility] Primary Care Physician Non-Staff Admission Diagnosis Acute Cholecystitis Diagnoses: (1) Acute cholecystitis (2) Deep venous embolism and thrombosis of left lower extremity (3) Hypertension (4) Hyperlipidemia Chief Complaint: Abdominal pain Travel History International Travel<30 Days: No Contact w/Intl Traveler <30 Da: No Traveled to Known Affected Are: No History of Present Illness The patient is an 81-year-old male who presented to the emergency department with complaint of right upper quadrant abdominal pain that started last night. He was hospitalized in November and diagnosed with cholecystitis. A cholecystostomy tube was placed at that time and removed prior to discharge. He was hospitalized again in December for CVA. Was transferred to inpatient rehabilitation and was discharged home recently. Last meal was last night. Vomited x1 this morning. No diarrhea/constipation. Has has some vision changes over the last 2 weeks, but no new weakness/numbness/tingling. Review of Systems Constitutional: DENIES: Fever, Chills, Night Sweats Eyes: DENIES: Blurred vision, Vision loss Ears, nose, mouth, throat: DENIES: Hearing loss Respiratory: DENIES: Cough, Wheezing, Sputum production, Shortness of breath Cardiovascular: DENIES: Chest pain, Palpitations, Dyspnea on Exertion, Lower Extremity Edema Gastrointestinal: COMPLAINS OF: Abdominal pain, Nausea, Vomiting, DENIES: Constipation, Diarrhea Genitourinary: DENIES: Urinary frequency, Urinary incontinence, Urgency, Hematuria, Dysuria, Nocturia Musculoskeletal: DENIES: Joint pain, Muscle aches Integumentary: DENIES: Pruritus, Rash Hematologic/lymphatic: DENIES: Bruising Neurologic: DENIES: Headache Past Family Social History Past Medical History CVA Hypertension Hyperlipidemia Neuropathy Rheumatoid arthritis Dyslipidemia Prostate cancer CLL Gout Bladder cancer COPD Past Surgical History Cholecystostomy tube placement Cystoscopy Reported Medications Vitamin B-12 (Cyanocobalamin) 100 Mcg Tab 100 Mcg PO DAILY Carbidopa-Levodopa 25-100 Mg Tab 1 Tab PO TID@07,12,16 Coumadin (Warfarin) 1 Mg Tab 1.5 Mg PO DAILY@16 Gabapentin 100 Mg Cap 100 Mg PO Q8H Folate (Folic Acid) 1 Mg Tab 1 Mg PO DAILY Lipitor (Atorvastatin Calcium) 40 Mg Tab 40 Mg PO HS Allergies: Coded Allergies: Lyrica (Verified Adverse Reaction, Severe, Drowsiness, 02/01/17) Family History Father had prostate cancer. Social History Quit smoking more than 10 years ago. Occasional alcohol use. Denies illicit drug use. Physical Exam Vital Signs Vital Signs Date Time Temp Pulse Resp B/P Pulse Ox O2 Delivery O2 Flow Rate FiO2 02/01/17 14:35 107 18 181/97 94 Room Air 02/01/17 13:55 18 02/01/17 13:35 16 02/01/17 12:35 99 Room Air 02/01/17 12:35 99 Room Air 02/01/17 12:02 98.7 100 16 178/102 99 Physical Exam GENERAL: Elderly male in no acute distress. HEENT: Normocephalic, atraumatic. Pupils equal, round and reactive. Extraocular movements intact. No scleral icterus. No injection or drainage. Oropharynx is clear. Mucous membranes are moist. CARDIOVASCULAR: Regular rate and rhythm without murmurs, gallops, or rubs. RESPIRATORY: Clear to auscultation. No wheezes, rales, or rhonchi. Breathing is non-labored. GASTROINTESTINAL: Abdomen soft, nondistended. Tenderness to palpation in the right upper quadrant without rebound or guarding. EXTREMITIES: No lower extremity edema. No calf tenderness. PSYCH: Alert and oriented x 3. Laboratory Laboratory Tests Test 02/01/17 02/01/17 12:30 13:20 White Blood Count 15.9 Red Blood Count 4.57 Hemoglobin 13.9 Hematocrit 42.6 Mean Corpuscular Volume 93.2 Mean Corpuscular Hemoglobin 30.5 Mean Corpuscular Hemoglobin 32.8 Concent Red Cell Distribution Width 15.6 Platelet Count 111 Mean Platelet Volume 6.3 Neutrophils (%) (Auto) 62.9 Lymphocytes (%) (Auto) 31.5 Monocytes (%) (Auto) 4.5 Eosinophils (%) (Auto) 0.1 Basophils (%) (Auto) 1.0 Neutrophils # (Auto) 10.0 Lymphocytes # (Auto) 5.0 Monocytes # (Auto) 0.7 Eosinophils # (Auto) 0.0 Basophils # (Auto) 0.2 CBC Comment AUTO DIFF Differential Total Cells 100 Counted Neutrophils % (Manual) 63 Band Neutrophils % 3 Lymphocytes % 23 Monocytes % 9 Basophils % 2 Neutrophils # (Manual) 10.5 Differential Comment FINAL DIFF MANUAL Platelet Estimate LOW Platelet Morphology Comment NORMAL Red Cell Morphology Comment NORMAL Prothrombin Time 21.1 Prothromb Time International 1.9 Ratio Activated Partial 33.2 Thromboplast Time Sodium Level 144 Potassium Level 3.5 Chloride Level 106 Carbon Dioxide Level 29.5 Anion Gap 9 Blood Urea Nitrogen 14 Creatinine 1.30 Estimat Glomerular Filtration 53 Rate Random Glucose 134 Calcium Level 8.3 Total Bilirubin 1.2 Aspartate Amino Transf 30 (AST/SGOT) Alanine Aminotransferase 8 (ALT/SGPT) Alkaline Phosphatase 187 Total Protein 6.7 Albumin 2.9 Lipase 208 Urine Collection Type CLEAN CATCH Urine Color DARK-YELLOW Urine Turbidity CLEAR Urine pH 6.0 Urine Specific [place] 1.020 Urine Protein 300 OR GREATER Urine Glucose (UA) NEG Urine Ketones NEG Urine Occult Blood MOD Urine Nitrite NEG Urine Bilirubin NEG Urine Leukocyte Esterase NEG Urine RBC 0-3 Urine WBC 0-2 Urine Squamous Epithelial 0-5 Cells Microscopic Urinalysis Comment CULT NOT INDICATED Result Diagram: 02/01/17 1230 02/01/17 1230 Imaging Last Impressions Head CT 02/01/17 1220 Signed Impressions: Service Date/Time: Wednesday, February 01, 2017 12:45 - CONCLUSION: No acute intracranial findings. Leonard Blair MD Chest X-Ray 02/01/17 1220 Signed Impressions: Service Date/Time: Wednesday, February 01, 2017 12:27 - CONCLUSION: No acute cardiopulmonary disease identified. Leonard Blair MD Gall Bladder Ultrasound 02/01/17 0000 Signed Impressions: Service Date/Time: Wednesday, February 01, 2017 13:42 - CONCLUSION: 1. Cholelithiasis and diffuse gallbladder wall thickening suggesting acute versus chronic cholecystitis. 2. Diffuse coarse echotexture of the liver, nonspecific. No focal masses. 3. Small amount of free fluid in the right upper quadrant. Leonard Blair MD Assessment and Plan Assessment and Plan 1. Acute cholecystitis versus chronic cholecystitis: Patient presented with right upper quadrant abdominal pain. Has abnormal appearance of the gallbladder on imaging. Has been evaluated by general surgery recently. General surgeon optimization engineer was contacted by the ER physician. Will transfer to [facility] for general surgery evaluation. Continue pain control, IV fluids. 2. History of CVA: Patient has residual left-sided weakness. Continue Coumadin. 3. COPD: Bronchodilators as needed. Oxygen as needed. 4. Hyperlipidemia: Continue statin. 5. History of DVT: Continue anticoagulation. 6. Hypertension: Vasotec as needed. Metoprolol was discontinued during inpatient rehabilitation stay secondary to orthostatic hypotension. James Stark MD Feb 01, 2017 16:33
[2017-02-01] MEDS: GABAPENTIN 100 MG CAP PO SCH ×2 (17:57→21:09)
[2017-02-01] MEDS ORDERED: MORPHINE SULFATE 4 MG/ML INJ IV PUSH PRN (18:00)
[2017-02-01 18:02] VITALS: BP 147/73; PULSE 105; RESP 18; TEMP 99.2; O2SAT 99
[2017-02-01 20:00] VITALS: BP 149/70; PULSE 98; RESP 18; TEMP 99.9; O2SAT 94
[2017-02-01] MEDS: SODIUM CHLORIDE 0.9% FLUSH 10 ML FLUSH IV FLUSH SCH (21:00)
[2017-02-01] MEDS: ATORVASTATIN 40 MG TAB PO SCH (21:09)
--- NOTE | 2017-02-01 22:38 | EKG ---
Date Performed: 02/01/2017 Time Performed: 12:24:22 PTAGE: 81 years EKG: Sinus rhythm Possible left anterior fascicular block Borderline ECG Compared to prior tracing no significant helga guillen DOCTOR: Jose Galvan Interpretating Date/Time 02/01/2017 22:37:50
[2017-02-02] VITALS: BP 133/71; PULSE 103; RESP 18; TEMP 96.8; O2SAT 95
[2017-02-02 04:00] VITALS: BP 139/68; PULSE 103; RESP 18; TEMP 98.5; O2SAT 97
[2017-02-02 04:56] LABS: HEMATOCRIT 43.2 % (39.0-51.0); INTERNATIONAL NORMALIZED RATIO 1.9 RATIO; MEAN CELL VOLUME 92.7 FL (80.0-100.0); MEAN CORPUSCULAR HEMOGLOBIN 30.1 PG (27.0-34.0); MEAN CORPUSCULAR HGB CONC 32.5 % (32.0-36.0); PLATELET COUNT 95 TH/MM3 (150-450); RED BLOOD COUNT 4.67 MIL/MM3 (4.50-5.90); RED CELL DISTRIBUTION WIDTH 15.8 % (11.6-17.2); WHITE BLOOD COUNT 22.2 TH/MM3 (4.0-11.0)
[2017-02-02 05:11] LABS: HEMO FLAGS AUTO DIFF
[2017-02-02 05:14] LABS: ALKALINE PHOSPHATASE 171 U/L (45-117); ALT (GPT) 17 U/L (12-78); ANION GAP 7 MEQ/L (5-15); AST (GOT) 31 U/L (15-37); BICARBONATE 28.6 MEQ/L (21.0-32.0); BLOOD UREA NITROGEN 16 MG/DL (7-18); CHLORIDE 105 MEQ/L (98-107); GLOMERULAR FILTRATION RATE 56 ML/MIN (>89); POTASSIUM 3.5 MEQ/L (3.5-5.1); SODIUM (NA) 141 MEQ/L (136-145); TOTAL BILIRUBIN ADULT 1.5 MG/DL (0.2-1.0)
[2017-02-02 06:00] LABS: NEUTROPHIL # MANUAL DIFF 15.5 TH/MM3 (1.8-7.7); POLYS (SEG NEUTROPHILS) 70 % (16-70); WBC DIFF SAMPLE 100
[2017-02-02] MEDS: GABAPENTIN 100 MG CAP PO SCH ×3 (06:00→20:20)
[2017-02-02 06:02] LABS: PLATELET ESTIMATE SMEAR LOW (NORMAL); PLATELET MORPHOLOGY NORMAL (NORMAL); SCAN/DIFF FINAL DIFF MANUAL
[2017-02-02] MEDS: CARBIDOPA/LEVODOPA 25 MG/100 MG TAB PO SCH ×3 (06:03→15:45)
[2017-02-02 08:00] VITALS: BP 143/77; PULSE 97; RESP 24; TEMP 97.1; O2SAT 95
[2017-02-02] MEDS: SODIUM CHLORIDE 0.9% FLUSH 10 ML FLUSH IV FLUSH SCH ×2 (08:29→20:20)
[2017-02-02] MEDS: CYANOCOBALAMIN 100 MCG TAB PO SCH (08:29)
[2017-02-02] MEDS: FOLIC ACID 1 MG TAB PO SCH (08:29)
--- NOTE | 2017-02-02 10:25 | HHI.PR ---
Subjective Remarks Follow-up for acute versus chronic cholecystitis. She is currently doing well. Denies any chest pain, shortness of breath, fever or chills. Son is at bedside. Objective Vitals Vital Signs Date Time Temp Pulse Resp B/P Pulse Ox O2 Delivery O2 Flow Rate FiO2 02/02/17 08:00 97.1 97 24 143/77 95 02/02/17 04:00 98.5 103 18 139/68 97 02/02/17 00:00 96.8 103 18 133/71 95 02/01/17 20:00 99.9 98 18 149/70 94 02/01/17 18:20 18 02/01/17 18:02 99.2 105 18 147/73 99 02/01/17 16:25 104 16 172/81 95 Room Air 02/01/17 14:35 107 18 181/97 94 Room Air 02/01/17 13:55 18 02/01/17 13:35 16 02/01/17 12:35 99 Room Air 02/01/17 12:35 99 Room Air 02/01/17 12:02 98.7 100 16 178/102 99 I/O 02/01/17 02/01/17 02/01/17 02/02/17 02/02/17 02/02/17 07:00 15:00 23:00 07:00 15:00 23:00 Intake Total 200 ml 0 ml Output Total 150 ml 200 ml Balance 50 ml -200 ml Intake Oral 0 ml 0 ml IV Total 200 ml Output Urine Total 150 ml 200 ml # Bowel Movements 0 0 Result Diagram: 02/02/17 0420 02/02/17 0420 Imaging Last Impressions Head CT 02/01/17 1220 Signed Impressions: Service Date/Time: Wednesday, February 01, 2017 12:45 - CONCLUSION: No acute intracranial findings. Leonard Blair MD Chest X-Ray 02/01/17 1220 Signed Impressions: Service Date/Time: Wednesday, February 01, 2017 12:27 - CONCLUSION: No acute cardiopulmonary disease identified. Leonard Blair MD Gall Bladder Ultrasound 02/01/17 0000 Signed Impressions: Service Date/Time: Wednesday, February 01, 2017 13:42 - CONCLUSION: 1. Cholelithiasis and diffuse gallbladder wall thickening suggesting acute versus chronic cholecystitis. 2. Diffuse coarse echotexture of the liver, nonspecific. No focal masses. 3. Small amount of free fluid in the right upper quadrant. Leonard Blair MD Objective Remarks GENERAL: Alert, NAD. SKIN: Warm and dry. HEAD: Normocephalic. EYES: No scleral icterus. No injection or drainage. NECK: Supple, trachea midline. No JVD or lymphadenopathy. CARDIOVASCULAR: Regular rate and rhythm without murmurs, gallops, or rubs. RESPIRATORY: Breath sounds equal bilaterally. No accessory muscle use. GASTROINTESTINAL: Abdomen soft, non-tender, nondistended. MUSCULOSKELETAL: No cyanosis, or edema. BACK: Nontender without obvious deformity. No CVA tenderness. Procedures None A/P Problem List: (1) Acute cholecystitis ICD Code: K81.0 Status: Acute (2) Deep venous embolism and thrombosis of left lower extremity ICD Code: I82.402 Status: Acute (3) Hypertension ICD Code: I10 Status: Chronic (4) Hyperlipidemia ICD Code: E78.5 Status: Chronic Assessment and Plan Mr. Smith is an 81-year-old male with a history of hypertension , hyperlipidemia, DVT who presented to the emergency department on 02/01/2017 due to right upper quadrant abdominal pain that started night before. Patient was hospitalized in November and was diagnosed with cholecystitis. A cholecystostomy tube was placed at that time and removed prior to discharge. Gallbladder ultrasound during this admission shows cholelithiasis and diffuse gallbladder wall thickening suggesting acute versus chronic cholecystitis. Gen. surgery has been following this patient. -Sepsis likely due to acute cholecystitis. (Heart rate over 90, respiration over 20, WBC count 22.2K, known or suspected infection gallbladder) - Acute cholecystitis - Due to patient's other comorbid conditions, Gen. surgery is living worse cholecystostomy tube placement. - We'll start patient on Zosyn 3.375 g every 6 hours. - Right upper extremity wound - present on admission. - We'll consult wound care for recommendation. 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 Full code. Warfarin. Tri Ng DO Feb 02, 2017 10:25 am
[2017-02-02] MEDS: PIPERACIL-TAZO 3.375 GM PREMIX 50 ML IV SCH ×3 (11:36→23:55)
[2017-02-02 12:00] VITALS: BP 134/65; PULSE 101; RESP 16; TEMP 98.3; O2SAT 94
[2017-02-02] MEDS: WARFARIN SOD 1 MG TAB PO SCH (15:45)
[2017-02-02 16:00] VITALS: BP 116/64; PULSE 93; RESP 16; TEMP 97.4; O2SAT 97
[2017-02-02] MEDS: SODIUM CHLOR 0.9% 1000 ML INJ 1,000 ML IV SCH (17:45)
[2017-02-02 20:00] VITALS: BP 119/58; PULSE 88; RESP 17; TEMP 99.2; O2SAT 95
[2017-02-02] MEDS: ATORVASTATIN 40 MG TAB PO SCH (20:20)
[2017-02-03] VITALS: BP 136/64; PULSE 88; RESP 18; TEMP 99; O2SAT 94
[2017-02-03] MEDS: PIPERACIL-TAZO 3.375 GM PREMIX 50 ML IV SCH ×3 (04:14→17:50)
[2017-02-03] MEDS: SODIUM CHLOR 0.9% 1000 ML INJ 1,000 ML IV SCH ×2 (04:15→13:27)
[2017-02-03] MEDS: CARBIDOPA/LEVODOPA 25 MG/100 MG TAB PO SCH ×3 (05:59→17:50)
[2017-02-03] MEDS: GABAPENTIN 100 MG CAP PO SCH ×3 (05:59→20:46)
[2017-02-03 08:00] VITALS: BP 119/61; PULSE 86; RESP 16; TEMP 97.3; O2SAT 100
[2017-02-03] MEDS: SODIUM CHLORIDE 0.9% FLUSH 10 ML FLUSH IV FLUSH SCH ×2 (09:00→20:46)
[2017-02-03] MEDS ORDERED: PHYTONADIONE 5 MG TAB PO ONE (09:15)
[2017-02-03] MEDS: CYANOCOBALAMIN 100 MCG TAB PO SCH (09:40)
[2017-02-03] MEDS: FOLIC ACID 1 MG TAB PO SCH (09:40)
[2017-02-03] MEDS ORDERED: PILL SPLITTER OTHER PRN (10:00)
--- NOTE | 2017-02-03 11:15 | HHI.PR ---
Subjective Remarks Follow-up for acute versus chronic cholecystitis. Mr. Olivier is doing well. Denies any chest pain, fever, chills. He was scheduled for Cholecystostomy tube placement by IR Today. Unfortunately, his INR 1.9 prevented him from getting this procedure today. Objective Vitals Vital Signs Date Time Temp Pulse Resp B/P Pulse Ox O2 Delivery O2 Flow Rate FiO2 02/03/17 08:00 97.3 86 16 119/61 100 02/03/17 00:00 99.0 88 18 136/64 94 02/02/17 20:00 99.2 88 17 119/58 95 02/02/17 16:00 97.4 93 16 116/64 97 02/02/17 12:00 98.3 101 16 134/65 94 I/O 02/02/17 02/02/17 02/02/17 02/03/17 02/03/17 02/03/17 07:00 15:00 23:00 07:00 15:00 23:00 Intake Total 0 ml 50 ml 1498 ml Output Total 200 ml 150 ml Balance -200 ml 50 ml 1348 ml Intake Oral 0 ml 0 ml 240 ml IV Total 50 ml 1258 ml Output Urine Total 200 ml 150 ml # Voids 3 # Bowel Movements 0 Result Diagram: 02/02/17 0420 02/02/17 0420 Imaging Last Impressions Head CT 02/01/17 1220 Signed Impressions: Service Date/Time: Wednesday, February 01, 2017 12:45 - CONCLUSION: No acute intracranial findings. Leonard Blair MD Chest X-Ray 02/01/17 1220 Signed Impressions: Service Date/Time: Wednesday, February 01, 2017 12:27 - CONCLUSION: No acute cardiopulmonary disease identified. Leonard Blair MD Gall Bladder Ultrasound 02/01/17 0000 Signed Impressions: Service Date/Time: Wednesday, February 01, 2017 13:42 - CONCLUSION: 1. Cholelithiasis and diffuse gallbladder wall thickening suggesting acute versus chronic cholecystitis. 2. Diffuse coarse echotexture of the liver, nonspecific. No focal masses. 3. Small amount of free fluid in the right upper quadrant. Leonard Blair MD Objective Remarks GENERAL: Alert, NAD. SKIN: Warm and dry. HEAD: Normocephalic. EYES: No scleral icterus. No injection or drainage. NECK: Supple, trachea midline. No JVD or lymphadenopathy. CARDIOVASCULAR: Regular rate and rhythm without murmurs, gallops, or rubs. RESPIRATORY: Breath sounds equal bilaterally. No accessory muscle use. GASTROINTESTINAL: Abdomen soft, non-tender, nondistended. MUSCULOSKELETAL: No cyanosis, or edema. BACK: Nontender without obvious deformity. No CVA tenderness. Procedures None A/P Problem List: (1) Acute cholecystitis ICD Code: K81.0 Status: Acute (2) Deep venous embolism and thrombosis of left lower extremity ICD Code: I82.402 Status: Acute (3) Hypertension ICD Code: I10 Status: Chronic (4) Hyperlipidemia ICD Code: E78.5 Status: Chronic Assessment and Plan Mr. Smith is an 81-year-old male with a history of hypertension , hyperlipidemia, DVT who presented to the emergency department on 02/01/2017 due to right upper quadrant abdominal pain that started night before. Patient was hospitalized in November and was diagnosed with cholecystitis. A cholecystostomy tube was placed at that time and removed prior to discharge. Gallbladder ultrasound during this admission shows cholelithiasis and diffuse gallbladder wall thickening suggesting acute versus chronic cholecystitis. Gen. surgery has been following this patient. -Sepsis likely due to acute cholecystitis. (Heart rate over 90, respiration over 20, WBC count 22.2K, known or suspected infection gallbladder) - Acute cholecystitis - Due to patient's other comorbid conditions, Gen. surgery recommends cholecystostomy tube placement. - Continue patient on Zosyn 3.375 g every 6 hours. May continue oral abx on discharge. - Discussed with IR and Surgery. - Surgery recommends cholecystostomy tube and if neurology clears for surgery , patient can undergo Lap Cammy in a few months. - IR could not proceed with the procedure today due to INR 1.9. Will give Vitamin K 2.5 today. Repeat INR in the AM. - Right upper extremity wound - present on admission. - Appreciate wound care recommendations. 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 Full code. Warfarin. Tri Ng DO Feb 03, 2017 11:15
[2017-02-03 12:00] VITALS: BP 137/63; PULSE 82; RESP 17; TEMP 96.4; O2SAT 100
--- NOTE | 2017-02-03 13:20 | HHI.PR ---
Subjective Subjective Notes Resting in bed Asking what time they will place a cholecystostomy tube Objective Vitals/I&O Vital Signs Date Time Temp Pulse Resp B/P Pulse Ox O2 Delivery O2 Flow Rate FiO2 02/03/17 12:00 96.4 82 17 137/63 100 02/01/17 16:25 Room Air Cardiovascular: Regular Lungs: Clear Abdomen: Other (RUQ tenderness with palpation ) Extremities: No edema A/P Assessment and Plan 81 year old with acute cholecystitis; multiple medication problems -IR to place cholecystostomy tube today -Diet as tolerated after procedure -Continue Myrna Montano Feb 03, 2017 13:19
[2017-02-03 16:00] VITALS: BP 131/61; PULSE 86; RESP 17; TEMP 96.7; O2SAT 100
[2017-02-03 20:00] VITALS: BP 123/59; PULSE 92; RESP 18; TEMP 96.5; O2SAT 95
[2017-02-03] MEDS: ATORVASTATIN 40 MG TAB PO SCH (20:46)
[2017-02-04] VITALS (9 sets, daily range): BP systolic 118–165; BP diastolic 56–79; PULSE 73–94; RESP 16–20; TEMP 96.2–98.1; O2SAT 92–100
[2017-02-04] MEDS: GABAPENTIN 100 MG CAP PO SCH ×3 (05:19→21:23)
[2017-02-04] MEDS: PIPERACIL-TAZO 3.375 GM PREMIX 50 ML IV SCH ×5 (05:19→21:24)
[2017-02-04] MEDS: SODIUM CHLOR 0.9% 1000 ML INJ 1,000 ML IV SCH ×3 (05:19→21:24)
[2017-02-04] MEDS: CARBIDOPA/LEVODOPA 25 MG/100 MG TAB PO SCH ×3 (05:20→16:00)
--- NOTE | 2017-02-04 06:50 | MB ---
cc: ZE MIKE,ROLO DATE OF EVALUATION 02/02/[address] Rolo Stark REASON FOR CONSULTATION Acute cholecystitis HISTORY OF PRESENT ILLNESS The patient is an 81-year-old male known to me with a history of CVA and cholecystitis. The patient underwent a CVA in December and recently was discharged home. The patient had developed acute cholecystitis while in rehab which was treated with a percutaneous cholecystostomy tube due to the patient's recent CVA and risk of anesthesia. The patient had an excellent response to this cholecystostomy tube and antibiotics and followup cholecystostomy tube study did show good filling of the gallbladder and draining of the gallbladder, normal anatomically. Therefore this tube was a removed appropriately. The patient was seen by myself in the office, was noted to be asymptomatic, tolerating a low-fat diet with no signs of jaundice or complication from his cholecystitis. I had a long discussion with the patient in the office about the management which the patient and his family did wish to pursue a watch and wait approach to cholecystitis at that time. Unfortunately the patient did develop recurrent right upper quadrant pain and presented to [facility] yesterday with evaluation concerning for acute cholecystitis. The patient was noted to have a white blood cell count of 15.9 and ultrasound of the gallbladder which showed cholelithiasis and diffuse gallbladder wall thickening suggesting acute versus chronic cholecystitis. The patient underwent antibiotics and was transferred to [facility] for further treatment. The patient did of note have elevated INR due to his chronic Coumadin therapy. General Surgery was asked to see the patient for evaluation. REVIEW OF SYSTEMS A 12-point review of systems conducted with the patient is negative except for the pertinent positives mentioned above in the History of Present Illness. PAST MEDICAL HISTORY 1. CVA. 2. Hypertension. 3. Hyperlipidemia. 4. Neuropathy. 5. Rheumatoid arthritis. 6. Dyslipidemia. 7. Prostate cancer. 8. CLL. 9. Gout. 10. History of bladder cancer. 11. COPD. PAST SURGICAL HISTORY Previous cholecystostomy tube placement. CURRENT MEDICATIONS 1. Coumadin. 2. Gabapentin. 3. Lipitor. 4. Multiple vitamins. ALLERGIES LYRICA. SOCIAL HISTORY The patient does not use alcohol, tobacco or illicit drug use. Lives at home. FAMILY HISTORY Father had prostate cancer. PHYSICAL EXAMINATION VITAL SIGNS: Pulse 107, blood pressure 181/97, O2 saturation 94%. GENERAL: The patient is a well-developed, well-nourished, elderly male in no acute distress. He does not appear acutely or chronically ill. HEENT: His head is normocephalic, atraumatic. Pupils round and reacting to accommodate and to light. Sclerae anicteric. NECK: Supple. No JVD. LUNGS: Breath sounds are present bilaterally. Nonlabored breathing pattern. HEART: Regular rhythm. ABDOMEN: Soft. Some minimal tenderness in the right upper quadrant without Sawyer's sign. No rebound tenderness or peritonitis. EXTREMITIES: Trace edema. BACK: No CVA tenderness. NEUROLOGIC EXAM: The patient is awake, alert, appropriate, oriented x 4. ASSESSMENT AND PLAN The patient is an 81-year-old male likely with recurrent, acute and chronic cholecystitis. The patient ideally would be treated with cholecystectomy. However, due to the patient's recent CVA I feel that the patient is a high risk for general anesthesia and would benefit from antibiotic and nonoperative therapy including replacement of his cholecystostomy tube. The patient previously declined more aggressive management with surgery. However, we will discuss this with the patient and the patient's family further and if the patient is found to be an acceptable candidate for general anesthesia and surgery in the future, he may benefit from elective cholecystectomy. We will explore this further with the patient's neurologist after he recovers from his current cholecystitis. Would recommend leaving the cholecystostomy tube in place for discharge and the patient could follow up in my office for continued management and followup of his cholecystostomy tube. Thank you very much for this consultation and we will follow along with the patient. MD ALIDA Braden/LIZ /8:51 PM /6:25 AM
[2017-02-04 07:45] LABS: INTERNATIONAL NORMALIZED RATIO 1.3 RATIO; PROTHROMBIN TIME - PATIENT 14.7 SEC (9.8-11.6)
[2017-02-04] MEDS: SODIUM CHLORIDE 0.9% FLUSH 10 ML FLUSH IV FLUSH SCH ×2 (09:00→21:00)
--- NOTE | 2017-02-04 09:17 | HHI.PR ---
Subjective Remarks Follow-up for acute versus chronic cholecystitis. Mr. Olivier is doing well. Denies any chest pain, fever, chills. He is waiting for cholecystostomy tube placement today. His INR is 1.3. Objective Vitals Vital Signs Date Time Temp Pulse Resp B/P Pulse Ox O2 Delivery O2 Flow Rate FiO2 02/04/17 08:00 96.8 85 16 137/60 95 02/04/17 00:00 96.2 84 17 119/60 96 02/03/17 20:00 96.5 92 18 123/59 95 02/03/17 16:00 96.7 86 17 131/61 100 02/03/17 12:00 96.4 82 17 137/63 100 I/O 02/03/17 02/03/17 02/03/17 02/04/17 02/04/17 02/04/17 07:00 15:00 23:00 07:00 15:00 23:00 Intake Total 1498 ml 900 ml 1146 ml 1084 ml Output Total 150 ml 800 ml 250 ml 250 ml Balance 1348 ml 100 ml 896 ml 834 ml Intake Oral 240 ml 900 ml 240 ml 240 ml IV Total 1258 ml 906 ml 844 ml Output Urine Total 150 ml 300 ml 250 ml 250 ml Stool Total 500 ml # Bowel Movements 6 Result Diagram: 02/02/17 0420 02/02/17 0420 Imaging Last Impressions Head CT 02/01/17 1220 Signed Impressions: Service Date/Time: Wednesday, February 01, 2017 12:45 - CONCLUSION: No acute intracranial findings. Leonard Blair MD Chest X-Ray 02/01/17 1220 Signed Impressions: Service Date/Time: Wednesday, February 01, 2017 12:27 - CONCLUSION: No acute cardiopulmonary disease identified. Leonard Blair MD Gall Bladder Ultrasound 02/01/17 0000 Signed Impressions: Service Date/Time: Wednesday, February 01, 2017 13:42 - CONCLUSION: 1. Cholelithiasis and diffuse gallbladder wall thickening suggesting acute versus chronic cholecystitis. 2. Diffuse coarse echotexture of the liver, nonspecific. No focal masses. 3. Small amount of free fluid in the right upper quadrant. Leonard Blair MD Objective Remarks GENERAL: Alert, NAD. SKIN: Warm and dry. HEAD: Normocephalic. EYES: No scleral icterus. No injection or drainage. NECK: Supple, trachea midline. No JVD or lymphadenopathy. CARDIOVASCULAR: Regular rate and rhythm without murmurs, gallops, or rubs. RESPIRATORY: Breath sounds equal bilaterally. No accessory muscle use. GASTROINTESTINAL: Abdomen soft, non-tender, nondistended. MUSCULOSKELETAL: No cyanosis, or edema. BACK: Nontender without obvious deformity. No CVA tenderness. Procedures None A/P Problem List: (1) Acute cholecystitis ICD Code: K81.0 Status: Acute (2) Deep venous embolism and thrombosis of left lower extremity ICD Code: I82.402 Status: Acute (3) Hypertension ICD Code: I10 Status: Chronic (4) Hyperlipidemia ICD Code: E78.5 Status: Chronic Assessment and Plan Mr. Smith is an 81-year-old male with a history of hypertension , hyperlipidemia, DVT who presented to the emergency department on 02/01/2017 due to right upper quadrant abdominal pain that started night before. Patient was hospitalized in November and was diagnosed with cholecystitis. A cholecystostomy tube was placed at that time and removed prior to discharge. Gallbladder ultrasound during this admission shows cholelithiasis and diffuse gallbladder wall thickening suggesting acute versus chronic cholecystitis. Gen. surgery has been following this patient. -Sepsis likely due to acute cholecystitis. (Heart rate over 90, respiration over 20, WBC count 22.2K, known or suspected infection gallbladder) - Acute cholecystitis - Due to patient's other comorbid conditions, Gen. surgery recommends cholecystostomy tube placement. - Continue patient on Zosyn 3.375 g every 6 hours. May continue oral abx on discharge. - Discussed with IR and Surgery on 02/03/2017. - Surgery recommends cholecystostomy tube and if neurology clears for surgery , patient can undergo Lap Cammy in a few months. - INR is 1.3 today. He should be able to undergo Cholecystostomy tube placement today. If okay with IR, maybe discharged later today or tomorrow AM. - Right upper extremity wound - present on admission. - Appreciate wound care recommendations. 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 Full code. Warfarin. INR 1.3 today. Tri Ng DO Feb 04, 2017 9:17 am
[2017-02-04] MEDS ORDERED: LEVOFLOXACIN 500 MG PREMIX INJ 100 ML IV ONE (13:37)
[2017-02-04] MEDS ORDERED: MIDAZOLAM HCL 5 MG/5 ML VIAL ONE (13:38)
[2017-02-04] MEDS ORDERED: fentaNYL CITRATE 250 MCG/5 ML AMP ONE (13:38)
--- NOTE | 2017-02-04 14:26 | PD.RAD ---
Post Procedure Progress Note Pre Procedure Diagnosis: (1) Acute cholecystitis Post Procedure Diagnosis: (1) Acute cholecystitis Procedure Date: Feb 04, 2017 Supervising Radiologist: Víctor Souza JR Proceduralist/Assist: Tere Marvin, RT(R)(CV), Renee Crocker RT(R)() Anesthesia: Conscious Sedation Plan of Activity Patient to Unit: ROPU Patient Condition: Good See PACS Report for procedural detail/treatment Drainage Procedure Procedure 1 Imaging Guidance: Fluoroscopy, Ultrasound Side: Right Procedure Type: Cholecystostomy Procedure: Placement Portuguese: 7 Drainage: [place] drainage Fluid Description: Bilious Findings: US and fluoro guided alma tube placed without difficulty. Thick, inspissated bile noted. Sample to lab for micro. Tube sutured in place Plan Patient to go home with tube and f/u with Dr Longoria. Jr. Harley,Víctor Ruiz MD Feb 04, 2017 14:26
[2017-02-04] MEDS ORDERED: IOHEXOL 350 MG/ML 50 ML BTL (for RAD DIAG) ONE (14:31)
--- NOTE | 2017-02-04 16:34 | RADRPT ---
EXAM DATE/TIME: 02/04/2017 13:27 [place] COMPARISON: No previous studies available for comparison. INDICATIONS : Patient is in need of placement of a cholecystostomy tube due to recurrent acute cholecystitis. MEDICAL HISTORY : History of CVA, COPD, HTN, DVT, prostate cancer, hyperlipidemia. SURGICAL HISTORY : History of cholestostomy tube placement, tonsillectomy. ENCOUNTER: Subsequent ACUITY: 4 - 6 months PAIN SCORE: 0/10 FLUORO TIME: 1.6 minutes IMAGE SERIES: 0 SEDATION TIME: 30 minutes CONTRAST: 10 cc Omnipaque (iohexol) 350 MEDICATION(S): 1.) 2 mg midazolam (Versed) IV 2.) 100 mcg fentanyl (Sublimaze) IV DEVICE(S): 1.) 7 [place] 20 cm Skater catheter PROCEDURE : 1. Ultrasound guided puncture of the gallbladder. 2. Percutaneous cholangiogram. 3. Percutaneous cholecystostomy tube placement. 4. Conscious sedation with continuous EKG and oximetry monitoring. The risks, benefits and alternatives to the procedure were explained and verbal and written consent w as obtained. The site was prepped in sterile fashion. Full sterile technique was used, including ca p, mask, sterile gloves and gown and a large sterile sheet. Hand hygiene and 2% chlorhexidine and/or betadine/alcohol prep was utilized per protocol for cutaneous antisepsis. The skin and subcutaneous tissues were infiltrated with local anesthetic solution. With ultrasound and fluoroscopic guidance the gallbladder was punctured with an Accustick system. In jection of positive contrast demonstrates position within the gallbladder. The cystic duct is occlude d. The gallbladder is distended. Thick dark inspissation of bile is noted. A sample was collected and sent for microbiological evaluation. A 0.035 guidewire was placed within the gallbladder lumen and d ilatation was performed to accept the prescribed catheter. Conscious sedation was performed with the prescribed dosages and duration as above in the presence of an independent trained radiology nurse to assist in the monitoring of the patient. EKG and oximetry remained stable throughout the procedure. The patient tolerated the procedure well and there were n o complications. The patient was sent to post anesthesia recovery in stable condition. CONCLUSION: Uncomplicated percutaneous cholecystostomy as above. The plan is to leave this tube in place. [facility]. Víctor Souza Jr., MD on February 04, 2017 at 16:30 Board Certified Radiologist. This report was verified electronically.
[2017-02-04] MEDS: FOLIC ACID 1 MG TAB PO SCH (16:38)
[2017-02-04] MEDS: CYANOCOBALAMIN 100 MCG TAB PO SCH (16:38)
[2017-02-04] MEDS: ATORVASTATIN 40 MG TAB PO SCH (21:23)
[2017-02-05] VITALS: BP 128/59; PULSE 80; RESP 20; TEMP 97.7; O2SAT 95
[2017-02-05] MEDS: PIPERACIL-TAZO 3.375 GM PREMIX 50 ML IV SCH ×4 (04:38→23:04)
[2017-02-05] MEDS: GABAPENTIN 100 MG CAP PO SCH ×3 (04:38→20:24)
[2017-02-05] MEDS: SODIUM CHLOR 0.9% 1000 ML INJ 1,000 ML IV SCH (04:38)
[2017-02-05] MEDS: CARBIDOPA/LEVODOPA 25 MG/100 MG TAB PO SCH ×3 (04:39→17:10)
--- NOTE | 2017-02-05 07:39 | HHI.PR ---
Subjective Remarks Patient seen and examined this morning. The patient's vitals are stable he's afebrile. He is tolerating his diet. He denies N/V. Has had one BM since hospitalization. Reports minimal RUQ tenderness. Objective Vital Signs Date Time Temp Pulse Resp B/P Pulse Ox O2 Delivery O2 Flow Rate FiO2 02/05/17 00:00 97.7 80 20 128/59 95 02/04/17 20:00 97.4 73 20 118/56 95 02/04/17 16:00 97.1 94 20 165/73 94 02/04/17 15:30 86 20 151/78 97 02/04/17 15:00 85 20 145/78 92 02/04/17 14:35 86 20 134/79 92 02/04/17 14:25 98.1 93 20 120/73 92 02/04/17 12:00 97.9 87 16 146/72 100 02/04/17 08:00 96.8 85 16 137/60 95 I/O 02/04/17 02/04/17 02/04/17 02/05/17 02/05/17 02/05/17 07:00 15:00 23:00 07:00 15:00 23:00 Intake Total 1084 ml 422 ml 583 ml 120 ml Output Total 250 ml 100 ml 265 ml 200 ml Balance 834 ml 322 ml 318 ml -80 ml Intake Oral 240 ml 120 ml 120 ml IV Total 844 ml 422 ml 463 ml Output Urine Total 250 ml 100 ml 175 ml 200 ml Drainage Total 90 ml # Bowel Movements 1 0 0 Result Diagram: 02/02/17 0420 02/02/17 0420 Imaging Last Impressions Percutaneous Cholangiogram 02/04/17 0000 Signed Impressions: Service Date/Time: Saturday, February 04, 2017 13:27 - CONCLUSION: Uncomplicated percutaneous cholecystostomy as above. The plan is to leave this tube in place. The patient will follow up with Dr. Longoria as an outpatient. Víctor Souza Jr., MD Head CT 02/01/17 1220 Signed Impressions: Service Date/Time: Wednesday, February 01, 2017 12:45 - CONCLUSION: No acute intracranial findings. Leonard Blair MD Chest X-Ray 02/01/17 1220 Signed Impressions: Service Date/Time: Wednesday, February 01, 2017 12:27 - CONCLUSION: No acute cardiopulmonary disease identified. Leonard Blair MD Gall Bladder Ultrasound 02/01/17 0000 Signed Impressions: Service Date/Time: Wednesday, February 01, 2017 13:42 - CONCLUSION: 1. Cholelithiasis and diffuse gallbladder wall thickening suggesting acute versus chronic cholecystitis. 2. Diffuse coarse echotexture of the liver, nonspecific. No focal masses. 3. Small amount of free fluid in the right upper quadrant. Leonard Blair MD Objective Remarks GENERAL: well appearing elderly man, sitting up in bed SKIN: Warm and dry. HEAD: Normocephalic. EYES: No scleral icterus. No injection or drainage. NECK: Supple, trachea midline. No JVD or lymphadenopathy. CARDIOVASCULAR: Regular rate and rhythm without murmurs, gallops, or rubs. RESPIRATORY: Breath sounds equal bilaterally. No accessory muscle use. GASTROINTESTINAL: Abdomen soft,and nondistended. cholecystostomy tube is in place, and draining brown material. He has mild tenderness to palpation of RUQ. MUSCULOSKELETAL: No cyanosis, or edema. LE without calf tenderness. Right hand wrapped in gauze. BACK: Nontender without obvious deformity. No CVA tenderness. A/P Problem List: (1) Hyperlipidemia ICD Code: E78.5 (2) Hypertension ICD Code: I10 (3) Deep venous embolism and thrombosis of left lower extremity ICD Code: I82.402 (4) Stroke ICD Code: I63.9 (5) Acute cholecystitis ICD Code: K81.0 Assessment and Plan 81-year-old male with history of acute and chronic cholecystitis presents to [facility] with right upper quadrant abdominal pain found to have acute cholecystitis, and nonsurgical candidate at this time. 1. Acute cholecystitis with subsequent sepsis on admission: Due to patient's recent CVA he has a non-surgical candidate for surgery. It is recommended that the patient continue on antibiotics, Zosyn was started on 02/02. He had successful placement of a cholecystectomy tube yesterday by IR. Plan is to leave this tube in place upon discharge and follow-up with Dr. Longoria. The patient's pain is currently controlled on IV morphine. The patient will need to tolerate by mouth medications in order to be discharged home. The patient is afebrile but has worsening of his leukocytosis (15-->22) 2. Right upper extremity wound: Present on admission, wound care previously consulted 3. Parkinson's disease: Continue carbidopa/levodopa 4. History CVA 5. History of DVT: We'll resume the patient's Coumadin 1.5 mg daily today 02/05 6. Hypertension: The patient has a Zyrtec available when necessary, his blood pressures are currently within an acceptable range 7. Hyperlipidemia: Continue Lipitor 8. COPD: Albuterol as available when necessary FEN Fluids: HLIV, patient is tolerating his diet Electrolytes: Currently within normal limits Nutrition: Clear liquid diet DVT prophylaxis: Coumadin, INR 1.3 subtherapeutic Discharge Planning Patient is currently undergoing nonoperative management. He is to be discharged with his cholecystectomy tube in place. Likely 1-2 days pending continued clinical improvement. Renee Candelario MD R3 Feb 05, 2017 07:39
[2017-02-05] MEDS: CYANOCOBALAMIN 100 MCG TAB PO SCH (07:53)
[2017-02-05] MEDS: FOLIC ACID 1 MG TAB PO SCH (07:53)
[2017-02-05] MEDS: SODIUM CHLORIDE 0.9% FLUSH 10 ML FLUSH IV FLUSH SCH ×2 (07:53→20:24)
[2017-02-05 08:00] VITALS: BP 151/68; PULSE 84; RESP 20; TEMP 96.5; O2SAT 94
[2017-02-05 12:00] VITALS: BP 155/67; PULSE 79; RESP 20; TEMP 97.9; O2SAT 96
[2017-02-05 16:00] VITALS: BP 127/65; PULSE 78; RESP 19; TEMP 97.9; O2SAT 95
[2017-02-05] MEDS: WARFARIN SOD 1 MG TAB PO SCH (17:10)
[2017-02-05 20:05] VITALS: BP 124/64; PULSE 78; RESP 18; TEMP 96.3; O2SAT 96
[2017-02-05] MEDS: ATORVASTATIN 40 MG TAB PO SCH (20:24)
[2017-02-05 23:51] VITALS: BP 140/66; PULSE 89; RESP 20; TEMP 96.1; O2SAT 97
[2017-02-06] MEDS: PIPERACIL-TAZO 3.375 GM PREMIX 50 ML IV SCH ×2 (04:33→11:39)
[2017-02-06] MEDS: GABAPENTIN 100 MG CAP PO SCH ×3 (04:34→20:11)
[2017-02-06] MEDS: CARBIDOPA/LEVODOPA 25 MG/100 MG TAB PO SCH ×3 (04:34→17:12)
[2017-02-06 05:33] LABS: AUTOMATED NEUTROPHIL # 5.2 TH/MM3 (1.8-7.7); BASOPHIL # 0.1 TH/MM3 (0-0.2); BASOPHIL % 0.9 % (0.0-2.0); EOSINOPHIL # 0.2 TH/MM3 (0-0.4); EOSINOPHIL % 1.4 % (0.0-4.0); HEMATOCRIT 39.8 % (39.0-51.0); LYMPH % 62.6 % (9.0-44.0); LYMPHOCYTE # 10.3 TH/MM3 (1.0-4.8); MEAN CORPUSCULAR HEMOGLOBIN 30.4 PG (27.0-34.0); MEAN CORPUSCULAR HGB CONC 33.8 % (32.0-36.0); MONO % 3.4 % (0.0-8.0); NEUT % 31.7 % (16.0-70.0); PLATELET COUNT 73 TH/MM3 (150-450); RED BLOOD COUNT 4.42 MIL/MM3 (4.50-5.90); RED CELL DISTRIBUTION WIDTH 15.2 % (11.6-17.2); WHITE BLOOD COUNT 16.5 TH/MM3 (4.0-11.0)
[2017-02-06 05:37] LABS: HEMO FLAGS AUTO DIFF
[2017-02-06 06:10] LABS: BASOPHILS 1 % (0-2); EOSINOPHILS 1 % (0-4); NEUTROPHIL # MANUAL DIFF 5.3 TH/MM3 (1.8-7.7); POLYS (SEG NEUTROPHILS) 32 % (16-70); WBC DIFF SAMPLE 100
[2017-02-06 06:14] LABS: PLATELET ESTIMATE SMEAR LOW (NORMAL); PLATELET MORPHOLOGY NORMAL (NORMAL); SCAN/DIFF FINAL DIFF MANUAL
[2017-02-06 06:25] LABS: ALKALINE PHOSPHATASE 178 U/L (45-117); ALT (GPT) LESS THAN 6 U/L (12-78); ANION GAP 12 MEQ/L (5-15); AST (GOT) 34 U/L (15-37); BICARBONATE 23.2 MEQ/L (21.0-32.0); BLOOD UREA NITROGEN 14 MG/DL (7-18); CALCIUM-PROTEIN CORRECTED 8.6 MG/DL (8.5-10.1); CHLORIDE 108 MEQ/L (98-107); GLOMERULAR FILTRATION RATE 58 ML/MIN (>89); POTASSIUM 3.3 MEQ/L (3.5-5.1); SODIUM (NA) 143 MEQ/L (136-145); TOTAL BILIRUBIN ADULT 0.8 MG/DL (0.2-1.0)
--- NOTE | 2017-02-06 07:19 | HHI.PR ---
Subjective Remarks Patient seen and examined this morning. The patient's vitals are stable he's afebrile. He is tolerating his diet, and is a regular diet. He denies N/V. Had a BM this am. Ambulatory around his room. Objective Vital Signs Date Time Temp Pulse Resp B/P Pulse Ox O2 Delivery O2 Flow Rate FiO2 02/05/17 23:51 96.1 89 20 140/66 97 02/05/17 20:05 96.3 78 18 124/64 96 02/05/17 16:00 97.9 78 19 127/65 95 02/05/17 12:00 97.9 79 20 155/67 96 02/05/17 08:00 96.5 84 20 151/68 94 I/O 02/05/17 02/05/17 02/05/17 02/06/17 02/06/17 02/06/17 07:00 15:00 23:00 07:00 15:00 23:00 Intake Total 353 ml 240 ml 280 ml Output Total 552 ml 310 ml 450 ml Balance -199 ml -70 ml -170 ml Intake Oral 120 ml 240 ml 280 ml IV Total 233 ml Output Urine Total 450 ml 280 ml 450 ml Stool Total 102 ml Drainage Total 30 ml 0 ml # Bowel Movements 3 1 Result Diagram: 02/06/17 0458 02/06/17 0458 Imaging Last Impressions Percutaneous Cholangiogram 02/04/17 0000 Signed Impressions: Service Date/Time: Saturday, February 04, 2017 13:27 - CONCLUSION: Uncomplicated percutaneous cholecystostomy as above. The plan is to leave this tube in place. The patient will follow up with Dr. Longoria as an outpatient. Víctor Souza Jr., MD Head CT 02/01/17 1220 Signed Impressions: Service Date/Time: Wednesday, February 01, 2017 12:45 - CONCLUSION: No acute intracranial findings. Leonard Blair MD Chest X-Ray 02/01/17 1220 Signed Impressions: Service Date/Time: Wednesday, February 01, 2017 12:27 - CONCLUSION: No acute cardiopulmonary disease identified. Leonard Blair MD Gall Bladder Ultrasound 02/01/17 0000 Signed Impressions: Service Date/Time: Wednesday, February 01, 2017 13:42 - CONCLUSION: 1. Cholelithiasis and diffuse gallbladder wall thickening suggesting acute versus chronic cholecystitis. 2. Diffuse coarse echotexture of the liver, nonspecific. No focal masses. 3. Small amount of free fluid in the right upper quadrant. Leonard Blair MD Objective Remarks GENERAL: well appearing elderly man, sitting up in bed SKIN: Warm and dry. HEAD: Normocephalic. EYES: No scleral icterus. No injection or drainage. NECK: Supple, trachea midline. No JVD or lymphadenopathy. CARDIOVASCULAR: Regular rate and rhythm without murmurs, gallops, or rubs. RESPIRATORY: Breath sounds equal bilaterally. No accessory muscle use. GASTROINTESTINAL: Abdomen soft,and nondistended. cholecystostomy tube is in place, and draining brown material. No tenderness to palpation of abdomen. NO rebound, no guarding. MUSCULOSKELETAL: No cyanosis, or edema. LE without calf tenderness. Right hand wrapped in gauze. BACK: Nontender without obvious deformity. No CVA tenderness. A/P Problem List: (1) Hyperlipidemia ICD Code: E78.5 (2) Hypertension ICD Code: I10 (3) Deep venous embolism and thrombosis of left lower extremity ICD Code: I82.402 (4) Stroke ICD Code: I63.9 (5) Acute cholecystitis ICD Code: K81.0 Assessment and Plan 81-year-old male with history of acute and chronic cholecystitis presents to [facility] with right upper quadrant abdominal pain found to have acute cholecystitis, and nonsurgical candidate at this time. 1. Acute cholecystitis with subsequent sepsis on admission: Due to patient's recent CVA he has a non-surgical candidate for surgery. It is recommended that the patient continue on antibiotics, Zosyn started on 02/02-02/06, transitioned to PO Cipro 500 mg BID and flagyl 500 mg PO q8. He had successful placement of a cholecystectomy tube 02/03 by IR. Plan is to leave this tube in place upon discharge and follow-up with Dr. Longoria. The patient's pain is currently controlled on IV morphine. The patient will need to tolerate by mouth medications in order to be discharged home. The patient is afebrile but has worsening of his leukocytosis yesterday (15-->22), is now downtrending -->16. T.bili and alk phos downtrending from admission. 2. Right upper extremity wound: Present on admission, wound care previously consulted 3. Parkinson's disease: Continue carbidopa/levodopa 4. History CVA 5. History of DVT: Resume the patient's Coumadin on 02/05 1.5 mg daily, INR pending 6. Hypertension: blood pressures are currently within an acceptable range 7. Hyperlipidemia: Continue Lipitor 8. COPD: Albuterol as available when necessary FEN Fluids: HLIV, patient is tolerating his diet Electrolytes: Currently within normal limits Nutrition: Clear liquid diet advance as tolerate DVT prophylaxis: Coumadin, INR 1.1, coumadin increased to 2 mg, repeat INR tomorrow. Lovenox 40 mg daily until Coumadin is therapeutic again. SCD Discharge Planning Patient is currently undergoing nonoperative management. He is to be discharged with his cholecystectomy tube in place. We'll advance diet , anticipate discharge tomorrow pending continue white blood cell count and toleration of diet. Renee Candelario MD R3 Feb 06, 2017 07:19
[2017-02-06] MEDS ORDERED: POTASSIUM CHLORIDE 10 MEQ CONTROLLED RELEASE TAB PO ONE (07:30)
[2017-02-06 08:00] VITALS: BP 128/78; PULSE 77; RESP 17; TEMP 97.5; O2SAT 96
[2017-02-06] MEDS: SODIUM CHLORIDE 0.9% FLUSH 10 ML FLUSH IV FLUSH SCH ×2 (09:00→20:11)
[2017-02-06] MEDS: CYANOCOBALAMIN 100 MCG TAB PO SCH (09:08)
[2017-02-06] MEDS: FOLIC ACID 1 MG TAB PO SCH (09:08)
[2017-02-06 09:48] LABS: INTERNATIONAL NORMALIZED RATIO 1.1 RATIO; PROTHROMBIN TIME - PATIENT 12.4 SEC (9.8-11.6)
[2017-02-06 12:00] VITALS: BP 136/64; PULSE 74; RESP 16; TEMP 95.3; O2SAT 96
[2017-02-06] MEDS: metroNIDAZOLE 500 MG TAB PO SCH ×2 (13:55→20:11)
[2017-02-06] MEDS: ENOXAPARIN SODIUM 40 MG/0.4 ML SYRINGE SQ SCH (13:56)
[2017-02-06 16:00] VITALS: BP 118/58; PULSE 80; RESP 16; TEMP 95.6; O2SAT 96
[2017-02-06] MEDS: WARFARIN SOD 2 MG TAB PO SCH (17:13)
[2017-02-06] MEDS: ATORVASTATIN 40 MG TAB PO SCH (20:11)
[2017-02-06] MEDS: CIPROFLOXACIN 500 MG TAB PO SCH (20:11)
[2017-02-06 20:26] VITALS: BP 118/58; PULSE 89; RESP 20; TEMP 96.5; O2SAT 94
[2017-02-07 00:08] VITALS: BP 145/70; PULSE 76; RESP 18; TEMP 96.6; O2SAT 93
[2017-02-07 05:23] LABS: AUTOMATED NEUTROPHIL # 3.6 TH/MM3 (1.8-7.7); BASOPHIL # 0.1 TH/MM3 (0-0.2); BASOPHIL % 0.5 % (0.0-2.0); EOSINOPHIL # 0.1 TH/MM3 (0-0.4); EOSINOPHIL % 1.1 % (0.0-4.0); HEMATOCRIT 35.9 % (39.0-51.0); LYMPHOCYTE # 6.8 TH/MM3 (1.0-4.8); MEAN CELL VOLUME 91.3 FL (80.0-100.0); MEAN CORPUSCULAR HEMOGLOBIN 29.6 PG (27.0-34.0); MEAN CORPUSCULAR HGB CONC 32.4 % (32.0-36.0); MONO % 3.7 % (0.0-8.0); NEUT % 32.7 % (16.0-70.0); PLATELET COUNT 80 TH/MM3 (150-450); RED BLOOD COUNT 3.93 MIL/MM3 (4.50-5.90); RED CELL DISTRIBUTION WIDTH 15.2 % (11.6-17.2)
[2017-02-07 05:27] LABS: HEMO FLAGS AUTO DIFF
[2017-02-07 05:32] LABS: INTERNATIONAL NORMALIZED RATIO 1.2 RATIO; PROTHROMBIN TIME - PATIENT 13.8 SEC (9.8-11.6)
[2017-02-07 05:49] LABS: BICARBONATE 27.9 MEQ/L (21.0-32.0)
[2017-02-07] MEDS: CARBIDOPA/LEVODOPA 25 MG/100 MG TAB PO SCH ×3 (05:55→16:59)
[2017-02-07] MEDS: GABAPENTIN 100 MG CAP PO SCH ×3 (05:55→19:37)
[2017-02-07] MEDS: metroNIDAZOLE 500 MG TAB PO SCH ×3 (05:55→19:37)
[2017-02-07 08:00] VITALS: BP 135/67; PULSE 81; RESP 16; TEMP 96; O2SAT 93
[2017-02-07 08:42] LABS: NEUTROPHIL # MANUAL DIFF 3.5 TH/MM3 (1.8-7.7); POLYS (SEG NEUTROPHILS) 32 % (16-70); WBC DIFF SAMPLE 100
[2017-02-07] MEDS ORDERED: ACETAMINOPHEN/HYDROcodone 325 MG/10 MG TAB PO PRN (08:45)
[2017-02-07] MEDS ORDERED: ACETAMINOPHEN/HYDROcodone 325 MG/5 MG TAB PO PRN (08:45)
--- NOTE | 2017-02-07 08:45 | HHI.FF ---
Face to Face Verification Diagnosis: (1) Deep venous embolism and thrombosis of left lower extremity (2) Stroke (3) Hypertension (4) Hyperlipidemia (5) Acute cholecystitis (6) COPD (chronic obstructive pulmonary disease) Physical Therapy Order: Evaluate and Treat, Improve ambulation, Strength and gait training Home Health Nursing Order: Medical education Signs/symptoms of disease process Medication education-adverse effect Wound care and dressing changes Nursing assessment with vital signs I have seen patient Vinay Olivier on 02/07/17. My clinical findings support the need for the requested home health care services because: Ltd mobility - disease progression Deconditioned w/ increased weakness Limited ability to care for self High risk of falls I certify that my clinical findings support that this patient is homebound because: Post-op weakness Hx COPD- exertion dyspnea/weakness Lynne Almaraz MD Feb 07, 2017 08:45
[2017-02-07 08:47] LABS: PLATELET ESTIMATE SMEAR LOW (NORMAL); PLATELET MORPHOLOGY NORMAL (NORMAL); SCAN/DIFF FINAL DIFF MANUAL; SMUDGE CELLS PRESENT PRESENT
--- NOTE | 2017-02-07 08:51 | HHI.PR ---
Subjective Remarks f/u for acute cholecystitis patient stated pain is controlled, but he is on IV morphine. He stated he still feels weak and wants to go home tomorrow. Denied any fevers or chills. he is tolerating diet. patient had home health prior to this admission. Objective Vitals Vital Signs Date Time Temp Pulse Resp B/P Pulse Ox O2 Delivery O2 Flow Rate FiO2 02/07/17 08:00 96.0 81 16 135/67 93 02/07/17 00:08 96.6 76 18 145/70 93 02/06/17 20:26 96.5 89 20 118/58 94 02/06/17 16:00 95.6 80 16 118/58 96 02/06/17 12:00 95.3 74 16 136/64 96 I/O 02/06/17 02/06/17 02/06/17 02/07/17 02/07/17 02/07/17 07:00 15:00 23:00 07:00 15:00 23:00 Intake Total 280 ml 278 ml 360 ml 360 ml Output Total 450 ml 810 ml 380 ml 430 ml Balance -170 ml -532 ml -20 ml -70 ml Intake Oral 280 ml 240 ml 360 ml 360 ml IV Total 38 ml Output Urine Total 450 ml 750 ml 350 ml 400 ml Drainage Total 0 ml 60 ml 30 ml 30 ml # Bowel Movements 1 3 1 Result Diagram: 02/07/17 0502 02/07/17 0502 Objective Remarks GENERAL: in NAD CARDIOVASCULAR: Regular rate and rhythm without murmurs, gallops, or rubs. RESPIRATORY: Breath sounds equal bilaterally. No accessory muscle use. GASTROINTESTINAL: Abdomen soft, non-tender, nondistended. cholecystectomy tube in place with serosanguineous fluid. MUSCULOSKELETAL: No cyanosis, or edema. BACK: Nontender without obvious deformity. No CVA tenderness. Procedures None Medications and IVs Current Medications Sodium Chloride (NS Flush) 2 ml UNSCH PRN IVF FLUSH AFTER USING IV ACCESS; Start 02/01/17 at 12:30; Stop 02/01/17 at 15:53; Status DC Morphine Sulfate (Morphine Inj) 2 mg ONCE ONCE IV PUSH Last administered on t 13:00; Start 02/01/17 at 12:45; Stop 02/01/17 at 12:46; Status DC Ondansetron HCl (Zofran Inj) 4 mg ONCE ONCE IV PUSH Last administered on 13:00; Start 02/01/17 at 12:45; Stop 02/01/17 at 12:46; Status DC Morphine Sulfate 2 mg 2 mg ONCE ONCE IV PUSH Last administered on 02/01/17 13 :46; Start 02/01/17 at 13:45; Stop 02/01/17 at 13:46; Status DC Ciprofloxacin/ Dextrose 200 ml @ 200 mls/hr ONCE ONCE IV Last administered on 02/01/17 15:14; Start 02/01/17 at 15:15; Stop 02/01/17 at 16:14; Status DC Metronidazole (Flagyl 500 Mg Inj) 100 ml @ 100 mls/hr ONCE ONCE IV Last administered on 02/01/17 16:22; Start 02/01/17 at 15:15; Stop 02/01/17 at 16:14 ; Status DC Sodium Chloride (NS Flush) 2 ml UNSCH PRN IV FLUSH FLUSH AFTER USING IV ACCESS Last administered on 02/01/17 18:15; Start 02/01/17 at 16:00 Sodium Chloride (NS Flush) 2 ml BID IV FLUSH Last administered on 02/06/17 09: 00; Start 02/01/17 at 21:00 Naloxone HCl (Narcan Inj) 0.4 mg UNSCH PRN IV SEE LABEL COMMENTS; Start at 16:00 Atorvastatin Calcium (Lipitor) 40 mg HS PO Last administered on 02/06/17 20:11 ; Start 02/01/17 at 21:00 Carbidopa/Levodopa (Sinemet 25-100 Mg) 1 tab TID@07,12,16 PO Last administered on 02/07/17 05:55; Start 02/02/17 at 07:00 Cyanocobalamin (Vitamin B12) 100 mcg DAILY PO Last administered on 02/06/17 09: 08; Start 02/02/17 at 09:00 Folic Acid (Folate) 1 mg DAILY PO Last administered on 02/06/17 09:08; Start at 09:00 Gabapentin (Neurontin) 100 mg Q8HR PO Last administered on 02/07/17 05:55; Start 02/01/17 at 17:00 Warfarin Sodium (Coumadin) 1.5 mg DAILY@16 PO Last administered on 02/05/17 17: 10; Start 02/02/17 at 16:00; Stop 02/06/17 at 12:53; Status DC Albuterol Sulfate (Albuterol Neb) 2.5 mg Q2HR NEB PRN NEB DYSPNEA; Start at 16:30 Enalaprilat (Vasotec Inj) 1.25 mg Q8H PRN IV PUSH SBP> OR = 180, DBP> OR = 100 ; Start 02/01/17 at 16:30 Morphine Sulfate 2 mg 2 mg Q3H PRN IV PUSH PAIN SCALE 5 TO 10 Last administered on 02/01/17 18:15; Start 02/01/17 at 18:00 Piperacillin Sod/ Tazobactam Sod 50 ml @ 100 mls/hr Q6H IV Last administered on 02/06/17 11:39; Start 02/02/17 at 11:00; Stop 02/06/17 at 12:52; Status DC Sodium Chloride (NS 1000 ml Inj) 1,000 ml @ 100 mls/hr Q10H IV Last administered on 02/04/17 21:24; Start 02/02/17 at 17:45; Stop 02/05/17 at 08:45 ; Status DC Phytonadione (Mephyton) 2.5 mg ONCE ONCE PO Last administered on 02/03/17 13: 24; Start 02/03/17 at 09:15; Stop 02/03/17 at 09:50; Status DC Miscellaneous 1 ea 1 ea UNSCH PRN OTHER SEE LABEL COMMENTS; Start 02/03/17 at 10:00 Levofloxacin/ Dextrose (Levaquin 500 Mg Premix Inj) 100 ml @ As Directed STK- MED ONCE IV Last administered on 02/04/17 13:37; Start 02/04/17 at 13:37; Stop 02/04/17 at 13:38; Status DC Midazolam HCl (Versed Inj) 5 mg STK-MED ONCE .ROUTE Last administered on 13:38; Start 02/04/17 at 13:38; Stop 02/04/17 at 13:39; Status DC Fentanyl Citrate (fentaNYL INJ) 250 mcg STK-MED ONCE .ROUTE Last administered on 02/04/17 13:38; Start 02/04/17 at 13:38; Stop 02/04/17 at 13:39; Status DC Iohexol (Omnipaque 350 Inj) 10 ml STK-MED ONCE .XX Last administered on 14:31; Start 02/04/17 at 14:31; Stop 02/04/17 at 14:32; Status DC Potassium Chloride (KCl) 30 meq ONCE ONCE PO Last administered on 02/06/17 09: 07; Start 02/06/17 at 07:30; Stop 02/06/17 at 07:31; Status DC Ciprofloxacin (Cipro) 500 mg Q12HR PO Last administered on 02/06/17 20:11; Start 02/06/17 at 21:00 Metronidazole (Flagyl) 500 mg Q8HR PO Last administered on 02/07/17 05:55; Start 02/06/17 at 14:00 Warfarin Sodium (Coumadin) 2 mg DAILY@16 PO Last administered on 02/06/17 17:13 ; Start 02/06/17 at 16:00 Enoxaparin Sodium (Lovenox Inj) 40 mg Q24H SQ Last administered on 02/06/17 13: 56; Start 02/06/17 at 14:00 Potassium Chloride (KCl) 40 meq ONCE ONCE PO ; Start 02/07/17 at 09:00; Stop 02/07/17 at 09:01 A/P Problem List: (1) Acute cholecystitis ICD Code: K81.0 Status: Acute (2) Deep venous embolism and thrombosis of left lower extremity ICD Code: I82.402 Status: Acute (3) Hypertension ICD Code: I10 Status: Chronic (4) Hyperlipidemia ICD Code: E78.5 Status: Chronic Assessment and Plan 81-year-old male with history of acute and chronic cholecystitis presents to [facility] with right upper quadrant abdominal pain found to have acute cholecystitis, and nonsurgical candidate at this time. 1. Acute cholecystitis with subsequent sepsis on admission: Due to patient's recent CVA he has a non-surgical candidate for surgery. It is recommended that the patient continue on antibiotics, Zosyn started on 02/02-02/06, transitioned to PO Cipro 500 mg BID and flagyl 500 mg PO q8. He had successful placement of a cholecystectomy tube 02/03 by IR. Plan is to leave this tube in place upon discharge and follow-up with Dr. Longoria. The patient's pain is currently controlled on IV morphine. d/c IV morphine and add norco PRN. leukocytosis resolved. 2. Right upper extremity wound: Present on admission, wound care previously consulted 3. Parkinson's disease: Continue carbidopa/levodopa 4. History CVA 5. History of DVT: Resume the patient's Coumadin on 02/05 1.5 mg daily, INR pending 6. Hypertension: blood pressures are currently within an acceptable range 7. Hyperlipidemia: Continue Lipitor 8. COPD: Albuterol as available when necessary DVT prophylaxis: on lovenox. Discharge Planning Once pain controlled with oral medication patient can be d/c to home with home health. Anticipate discharge tomorrow. Lynne Almaraz MD Feb 07, 2017 08:51
[2017-02-07] MEDS: SODIUM CHLORIDE 0.9% FLUSH 10 ML FLUSH IV FLUSH SCH ×2 (09:00→19:36)
[2017-02-07] MEDS ORDERED: POTASSIUM CHLORIDE 20 MEQ CONTROLLED RELEASE TAB PO ONE (09:00)
[2017-02-07] MEDS: FOLIC ACID 1 MG TAB PO SCH (09:39)
[2017-02-07] MEDS: CYANOCOBALAMIN 100 MCG TAB PO SCH (09:39)
[2017-02-07] MEDS: CIPROFLOXACIN 500 MG TAB PO SCH ×2 (09:39→19:36)
[2017-02-07 12:00] VITALS: BP 138/71; PULSE 71; RESP 17; TEMP 96.6; O2SAT 91
[2017-02-07] MEDS: ENOXAPARIN SODIUM 40 MG/0.4 ML SYRINGE SQ SCH (13:26)
--- NOTE | 2017-02-07 15:56 | HHI.PR ---
Subjective Subjective Notes Resting in bed Feels too weak to go home today Concerned about who was just admitted to the ICU Objective Vitals/I&O Vital Signs Date Time Temp Pulse Resp B/P Pulse Ox O2 Delivery O2 Flow Rate FiO2 02/07/17 12:00 96.6 71 17 138/71 91 Labs Laboratory Tests Test 02/07/17 05:02 White Blood Count 11.0 Red Blood Count 3.93 Hemoglobin 11.6 Hematocrit 35.9 Mean Corpuscular Volume 91.3 Mean Corpuscular Hemoglobin 29.6 Mean Corpuscular Hemoglobin 32.4 Concent Red Cell Distribution Width 15.2 Platelet Count 80 Mean Platelet Volume 7.0 Neutrophils (%) (Auto) 32.7 Lymphocytes (%) (Auto) 62.0 Monocytes (%) (Auto) 3.7 Eosinophils (%) (Auto) 1.1 Basophils (%) (Auto) 0.5 Neutrophils # (Auto) 3.6 Lymphocytes # (Auto) 6.8 Monocytes # (Auto) 0.4 Eosinophils # (Auto) 0.1 Basophils # (Auto) 0.1 CBC Comment AUTO DIFF Differential Total Cells 100 Counted Neutrophils % (Manual) 32 Lymphocytes % 66 Monocytes % 2 Neutrophils # (Manual) 3.5 Differential Comment FINAL DIFF MANUAL Smudge Cells PRESENT Platelet Estimate LOW Platelet Morphology Comment NORMAL Prothrombin Time 13.8 Prothromb Time International 1.2 Ratio Sodium Level 145 Potassium Level 3.0 Chloride Level 110 Carbon Dioxide Level 27.9 Anion Gap 7 Blood Urea Nitrogen 15 Creatinine 1.26 Estimat Glomerular Filtration 55 Rate Random Glucose 103 Calcium Level 7.5 Date/Time Procedure Status Source Growth 02/04/17 14:07 Gram Stain - Final Complete Fluid Bile Fluid 02/04/17 14:07 Body Fluid Culture - Final Complete Fluid Bile Fluid NO GROWTH IN 72 HRS.--AEROBICALLY OR ... Cardiovascular: Regular Lungs: Clear Abdomen: Non-distended, Other (alma tube in place; mild tenderness around drain insertion site) Extremities: No edema A/P Assessment and Plan 81 year old with acute cholecystitis; multiple medication problems -Continue cholecystostomy tube to gravity -Tolerating diet -Transition to PO antibiotics - consult for [facility] for alma tube management -Plan for possible DC tomorrow Attending Statement The exam, history, and the medical decision-making described in the above note were completed with the assistance of the mid-level provider. I reviewed and agree with the findings presented. I attest that I had a [id number] encounter with the patient on the same day, and personally performed and documented my assessment and findings in the medical record. abdominal exam stable, minimal tenderness Myrna Zaidi Feb 07, 2017 15:56 Juan Antonio Longoria MD Feb 18, 2017 08:18
[2017-02-07] MEDS ORDERED: CIPR-9 PO (15:58)
[2017-02-07] MEDS ORDERED: METR-1 PO (15:58)
[2017-02-07 16:00] VITALS: BP 142/69; PULSE 75; RESP 16; TEMP 95.3; O2SAT 98
[2017-02-07] MEDS: WARFARIN SOD 2 MG TAB PO SCH (16:59)
[2017-02-07] MEDS: ATORVASTATIN 40 MG TAB PO SCH (19:37)
[2017-02-07 20:00] VITALS: BP 135/65; PULSE 83; RESP 20; TEMP 96.9; O2SAT 95
[2017-02-08 00:07] VITALS: BP 145/65; PULSE 85; RESP 19; TEMP 96; O2SAT 98
[2017-02-08] MEDS: GABAPENTIN 100 MG CAP PO SCH (06:00)
[2017-02-08] MEDS: CARBIDOPA/LEVODOPA 25 MG/100 MG TAB PO SCH ×2 (06:01→12:09)
[2017-02-08] MEDS: metroNIDAZOLE 500 MG TAB PO SCH (06:01)
[2017-02-08] MEDS: SODIUM CHLORIDE 0.9% FLUSH 10 ML FLUSH IV FLUSH SCH (07:52)
[2017-02-08] MEDS: FOLIC ACID 1 MG TAB PO SCH (07:52)
[2017-02-08] MEDS: CIPROFLOXACIN 500 MG TAB PO SCH (07:52)
[2017-02-08] MEDS: CYANOCOBALAMIN 100 MCG TAB PO SCH (07:52)
[2017-02-08 08:00] VITALS: BP 162/71; PULSE 89; RESP 17; TEMP 97.1; O2SAT 92
--- NOTE | 2017-02-08 10:11 | HHI.PR ---
Subjective Subjective Notes Resting in bed Concerned about who is in IMC Objective Vitals/I&O Vital Signs Date Time Temp Pulse Resp B/P Pulse Ox O2 Delivery O2 Flow Rate FiO2 02/08/17 08:00 97.1 89 17 162/71 92 Labs Date/Time Procedure Status Source Growth 02/04/17 14:07 Gram Stain - Final Complete Fluid Bile Fluid 02/04/17 14:07 Body Fluid Culture - Final Complete Fluid Bile Fluid NO GROWTH IN 72 HRS.--AEROBICALLY OR ... Cardiovascular: Regular Lungs: Clear Abdomen: Non-distended, Other (alma tube in place to gravity; tender around insertion site ) Extremities: No edema A/P Assessment and Plan 81 year old with acute cholecystitis; multiple medication problems -Continue cholecystostomy tube to gravity -Tolerating diet - PO antibiotics - consult for [facility] for alma tube management -Antibiotics rx on chart -Follow up with Dr. Longoria in the office in about 10 days Attending Statement The exam, history, and the medical decision-making described in the above note were completed with the assistance of the mid-level provider. I reviewed and agree with the findings presented. I attest that I had a [id number] encounter with the patient on the same day, and personally performed and documented my assessment and findings in the medical record. abdominal exam stable, alma tube in place, f/u as OP Myrna Zaidi Feb 08, 2017 10:11 Juan Antonio Longoria MD Feb 18, 2017 08:21
[2017-02-08] MEDS ORDERED: COUM2TAB PO (10:44)
--- NOTE | 2017-02-08 10:45 | HHI.DS ---
Discharge Summary Admission Date Feb 01, 2017 at 3:14 pm Discharge Date: Feb 08, 2017 Admitting Diagnosis Acute Cholecystitis (1) Acute cholecystitis ICD Code: K81.0 (2) Deep venous embolism and thrombosis of left lower extremity ICD Code: I82.402 (3) Hypertension ICD Code: I10 (4) Hyperlipidemia ICD Code: E78.5 Procedures None Brief History - From Admission The patient is an 81-year-old male who presented to the emergency department with complaint of right upper quadrant abdominal pain that started last night. He was hospitalized in November and diagnosed with cholecystitis. A cholecystostomy tube was placed at that time and removed prior to discharge. He was hospitalized again in December for CVA. Was transferred to inpatient rehabilitation and was discharged home recently. Last meal was last night. Vomited x1 this morning. No diarrhea/constipation. Has has some vision changes over the last 2 weeks, but no new weakness/numbness/tingling. CBC/BMP: 02/07/17 0502 02/07/17 0502 Significant Findings Laboratory Tests Test 02/06/17 02/06/17 02/07/17 04:58 09:18 05:02 White Blood Count 16.5 TH/MM3 (4.0-11.0) Red Blood Count 4.42 MIL/MM3 3.93 MIL/MM3 (4.50-5.90) (4.50-5.90) Platelet Count 73 TH/MM3 80 TH/MM3 (150-450) (150-450) Lymphocytes (%) (Auto) 62.6 % 62.0 % (9.0-44.0) (9.0-44.0) Lymphocytes # (Auto) 10.3 TH/MM3 6.8 TH/MM3 (1.0-4.8) (1.0-4.8) Lymphocytes % 62 % (9-44) 66 % (9-44) Platelet Estimate LOW (NORMAL) LOW (NORMAL) Potassium Level 3.3 MEQ/L 3.0 MEQ/L (3.5-5.1) (3.5-5.1) Chloride Level 108 MEQ/L 110 MEQ/L (98-107) (98-107) Estimat Glomerular Filtration 58 ML/MIN (>89) 55 ML/MIN (>89) Rate Calcium Level 7.4 MG/DL 7.5 MG/DL (8.5-10.1) (8.5-10.1) Alanine Aminotransferase LESS THAN 6 (ALT/SGPT) U/L (12-78) Alkaline Phosphatase 178 U/L (45-117) Total Protein 5.0 GM/DL (6.4-8.2) Albumin 2.0 GM/DL (3.4-5.0) Prothrombin Time 12.4 SEC 13.8 SEC (9.8-11.6) (9.8-11.6) Hemoglobin 11.6 GM/DL (13.0-17.0) Hematocrit 35.9 % (39.0-51.0) Imaging Last Impressions Percutaneous Cholangiogram 02/04/17 0000 Signed Impressions: Service Date/Time: Saturday, February 04, 2017 13:27 - CONCLUSION: Uncomplicated percutaneous cholecystostomy as above. The plan is to leave this tube in place. The patient will follow up with Dr. Longoria as an outpatient. Víctor Souza Jr., MD Head CT 02/01/17 1220 Signed Impressions: Service Date/Time: Wednesday, February 01, 2017 12:45 - CONCLUSION: No acute intracranial findings. Leonard Blair MD Chest X-Ray 02/01/17 1220 Signed Impressions: Service Date/Time: Wednesday, February 01, 2017 12:27 - CONCLUSION: No acute cardiopulmonary disease identified. Leonard Blair MD Gall Bladder Ultrasound 02/01/17 0000 Signed Impressions: Service Date/Time: Wednesday, February 01, 2017 13:42 - CONCLUSION: 1. Cholelithiasis and diffuse gallbladder wall thickening suggesting acute versus chronic cholecystitis. 2. Diffuse coarse echotexture of the liver, nonspecific. No focal masses. 3. Small amount of free fluid in the right upper quadrant. Leonard Blair MD PE at Discharge GENERAL: in NAD CARDIOVASCULAR: Regular rate and rhythm without murmurs, gallops, or rubs. RESPIRATORY: Breath sounds equal bilaterally. No accessory muscle use. GASTROINTESTINAL: Abdomen soft, non-tender, nondistended. cholecystectomy tube in place with serosanguineous fluid. MUSCULOSKELETAL: No cyanosis, or edema. BACK: Nontender without obvious deformity. No CVA tenderness. Pt update on day of discharge Mr. Olivier is doing well. No acute concerns. Denies any abdominal pain, fever, chills. Hospital Course Mr. Smith is an 81-year-old male with a history of hypertension , hyperlipidemia, DVT who presented to the emergency department on 02/01/2017 due to right upper quadrant abdominal pain that started night before. Patient was hospitalized in November and was diagnosed with cholecystitis. A cholecystostomy tube was placed at that time and removed prior to discharge. Gallbladder ultrasound during this admission shows cholelithiasis and diffuse gallbladder wall thickening suggesting acute versus chronic cholecystitis. Gen. surgery has been following this patient. Patient underwent cholecystostomy tube placement by IR. General surgery expressed concern for high risk surgery. However, in near future, if neurology clears for surgery, patient can undergo cholecystectomy. Patient was initially referred to [facility]. However, he did not qualify for [facility]. Subsequently, patient was discharged home with home health and follow up with General surgery. Pt Condition on Discharge: Good Discharge Disposition: Disch w/ Home Health Serv Discharge Time: > 30 minutes Discharge Instructions DIET: Follow Instructions for: As Tolerated, No Restrictions Additional Diet Instructions: Avoid greasy food. Activities you can perform: Regular-No Restrictions Follow up Referrals: Surgical - 10 Days with Juan Antonio Longoria MD New Medications: Ciprofloxacin (Cipro) 500 Mg Tab 500 MG PO Q12HR Infection Days 7 TAB Metronidazole (Flagyl) 500 Mg Tab 500 MG PO Q8HR Infection Days 7 TAB Warfarin (Coumadin) 2 Mg Tab 2 MG PO DAILY@16 Blood Clot Prevention #30 TAB Continued Medications: Atorvastatin (Lipitor) 40 Mg Tab 40 MG PO HS #30 Ref 1 TAB Carbidopa-Levodopa (Carbidopa-Levodopa) 25-100 Mg Tab 1 TAB PO TID@07,12,16 #90 Ref 1 TAB Cyanocobalamin (Vitamin B-12) 100 Mcg Tab 100 MCG PO DAILY #30 Ref 1 TAB Folic Acid (Folate) 1 Mg Tab 1 MG PO DAILY #30 Ref 1 TAB Gabapentin (Gabapentin) 100 Mg Cap 100 MG PO Q8H #90 Ref 1 CAP Discontinued Medications: Warfarin (Coumadin) 1 Mg Tab 1.5 MG PO DAILY@16 #60 Ref 1 TAB Tri Ng DO Feb 08, 2017 10:45
[2017-02-08 12:00] VITALS: BP 140/66; PULSE 75; RESP 16; TEMP 95.8; O2SAT 94
[2017-02-14] MEDS ORDERED: LIPI40TA PO (12:43)
[2017-03-11] MEDS ORDERED: CARB25TA9 PO (10:37)
[2017-03-11] MEDS ORDERED: GABA100C4 PO (10:37)
[2017-03-11] MEDS ORDERED: FOLI1TAB4 PO (10:37)
== END 2017-02-08 13:10 | disposition home health service (06) | DRG 872 ==
LOC: PHED 11:54 → PHEDA 15:13 → UNDOADMOB 15:14 → PHEDA 15:14 → OBSVTOIN 15:14 → INTOOBSV 15:14 → PHEDA 17:31 → N07B 17:31 → OBSVTOIN 02-02 08:56 → UNDODISOB 02-08 13:10
PROVIDERS: ADMIT Hospitalist; ATTEND Hospitalist
PROC: 0F9430Z Drainage of Gallbladder with Drainage Device, Percutaneous Approach (ICD-10-PCS; principal; 2017-02-04)
PROC: BF131ZZ Fluoroscopy of Gallbladder and Bile Ducts using Low Osmolar Contrast (ICD-10-PCS; 2017-02-04)
DX: A41.9 Sepsis, unspecified organism (principal); K80.00 Calculus of gallbladder with acute cholecystitis without obstruction; G20 Parkinson's disease; I69.354 Hemiplegia and hemiparesis following cerebral infarction affecting left non-dominant side; G62.9 Polyneuropathy, unspecified; J44.9 Chronic obstructive pulmonary disease, unspecified; M06.9 Rheumatoid arthritis, unspecified; I10 Essential (primary) hypertension; E78.5 Hyperlipidemia, unspecified; M10.9 Gout, unspecified; Z86.718 Personal history of other venous thrombosis and embolism; Z79.01 Long term (current) use of anticoagulants; Z87.891 Personal history of nicotine dependence; Z85.6 Personal history of leukemia; Z80.42 Family history of malignant neoplasm of prostate; Z85.46 Personal history of malignant neoplasm of prostate; Z85.51 Personal history of malignant neoplasm of bladder; S61.411A Laceration without foreign body of right hand, initial encounter; X58.XXXA Exposure to other specified factors, initial encounter
CPT/HCPCS: 47490; 70450; 71010; 76705; 76937; 80048; 80053; 81001; 83690; 85007; 85027; 85610; 85730; 87070; 87205; 93005; 96374; 96375; 96376; 99152; 99153; C1729; C1769; C1894; G0378; J0744; J1650; J1956; J2250; J2270; J2405; J2543; J3010; J7030; Q9967

== ENCOUNTER 2017-02-13 17:31 | Emergency (ER) | payer MEDICARE, BC, OTHER ==
[~2017-02-13 17:31] MED LIST changes: -ACET325T PO; -ALLO300 PO; +CIPR-9 PO; -COMMODE 3-IN-11 MIS; -COUM1TAB PO; +COUM2TAB PO; -HOSP BED1; -MAG-LIQ PO; +METR-1 PO; -THEO1CAP2 PO; -THERTAB15 PO; -WHEEMIS3
[2017-02-13 17:38] VITALS: BP 150/82; PULSE 104; RESP 20; TEMP 97.8; O2SAT 94
[2017-02-13] MEDS ORDERED: LORazepam 0.5 MG TAB PO ONE (18:00)
--- NOTE | 2017-02-13 18:05 | PD ---
HPI Chief Complaint: Hypertension Time Seen by Provider: 17:46 Travel History International Travel<30 days: No Contact w/Intl Traveler<30days: No Traveled to known affect area: No History of Present Illness HPI 81-year-old male complains of anxiety, lightheadedness and elevated blood pressure. Patient states that his yesterday. Patient states that he has a lot of anxiety since yesterday. Patient noticed his blood pressure was elevated at home. Patient denies any history of hypertension. Patient denies any headache. Patient denies any chest pain or shortness of breath. Patient denies abdominal pain. Patient denies any focal weakness or numbness of extremity. Patient denies any nausea vomiting. Patient was admitted to [facility] and discharge 5 days ago status post cholecystostomy tube placement secondary to cholecystitis. Patient has history of hypertension under control, hyperlipidemia, DVT, CVA and on Coumadin. Patient is on Cipro, Flagyl, Coumadin, Lipitor, carbidopa levodopa, gabapentin. PFSH Past Medical History Hx Anticoagulant Therapy: Yes Arthritis: Yes Asthma: No Autoimmune Disease: No Anxiety: No Depression: No Heart Rhythm Problems: No Cancer: Yes (prostate cxr) Cardiovascular Problems: Yes (CHOL) High Cholesterol: Yes Chemotherapy: No Chest Pain: No Congestive Heart Failure: No COPD: Yes Cerebrovascular Accident: Yes (X's 2) Diabetes: Yes Deep Vein Thrombosis: Yes Endocrine: Yes GERD: No Genitourinary: No Hiatal Hernia: No Hypertension: Yes Immune Disorder: No Kidney Stones: No Musculoskeletal: Yes Psychiatric: No Reproductive: No Respiratory: Yes (COPD) Migraines: No Radiation Therapy: Yes Renal Failure: No Seizures: No Sickle Cell Disease: No Sleep Apnea: Yes Thyroid Disease: No Ulcer: No Past Surgical History Abdominal Surgery: No AICD: No Arteriovenous Shunt: No Cardiac Surgery: No Ear Surgery: No Endocrine Surgery: No Eye Surgery: No Genitourinary Surgery: No Gynecologic Surgery: No Insulin Pump: No Joint Replacement: No Oral Surgery: No Pacemaker: No Thoracic Surgery: No Tonsillectomy: Yes Other Surgery: Yes (PROSTATE) Social History Alcohol Use: Yes (Rarely) Tobacco Use: No Substance Use: No Allergies-Medications (Allergen,Severity, Reaction): Coded Allergies: Lyrica (Verified Adverse Reaction, Severe, Drowsiness, 02/13/17) Reported Meds & Prescriptions Reported Meds & Active Scripts Active Coumadin (Warfarin) 2 Mg Tab 2 Mg PO DAILY@16 Flagyl (Metronidazole) 500 Mg Tab 500 Mg PO Q8HR 7 Days Cipro (Ciprofloxacin HCl) 500 Mg Tab 500 Mg PO Q12HR 7 Days Vitamin B-12 (Cyanocobalamin) 100 Mcg Tab 100 Mcg PO DAILY Carbidopa-Levodopa 25-100 Mg Tab 1 Tab PO TID@07,12,16 Gabapentin 100 Mg Cap 100 Mg PO Q8H Folate (Folic Acid) 1 Mg Tab 1 Mg PO DAILY Lipitor (Atorvastatin Calcium) 40 Mg Tab 40 Mg PO HS Review of Systems General / Constitutional: No: Fever Eyes: No: Visual changes HENT: No: Headaches Cardiovascular: No: Chest Pain or Discomfort Respiratory: No: Shortness of Breath Gastrointestinal: No: Abdominal Pain Genitourinary: No: Dysuria Musculoskeletal: No: Pain Skin: No Rash Neurologic: No: Weakness Psychiatric: No: Depression Endocrine: No: Polydipsia Hematologic/Lymphatic: No: Easy Bruising Physical Exam Narrative GENERAL: Well-nourished, well-developed patient. SKIN: Focused skin assessment warm/dry. HEAD: Normocephalic. EYES: No scleral icterus. No injection or drainage. NECK: Supple, trachea midline. No JVD or lymphadenopathy. CARDIOVASCULAR: Regular rate and rhythm without murmurs, gallops, or rubs. RESPIRATORY: Breath sounds equal bilaterally. No accessory muscle use. GASTROINTESTINAL: Abdomen soft, non-tender, nondistended. Cholecystostomy tube in place and draining. MUSCULOSKELETAL: No cyanosis, or edema. BACK: Nontender without obvious deformity. No CVA tenderness. Neurologic exam normal. Data Data Last Documented VS Vital Signs Date Time Temp Pulse Resp B/P Pulse Ox O2 Delivery O2 Flow Rate FiO2 02/13/17 18:51 91 16 144/78 97 02/13/17 17:38 97.8 Orders Complete Blood Count With Diff (02/13/17 17:54) Comprehensive Metabolic Panel (02/13/17 17:54) Prothrombin Time / Inr (Pt) (02/13/17 17:54) Act Partial Throm Time (Ptt) (02/13/17 17:54) Lipase (02/13/17 17:54) Iv Access Insert/Monitor (02/13/17 17:54) Ecg Monitoring (02/13/17 17:54) Oximetry (02/13/17 17:54) Lorazepam (Ativan) (02/13/17 18:00) Labs Laboratory Tests Test 02/13/17 18:10 White Blood Count 15.9 TH/MM3 Red Blood Count 4.17 MIL/MM3 Hemoglobin 12.8 GM/DL Hematocrit 37.5 % Mean Corpuscular Volume 89.9 FL Mean Corpuscular Hemoglobin 30.7 PG Mean Corpuscular Hemoglobin 34.1 % Concent Red Cell Distribution Width 14.5 % Platelet Count 114 TH/MM3 Mean Platelet Volume 6.5 FL Neutrophils (%) (Auto) 41.5 % Lymphocytes (%) (Auto) 51.7 % Monocytes (%) (Auto) 3.5 % Eosinophils (%) (Auto) 0.4 % Basophils (%) (Auto) 2.9 % Neutrophils # (Auto) 6.6 TH/MM3 Lymphocytes # (Auto) 8.1 TH/MM3 Monocytes # (Auto) 0.6 TH/MM3 Eosinophils # (Auto) 0.1 TH/MM3 Basophils # (Auto) 0.5 TH/MM3 CBC Comment AUTO DIFF Differential Total Cells 100 Counted Neutrophils % (Manual) 46 % Band Neutrophils % 2 % Lymphocytes % 48 % Monocytes % 4 % Neutrophils # (Manual) 7.6 TH/MM3 Differential Comment FINAL DIFF MANUAL Platelet Estimate LOW Platelet Morphology Comment NORMAL Red Cell Morphology Comment NORMAL Prothrombin Time 42.1 SEC Prothromb Time International 3.6 RATIO Ratio Activated Partial 36.2 SEC Thromboplast Time Sodium Level 142 MEQ/L Potassium Level 3.6 MEQ/L Chloride Level 106 MEQ/L Carbon Dioxide Level 27.2 MEQ/L Anion Gap 9 MEQ/L Blood Urea Nitrogen 11 MG/DL Creatinine 1.20 MG/DL Estimat Glomerular Filtration 58 ML/MIN Rate Random Glucose 114 MG/DL Calcium Level 7.8 MG/DL Total Bilirubin 0.6 MG/DL Aspartate Amino Transf 32 U/L (AST/SGOT) Alanine Aminotransferase LESS THAN 6 U/L (ALT/SGPT) Alkaline Phosphatase 162 U/L Total Protein 5.8 GM/DL Albumin 2.4 GM/DL Lipase 513 U/L MDM Medical Decision Making Medical Screen Exam Complete: Yes Emergency Medical Condition: Yes Medical Record Reviewed: Yes Interpretation(s) 1854 PM. CBC WBC 15.9. Hemoglobin 12.8 hematocrit 37.5. Platelet 114. 41 neutrophil 51 lymphs. Calcium 7.8. Alkaline phosphatase 162. Lipase 513. INR 3.6. Differential Diagnosis Differential diagnosis including acute anxiety, depression, electrolyte abnormality. Narrative Course 81-year-old male with anxiety, elevated blood pressure, mental stress secondary to his yesterday. Ativan 0.5 mg by mouth given. Diagnosis Primary Impression: Acute anxiety Patient Instructions: General Instructions Additional Instructions: Ativan as directed. No Coumadin tomorrow. After that continue to take Coumadin as directed. Follow-up with personal physician for INR check and blood tests checked. Follow-up with surgeon as directed. Return immediately if increased abdominal pain, fever, vomiting. Med/Other Pt SpecificInfo: Prescription(s) given Scripts Lorazepam (Ativan)0.5 Mg Tab0.5 Mg PO BID PRN (ANXIETY AND/OR AGITATION) #30 TAB Ref 0 Prov:Alfred Kaufman MD 02/13/17 Disposition: 01 DISCHARGE HOME Condition: Stable Alfred Kaufman MD Feb 13, 2017 18:05
[2017-02-13 18:23] LABS: AUTOMATED NEUTROPHIL # 6.6 TH/MM3 (1.8-7.7); BASOPHIL # 0.5 TH/MM3 (0-0.2); BASOPHIL % 2.9 % (0.0-2.0); EOSINOPHIL # 0.1 TH/MM3 (0-0.4); EOSINOPHIL % 0.4 % (0.0-4.0); HEMATOCRIT 37.5 % (39.0-51.0); LYMPH % 51.7 % (9.0-44.0); LYMPHOCYTE # 8.1 TH/MM3 (1.0-4.8); MEAN CELL VOLUME 89.9 FL (80.0-100.0); MEAN CORPUSCULAR HEMOGLOBIN 30.7 PG (27.0-34.0); MEAN CORPUSCULAR HGB CONC 34.1 % (32.0-36.0); MONO % 3.5 % (0.0-8.0); NEUT % 41.5 % (16.0-70.0); PLATELET COUNT 114 TH/MM3 (150-450); RED BLOOD COUNT 4.17 MIL/MM3 (4.50-5.90); RED CELL DISTRIBUTION WIDTH 14.5 % (11.6-17.2); WHITE BLOOD COUNT 15.9 TH/MM3 (4.0-11.0)
[2017-02-13 18:27] LABS: HEMO FLAGS AUTO DIFF
[2017-02-13 18:34] LABS: CHLORIDE 106 MEQ/L (98-107); POTASSIUM 3.6 MEQ/L (3.5-5.1); SODIUM (NA) 142 MEQ/L (136-145)
[2017-02-13 18:37] LABS: ANION GAP 9 MEQ/L (5-15); BICARBONATE 27.2 MEQ/L (21.0-32.0); BLOOD UREA NITROGEN 11 MG/DL (7-18)
[2017-02-13 18:39] LABS: APTT (PATIENT) 36.2 SEC (24.3-30.1); INTERNATIONAL NORMALIZED RATIO 3.6 RATIO; PROTHROMBIN TIME - PATIENT 42.1 SEC (9.8-11.6)
[2017-02-13 18:40] LABS: ALT (GPT) LESS THAN 6 U/L (12-78); AST (GOT) 32 U/L (15-37); GLOMERULAR FILTRATION RATE 58 ML/MIN (>89)
[2017-02-13 18:42] LABS: TOTAL BILIRUBIN ADULT 0.6 MG/DL (0.2-1.0)
[2017-02-13 18:43] LABS: ALKALINE PHOSPHATASE 162 U/L (45-117); BANDS 2 % (0-6); NEUTROPHIL # MANUAL DIFF 7.6 TH/MM3 (1.8-7.7); POLYS (SEG NEUTROPHILS) 46 % (16-70); WBC DIFF SAMPLE 100
[2017-02-13 18:46] LABS: PLATELET ESTIMATE SMEAR LOW (NORMAL); PLATELET MORPHOLOGY NORMAL (NORMAL); SCAN/DIFF FINAL DIFF MANUAL
[2017-02-13 18:51] VITALS: BP 144/78; PULSE 91; RESP 16; O2SAT 97
[2017-02-13] MEDS ORDERED: LORA-392 PO (19:05)
[2017-02-13 19:13] VITALS: BP 140/77
[2017-02-14] MEDS ORDERED: LIPI40TA PO (12:43)
[2017-03-11] MEDS ORDERED: FOLI1TAB4 PO (10:37)
[2017-03-11] MEDS ORDERED: CARB25TA9 PO (10:37)
[2017-03-11] MEDS ORDERED: GABA100C4 PO (10:37)
== END 2017-02-13 19:31 | disposition home or self-care (01) ==
LOC: PHED 17:31
DX: F41.9 Anxiety disorder, unspecified (principal); I10 Essential (primary) hypertension; J44.9 Chronic obstructive pulmonary disease, unspecified; Z79.01 Long term (current) use of anticoagulants
CPT/HCPCS: 80053; 83690; 85007; 85027; 85610; 85730; 99283

== ENCOUNTER 2017-03-05 05:10 | Emergency (ER) | payer MEDICARE, BC ==
[~2017-03-05] VITALS: Ht 172.7 cm; Wt 92.0 kg
[~2017-03-05 05:10] MED LIST changes: +LORA-392 PO
[2017-03-05 05:14] VITALS: BP 137/66; PULSE 85; RESP 16; TEMP 98.1; O2SAT 98
--- NOTE | 2017-03-05 06:10 | PD ---
HPI Chief Complaint: Environmental Compliance Technician Problem Time Seen by Provider: 05:50 Travel History International Travel<30 days: No Contact w/Intl Traveler<30days: No Traveled to known affect area: No History of Present Illness HPI 81 y/o male presents with his gallbladder drain falling out during the night. He states he doesn't know how it came out. He states he has had it in since the end of January and they are working on getting his stroke care on Coumadin sorted out with his neurologist and Dr. Longoria before they take his gallbladder out. He denies other concurrent complaints. PFSH Past Medical History Hx Anticoagulant Therapy: Yes Arthritis: Yes Asthma: No Autoimmune Disease: No Anxiety: No Depression: No Heart Rhythm Problems: No Cancer: Yes (prostate cxr) Cardiovascular Problems: Yes High Cholesterol: Yes Chemotherapy: No Chest Pain: No Congestive Heart Failure: No COPD: Yes Cerebrovascular Accident: Yes (X2) Diabetes: Yes Deep Vein Thrombosis: Yes Endocrine: Yes GERD: No Genitourinary: No Hiatal Hernia: No Hypertension: Yes Immune Disorder: No Kidney Stones: No Musculoskeletal: Yes Psychiatric: No Reproductive: No Respiratory: Yes (COPD) Migraines: No Radiation Therapy: Yes Renal Failure: No Seizures: No Sickle Cell Disease: No Sleep Apnea: Yes Thyroid Disease: No Ulcer: No Past Surgical History Abdominal Surgery: No AICD: No Arteriovenous Shunt: No Cardiac Surgery: No Ear Surgery: No Endocrine Surgery: No Eye Surgery: No Genitourinary Surgery: No Gynecologic Surgery: No Insulin Pump: No Joint Replacement: No Oral Surgery: No Pacemaker: No Thoracic Surgery: No Tonsillectomy: Yes Other Surgery: Yes (Tonsillectomy, ) Social History Alcohol Use: No Tobacco Use: No Substance Use: No Allergies-Medications (Allergen,Severity, Reaction): Coded Allergies: Lyrica (Verified Adverse Reaction, Severe, Drowsiness, 03/05/17) Reported Meds & Prescriptions Reported Meds & Active Scripts Active Coumadin (Warfarin) 2 Mg Tab 2 Mg PO DAILY@16 Vitamin B-12 (Cyanocobalamin) 100 Mcg Tab 100 Mcg PO DAILY Carbidopa-Levodopa 25-100 Mg Tab 1 Tab PO TID@07,12,16 Gabapentin 100 Mg Cap 100 Mg PO Q8H Folate (Folic Acid) 1 Mg Tab 1 Mg PO DAILY Review of Systems Except as stated in HPI: all other systems reviewed are Neg Physical Exam Narrative GENERAL: Well-nourished, well-developed patient. SKIN: Warm and dry. HEAD: Normocephalic and atraumatic. EYES: No injection or drainage. ENT: No nasal drainage noted. NECK: Supple, trachea midline. CARDIOVASCULAR: Regular rate and rhythm RESPIRATORY: No increased effort. No accessory muscle use. GASTROINTESTINAL: Abdomen soft, non-tender, nondistended. Small amount of drainage noted to bandage NEUROLOGICAL: Awake and alert. Moves extremities. Normal speech. Data Data Last Documented VS Vital Signs Date Time Temp Pulse Resp B/P Pulse Ox O2 Delivery O2 Flow Rate FiO2 03/05/17 05:14 98.1 85 16 137/66 98 Room Air Orders Complete Blood Count With Diff (03/05/17 05:36) Comprehensive Metabolic Panel (03/05/17 05:36) Iv Access Insert/Monitor (03/05/17 05:36) Ecg Monitoring (03/05/17 05:36) Oximetry (03/05/17 05:36) Prothrombin Time / Inr (Pt) (03/05/17 05:36) Invasive Rad Dept Consult (03/05/17 ) Labs Laboratory Tests Test 03/05/17 06:00 White Blood Count 11.4 TH/MM3 Red Blood Count 4.59 MIL/MM3 Hemoglobin 13.6 GM/DL Hematocrit 41.9 % Mean Corpuscular Volume 91.2 FL Mean Corpuscular Hemoglobin 29.6 PG Mean Corpuscular Hemoglobin 32.4 % Concent Red Cell Distribution Width 15.0 % Platelet Count 123 TH/MM3 Mean Platelet Volume 7.1 FL Neutrophils (%) (Auto) 39.0 % Lymphocytes (%) (Auto) 56.4 % Monocytes (%) (Auto) 3.6 % Eosinophils (%) (Auto) 0.6 % Basophils (%) (Auto) 0.4 % Neutrophils # (Auto) 4.4 TH/MM3 Lymphocytes # (Auto) 6.4 TH/MM3 Monocytes # (Auto) 0.4 TH/MM3 Eosinophils # (Auto) 0.1 TH/MM3 Basophils # (Auto) 0.0 TH/MM3 CBC Comment AUTO DIFF Prothrombin Time 29.7 SEC Prothromb Time International 2.6 RATIO Ratio Sodium Level 140 MEQ/L Potassium Level 3.9 MEQ/L Chloride Level 104 MEQ/L Carbon Dioxide Level 29.5 MEQ/L Anion Gap 7 MEQ/L Blood Urea Nitrogen 12 MG/DL Creatinine 1.22 MG/DL Estimat Glomerular Filtration 57 ML/MIN Rate Random Glucose 101 MG/DL Calcium Level 8.3 MG/DL Total Bilirubin 0.5 MG/DL Aspartate Amino Transf 29 U/L (AST/SGOT) Alanine Aminotransferase 6 U/L (ALT/SGPT) Alkaline Phosphatase 157 U/L Total Protein 5.9 GM/DL Albumin 2.3 GM/DL MDM Medical Decision Making Medical Screen Exam Complete: Yes Emergency Medical Condition: Yes Medical Record Reviewed: Yes (past history confirmed) Interpretation(s) CBC & BMP Diagram 03/05/17 06:00 Differential Diagnosis Tube dislodgment, obstruction, stone Narrative Course Will check blood work and discuss with interventional radiology Physician Communication Physician Communication Radiologist states to place IR consult and they will try to get to him later this morning dr marmolejo to follow and reeval Annie Garza MD Mar 05, 2017 06:10 Annie Garza MD Mar 05, 2017 06:10
[2017-03-05 06:34] LABS: INTERNATIONAL NORMALIZED RATIO 2.6 RATIO; PROTHROMBIN TIME - PATIENT 29.7 SEC (9.8-11.6)
[2017-03-05 06:39] LABS: AUTOMATED NEUTROPHIL # 4.4 TH/MM3 (1.8-7.7); BASOPHIL % 0.4 % (0.0-2.0); EOSINOPHIL # 0.1 TH/MM3 (0-0.4); EOSINOPHIL % 0.6 % (0.0-4.0); HEMATOCRIT 41.9 % (39.0-51.0); LYMPH % 56.4 % (9.0-44.0); LYMPHOCYTE # 6.4 TH/MM3 (1.0-4.8); MEAN CELL VOLUME 91.2 FL (80.0-100.0); MEAN CORPUSCULAR HEMOGLOBIN 29.6 PG (27.0-34.0); MEAN CORPUSCULAR HGB CONC 32.4 % (32.0-36.0); MONO % 3.6 % (0.0-8.0); PLATELET COUNT 123 TH/MM3 (150-450); RED BLOOD COUNT 4.59 MIL/MM3 (4.50-5.90); WHITE BLOOD COUNT 11.4 TH/MM3 (4.0-11.0)
[2017-03-05 06:41] LABS: HEMO FLAGS AUTO DIFF
[2017-03-05 06:50] LABS: ALKALINE PHOSPHATASE 157 U/L (45-117); TOTAL BILIRUBIN ADULT 0.5 MG/DL (0.2-1.0)
[2017-03-05 06:58] LABS: ALT (GPT) 6 U/L (12-78); ANION GAP 7 MEQ/L (5-15); BICARBONATE 29.5 MEQ/L (21.0-32.0); BLOOD UREA NITROGEN 12 MG/DL (7-18); CHLORIDE 104 MEQ/L (98-107); GLOMERULAR FILTRATION RATE 57 ML/MIN (>89); SODIUM (NA) 140 MEQ/L (136-145)
[2017-03-05 06:59] LABS: AST (GOT) 29 U/L (15-37); POTASSIUM 3.9 MEQ/L (3.5-5.1)
[2017-03-05 07:30] LABS: EOSINOPHILS 1 % (0-4); NEUTROPHIL # MANUAL DIFF 5.5 TH/MM3 (1.8-7.7); PLATELET ESTIMATE SMEAR LOW (NORMAL); PLATELET MORPHOLOGY NORMAL (NORMAL); POLYS (SEG NEUTROPHILS) 48 % (16-70); SCAN/DIFF FINAL DIFF MANUAL; SMUDGE CELLS PRESENT PRESENT; WBC DIFF SAMPLE 100
[2017-03-05 08:00] VITALS: BP 145/73; PULSE 79; RESP 16; O2SAT 100
--- NOTE | 2017-03-05 08:56 | PD ---
Data Data Last Documented VS Vital Signs Date Time Temp Pulse Resp B/P Pulse Ox O2 Delivery O2 Flow Rate FiO2 03/05/17 08:00 79 16 145/73 100 Room Air 03/05/17 05:14 98.1 Orders Complete Blood Count With Diff (03/05/17 05:36) Comprehensive Metabolic Panel (03/05/17 05:36) Iv Access Insert/Monitor (03/05/17 05:36) Ecg Monitoring (03/05/17 05:36) Oximetry (03/05/17 05:36) Prothrombin Time / Inr (Pt) (03/05/17 05:36) Invasive Rad Dept Consult (03/05/17 ) Labs Laboratory Tests Test 03/05/17 06:00 White Blood Count 11.4 TH/MM3 Red Blood Count 4.59 MIL/MM3 Hemoglobin 13.6 GM/DL Hematocrit 41.9 % Mean Corpuscular Volume 91.2 FL Mean Corpuscular Hemoglobin 29.6 PG Mean Corpuscular Hemoglobin 32.4 % Concent Red Cell Distribution Width 15.0 % Platelet Count 123 TH/MM3 Mean Platelet Volume 7.1 FL Neutrophils (%) (Auto) 39.0 % Lymphocytes (%) (Auto) 56.4 % Monocytes (%) (Auto) 3.6 % Eosinophils (%) (Auto) 0.6 % Basophils (%) (Auto) 0.4 % Neutrophils # (Auto) 4.4 TH/MM3 Lymphocytes # (Auto) 6.4 TH/MM3 Monocytes # (Auto) 0.4 TH/MM3 Eosinophils # (Auto) 0.1 TH/MM3 Basophils # (Auto) 0.0 TH/MM3 CBC Comment AUTO DIFF Differential Total Cells 100 Counted Neutrophils % (Manual) 48 % Lymphocytes % 48 % Monocytes % 3 % Eosinophils % 1 % Neutrophils # (Manual) 5.5 TH/MM3 Differential Comment FINAL DIFF MANUAL Smudge Cells PRESENT Platelet Estimate LOW Platelet Morphology Comment NORMAL Red Cell Morphology Comment NORMAL Prothrombin Time 29.7 SEC Prothromb Time International 2.6 RATIO Ratio Sodium Level 140 MEQ/L Potassium Level 3.9 MEQ/L Chloride Level 104 MEQ/L Carbon Dioxide Level 29.5 MEQ/L Anion Gap 7 MEQ/L Blood Urea Nitrogen 12 MG/DL Creatinine 1.22 MG/DL Estimat Glomerular Filtration 57 ML/MIN Rate Random Glucose 101 MG/DL Calcium Level 8.3 MG/DL Total Bilirubin 0.5 MG/DL Aspartate Amino Transf 29 U/L (AST/SGOT) Alanine Aminotransferase 6 U/L (ALT/SGPT) Alkaline Phosphatase 157 U/L Total Protein 5.9 GM/DL Albumin 2.3 GM/DL [facility] Supervised Visit with JOSHUA: No Narrative Course Patient care assumed from Dr. osman at 07 100, this 81-year-old male with a history of recurrent cholecystitis who has had a biliary drain in place since February 04. Patient states it spontaneously dislodged early this morning. He is comfortable and has no complaints currently. Patient states that he is followed by Dr. Up. Dr. osman's plan was for an IR consult for possible replacement of the tube. I did receive a call from Dr. Ibrahim regarding the patient who informs me that usually these drains are removed after a month anyways for a trial without. Patient was then discussed with Dr. Up and he agrees with the plan to discharge the patient without a drain in place. He recommends the patient have a colostomy bag over the drain to collect any possible drainage. The patient does have a dry bandage over the draining currently. It is not actively leaking. The patient does have an adhesive allergy. I recommended the patient call Dr. Cedeno Tuesday to set up an earlier appointment. I discussed with him signs symptoms that should prompt emergent return to the ER. I did review his labs which were remarkable only for a minimal elevation of alkaline phosphatase which is to be expected. His belly is completely benign currently. There is no indication for CT imaging at this time. The patient was given a colostomy bag at this time and instructions how to use should he start draining. He is stable for discharge at this time. Diagnosis Primary Impression: Biliary drain displacement Qualified Code: T85.520A - Biliary drain displacement, initial encounter Referrals: Juan Antonio Longoria MD Additional Instruction: Call Dr. Red Wright on Tuesday to set up an earlier appointment. If you experience any abdominal pain nausea vomiting please return to the emergency department. Disposition: 01 DISCHARGE HOME Condition: Stable Dusty Paiz MD Mar 05, 2017 08:56
[2017-03-11] MEDS ORDERED: FOLI1TAB4 PO (10:37)
[2017-03-11] MEDS ORDERED: GABA100C4 PO (10:37)
[2017-03-11] MEDS ORDERED: CARB25TA9 PO (10:37)
== END 2017-03-05 09:38 | disposition home or self-care (01) ==
LOC: NEPE 05:10
DX: Z46.89 Encounter for fitting and adjustment of other specified devices (principal); J44.9 Chronic obstructive pulmonary disease, unspecified; E11.9 Type 2 diabetes mellitus without complications; Z86.718 Personal history of other venous thrombosis and embolism; I10 Essential (primary) hypertension; G47.30 Sleep apnea, unspecified
CPT/HCPCS: 80053; 85007; 85027; 85610; 99283

== ENCOUNTER 2017-03-22 08:36 | Inpatient (IN) | payer MEDICARE, BC, OTHER ==
[~2017-03-22] VITALS: Ht 172.7 cm; Wt 93.0 kg
[2017-03-22] MEDS: SODIUM CHLOR 0.9% 1000 ML INJ 1,000 ML IV SCH (01:00)
[~2017-03-22 08:36] MED LIST changes: -CIPR-9 PO; -LIPI40TA PO; -LORA-392 PO; -METR-1 PO
[2017-03-22 15:50] LABS: AUTOMATED NEUTROPHIL # 5.4 TH/MM3 (1.8-7.7); BASOPHIL # 0.2 TH/MM3 (0-0.2); BASOPHIL % 1.2 % (0.0-2.0); EOSINOPHIL % 0.2 % (0.0-4.0); HEMATOCRIT 35.5 % (39.0-51.0); LYMPH % 56.4 % (9.0-44.0); LYMPHOCYTE # 7.9 TH/MM3 (1.0-4.8); MEAN CELL VOLUME 88.3 FL (80.0-100.0); MEAN CORPUSCULAR HEMOGLOBIN 30.8 PG (27.0-34.0); MEAN CORPUSCULAR HGB CONC 34.9 % (32.0-36.0); MONO % 3.5 % (0.0-8.0); NEUT % 38.7 % (16.0-70.0); PLATELET COUNT 144 TH/MM3 (150-450); RED BLOOD COUNT 4.03 MIL/MM3 (4.50-5.90); RED CELL DISTRIBUTION WIDTH 14.5 % (11.6-17.2); WHITE BLOOD COUNT 13.9 TH/MM3 (4.0-11.0)
[2017-03-22 16:00] VITALS: BP 124/57; PULSE 87; RESP 18; TEMP 98.8; O2SAT 98
[2017-03-22 16:00] LABS: APTT (PATIENT) 40.6 SEC (24.3-30.1); INTERNATIONAL NORMALIZED RATIO 2.4 RATIO; PROTHROMBIN TIME - PATIENT 27.4 SEC (9.8-11.6)
[2017-03-22 16:04] LABS: ANION GAP 9 MEQ/L (5-15); AST (GOT) 25 U/L (15-37); BLOOD UREA NITROGEN 23 MG/DL (7-18); CHLORIDE 101 MEQ/L (98-107); GLOMERULAR FILTRATION RATE 46 ML/MIN (>89); SODIUM (NA) 137 MEQ/L (136-145)
[2017-03-22 16:07] LABS: ALKALINE PHOSPHATASE 129 U/L (45-117); ALT (GPT) LESS THAN 6 U/L (12-78); HEMO FLAGS AUTO DIFF; TOTAL BILIRUBIN ADULT 0.5 MG/DL (0.2-1.0)
[2017-03-22] MEDS ORDERED: PHYTONADIONE 5 MG TAB PO STA (16:08)
[2017-03-22 17:01] LABS: EOSINOPHILS 1 % (0-4); NEUTROPHIL # MANUAL DIFF 4.7 TH/MM3 (1.8-7.7); POLYS (SEG NEUTROPHILS) 34 % (16-70); WBC DIFF SAMPLE 100
[2017-03-22 17:02] LABS: SMUDGE CELLS PRESENT PRESENT
[2017-03-22 17:03] LABS: PLATELET ESTIMATE SMEAR LOW (NORMAL); PLATELET MORPHOLOGY NORMAL (NORMAL); SCAN/DIFF FINAL DIFF MANUAL
--- NOTE | 2017-03-22 17:28 | HHI.PR ---
Objective Objective Results Result Diagram: 03/22/17 1540 03/22/17 1540 A/P Assessment and Plan Pt notes he has been borderline DM, @ in the past, but no issues now. Current BS is 105. Will monitor labs for any hyperglycemia. Maribell Cortez March 22, 2017 17:28
[2017-03-22] MEDS ORDERED: METR500T10 PO (18:20)
--- NOTE | 2017-03-22 18:20 | MH ---
cc: ASHLEIGH IRBY MD DATE OF ADMISSION: 03/22/2017 DATE OF : 1935 CHIEF COMPLAINT Abdominal pain. HISTORY OF PRESENT ILLNESS: This is a pleasant, 51 year-old white male who has been struggling with abdominal pain off/on for the past few weeks. The patient states that his pain will initiate in his left upper quadrant and radiate across to the right upper quadrant. He states that the pain waxes and wanes but at times it is fairly intense. The patient has not had any weight gain or weight loss in the past few weeks but note a decrease in his appetite at times. The patient was here back in January 2017, for a cholecystitis. Diagnosis and treatment regimen and had a drain placed in for medical management. The patient is back in with some of the same symptoms with his abdominal pain as before. The patient denies any headache, denies any headache, Denies any chest pain, shortness of breath. No diarrhea, no constipation, no vomiting, he is alert, oriented, he is a fair historian, His daughters are at his side assisting with his history. The patient is currently on coumadin with a therapeutic INR. He is being evaluated for a cholecystectomy this visit. PAST MEDICAL HISTORY: 1. Hypertension. 2. Bilateral feet. 3. Sepsis. 4. Anxiety disorder. 5. Recent cholecystitis, 6. Face cancer. 7. Diabetes mellitus type 2. 8. Peripheral neuropathy. 9. Strokes times two. 10. Chronic lymphocytic leukemia. 11. History of pressure ulcers on his buttocks. 12. Hyperlipidemia. 13. Deep venous thrombosis left lower extremity. 14. Chronic obstructive pulmonary disease. PAST SURGICAL HISTORY: 1. Tonsillectomy and adenoidectomy. 2. Dental surgery. 3. Biliary drain placement. ALLERGIES LYRICA. MEDICATIONS Please see medical reconciliation sheet. 1. Vitamin B12 P.O. DAILY. 2. Folic acid 3. Carbidopa 4. Gabapentin 5. Warfarin SOCIAL HISTORY: Patient is currently recently. One of his daughters lives with him to assist. He does have two daughters that are supportive and in the room. The patient quit smoking approximately 40 years ago so no tobacco use. Ethyl alcohol abuse, quit approximately one year ago, no Illicit drug use. REVIEW OF SYSTEMS A 12 point review was obtained, positives noted in the history of present illness which included his left and right upper quadrant pain. Some mild nausea, some decreased appetite, other systems negative or unremarkable. PHYSICAL EXAMINATION: VITAL SIGNS: Not listed yet. IN GENERAL: This is a mildly obese, male looks to be his stated age, resting in the bed. He is alert, oriented times two to three. He is a fair historian. SKIN: The skin is pink, warm and dry. HEAD, EYES, EARS, NOSE, AND THROAT: Atraumatic, normocephalic. Pupils equal, round, reactive to light and accommodation, two. Mucous membranes are pink and moist. No scleral icterus. NECK: The neck is supple. CARDIOVASCULAR SYSTEM: S1-S2, regular rate and rhythm, no murmurs, rubs or gallops. He has 2-3+ pitting edema in his lower extremities bilaterally his extremities are warm and his pulses are present. PULMONARY: Mildly diminished breath sounds, no wheezes, rales or rhonchi heard. His volumes are low to mid range. ABDOMEN: Round, soft, mild tenderness to light palpation, bowel sounds are active in all four quadrants. MUSCULOSKELETAL: He can move all extremities with purpose. He can overcome resistance. His hand communication arts lecturer are essentially equal. He has no deformities. NEUROLOGICALLY: He is alert, oriented, speech is clear. Tongue is midline. PSYCHIATRIC: Appropriate mood and affect. DIAGNOSTIC DATA: White blood count 13.9, red blood cells 4.03, hemoglobin 12.4, hematocrit 35.5. Platelet count 144. Lymphocyte percentage count 56.4. Smudge cells are present, low platelet count. Sodium is 137, potassium 4, chloride 101, carbon dioxide 27, amnion gap 9, blood urea nitrogen 23, creatinine 1.45. Glomerular filtration rate 46, random glucose is 105, serum osmolarity 282, calcium 7.8, bilirubin 0.5, aspartate aminotransferase 25, ALT less then 6, alkaline phosphatase 129, total protein 5.1. Albumin 1.9. Lipase 313. IMAGING STUDIES: Imaging studies show a pending vascular ultrasound. ASSESSMENT AND PLAN: 1. Cholecystitis. 2. History of hypertension. 3. History of hyperlipidemia. 4. History of cerebrovascular accident requiring coumadin therapy. 5. Edema of his lower extremities. 6. 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 7. Diabetes mellitus type 2. 8. Acute kidney injury. 9. Anemia, mild. 10. Thrombocytopenia. 11. Cholecystitis with elevated alkaline phosphatase. 12. Severe protein calorie malnutrition. PLAN: Our plan is to admit. We will monitor his vital signs every four hours and as warranted. We will monitor his labs and the patient has been seen per surgery for possible gallbladder surgery within the next few days. The patient will receive vitamin K and monitor for his INR to decrease so he will be safe for surgery. We will then bridge him with a Heparin drip and monitor his medical management during his postoperative days. The patient can use his BiPAP at night. He has brought his home machine to the hospital. He will be able to let the nurses know when he wants to put it on and take it off on his schedule that he uses at home. We will give him o2 at two liters per nasal cannula as warranted. Monitor his labs in the morning which will include his INR. We will do Accuchecks, AC and HS. Gentle hydration with IV fluids. Dietary consult has been done for his severe protein calorie malnutrition with like their expert opinion in managing the patient postoperative so he will have a good healing process. Diet is currently a heart healthy diet, we will add ADA diet to that. The patients glucose level is currently 105, and controlled. To my knowledge the patient is full code, full aggressive care and we will follow his needs. Ashleigh Irby MD DICTATED BY: JERRY Krishnamurthy JP/hilario /5:10 PM /5:45 PM pt seen and examined as above meds and labs reviewed chart was reviewed plan of care jay thompson pt and daughter at bedside NASIMAD
[2017-03-22] MEDS ORDERED: FOLI800T PO (18:24)
[2017-03-22] MEDS ORDERED: B12-1CHW CHEW (18:42)
[2017-03-22] MEDS ORDERED: ATOR40TA16 PO (18:43)
[2017-03-22 20:00] VITALS: BP 115/61; PULSE 92; RESP 18; TEMP 96.9; O2SAT 96
[2017-03-22] MEDS: HYDROmorphone HCL PF 1 MG/ML VIAL IV PRN (20:06)
[2017-03-23 00:01] VITALS: BP 111/59; PULSE 92; RESP 19; TEMP 97.4; O2SAT 93
[2017-03-23] MEDS ORDERED: MIRA25TA PO (00:11)
[2017-03-23] MEDS ORDERED: RAPA8CAP PO (00:11)
[2017-03-23] MEDS ORDERED: VITA50TA30 PO (00:12)
[2017-03-23] MEDS: SODIUM CHLOR 0.9% 1000 ML INJ 1,000 ML IV SCH ×3 (01:00→22:24)
[2017-03-23 05:47] LABS: HEMATOCRIT 36.2 % (39.0-51.0); MEAN CELL VOLUME 89.1 FL (80.0-100.0); MEAN CORPUSCULAR HEMOGLOBIN 30.5 PG (27.0-34.0); MEAN CORPUSCULAR HGB CONC 34.2 % (32.0-36.0); PLATELET COUNT 138 TH/MM3 (150-450); RED BLOOD COUNT 4.06 MIL/MM3 (4.50-5.90); RED CELL DISTRIBUTION WIDTH 14.6 % (11.6-17.2); REVIEW FLAG FINAL; WHITE BLOOD COUNT 14.1 TH/MM3 (4.0-11.0)
[2017-03-23 05:54] LABS: INTERNATIONAL NORMALIZED RATIO 1.8 RATIO; PROTHROMBIN TIME - PATIENT 19.9 SEC (9.8-11.6)
[2017-03-23 06:06] LABS: POTASSIUM 3.3 MEQ/L (3.5-5.1)
[2017-03-23] MEDS: HYDROmorphone HCL PF 1 MG/ML VIAL IV PRN (06:22)
[2017-03-23 08:00] VITALS: BP 122/63; PULSE 92; RESP 18; TEMP 98.2; O2SAT 95
[2017-03-23] MEDS ORDERED: POTASSIUM CHLORIDE 25 MEQ EFFERVESCENT TAB PO ONE (08:45)
--- NOTE | 2017-03-23 09:14 | MB ---
cc: SARATH WOODS DATE OF CONSULTATION 03/23/2017 REASON FOR CONSULTATION Vinay Olivier is an 81-year-old man who was seen in November 2016. He had a stroke at that time, a stroke alert right-sided weakness, multiple left-sided infarcts, mild right-sided weakness. He got tPA. Echo showed a normal ejection fraction. Aortic valve was normal. Atrial size normal. Mitral valve normal. He was put on aspirin. CT of the neck and [place] was normal. Then in December of 2016, he was in the shower, had a left facial droop, left upper extremity weakness, stroke alert was called. He was on 81 of aspirin at that time. Speech was slurred. Strength was normal. LDL was normal. GFR and sodium were normal. MRI of the brain in November had shown a left hemisphere infarct four or five of them. 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 He had a little bit of subarachnoid blood. He was started on Coumadin, cleared by neurosurgery. He had a small right insular diffusion abnormality at that time. He was put on Coumadin. He has a history of CLL and prostate cancer, some recent gallbladder problems and he is being admitted now for gallbladder surgery on the Coumadin, we are trying to bridge him. His Holter monitor in the past has been negative. He was put on Sinemet for his gait which seemed to have helped somewhat. He has had some chronic diarrhea. He had an EMG which showed neuropathy, but no radiculopathy. His rheumatoid factor has been 88. MRI of the cervical spine did not show any cord compression. MRI of the LS spine showed some DJD but no spinal stenosis or neural foraminal stenosis. This morning, he has abdominal distension. PAST MEDICAL HISTORY As above, also: 1. Hypertension 2. History of sepsis. 3. Anxiety 4. Diabetes type 2 5. CLL 6. Pressure ulcers on his buttocks 7. DVT left lower extremity 8. COPD MEDICATIONS AT HOME 1. B12 2. Folic acid 3. Sinemet 4. Neurontin 5. Coumadin SOCIAL HISTORY recently, lives with a daughter. Quit smoking 40 years ago, quit drinking a year ago. No drug use. PHYSICAL EXAM On exam, afebrile, 92, 111/59, 19. GENERAL: He is awake and alert. NEUROLOGIC: Speech is fluent. He is not aphasic. Visual rivera are full. Extraocular movements are intact without nystagmus. Face symmetric. He had normal strength in the upper and lower extremities bilaterally. He has some abdominal distension, but he is having some flatulence still. LABORATORY DATA White count 14, platelet count 138, sed rate in the past was normal. RPR, STEFFANIE, anti-Q antibody have been normal. UA has been negative in the past except for protein. His INR today was 1.8, yesterday it was 2.4. We had held his Coumadin since last Tuesday. I gave him a small dose of vitamin K last night. Basic metabolic profile is essentially normal. Glucose 114, calcium normal. His LFTs have been normal this year. B12 was normal in December. Thyroid was normal in December. IMPRESSION History of bilateral infarcts on the Coumadin. We will bridge him postop and get his INR back up and I will be following him with you in the hospital. He looks well neurologically at this time. MD ACE Wilson/EDWARD /7:44 AM /9:00 AM
[2017-03-23] MEDS ORDERED: metroNIDAZOLE 500 MG INJ 100 ML IV ONE (10:51)
[2017-03-23] MEDS ORDERED: ceFAZolin 2 GM PREMIX 50 ML ONE (10:51)
[2017-03-23] MEDS ORDERED: BUPIVACAINE/EPINEPHRINE 0.25% PF 30 ML VIAL INFIL ONE (11:49)
[2017-03-23] MEDS ORDERED: SUGAMMADEX SODIUM 200 MG/2 ML VIAL IV PUSH ONE ×2 (11:58)
[2017-03-23] MEDS ORDERED: PROPOFOL 200 MG/20 ML AMP IV ONE (12:00)
[2017-03-23] MEDS ORDERED: NITROGLYCERIN 1000 MCG/5 ML VIAL IV ONE (12:00)
[2017-03-23] MEDS ORDERED: ONDANSETRON HCL 4 MG/2 ML VIAL IV PUSH ONE (12:00)
[2017-03-23] MEDS ORDERED: ePHEDrine/NS 25 MG/5 ML SYR IV ONE (12:00)
[2017-03-23] MEDS ORDERED: LACTATED RINGER'S 1000 ML INJ 1,000 ML IV ONE (12:00)
[2017-03-23] MEDS ORDERED: SODIUM CHLORID 0.9% 500 ML INJ 500 ML IV ONE (12:00)
[2017-03-23] MEDS ORDERED: PHENYLEPH/NS 1000 MCG/10 ML SYR IV ONE (12:00)
[2017-03-23] MEDS ORDERED: fentaNYL CITRATE 250 MCG/5 ML AMP ONE (13:01)
[2017-03-23] MEDS ORDERED: MIDAZOLAM HCL 2 MG/2 ML VIAL ONE (13:03)
[2017-03-23] MEDS ORDERED: *morphine SULFATE 8 MG/ML PERIprocedure ONLY ONE (13:13)
--- NOTE | 2017-03-23 13:15 | HHI.PR ---
Immediate Post Op Note Procedure Date: March 23, 2017 Pre Op Diagnosis: (1) Abdominal pain Post Op Diagnosis: (1) Carcinomatosis peritonei Surgeon: Juan Antonio Longoria Senior Electrical Engineer(s): staff Procedure: diagnostic laparoscopy, drainage of ascites, peritoneal biopsy Findings: carcinomatosis Complications: none Specimen(s) removed: peritoneal biopsy Estimated blood loss: 10ml Anesthesia: General Drains: None IVF Patient to: PACU Patient Condition: Good Juan Antonio Longoria MD March 23, 2017 13:15
[2017-03-23] MEDS ORDERED: MORPHINE SULFATE 4 MG/ML INJ IV PRN (14:00)
--- NOTE | 2017-03-23 15:36 | HHI.PR ---
Subjective Remarks resting in bed alert, appropriate abd, mild distention small surgical incisions umbilicus and LMQ, mild bruising color pale No acute pain (Maribell Cortez) Objective Objective Results - Vital Signs Date Time Temp Pulse Resp B/P Pulse Ox O2 Delivery O2 Flow Rate FiO2 03/23/17 13:40 102 14 18/63 100 Nasal Cannula 2 03/23/17 13:30 101 14 121/63 100 Nasal Cannula 2 03/23/17 13:15 100 14 117/60 100 Nasal Cannula 2 03/23/17 13:00 100 14 120/57 99 Nasal Cannula 2 03/23/17 12:50 97.6 101 14 104/51 99 Nasal Cannula 2 03/23/17 08:00 98.2 92 18 122/63 95 03/23/17 00:01 97.4 92 19 111/59 93 03/22/17 20:00 96.9 92 18 115/61 96 03/22/17 16:00 98.8 87 18 124/57 98 I/O 03/22/17 03/22/17 03/22/17 03/23/17 03/23/17 03/23/17 06:59 14:59 22:59 06:59 14:59 22:59 Intake Total 240 ml 444 ml 2850 ml Output Total 100 ml 250 ml 20 ml Balance 140 ml 194 ml 2830 ml Intake Oral 240 ml 0 ml 0 ml IV Total 444 ml 650 ml Other 2200 ml Output Urine Total 100 ml 250 ml Estimated Blood Loss 20 ml # Voids 1 2 1 # Bowel Movements 0 0 0 (Maribell Cortez) Result Diagram: 03/23/17 0504 03/23/17 0504 ROS General: Weakness (generalized), Other (10 point ROS done, positives noted, ) Pulmonary: Cough (occ.) GI: Abdominal Pain (mild ascites), Other (peritoneal bipopsy done ) (Maribell Cortez) Physical Exam Physical Exam PHYSICAL EXAMINATION GENERAL: This is a obese male who appears to be in no acute distress. He is alert and awake, eating supper HEAD: Normocephalic without any lesion or mass noted. Facial features appear symmetric. OROPHARYNGEAL: Oropharynx without erythema or edema. NECK: Supple. Trachea midline without deviation. CARDIAC: Regular rhythm, regular rate, S1 and S2 are heard. LUNGS: Clear to auscultation bilaterally, no rhonchi ABDOMEN: Soft, mild tender, taut, Bowel sounds are heard umbilicus and RMQ incisions open to air. Mild bruising noted. EXTREMITIES: no edema. Pulses equal bilateral. NEUROLOGICAL: Patient mood and affect appropriate.Mild anxiety SKIN:Warm and moist, pale Objective Remarks Shanna got cancer (Maribell Cortez) A/P Assessment and Plan vitals reviewed, borderline tachycardia, other trends normal labs show mild leukocytosis, ANDREI, dehydration, Hypokalemia, Extra dose K given this am. Will karan in am. Peritoneal carcinomatosis Juan Antonio Longoria, surgeon took patient to do cholecystectomy, ended up doing diagnostic laparoscopy, drainage of ascites, and peritoneal biopsy Cholecystitis. Will treat medically, Biopsy was done, but no gallbladder was removed at this time. Surgeon plans to come back up this p.m. and talked to patient for more information and possible options. Pain management History of hypertension. Controlled for now and monitor medical management, History of hyperlipidemia. Medical management History of cerebrovascular accident requiring coumadin therapy. ` At this time Coumadin will be continued pending course of treatment for patient Edema of his lower extremities. 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 Acute kidney injury. Monitor labs improved today B UN is 22 probable some dehydration Anemia, mild., Probable secondary to chronic disease or cancer diagnosis Thrombocytopenia. Possibly due to cancer, monitor labs Cholecystitis with elevated alkaline phosphatase. Severe protein calorie malnutrition. Dietary consult done patient will need adequate protein, and good calories for his next level of care. Currently appetite is good. We will continue to support his nutrition (Maribell Cortez) Assessment and Plan Patient seen and examined as above with INVENTORY AND PRICING ASSOCIATE at bedside Status post limited surgery today Labs reviewed Off of heparin for surgery today. Labs for tomorrow Discussed with patient Plan of care discussed with INVENTORY AND PRICING ASSOCIATE Will follow (Martin Irby MD) Maribell Cortez March 23, 2017 15:36 Martin Irby MD March 23, 2017 16:05
[2017-03-23 15:54] VITALS: O2SAT 97
[2017-03-23 16:00] VITALS: BP 105/55; PULSE 114; RESP 16; TEMP 96.8; O2SAT 97
[2017-03-23 20:00] VITALS: BP 133/76; PULSE 102; RESP 20; TEMP 97; O2SAT 94
[2017-03-23 20:00] LABS: INTERNATIONAL NORMALIZED RATIO 1.4 RATIO; PROTHROMBIN TIME - PATIENT 16.1 SEC (9.8-11.6)
[2017-03-23] MEDS ORDERED: WARFARIN SOD 5 MG TAB PO ONE (21:30)
[2017-03-23] MEDS ORDERED: HEPARIN SODIUM - SQ 10,000 UNITS/ML VIAL SQ ONE (21:30)
[2017-03-24] VITALS: BP 107/61; PULSE 92; RESP 20; TEMP 97.1; O2SAT 94
[2017-03-24] MEDS: ACETAMINOPHEN/HYDROcodone 325 MG/5 MG TAB PO PRN ×3 (03:14→15:39)
[2017-03-24] MEDS: SODIUM CHLOR 0.9% 1000 ML INJ 1,000 ML IV SCH ×2 (04:23→15:33)
[2017-03-24 05:56] LABS: INTERNATIONAL NORMALIZED RATIO 1.2 RATIO; PROTHROMBIN TIME - PATIENT 13.4 SEC (9.8-11.6)
[2017-03-24 06:27] LABS: BICARBONATE 25.2 MEQ/L (21.0-32.0); POTASSIUM 3.9 MEQ/L (3.5-5.1)
[2017-03-24 06:52] LABS: CALCIUM-PROTEIN CORRECTED 8.5 MG/DL (8.5-10.1)
--- NOTE | 2017-03-24 07:30 | MP ---
cc: ZE MIKE DATE OF SURGERY 03/23/2017 PREOPERATIVE DIAGNOSIS Recurrent, acute and chronic cholecystitis, status post cholecystostomy tube. 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 PROCEDURE 1. Diagnostic and staging laparoscopy. 2. Laparoscopic drainage of intraabdominal ascites. 3. Peritoneal biopsy with intraoperative frozen section. ATTENDING SURGEON MD Von HEAD NECK SURGEON Staff. ANESTHESIA General and local anesthetic. BLOOD LOSS Less than 10 cc. COMPLICATIONS None. 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 Frozen section consistent with carcinoma on peritoneal biopsy. INDICATIONS FOR PROCEDURE The patient is a pleasant 81-year-old and elderly gentleman who has a history of recurrent acute cholecystitis. These episodes were treated with cholecystostomy tube and antibiotics successfully due to the patient being recent from a cerebrovascular accident. Currently the patient is on anticoagulation and underwent admission to [facility] for reversal of his anticoagulation and bridge therapy on his Coumadin for a planned laparoscopic cholecystectomy due to recurrent cholecystitis. The risks, benefits and alternatives to laparoscopic cholecystectomy were discussed with the patient prior to the procedure and the patient agreed to undergo the procedure. PROCEDURE After informed consent was obtained, the patient was taken to the operating room, placed in supine position, placed under general endotracheal anesthesia. The patient's abdomen was shaved, prepped and draped in sterile fashion. Time-out was performed. The abdomen was entered through a Thibodeaux technique just above the umbilicus. I directly placed a 10-mm trocar into the abdomen under visualization and insufflated the abdomen. We then placed a 5-mm camera into the abdomen and surveyed the abdomen. There was no evidence of any complication from our entry. We were greeted with a large amount of yellow-tinged ascites. We did placed a 5-mm camera up in the left upper quadrant under visualization of the laparoscope in order to be able to suction the ascites. We placed a suction traffic control technician into the abdomen and we suctioned approximately 3.5 liters of yellow-tinged abdominal ascites out of the abdomen. Once we had done this, we were able to better inspect the abdomen and there was very obvious diffuse almost universal covering of all peritoneal surfaces with small plaque-type lesion consistent with carcinomatosis. We continued our exploration. We were able to identify the gallbladder as it was adherent to the abdominal wall due to the patient's previous cholecystostomy tubes as well as some malignant-appearing tumor studding onto the gallbladder surface. This was very densely adhered to the underlying viscera and was very suspicious for the primary gallbladder carcinoma due to the clinical situation. We then used a harmonic scalpel to biopsy two large 2 cm x 2 cm areas of this peritoneum lining, one over the falciform, one of the right upper quadrant where the area of the plaque-type malignant disease appeared to most prominent. Frozen section did return on this area around the falciform as carcinoma. At this point in time we felt that any further surgery was not in the patient's best interest and did not perform cholecystectomy and then turned our attention towards completion. We were then able to remove ports under visualization of the laparoscope and expressed pneumoperitoneum. We did have excellent hemostasis at all the biopsy sites. We then closed the fascia of both port sites, the 5-mm port in the left upper quadrant as well as the Thibodeaux with 0 Vicryl suture. We closed the skin with 4-0 Monocryl and Dermabond. The patient was at this point in time discontinued from anesthesia and taken to the PACU in stable condition. The patient tolerated the procedure well, no apparent complications. All counts were correct and I was present and scrubbed for the entire procedure. MD ABRIL BradenG/SSB /2:22 PM /6:39 AM
[2017-03-24 08:00] VITALS: BP 134/75; PULSE 85; RESP 18; TEMP 96.7; O2SAT 96
[2017-03-24 08:52] VITALS: O2SAT 96
[2017-03-24] MEDS ORDERED: DO NOT ADM ANY ANTICOAGULANT DRUGS OTHER PRN (09:30)
--- NOTE | 2017-03-24 09:33 | HHI.PR ---
Subjective Remarks gall bladder ca Objective Vital Signs Date Time Temp Pulse Resp B/P Pulse Ox O2 Delivery O2 Flow Rate FiO2 03/24/17 08:52 96 21 03/24/17 08:00 96.7 85 18 134/75 96 03/24/17 04:23 18 03/24/17 00:00 97.1 92 20 107/61 94 03/23/17 20:00 97.0 102 20 133/76 94 03/23/17 16:00 96.8 114 16 105/55 97 03/23/17 15:54 97 Nasal Cannula 2.00 03/23/17 13:40 102 14 18/63 100 Nasal Cannula 2 03/23/17 13:30 101 14 121/63 100 Nasal Cannula 2 03/23/17 13:15 100 14 117/60 100 Nasal Cannula 2 03/23/17 13:00 100 14 120/57 99 Nasal Cannula 2 03/23/17 12:50 97.6 101 14 104/51 99 Nasal Cannula 2 I/O 03/23/17 03/23/17 03/23/17 03/24/17 03/24/17 03/24/17 07:00 15:00 23:00 07:00 15:00 23:00 Intake Total 444 ml 2850 ml 851 ml 120 ml 387 ml Output Total 250 ml 20 ml 50 ml Balance 194 ml 2830 ml 801 ml 120 ml 387 ml Intake Oral 0 ml 0 ml 120 ml 120 ml IV Total 444 ml 650 ml 731 ml 387 ml Other 2200 ml Output Urine Total 250 ml 50 ml Estimated Blood Loss 20 ml # Voids 2 1 1 # Bowel Movements 0 0 0 0 Result Diagram: 03/23/17 0504 03/24/17 0538 Objective Remarks awake alert nl speech in chair moves all well nad Assessment and Plan Assessment and Plan inr 1.2 iv hep and coumadin 7.5 today onc on case Pete Parekh MD March 24, 2017 09:33
[2017-03-24] MEDS ORDERED: HEPARIN 25,000 UNITS/D5W 250ML IV SCH ×2 (10:00→12:45)
--- NOTE | 2017-03-24 11:15 | HHI.PR ---
Subjective Remarks resting in bed alert, reinjected abd, mild distention small surgical incisions umbilicus and LMQ, mild bruising color pale No acute pain Review of system for 10 point system otherwise unremarkable Objective Objective Results - Vital Signs Date Time Temp Pulse Resp B/P Pulse Ox O2 Delivery O2 Flow Rate FiO2 03/24/17 08:52 96 21 03/24/17 08:00 96.7 85 18 134/75 96 03/24/17 04:23 18 03/24/17 00:00 97.1 92 20 107/61 94 03/23/17 20:00 97.0 102 20 133/76 94 03/23/17 16:00 96.8 114 16 105/55 97 03/23/17 15:54 97 Nasal Cannula 2.00 03/23/17 13:40 102 14 18/63 100 Nasal Cannula 2 03/23/17 13:30 101 14 121/63 100 Nasal Cannula 2 03/23/17 13:15 100 14 117/60 100 Nasal Cannula 2 03/23/17 13:00 100 14 120/57 99 Nasal Cannula 2 03/23/17 12:50 97.6 101 14 104/51 99 Nasal Cannula 2 I/O 03/23/17 03/23/17 03/23/17 03/24/17 03/24/17 03/24/17 07:00 15:00 23:00 07:00 15:00 23:00 Intake Total 444 ml 2850 ml 851 ml 120 ml 387 ml Output Total 250 ml 20 ml 50 ml Balance 194 ml 2830 ml 801 ml 120 ml 387 ml Intake Oral 0 ml 0 ml 120 ml 120 ml IV Total 444 ml 650 ml 731 ml 387 ml Other 2200 ml Output Urine Total 250 ml 50 ml Estimated Blood Loss 20 ml # Voids 2 1 1 # Bowel Movements 0 0 0 0 Result Diagram: 03/23/17 0504 03/24/17 0538 Other Results Laboratory Tests Test 03/23/17 03/24/17 19:45 05:38 Prothrombin Time 16.1 13.4 Prothromb Time International 1.4 1.2 Ratio Sodium Level 140 Potassium Level 3.9 Chloride Level 105 Carbon Dioxide Level 25.2 Anion Gap 10 Blood Urea Nitrogen 21 Creatinine 1.28 Estimat Glomerular Filtration 54 Rate Random Glucose 123 Calcium Level 7.3 Protein Corrected Calcium 8.5 Total Protein 4.9 Physical Exam Physical Exam GENERAL: This is a obese male who appears to be in no acute distress. He is alert and awake, eating supper HEAD: Normocephalic without any lesion or mass noted. Facial features appear symmetric. OROPHARYNGEAL: Oropharynx without erythema or edema. NECK: Supple. Trachea midline without deviation. CARDIAC: Regular rhythm, regular rate, S1 and S2 are heard. LUNGS: Clear to auscultation bilaterally, no rhonchi ABDOMEN: Soft, mild tender, taut, Bowel sounds are heard umbilicus and RMQ incisions open to air. Mild bruising noted. EXTREMITIES: no edema. Pulses equal bilateral. NEUROLOGICAL: Patient mood and affect appropriate.Mild anxiety SKIN:Warm and moist, pale Objective Remarks A/P Assessment and Plan Assessment and Plan vitals reviewed, borderline tachycardia, better labs show mild leukocytosis, ANDREI better, dehydration improving, Hypokalemia, better Peritoneal carcinomatosis Juan Antonio Longoria, surgeon took patient to do cholecystectomy, ended up doing diagnostic laparoscopy, drainage of ascites, and peritoneal biopsy Cholecystitis. Will treat medically, Biopsy was done, but no gallbladder was removed at this time. Surgeon discussed with patient yesterday. Pain management. Oncologist on board History of hypertension. Controlled for now and monitor medical management, History of hyperlipidemia. Medical management History of cerebrovascular accident requiring coumadin therapy. ` At this time Coumadin will be continued. Heparin drip until therapeutic INR Edema of his lower extremities. 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 Acute kidney injury. Monitor labs improved today B UN is 21 probable some dehydration Anemia, mild., Probable secondary to chronic disease or cancer diagnosis Thrombocytopenia. Possibly due to cancer, monitor labs Cholecystitis with elevated alkaline phosphatase. Severe protein calorie malnutrition. Dietary consult done patient will need adequate protein, and good calories for his next level of care. Currently appetite is good. We will continue to support his nutritionPatient seen and examined as above with ACCOUNTS ADMINISTRATOR at bedside Status post limited surgery 03/23 Labs reviewed Labs for tomorrow Discussed with patient and son at bedside Will follow Martin Irby MD March 24, 2017 11:15
[2017-03-24] MEDS ORDERED: HEPARIN 25,000 UNITS-D5W 250 ML - PREMIX IV SCH (11:30)
[2017-03-24 12:00] VITALS: BP 127/63; PULSE 83; RESP 18; TEMP 96.4; O2SAT 95
--- NOTE | 2017-03-24 13:47 | PD.CONS ---
Consult Service Palliative Care Consult Requested By MD Von. Primary Care Physician Carissa Kumar MD Reason for Consultation a. To assist with evaluation and management of symptoms including: Debility and pain. b. To assist medical decision maker(s) with: better understanding of current medical conditions; weighing benefits/burdens of medical treatment options; making medical treatment decisions. . HPI History of Present Illness Mr. Olivier is an 81 y/o male with a medical history significant for CCL, prostate cancer, COPD and CVA x 2 who presented to the ED on 03/22/17 endorsing persistent abdominal pain. patient with recent history of cholecystitis s/p cholecystostomy on 02/04/17. Patient was admitted for evaluation and possible cholecystectomy. Neurology -Dr. Reina consulted on 03/23/17 secondary to history of recent strokes. Patient underwent diagnostic laparoscopy on 03/23/17 for recurring, acute and chronic cholecystitis status post cholecystostomy tube. 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 Pending peritoneal biopsy for confirmation of diagnosis. Oncology and radiation oncology has been consulted. Patient with recent multiple hospitalizations since November 2016. Stroke on 09/23, patient was discharged to rehabilitation on 11/20/16 where he stayed until 11/27/16. Subsequent hospitalization on 11/27/16 when patient returned from rehabilitation facility secondary to sepsis. Patient was once more discharge to rehabilitation on 12/04/16 where he stayed until 12/17/16. Patient return to hospital on 12/17/16 secondary to second stroke. He was subsequently discharged to rehabilitation on 12/21/16 where he stayed until 01/11/17. Patient was discharged home with home health. He returned on 02/02/17 secondary to acute cholecystitis. He underwent cholecystostomy on 02/04/17 was discharge home on 02/08/17. Laboratory today revealing WBC 14.1, Hgb 12.4, platelet count 138. Sodium 140, potassium 3.9, BUN/creatinine 21/1.28. No imaging during this hospitalization. Patient is afebrile, stable hemodynamically. Tolerating room air with oxygen saturation in the mid-high 90s. Patient seen in his room, he was laying in bed in no acute distress. Family meeting with patient, son Dusty, daughter Christina , daughter Tere and son Anibal via telephone. In this first visit, introduced the role of palliative care in advanced illness in regard to pain and symptom management as well as support surrounding goals of care and advance care planning. Reviewed events leading to these hospitalization to include prior hospitalizations since November 2016. Reviewed current clinical course to include diagnostic laparoscopy on 03/23/17. 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 Discussed with patient and family that his disease is likely metastatic and therefore not curable. Reviewed differences in treatment options to include palliation of symptoms and/or for prolongation of survival. Introduce hospice philosophy and benefits in the event patient elects comfort directed care. Patient and family wishing to wait for confirmatory biopsy and consultation with oncology/radiation oncology to discuss any treatment options, if any. Patient and family verbalized being receptive to hospice services at home should his clinical condition worsen, additional progression of illness or if patient declines any therapy offered. Patient and family very appreciative of palliative care visit today. Palliative care contact information was provided. . Function/Cognitive Trajectory Patient is intact cognitively. Fully independent with ADLs up until November 2016. Ambulating with 3 program cane prior to his stroke in November,. Multiple hospitalizations in November, December and January with intermittent discharge to rehabilitation for physical strengthening. No cognitive decline reported. Patient currently debilitated secondary to acute illness and multiple prolonged hospitalizations, requiring assistance with ADLs. Is able to feed self. . Review of Systems Constitutional: COMPLAINS OF: Fatigue, Change in appetite, Pain Endocrine: DENIES: Heat/cold intolerance Eyes: DENIES: Eye pain Ears, nose, mouth, throat: DENIES: Hearing loss Respiratory: DENIES: Apneas, Sputum production Cardiovascular: DENIES: Chest pain, Lower Extremity Edema Gastrointestinal: COMPLAINS OF: Abdominal pain, DENIES: Nausea, Vomiting, Difficulty Swallowing Genitourinary: DENIES: Urinary incontinence Musculoskeletal: COMPLAINS OF: Back pain Integumentary: DENIES: Abnormal pigmentation Hematologic/Lymphatics: COMPLAINS OF: Bruising Immunologic/Allergic: DENIES: Eczema Neurologic: COMPLAINS OF: Abnormal gait, Poor Balance Psychiatric: DENIES: Anxiety, Confusion, Agitation Past Family Social History Coded Allergies: Lyrica (Verified Adverse Reaction, Severe, Drowsiness, 03/22/17) Past Medical History CVA 2 in November and December 2016. Chronic lymphocytic leukemia Prostate cancer COPD Hypertension Recent cholecystitis Diabetes mellitus type 2 Peripheral neuropathy Hyperlipidemia DVT to left lower extremity . Past Surgical History Cholecystostomy on 02/04/17 Tonsillectomy and adenoidectomy Dental surgery . Reported Medications Vitamin B12 Folic acid Sinemet Gabapentin Warfarin . Current Medications Medications (Trade) Dose Ordered Sig/Robert Route Start Time Stop Time Status Last Admin (NS 1000 ml Inj) 1,000 ml @ 100 mls/hr Q10H IV 03/22/17 23:59 03/23/17 22:24 (Pill Splitter) 1 ea UNSCH PRN OTHER 03/22/17 16:15 (Harford 5-325 Mg) 1 tab Q4H PRN PO 03/23/17 14:00 (Morphine Inj) 2 mg Q30M PRN IV 03/23/17 14:00 (Harford 5-325 Mg) 2 tab Q4H PRN PO 03/23/17 14:00 03/24/17 08:22 (Coumadin Booklet) 1 ONCE ONCE OTHER 03/24/17 16:00 03/24/17 16:01 Warfarin Sodium 7.5 mg 7.5 mg DAILY@16 PO 03/24/17 16:00 (Heparin-D5W Inj) 250 ml @ 0 mls/hr TITRATE IV 03/24/17 12:45 Substance Use Tobacco: Former smoker. Quit approximately 40 years ago. Alcohol: Former social drinker. Quit a year ago. Prescription med abuse: None reported. Illicits: None reported. . Psychosocial History Patient is originally from [place]. He is , for 63 years. His last month. They have 5 children. Son Dusty, son Vinay ( ), daughter Christina, son Anibal who lives in [place] and daughter Ge who is adopted. 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 He served in the [employer] for 2 years. Patient moved from [place] to [place] in 1983 for fci. . Spiritual/Cultural Factors Caodaism linh. . Living Will: Copy in medical record Health Care Surrogate: Copy in medical record Durable Power of Nut Process Helper: Completed, but not made available Date completed: November 26, 2015. . Health Care Surrogate(s): Patient designating daughter Christina Genao as primary healthcare surrogate, alternated son Dusty Olivier. . Documented care wishes: Living will with standard verbiage as it pertains to terminal condition, and stage condition or persistent vegetative state. Patient electing not to prolong his life in the event of the above-mentioned conditions. He further desires that nutrition be withheld or withdrawn when the application of such procedures would only serve to prolong artificially the process of dying. . Today's verbally stated goals: Full code for now. Continue current medical management, pending biopsy results for confirmation of malignancy. Patient to further discuss treatment options with oncology/radiation oncology and will make a medical decision as it relates to treatment options vs. hospice care. . Family/friends goals: All children fully supportive of patient's wishes at this time. . Ethical and Legal Issues No ethical legal issues have been identified. . Physical Exam Vital Signs Date Time Temp Pulse Resp B/P Pulse Ox O2 Delivery O2 Flow Rate FiO2 03/24/17 12:00 96.4 83 18 127/63 95 03/24/17 08:52 96 21 03/24/17 08:00 96.7 85 18 134/75 96 03/24/17 04:23 18 03/24/17 00:00 97.1 92 20 107/61 94 03/23/17 20:00 97.0 102 20 133/76 94 03/23/17 16:00 96.8 114 16 105/55 97 03/23/17 15:54 97 Nasal Cannula 2.00 03/23/17 13:40 102 14 18/63 100 Nasal Cannula 2 03/23/17 13:30 101 14 121/63 100 Nasal Cannula 2 03/23/17 13:15 100 14 117/60 100 Nasal Cannula 2 03/23/17 03/24/17 18:59 06:59 Intake Total 2850 ml 971 ml Output Total 20 ml 50 ml Balance 2830 ml 921 ml Intake Oral 0 ml 240 ml IV Total 650 ml 731 ml Other 2200 ml Output Urine Total 50 ml Estimated Blood Loss 20 ml # Voids 1 1 # Bowel Movements 0 0 Exam CONSTITUTIONAL/GENERAL: This is an adequately nourished patient, in no apparent distress. TUBES/LINES/DRAINS: PIV's. SKIN: No jaundice, rashes, or lesions. Ecchymoses on upper extremities. Surgical incisions to left abdomen and umbilicus. Incision is closed, well approximated with no discharge or redness noted. Skin temperature appropriate. Not diaphoretic. HEAD: Atraumatic. Normocephalic. EYES: Pupils equal and round and reactive. Wears eyeglasses. Extraocular motions intact. No scleral icterus. No injection or drainage. Fundi not examined. ENT: Hearing grossly normal. Nose without bleeding or purulent drainage. Throat without visible erythema, exudates, masses, or lesions. NECK: Trachea midline. Supple, nontender. CARDIOVASCULAR: Regular rate and rhythm without murmurs, gallops, or rubs. No JVD. Peripheral pulses symmetric. RESPIRATORY/CHEST: Symmetric, unlabored respirations. Clear to auscultation. Breath sounds equal bilaterally. No wheezes, rales, or rhonchi. GASTROINTESTINAL: Abdomen soft, tender secondary to recent surgical intervention , distended. Bowel sounds present. GENITOURINARY: Without palpable bladder distension. MUSCULOSKELETAL: Extremities without clubbing, cyanosis, or edema. No mottling or clubbing. NEUROLOGICAL: Awake and alert. Motor and sensory grossly within normal limits. Follows commands. Cognitively sharp. Moves all extremities. PSYCHIATRIC: No obvious anxiety/depression. no apparent hallucinations or other psychotic thought process. Patient is pleasant and cooperative. . Diagnostic Tests Laboratory Laboratory Tests Test 03/22/17 03/23/17 03/23/17 03/23/17 15:40 05:04 10:48 19:45 White Blood Count 13.9 TH/MM3 14.1 TH/MM3 (4.0-11.0) (4.0-11.0) Red Blood Count 4.03 MIL/MM3 4.06 MIL/MM3 (4.50-5.90) (4.50-5.90) Hemoglobin 12.4 GM/DL 12.4 GM/DL (13.0-17.0) (13.0-17.0) Hematocrit 35.5 % 36.2 % (39.0-51.0) (39.0-51.0) Mean Corpuscular Volume 88.3 FL 89.1 FL (80.0-100.0) (80.0-100.0) Mean Corpuscular Hemoglobin 30.8 PG 30.5 PG (27.0-34.0) (27.0-34.0) Mean Corpuscular Hemoglobin 34.9 % 34.2 % Concent (32.0-36.0) (32.0-36.0) Red Cell Distribution Width 14.5 % 14.6 % (11.6-17.2) (11.6-17.2) Platelet Count 144 TH/MM3 138 TH/MM3 (150-450) (150-450) Mean Platelet Volume 6.8 FL 6.5 FL (7.0-11.0) (7.0-11.0) Neutrophils (%) (Auto) 38.7 % (16.0-70.0) Lymphocytes (%) (Auto) 56.4 % (9.0-44.0) Monocytes (%) (Auto) 3.5 % (0.0-8.0) Eosinophils (%) (Auto) 0.2 % (0.0-4.0) Basophils (%) (Auto) 1.2 % (0.0-2.0) Neutrophils # (Auto) 5.4 TH/MM3 (1.8-7.7) Lymphocytes # (Auto) 7.9 TH/MM3 (1.0-4.8) Monocytes # (Auto) 0.5 TH/MM3 (0-0.9) Eosinophils # (Auto) 0.0 TH/MM3 (0-0.4) Basophils # (Auto) 0.2 TH/MM3 (0-0.2) CBC Comment AUTO DIFF Differential Total Cells 100 Counted Neutrophils % (Manual) 34 % (16-70) Lymphocytes % 61 % (9-44) Monocytes % 4 % (0-8) Eosinophils % 1 % (0-4) Neutrophils # (Manual) 4.7 TH/MM3 (1.8-7.7) Differential Comment FINAL DIFF MANUAL Atypical Lymphocytes % (0-0) Smudge Cells PRESENT Platelet Estimate LOW (NORMAL) Platelet Morphology Comment NORMAL (NORMAL) Prothrombin Time 27.4 SEC 19.9 SEC 16.1 SEC (9.8-11.6) (9.8-11.6) (9.8-11.6) Prothromb Time International 2.4 RATIO 1.8 RATIO 1.4 RATIO Ratio Activated Partial 40.6 SEC Thromboplast Time (24.3-30.1) Sodium Level 137 MEQ/L 137 MEQ/L (136-145) (136-145) Potassium Level 4.0 MEQ/L 3.3 MEQ/L (3.5-5.1) (3.5-5.1) Chloride Level 101 MEQ/L 102 MEQ/L (98-107) (98-107) Carbon Dioxide Level 27.0 MEQ/L 26.0 MEQ/L (21.0-32.0) (21.0-32.0) Anion Gap 9 MEQ/L (5-15) 9 MEQ/L (5-15) Blood Urea Nitrogen 23 MG/DL (7-18) 22 MG/DL (7-18) Creatinine 1.45 MG/DL 1.29 MG/DL (0.60-1.30) (0.60-1.30) Estimat Glomerular Filtration 46 ML/MIN (>89) 53 ML/MIN (>89) Rate Random Glucose 105 MG/DL 113 MG/DL (74-106) (74-106) Serum Osmolality 282 MOSM/KG (275-295) Calcium Level 7.8 MG/DL 7.6 MG/DL (8.5-10.1) (8.5-10.1) Total Bilirubin 0.5 MG/DL (0.2-1.0) Aspartate Amino Transf 25 U/L (15-37) (AST/SGOT) Alanine Aminotransferase LESS THAN 6 (ALT/SGPT) U/L (12-78) Alkaline Phosphatase 129 U/L (45-117) Total Protein 5.1 GM/DL (6.4-8.2) Albumin 1.9 GM/DL (3.4-5.0) Lipase 313 U/L (73-393) Blood Type O POSITIVE Antibody Screen NEGATIVE Crossmatch Leukocyte-Reduced Red Blood Cells Blood Bank Comment Test 03/24/17 05:38 Prothrombin Time 13.4 SEC (9.8-11.6) Prothromb Time International 1.2 RATIO Ratio Sodium Level 140 MEQ/L (136-145) Potassium Level 3.9 MEQ/L (3.5-5.1) Chloride Level 105 MEQ/L (98-107) Carbon Dioxide Level 25.2 MEQ/L (21.0-32.0) Anion Gap 10 MEQ/L (5-15) Blood Urea Nitrogen 21 MG/DL (7-18) Creatinine 1.28 MG/DL (0.60-1.30) Estimat Glomerular Filtration 54 ML/MIN (>89) Rate Random Glucose 123 MG/DL (74-106) Calcium Level 7.3 MG/DL (8.5-10.1) Protein Corrected Calcium 8.5 MG/DL (8.5-10.1) Total Protein 4.9 GM/DL (6.4-8.2) Result Diagram: 03/23/17 0504 03/24/17 0538 Procedures * 03/23/17 -diagnostic laparoscopy, drainage of ascites and peritoneal biopsy. . Patient/Family Conference Present at Family Conference: Patient, son Dusty, daughter Christina, daughter Ge and son Anibal (via telephone - lives in [place]). . Family Conference Time (mins): 56 Family Conference Location: Bedside Issues Discussed: * Palliative care role, purpose, approach * Additional medical, psychosocial, and spiritual history * Patients general health, functional status, and cognitive changes in the months leading up to the current hospitalization -including multiple hospitalizations since his stroke in November 26, 2016. * Patient/family understanding of the current medical problems -carcinomatosis with malignant ascites. Likely gallbladder carcinoma. * Patient/family understanding of prognosis -terminal condition, likely stage IV gallbladder cancer. * Patients goals of care as best understood from advance directives and/or conversations and/or values * CODE STATUS. Discussed risks, limitations and benefits of CPR given patient' s terminal condition and debilitated state. * Current medical treatment options and benefits/burdens of those options * Likely scenarios comparing ongoing aggressive care with a transition to comfort measures only * Hospice philosophy and benefits * Questions answered to the best of my ability * Palliative care contact information provided . 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 Pending peritoneal biopsy. 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 (3) COPD (chronic obstructive pulmonary disease) Symptom Scale: (1) Abdominal pain 0-10 Scale: 3 Comment: Secondary to burden of disease and recent surgical intervention. (2) Debility 0-10 Scale: Unable to quantify Comment: Secondary to CVA 2, burden of disease and multiple prolonged hospitalizations. . Pertinent Non-Medical Issues Psychosocial: . Has 4 living children. Originally from [place], former [facility]. Spiritual: Ca[employer]ism linh. Legal: Living will has been completed, copy in chart. Ethical issues impacting care: No ethical issues have been identified. . Important Contacts Daughter/HCS: Jane Genao [phone] Son/alternate HCS: Dusty Olivier . . Prognosis Mr. Olivier is an 81 y/o male with a medical history significant for CCL, prostate cancer, COPD and CVA x 2 who presented to the ED on 03/22/17 endorsing persistent abdominal pain. patient with recent history of cholecystitis s/p cholecystostomy on 02/04/17. Patient status post diagnostic laparoscopy showing carcinomatosis with malignant ascites. 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 Patient with multiple prolonged hospitalizations since first stroke in November 2016. Patient's prognosis is very poor given his terminal condition, multiple comorbidities, and profound physical deconditioning. Patient appears hospice appropriate if he elects comfort-directed care. . Code Status: Full Code Plan * CODE STATUS: Full code at this time. Discussed benefits, risks and limitations of CPR, intubation and mechanical ventilation given patient's profound debility, multiple recent hospitalizations, multiple comorbidities, advanced age and terminal condition/carcinomatosis. Patient and family electing to continue full code at this time, ongoing discussions pending biopsy for confirmation of diagnosis. * MEDICAL DECISION-MAKING: Patient participating in medical decision-making. Patient designating daughter Christina Genao as primary healthcare surrogate, alternate surrogate son Dusty Olivier. * GOALS OF CARE: Full code for now. Patient wishing to Continue current medical management, pending biopsy results for confirmation of malignancy. Patient to further discuss treatment options with oncology/radiation oncology and will make a medical decision as it relates to treatment options vs. comfort- directed care. Introduced hospice philosophy and benefits. Reviewed the future role of hospice services should he elects comfort-directed care, or in the event of worsening clinical condition or further decline. Patient and family receptive to this. * SYMPTOMS: = Abdominal pain: Secondary to burden of disease, recent surgical intervention. Harford and morphine available as needed. Patient reports Harford is effective for pain. No further recommendations. = Debility: Secondary to burden of disease, CVA 2, multiple recent prolonged hospitalizations. * Palliative care contact information has been provided to patient and family. * Palliative care will continue to follow-up for further clarifications of goals of care as his medical course evolves. . Time Spent Total Floor Time (mins): 95 (Total care to include review and summarization of available medical records to include prior hospitalizations, physical exam, goals of care conversation with patient and family, assistance in completing living well/healthcare surrogate designation.) >50% Counseling/Coord of Care: Yes Thank you for the opportunity to participate in the care of Mr. Olivier. Attestation To help prompt me to consider important information that might be impacting today's encounter and assessment, information from prior notes written by myself or my colleagues may have been "brought forward" into today's note. My signature on this note, however, is an attestation that I personally performed the exam, history, and/or decision-making noted today, and, unless otherwise indicated, the interactions with patient, family, and staff as well as the review of records all occurred today. I also attest that the listed assessment and stated plan reflect my best clinical judgment today based on the combination of historical information, prior notes, and today's exam/ interactions. When time spent is documented, it refers only to time spent today by the signer, or if indicated, combined time spent today by collaborating physician/nurse practitioner. Stephanie North March 24, 2017 13:47
[2017-03-24 16:00] VITALS: BP 144/78; PULSE 95; RESP 19; TEMP 95.3; O2SAT 94
[2017-03-24] MEDS ORDERED: WARFARIN SOD 7.5 MG TAB PO SCH (16:00)
[2017-03-24] MEDS ORDERED: WARFARIN SOD 5 MG TAB PO SCH (16:00)
--- NOTE | 2017-03-24 16:16 | HHI.PR ---
Subjective Subjective Notes Resting in bed Son (Dusty) at bedside In good spirits Objective Vitals/I&O Vital Signs Date Time Temp Pulse Resp B/P Pulse Ox O2 Delivery O2 Flow Rate FiO2 03/24/17 12:00 96.4 83 18 127/63 95 03/24/17 08:52 21 03/23/17 15:54 Nasal Cannula 2.00 Labs Laboratory Tests Test 03/23/17 03/24/17 19:45 05:38 Prothrombin Time 16.1 13.4 Prothromb Time International 1.4 1.2 Ratio Sodium Level 140 Potassium Level 3.9 Chloride Level 105 Carbon Dioxide Level 25.2 Anion Gap 10 Blood Urea Nitrogen 21 Creatinine 1.28 Estimat Glomerular Filtration 54 Rate Random Glucose 123 Calcium Level 7.3 Protein Corrected Calcium 8.5 Total Protein 4.9 Cardiovascular: Regular Lungs: Clear Abdomen: Other (lap sites c/d/i; minimal tenderness with palpation; abd soft ) Extremities: No edema A/P Assessment and Plan 81 year old male POD1 diagnostic laparoscopy, drainage of ascites, peritoneal biopsy -Await final pathology -Appreciate Palliative Care consult---family meeting today -Regular diet -Pain control -Okay for family to bring food from home -Updated Dusty (son) at bedside Attending Statement The exam, history, and the medical decision-making described in the above note were completed with the assistance of the mid-level provider. I reviewed and agree with the findings presented. I attest that I had a [id number] encounter with the patient on the same day, and personally performed and documented my assessment and findings in the medical record. Abdominal exam minimal postop tenderness long discussion with family and patient, terminal diagnosis, minimal response to treatments, recommend palliative care, will have rad onc, med onc and palliative care team see the patient to discuss treatment plan/options no surgical intervention indicated Myrna Zaidi March 24, 2017 16:16 Juan Antonio Longoria MD April 05, 2017 17:00
[2017-03-24] MEDS ORDERED: DIATRIZOATE MEGLUM/DIATRIZOATE SOD 9 ML CUP PO ONE (16:45)
--- NOTE | 2017-03-24 17:46 | MB ---
cc: NORA HALL M.D., ANDREW DATE OF CONSULTATION: 03/24/[address] Longoria REASON FOR CONSULTATION Oncology consult render opinion regarding patient newly discovered carcinomatosis, worrisome for metastatic gallbladder cancer. HISTORY OF PRESENT ILLNESS The patient is a very pleasant 81-year-old male very complicated medical history brought in the hospital because of abdominal pain. He was admitted a few weeks ago because of right upper quadrant pain at that time he was found to have cholecystitis and a drain was placed. He stated the drains subsequently fell out he has started having upper abdominal pain again that waxes wane. He also lost about 20 pounds decreased appetite. He has increased weakness. Denies any fever or chills as chest pain, shortness of breath or cough. Denies any nausea or vomiting. Denies any diarrhea. No dysuria, hematuria, he underwent external laparotomy yesterday for possible cholecystectomy. Unfortunately he was found to have a diffuse carcinomatosis an malignant ascites. The cholecystectomy was not done. PAST MEDICAL HISTORY 1. Hypertension 2. Anxiety 3. Cholecystitis 4. Prostate cancer treated radiation. 5. Bladder cancer followed by urology 6. Diabetes mellitus. 7. Peripheral neuropathy. 8. Chronic lymphocytic leukemia. 9. Stroke x2. 10. Pressure ulcer. 11. Hyperlipidemia. 12. Left lower extremity deep venous thrombosis. 13. Chronic obstructive pulmonary disease. PAST SURGICAL HISTORY 1. Tonsillectomy and adenoidectomy 2. Dental surgery. 3. Biliary drain placement 4. Prostate biopsy FAMILY HISTORY Two daughters both healthy. SOCIAL HISTORY Quit tobacco 40 years ago. Denies alcohol use. ALLERGIES LYRICA CURRENT MEDICATIONS 1. Warfarin. 2. Heparin. REVIEW OF SYSTEMS CONSTITUTIONAL: has some has about 20 pounds weight loss increased weakness. HEAD, EYES, EARS, NOSE, AND THROAT: Eyes: Denies any blurry vision, double vision. ENT: No mouth sore voice changes. CARDIOVASCULAR: No chest pain, palpitation. RESPIRATORY: Denies any shortness of breath. GASTROINTESTINAL As above. GENITOURINARY: No dysuria, hematuria. MUSCULOSKELETAL: Negative. HEMATOLOGIC: Hematology negative. ENDOCRINE: Endocrine negative. DERMATOLOGY: Negative. PSYCHIATRIC: Psychiatric negative. NEUROLOGIC: Negative. PHYSICAL EXAMINATION: VITAL SIGNS: Temperature 97.1, blood pressure 107/61, O2 saturation 94%. IN GENERAL: He is alert and x3 in no acute distress. HEAD, EYES, EARS, NOSE, AND THROAT: Atraumatic, normocephalic. Pupils equal, round and light. Extraocular muscles intact, no scleral icterus. Oropharynx dry mucosa. No lesion. NECK: No thyromegaly. No palpable masses. LYMPHATICS: No palpable cervical, clavicular, axillary lymph node CARDIOVASCULAR SYSTEM: Regular S1-S2 no murmurs. LUNGS: Basilar crackles. ABDOMEN: Soft, nontender. Left lower quadrant. No significant tenderness in the right upper quadrant surgical scar noted. EXTREMITIES: No cyanosis, no significant edema. BACK: No paravertebral tenderness. SKIN: No rash. RADIOLOGY Nonfocal. LABORATORY DATA: Reviewed ASSESSMENT 1. Peritoneal carcinomatosis. He has had abdominal pain for several months. Initially he was thought to have a cholecystitis. He underwent exploratory laparotomy yesterday. Unfortunately he was found to malignant ascites and 3.5 liters were drained. There was diffuse peritoneal, hepatic and visceral carcinomatosis with dense inflammatory adhesions versus malignant adhesion of the gallbladder, frozen section was consistent with carcinoma. 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 The patient has lost about 20 pounds. He has increased weakness. At this point I am going to get the CT scan but have to be done without contrast for further staging. I will check his tumor marker. He may need further GI workup with upper endoscopy and colonoscopy to see if there is any other GI primary tumor. Pathology from the peritoneal biopsy is pending at this time. The patient is rather weak and has poor performance status. He may not be a good candidate for palliative chemotherapy especially if this turns out to be a gallbladder carcinoma. The patient has been seeing Dr. Mantilla for chronic lymphocytic leukemia. He can follow up with Dr. Mantilla after discharge from hospital. 2. Chronic lymphocytic leukemia. He is currently seeing Dr. Mantilla he is not receiving any treatment. His white blood cell count has been stable. 3. History of prostate cancer treated with radiation. 4. History of bladder cancer which appeared to be non muscle invasive he had multiple cystoscopy and transurethral resection of bladder tumor. He has follow up with urology. 5. Stroke, twice. 6. Diabetes mellitus. 7. Anxiety. 8. History of left lower extremity venous thrombosis. He is currently on anticoagulation. RECOMMENDATIONS: 1. Get CT of chest, abdomen and pelvis. 2. Check tumor marker. 3. Await pathology. 4. Further treatment and recommendation will depend on the final tissue diagnosis. 5. He may need further gastrointestinal work up with upper endoscopy and colonoscopy but we can wait untill the final pathology is resulted. Thank you Dr. Longoria for asking me to see this patient. MD ELISABETH Cruz/hilario /4:25 PM /5:28 PM JANELLE
[2017-03-24 20:00] VITALS: BP 153/74; PULSE 100; RESP 22; TEMP 96.3; O2SAT 93
[2017-03-24 21:07] LABS: APTT (PATIENT) 71.1 SEC (24.3-30.1)
--- NOTE | 2017-03-24 23:20 | RADRPT ---
EXAM DATE/TIME: 03/24/2017 22:40 [facility] COMPARISON: CT ABDOMEN W/O CONTRAST, November 28, 2016, 8:38. INDICATIONS : Lower abdomen pain for one week. ORAL CONTRAST: Prescribed oral contrast ingested. RADIATION DOSE: 19.63 CTDIvol (mGy) ; Combined studies MEDICAL HISTORY : Stroke. Chronic obstructive pulmonary disease. SURGICAL HISTORY : gallbladder drain ENCOUNTER: Initial ACUITY: 1 week PAIN SCALE: 6/10 LOCATION: Bilateral lower quadrant TECHNIQUE: Volumetric scanning of the abdomen and pelvis was performed. Using automated exposure control and ad justment of the mA and/or kV according to patient size, radiation dose was kept as low as reasonably achievable to obtain optimal diagnostic quality images. FINDINGS: Compare November. See chest CT for findings in the lower chest. Since the prior exam the cholecystostomy tube has been removed. The also residual calcified gallstone s in the gallbladder fossa. There is also development of mild ascites in the abdomen and pelvis and m ild anasarca. Wedge-shaped opacity posterior spleen is decreasing likely representing an evolving inf arct. There is some questionable liver cirrhosis. Retroperitoneal lymph nodes are borderline to mildly enlarged measuring a maximum of 1.3 cm on the le ft on image #41. No bowel obstruction. No free air. No acute bony abnormalities. CONCLUSION: 1. Development of mild ascites and mild anasarca since November 2016. 2. Evolving splenic infarct. 3. Removal of cholecystostomy tube with some residual calcifications in the gallbladder characteristi c of gallstones. No bowel obstruction. Colonic diverticulosis. No free air. Christopher Ruano MD on March 24, 2017 at 23:06 Board Certified Radiologist. This report was verified electronically.
--- NOTE | 2017-03-24 23:25 | RADRPT ---
EXAM DATE/TIME: 03/24/2017 22:40 [facility] COMPARISON: No previous studies available for comparison. INDICATIONS : Shortness of breath. RADIATION DOSE: 19.63 CTDIvol (mGy) ; Combined studies MEDICAL HISTORY : Stroke. Chronic obstructive pulmonary disease. SURGICAL HISTORY : gallbladder drain ENCOUNTER: Initial ACUITY: 1 day PAIN SCALE: 0/10 LOCATION: Bilateral chest TECHNIQUE: Volumetric scanning of the chest was performed. Using automated exposure control and adjustment of t he mA and/or kV according to patient size, radiation dose was kept as low as reasonably achievable to obtain optimal diagnostic quality images. FINDINGS: There is development of moderate bilateral pleural effusions and compressive atelectasis at both lung bases. There is also patchy airspace disease in both lungs predominantly peripherally in the right m iddle lobe and left upper lobe. No borderline to mildly enlarged mediastinal lymph nodes and lymph nodes in the pericardial region mota ve increased in size since November abdomen CT. There is some septal thickening possibly related to mild edema. Overall heart size is within normal l imits. No significant pericardial effusion. CONCLUSION: 1. Development of moderate bilateral pleural effusion since prior chest CT. Is also patchy mostly per ipheral consolidation in both lungs and some interstitial prominence. 2. Mild mediastinal and pericardial adenopathy, slightly increased from prior study in November. 3. Moderate coronary artery calcifications. Christopher Ruano MD on March 24, 2017 at 23:19 Board Certified Radiologist. This report was verified electronically.
[2017-03-25] VITALS: BP 139/71; PULSE 96; RESP 22; TEMP 96.9; O2SAT 94
[2017-03-25 04:00] VITALS: BP 131/74; PULSE 102; RESP 22; TEMP 97.1; O2SAT 94
[2017-03-25] MEDS: ACETAMINOPHEN/HYDROcodone 325 MG/5 MG TAB PO PRN ×3 (04:00→21:53)
[2017-03-25 04:08] LABS: INTERNATIONAL NORMALIZED RATIO 1.9 RATIO; PROTHROMBIN TIME - PATIENT 21.4 SEC (9.8-11.6)
[2017-03-25 04:11] LABS: APTT (PATIENT) 70.6 SEC (24.3-30.1)
[2017-03-25 08:00] VITALS: BP_SYST 155; BP_SYST 168; BP_DIAS 74; BP_DIAS 88; PULSE 100; RESP 17; TEMP 96.3; O2SAT 92
--- NOTE | 2017-03-25 08:31 | HHI.PR ---
Subjective Remarks gall bladder ca Objective Vital Signs Date Time Temp Pulse Resp B/P Pulse Ox O2 Delivery O2 Flow Rate FiO2 03/25/17 05:00 18 03/25/17 04:00 97.1 102 22 131/74 94 03/25/17 00:00 96.9 96 22 139/71 94 03/24/17 20:00 96.3 100 22 153/74 93 03/24/17 16:00 95.3 95 19 144/78 94 03/24/17 12:00 96.4 83 18 127/63 95 03/24/17 08:52 96 21 I/O 03/24/17 03/24/17 03/24/17 03/25/17 03/25/17 03/25/17 07:00 15:00 23:00 07:00 15:00 23:00 Intake Total 120 ml 562 ml 1234 ml 316 ml Output Total 200 ml 50 ml Balance 120 ml 362 ml 1234 ml 266 ml Intake Oral 120 ml 175 ml 1146 ml 240 ml IV Total 387 ml 88 ml 76 ml Output Urine Total 200 ml 50 ml # Voids 1 1 2 2 # Bowel Movements 0 0 1 0 Result Diagram: 03/23/17 0504 03/24/17 0538 Objective Remarks awake alert nl speech in chair moves all well nad bm looks well Assessment and Plan Assessment and Plan inr 1.9 coumadin 1mg today dc hep keep inr 2-2.5 onc on case the cancer could acct for his cva hypercoag? ok jay neurowise Pete Parekh MD March 25, 2017 08:31
--- NOTE | 2017-03-25 10:59 | PD.ONC.PN ---
Subjective Subjective Remarks Afebrile overnight. Patient resting in bed. had large bm this AM. complaining of nausea. no vomiting. continues to have abdominal pain. Objective Data Date Time Temp Pulse Resp B/P Pulse Ox O2 Delivery O2 Flow Rate FiO2 03/25/17 08:00 96.3 100 17 168/88 92 155/74 03/25/17 05:00 18 03/25/17 04:00 97.1 102 22 131/74 94 03/25/17 00:00 96.9 96 22 139/71 94 03/24/17 20:00 96.3 100 22 153/74 93 03/24/17 16:00 95.3 95 19 144/78 94 03/24/17 12:00 96.4 83 18 127/63 95 03/25/17 03/25/17 03/25/17 07:00 15:00 23:00 Intake Total 316 ml Output Total 50 ml Balance 266 ml Result Diagram: 03/23/17 0504 03/24/17 0538 Laboratory Results Laboratory Tests Test 03/24/17 03/25/17 20:30 03:41 Activated Partial 71.1 SEC 70.6 SEC Thromboplast Time Tumor Marker Alpha Fetoprotein 1.5 NG/ML Carcinoembryonic Antigen 21.3 NG/ML CA 19-9 Antigen 1397.1 U/ML Prothrombin Time 21.4 SEC Prothromb Time International 1.9 RATIO Ratio Administered Medications Medications (Trade) Dose Ordered Sig/Robert Route PRN Reason Start Time Stop Time Status Last Admin Dose Admin Acetaminophen/ Hydrocodone Bitart ([place] 5-325 Mg) 2 tab Q4H PRN PO SEE LABEL COMMENTS 03/23/17 14:00 03/25/17 04:00 Objective Remarks GENERAL: Elderly male, lying supine in bed SKIN: Warm and dry. HEAD: Normocephalic. EYES: No injection or drainage. NECK: Supple, trachea midline. CARDIOVASCULAR: Regular rate and rhythm RESPIRATORY: Breath sounds equal bilaterally. No accessory muscle use. GASTROINTESTINAL: Abdomen mildly tender throughout EXTREMITIES: No cyanosis MUSCULOSKELETAL: Adequate muscle tone. NEUROLOGICAL: No obvious focal deficit. Awake, alert, and oriented x3. Assessment/Plan Problem List: (1) Abdominal carcinomatosis Status: Acute Plan: --Peritoneal carcinomatosis. --ex lap-->diffuse peritoneal, hepatic and visceral carcinomatosis with dense inflammatory adhesions versus malignant adhesion of the gallbladder, frozen section was consistent with carcinoma. 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 ++20 pounds weight loss. --will consult GI for panendoscopy to look for GI primary tumor --pathology from peritoneal biopsy is pending ++poor performance status. He may not be a good candidate for palliative chemotherapy especially if this turns out to be a gallbladder carcinoma. --this is a Dr. 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 Mantilla --not receiving any treatment. His white blood cell count has been stable. Assessment 81y/o with newly discovered carcinomatosis, worrisome for metastatic gallbladder cancer. h/o Hypertension. Anxiety. Cholecystitis. Prostate cancer treated radiation. Bladder cancer followed by urology. Diabetes mellitus. Peripheral neuropathy. Chronic lymphocytic leukemia. Stroke x2. Pressure ulcer. Hyperlipidemia. Left lower extremity deep venous thrombosis. Chronic obstructive pulmonary disease. Plan 1. consult GI for panendoscopy to look fro primary GI tumor 2. await pathology Attending Statement The exam, history, and the medical decision-making described in the above note were completed with the assistance of the mid-level provider. I reviewed and agree with the findings presented. I attest that I had a [id number] encounter with the patient on the same day, and personally performed and documented my assessment and findings in the medical record. No new symptoms. CT showed mild mediastinal and pericardial LN. No obvious mass noted on CT abdomen/pelvis. Final path pending. CA19-9 elevated. CEA slightly elevated. Consult GI for endoscopy to r/o other GI tract primary tumor. Rani June March 25, 2017 10:59 Juan Manuel Peraza MD March 25, 2017 18:57
--- NOTE | 2017-03-25 11:39 | HHI.HCPN ---
Reason for visit a. To assist with evaluation and management of symptoms including: Debility and pain. b. To assist medical decision maker(s) with: better understanding of current medical conditions; weighing benefits/burdens of medical treatment options; making medical treatment decisions. . Subjective/Interval History Palliative care follow up for clarifications of goals of care and emotional support. Patient sitting in his room, he was worsening bed in no acute distress. Alert, oriented times self, place and situation. No family at bedside. Patient endorsing nausea this morning, no vomiting. Very poor appetite, did not eat breakfast today. Endorsing intermittent abdominal pain, exacerbated by movement and alleviated by pain medication and rest. Pain is described as dull, poorly localized. Hematology following. Patient also reporting anxiety since yesterday. He reports history of anxiety, reports beginning on a medication but does not recall the name. Oncology following. Awaiting pathology report for confirmation of diagnosis. Patient may not be a good candidate for palliative chemotherapy secondary to poor performance status. CT abdomen and pelvis 03/24/17, no solid tumors revealed. Chest CT 03/24 revealing mild mediastinal and pericardial adenopathy. No new laboratory for review. Bedside conversation with patient. Reviewed CT of abdomen and chest results. Reviewed that even if CT of abdomen did not reveal a solid mass, surgical observation consistent with carcinomatosis. Goals of care remain unchanged, patient and family awaiting pathology results to discuss any treatment options. Discussed with patient that he may not be a good candidate for palliative chemotherapy secondary to poor performance status. Discussed difference between curative treatment and palliative treatment. Patient verbalize that if there is no treatment options for his clinical condition worsened, he would be amenable to hospice services at home. Discussed CODE STATUS, patient currently full code as per conversation with patient and family yesterday. Discussed risks, benefits and limitations of CPR, intubation and mechanical ventilation given patient's clinical condition, multiple comorbidities and terminal condition. Patient electing to remain full code at this time. Reviewed with patient that CODE STATUS can be change at any time, encouraged to further discuss with family. . Family/friend interactions See interval note. . Advance Directives Living Will: Copy in medical record Health Care Surrogate: Copy in medical record Durable Power of Barking Machine Feeder: Completed, but not made available Advance Directive Specifics Date completed: November 26, 2015. . Health Care Surrogate(s): Patient designating daughter Christina Genao as primary healthcare surrogate, alternated son Dusty Olivier. . Documented care wishes: Living will with standard verbiage as it pertains to terminal condition, and stage condition or persistent vegetative state. Patient electing not to prolong his life in the event of the above-mentioned conditions. He further desires that nutrition be withheld or withdrawn when the application of such procedures would only serve to prolong artificially the process of dying. . Significant change in goals: Full code. Pending pathology report for confirmation of diagnosis and evaluation of any treatment plan. Objective Vital Signs Date Time Temp Pulse Resp B/P Pulse Ox O2 Delivery O2 Flow Rate FiO2 03/25/17 08:00 96.3 100 17 168/88 92 155/74 03/25/17 05:00 18 03/25/17 04:00 97.1 102 22 131/74 94 03/25/17 00:00 96.9 96 22 139/71 94 03/24/17 20:00 96.3 100 22 153/74 93 03/24/17 16:00 95.3 95 19 144/78 94 03/24/17 12:00 96.4 83 18 127/63 95 Intake & Output 03/25/17 03/25/17 07:00 19:00 Intake Total 1550 ml Output Total 50 ml Balance 1500 ml Intake Oral 1386 ml IV Total 164 ml Output Urine Total 50 ml # Voids 4 # Bowel Movements 1 Physical Exam CONSTITUTIONAL/GENERAL: This is an adequately nourished patient, in no apparent distress. TUBES/LINES/DRAINS: PIV's. SKIN: No jaundice, rashes, or lesions. Ecchymoses on upper extremities. Surgical incisions to left abdomen and umbilicus. Incision is closed, well approximated with no discharge or redness noted. Skin temperature appropriate. Not diaphoretic. HEAD: Atraumatic. Normocephalic. EYES: Pupils equal and round and reactive. Wears eyeglasses. Extraocular motions intact. No scleral icterus. ENT: Hearing grossly normal. Nose without bleeding or purulent drainage. Throat without visible erythema, exudates, masses, or lesions. NECK: Trachea midline. Supple, nontender. CARDIOVASCULAR: Regular rate and rhythm without murmurs, gallops, or rubs. No JVD. Peripheral pulses symmetric. RESPIRATORY/CHEST: Symmetric, unlabored respirations. Clear to auscultation. Breath sounds equal bilaterally. No wheezes, rales, or rhonchi. GASTROINTESTINAL: Abdomen soft, tender secondary to recent surgical intervention , distended. Bowel sounds present. GENITOURINARY: Without palpable bladder distension. MUSCULOSKELETAL: Extremities without clubbing. Trace edema to bilateral lower extremities. No mottling or clubbing. NEUROLOGICAL: Awake and alert. Motor and sensory grossly within normal limits. Follows commands. Cognitively sharp. Moves all extremities. PSYCHIATRIC: No obvious anxiety/depression. no apparent hallucinations or other psychotic thought process. Patient is pleasant and cooperative. . Diagnostic Tests Laboratory Laboratory Tests Test 03/22/17 03/23/17 03/23/17 03/23/17 15:40 05:04 10:48 19:45 White Blood Count 13.9 TH/MM3 14.1 TH/MM3 (4.0-11.0) (4.0-11.0) Red Blood Count 4.03 MIL/MM3 4.06 MIL/MM3 (4.50-5.90) (4.50-5.90) Hemoglobin 12.4 GM/DL 12.4 GM/DL (13.0-17.0) (13.0-17.0) Hematocrit 35.5 % 36.2 % (39.0-51.0) (39.0-51.0) Mean Corpuscular Volume 88.3 FL 89.1 FL (80.0-100.0) (80.0-100.0) Mean Corpuscular Hemoglobin 30.8 PG 30.5 PG (27.0-34.0) (27.0-34.0) Mean Corpuscular Hemoglobin 34.9 % 34.2 % Concent (32.0-36.0) (32.0-36.0) Red Cell Distribution Width 14.5 % 14.6 % (11.6-17.2) (11.6-17.2) Platelet Count 144 TH/MM3 138 TH/MM3 (150-450) (150-450) Mean Platelet Volume 6.8 FL 6.5 FL (7.0-11.0) (7.0-11.0) Neutrophils (%) (Auto) 38.7 % (16.0-70.0) Lymphocytes (%) (Auto) 56.4 % (9.0-44.0) Monocytes (%) (Auto) 3.5 % (0.0-8.0) Eosinophils (%) (Auto) 0.2 % (0.0-4.0) Basophils (%) (Auto) 1.2 % (0.0-2.0) Neutrophils # (Auto) 5.4 TH/MM3 (1.8-7.7) Lymphocytes # (Auto) 7.9 TH/MM3 (1.0-4.8) Monocytes # (Auto) 0.5 TH/MM3 (0-0.9) Eosinophils # (Auto) 0.0 TH/MM3 (0-0.4) Basophils # (Auto) 0.2 TH/MM3 (0-0.2) CBC Comment AUTO DIFF Differential Total Cells 100 Counted Neutrophils % (Manual) 34 % (16-70) Lymphocytes % 61 % (9-44) Monocytes % 4 % (0-8) Eosinophils % 1 % (0-4) Neutrophils # (Manual) 4.7 TH/MM3 (1.8-7.7) Differential Comment FINAL DIFF MANUAL Atypical Lymphocytes % (0-0) Smudge Cells PRESENT Platelet Estimate LOW (NORMAL) Platelet Morphology Comment NORMAL (NORMAL) Prothrombin Time 27.4 SEC 19.9 SEC 16.1 SEC (9.8-11.6) (9.8-11.6) (9.8-11.6) Prothromb Time International 2.4 RATIO 1.8 RATIO 1.4 RATIO Ratio Activated Partial 40.6 SEC Thromboplast Time (24.3-30.1) Sodium Level 137 MEQ/L 137 MEQ/L (136-145) (136-145) Potassium Level 4.0 MEQ/L 3.3 MEQ/L (3.5-5.1) (3.5-5.1) Chloride Level 101 MEQ/L 102 MEQ/L (98-107) (98-107) Carbon Dioxide Level 27.0 MEQ/L 26.0 MEQ/L (21.0-32.0) (21.0-32.0) Anion Gap 9 MEQ/L (5-15) 9 MEQ/L (5-15) Blood Urea Nitrogen 23 MG/DL (7-18) 22 MG/DL (7-18) Creatinine 1.45 MG/DL 1.29 MG/DL (0.60-1.30) (0.60-1.30) Estimat Glomerular Filtration 46 ML/MIN (>89) 53 ML/MIN (>89) Rate Random Glucose 105 MG/DL 113 MG/DL (74-106) (74-106) Serum Osmolality 282 MOSM/KG (275-295) Calcium Level 7.8 MG/DL 7.6 MG/DL (8.5-10.1) (8.5-10.1) Total Bilirubin 0.5 MG/DL (0.2-1.0) Aspartate Amino Transf 25 U/L (15-37) (AST/SGOT) Alanine Aminotransferase LESS THAN 6 (ALT/SGPT) U/L (12-78) Alkaline Phosphatase 129 U/L (45-117) Total Protein 5.1 GM/DL (6.4-8.2) Albumin 1.9 GM/DL (3.4-5.0) Lipase 313 U/L (73-393) Blood Type O POSITIVE Antibody Screen NEGATIVE Crossmatch Leukocyte-Reduced Red Blood Cells Blood Bank Comment Test 03/24/17 03/24/17 03/25/17 05:38 20:30 03:41 Prothrombin Time 13.4 SEC 21.4 SEC (9.8-11.6) (9.8-11.6) Prothromb Time International 1.2 RATIO 1.9 RATIO Ratio Sodium Level 140 MEQ/L (136-145) Potassium Level 3.9 MEQ/L (3.5-5.1) Chloride Level 105 MEQ/L (98-107) Carbon Dioxide Level 25.2 MEQ/L (21.0-32.0) Anion Gap 10 MEQ/L (5-15) Blood Urea Nitrogen 21 MG/DL (7-18) Creatinine 1.28 MG/DL (0.60-1.30) Estimat Glomerular Filtration 54 ML/MIN (>89) Rate Random Glucose 123 MG/DL (74-106) Calcium Level 7.3 MG/DL (8.5-10.1) Protein Corrected Calcium 8.5 MG/DL (8.5-10.1) Total Protein 4.9 GM/DL (6.4-8.2) Activated Partial 71.1 SEC 70.6 SEC Thromboplast Time (24.3-30.1) (24.3-30.1) Tumor Marker Alpha Fetoprotein 1.5 NG/ML (0.5-8.0) Carcinoembryonic Antigen 21.3 NG/ML (0.2-5.0) CA 19-9 Antigen 1397.1 U/ML (0.0-35.0) Result Diagram: 03/23/17 0504 03/24/17 0538 Imaging Last [address] 03/24/17 0000 Signed Impressions: Service Date/Time: , March 24, 2017 22:40 - CONCLUSION: 1. Development of moderate bilateral pleural effusion since prior chest CT. Is also patchy mostly peripheral consolidation in both lungs and some interstitial prominence. 2. Mild mediastinal and pericardial adenopathy, slightly increased from prior study in November. 3. Moderate coronary artery calcifications. Christopher Ruano MD Abdomen/Pelvis CT 03/24/17 0000 Signed Impressions: Service Date/Time: , March 24, 2017 22:40 - CONCLUSION: 1. Development of mild ascites and mild anasarca since November 2016. 2. Evolving splenic infarct. 3. Removal of cholecystostomy tube with some residual calcifications in the gallbladder characteristic of gallstones. No bowel obstruction. Colonic diverticulosis. No free air. Christopher Ruano MD Procedures * 03/23/17 -diagnostic laparoscopy, drainage of ascites and peritoneal biopsy. . 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 Pending peritoneal biopsy. 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 (3) COPD (chronic obstructive pulmonary disease) Symptom Scale: (1) Abdominal pain 0-10 Scale: 3 Comment: Secondary to burden of disease and recent surgical intervention. (2) Anxiety 0-10 Scale: 4 (3) Nausea 0-10 Scale: 0 (4) Debility 0-10 Scale: Unable to quantify Comment: Secondary to CVA 2, burden of disease and multiple prolonged hospitalizations. . Pertinent Non-Medical Issues Psychosocial: . Has 4 living children. Originally from [place], former [facility]. Spiritual: Sikhism linh. Legal: Living will has been completed, copy in chart. Ethical issues impacting care: No ethical issues have been identified. . Important Contacts Daughter/HCS: Jane Genao [phone] Son/alternate HCS: Dusty Olivier . . Prognosis Mr. Olivier is an 81 y/o male with a medical history significant for CCL, prostate cancer, COPD and CVA x 2 who presented to the ED on 03/22/17 endorsing persistent abdominal pain. patient with recent history of cholecystitis s/p cholecystostomy on 02/04/17. Patient status post diagnostic laparoscopy showing carcinomatosis with malignant ascites. 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 Patient with multiple prolonged hospitalizations since first stroke in November 2016. Patient's prognosis is very poor given his terminal condition, multiple comorbidities, and profound physical deconditioning. Patient appears hospice appropriate if he elects comfort-directed care. . Code Status: Full Code Plan * CODE STATUS: Full code at this time. Discussed benefits, risks and limitations of CPR, intubation and mechanical ventilation given patient's profound debility, multiple recent hospitalizations, multiple comorbidities, advanced age and terminal condition/carcinomatosis. Patient and family electing to continue full code at this time, ongoing discussions pending biopsy for confirmation of diagnosis. * MEDICAL DECISION-MAKING: Patient participating in medical decision-making. Patient designating daughter Christina Genao as primary healthcare surrogate, alternate surrogate son Dusty Olivier. * GOALS OF CARE: Full code for now. Patient wishing to Continue current medical management, pending biopsy results for confirmation of malignancy. Patient to further discuss treatment options with oncology/radiation oncology and will make a medical decision as it relates to treatment options vs. comfort- directed care. Introduced hospice philosophy and benefits. Reviewed the future role of hospice services should he elects comfort-directed care, or in the setting of worsening clinical condition or further decline. Patient and family receptive to this. * SYMPTOMS: = Abdominal pain: Secondary to burden of disease, recent surgical intervention. [place] and morphine available as needed. Patient reports [place] is effective for pain. No further recommendations. = Anxiety: Chronic, exacerbated by hospitalization. Alprazolam 0.25 every 8 hours as needed initiated today. = Nausea: Secondary to burden of disease. Zofran available as needed. = Debility: Secondary to burden of disease, CVA 2, multiple recent prolonged hospitalizations. No further recommendations at this time. * Palliative care contact information has been provided to patient and family. * Palliative care will continue to follow-up for further clarifications of goals of care as his medical course evolves. . Time Spent Total Floor Time (mins): 38 (Total time to include review medical records, physical exam, bedside conversation with patient.) >50% Counseling/Coord of Care: Yes Attestation To help prompt me to consider important information that might be impacting today's encounter and assessment, information from prior notes written by myself or my colleagues may have been "brought forward" into today's note. My signature on this note, however, is an attestation that I personally performed the exam, history, and/or decision-making noted today, and, unless otherwise indicated, the interactions with patient, family, and staff as well as the review of records all occurred today. I also attest that the listed assessment and stated plan reflect my best clinical judgment today based on the combination of historical information, prior notes, and today's exam/ interactions. When time spent is documented, it refers only to time spent today by the signer, or if indicated, combined time spent today by collaborating physician/nurse practitioner. Stephanie North March 25, 2017 11:39
--- NOTE | 2017-03-25 11:44 | HHI.PR ---
Subjective Subjective Remarks nauseous today not eating no abd. pain had 2 large BMs today no cp no sob no fever feeling anxious, requesting Xanax Review of Systems Constitutional Constitutional Remarks 12 point ROS completed, negative except as noted above Vitals/Results Intake & Output 03/24/17 03/24/17 03/25/17 15:00 23:00 07:00 Intake Total 562 ml 1234 ml 316 ml Output Total 200 ml 50 ml Balance 362 ml 1234 ml 266 ml Intake Oral 175 ml 1146 ml 240 ml IV Total 387 ml 88 ml 76 ml Output Urine Total 200 ml 50 ml # Voids 1 2 2 # Bowel Movements 0 1 0 Vital Signs Vital Signs Date Time Temp Pulse Resp B/P Pulse Ox O2 Delivery O2 Flow Rate FiO2 03/25/17 08:00 96.3 100 17 168/88 92 155/74 03/25/17 05:00 18 03/25/17 04:00 97.1 102 22 131/74 94 03/25/17 00:00 96.9 96 22 139/71 94 03/24/17 20:00 96.3 100 22 153/74 93 03/24/17 16:00 95.3 95 19 144/78 94 03/24/17 12:00 96.4 83 18 127/63 95 CBC/BMP: 03/23/17 0504 03/24/17 0538 Lab Results Laboratory Tests Test 03/24/17 03/25/17 20:30 03:41 Activated Partial 71.1 SEC 70.6 SEC Thromboplast Time Tumor Marker Alpha Fetoprotein 1.5 NG/ML Carcinoembryonic Antigen 21.3 NG/ML CA 19-9 Antigen 1397.1 U/ML Prothrombin Time 21.4 SEC Prothromb Time International 1.9 RATIO Ratio Physical Exam General General Appearance: Well Developed, No Acute Distress, Comfortable Eyes Eye Exam: Pupils Equal, Pupils Reactive Ears & Nose Ears & Nose Exam: Nasal Mucosa [place] Throat Throat Exam: Oral Mucosa [place] & Moist Neck Neck Exam: Neck Supple, Trachea Midline Pulmonary Resp Exam: No Distress Cardiology CV Exam: Regular, Good Perfusion Gastrointestinal/Abdomen GI Exam: Soft, Bowel Sounds Present, Positive Bowel Movement, Non-Distended GI Remarks abd. incisions intact Musculoskeletal MS Exam: Joints Intact Integumentary Skin Exam: Warm, Dry Extremeties Extremities Exam: Pedal Pulses Palpable, Trace Edema Neurologic Neuro Exam: Alert, Awake, Oriented, Speech Clear, Moving All Extremities, No Focal Deficits Psychiatric Psych Exam: Appropriate Responses VTE Prophylaxis VTE Prophylaxis Meds: Coumadin Assessment/Plan Problem List: (1) Abdominal carcinomatosis (2) CLL (chronic lymphocytic leukemia) (3) Anxiety (4) Debility (5) COPD (chronic obstructive pulmonary disease) (6) Hyperlipidemia (7) History of CVA (cerebrovascular accident) (8) Chronic anticoagulation (9) KEO on CPAP (10) Thrombocytopenia Assessment/Plan Abdominal pain, wt loss surgery following, input appreciated Plan was to do cholecystectomy, however, pt.found with ascites s/p diagnostic laparoscopy, drainage of ascites, peritoneal biopsy 03/23 bx pending, 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 Oncologist on board, frozen section was consistent with carcinoma. 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 Ca 19.9 1397.1, CEA 21.3 GI consult requested for panendoscopy to look for GI primary tumor pathology from peritoneal biopsy is pending per oncology noted, poor performance status, may not be a good candidate for palliative chemotherapy especially if this turns out to be a gallbladder carcinoma. Dr. Mantilla is his oncologist, follows him for CLL Recent cholecystitis s/p cholecystostomy no surgery done this time continue with medical management surgery following diet as tolerated Tachycardic, BP trending upwards, hx HTN-not on meds at home will start low dose Lopressor 12.5 mg po bid HLP hold statins for now Recent CVA (bilat) on chronic anticoagulation Neurology following, Dr. Parekh's input appreciated continue Coumadin, follow INR daily, 1.9 today off Heparin now neurology signed off Hx DVT continue Coumadin and follow INR Chronic obstructive pulmonary disease with obstructive sleep apnea continue to monitor Duonebs PRN Oxygen PRN ANDREI-stable now monitor B/C Anemia, mild monitor HH Thrombocytopenia, poss sec. malignancy, on anticoagulation monitor Plat monitor for bleeding Neuropathy resume Gabapentin C/O anxiety Xanax PRN ordered. Enc PO intake PT eval and tx, OOB Palliative consult in place, input appreciated. At this time continue with aggressive care until bx results are known. continue with supportive care and symptom management Labs in am D/W RN D/W pt D/W Dr. Irby This patient was seen by myself and Dr. Irby, this H&P is written on his behalf. Problem Qualifiers (1) COPD (chronic obstructive pulmonary disease): Qualified Code: J44.9 - Chronic obstructive pulmonary disease, unspecified COPD type (2) Hyperlipidemia: Qualified Code: E78.5 - Hyperlipidemia, unspecified hyperlipidemia type Tonya Barrett March 25, 2017 11:44
[2017-03-25 12:00] VITALS: BP 139/71; PULSE 104; RESP 19; TEMP 96.6; O2SAT 94
[2017-03-25] MEDS: CARBIDOPA/LEVODOPA 25 MG/100 MG TAB PO SCH ×2 (12:00→17:49)
--- NOTE | 2017-03-25 12:00 | HHI.PR ---
Subjective Subjective Notes Resting in bed Reports not much appetite Objective Vitals/I&O Vital Signs Date Time Temp Pulse Resp B/P Pulse Ox O2 Delivery O2 Flow Rate FiO2 03/25/17 08:00 96.3 100 17 168/88 92 155/74 03/24/17 08:52 21 03/23/17 15:54 Nasal Cannula 2.00 Labs Laboratory Tests Test 03/24/17 03/25/17 20:30 03:41 Activated Partial 71.1 70.6 Thromboplast Time Tumor Marker Alpha Fetoprotein 1.5 Carcinoembryonic Antigen 21.3 CA 19-9 Antigen 1397.1 Prothrombin Time 21.4 Prothromb Time International 1.9 Ratio Cardiovascular: Regular Lungs: Clear Abdomen: Other (abdomen soft; non tender; lap sites c/d/i ) Extremities: No edema A/P Assessment and Plan 81 year old male POD2 diagnostic laparoscopy, drainage of ascites, peritoneal biopsy -Await final pathology -Appreciate Palliative Care consult -Regular diet---encouraged smaller more frequent meals -Request something for anxiety ---Dr. Irby started Xanax -Pain control -Okay for family to bring food from home Attending Statement The exam, history, and the medical decision-making described in the above note were completed with the assistance of the mid-level provider. I reviewed and agree with the findings presented. I attest that I had a [id number] encounter with the patient on the same day, and personally performed and documented my assessment and findings in the medical record. Abdominal exam stable postop appreciate consult help poor prognosis, recommend palliative care Myrna Zaidi March 25, 2017 12:00 Juan Antonio Longoria MD April 05, 2017 17:03
[2017-03-25] MEDS: ONDANSETRON HCL 4 MG/2 ML VIAL IV PUSH PRN (12:36)
[2017-03-25] MEDS: GABAPENTIN 100 MG CAP PO SCH ×2 (12:37→22:58)
[2017-03-25] MEDS: ALPRAZolam 0.25 MG TAB PO PRN (12:37)
[2017-03-25 13:00] LABS: APTT (PATIENT) 37.1 SEC (24.3-30.1)
[2017-03-25] MEDS ORDERED: RESP: ALBUTEROL 2.5 MG/IPRATROPIUM 0.5 MG NEB (PRN) NEB (13:15)
--- NOTE | 2017-03-25 15:35 | PD.CONS ---
HPI History of Present Illness This is a 81 year old [gentleman] with hx cholecystitis s/p cholecystostomy tube , CLL, who was found to have abdominal carcinomatosis. GI has been consulted for panendoscopy to look for primary tumor. Pt is not good historian. he c/o 20lb weight loss in the last 5 months along with abdominal pain that starte a few months ago and lead up to him having had the cholecystostomy tube. he is unable to qualify this pain further. he says since his laparoscopy surgery on , he is having diffused abdominal burning sensation. He is having some nausea today. He denies prior n/v, dysphagia, acid reflux, heartburn, change in bowel habits, blood in stool, tarry stools. His last colonoscopy was done by Dr Sandy and he cannot recall when it was done or what the findings were. he has a hx DVT for which he takes coumadin. 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 Chronic lymphocytic leukemia Prostate cancer COPD Hypertension Recent cholecystitis Diabetes mellitus type 2 Peripheral neuropathy Hyperlipidemia DVT to left lower extremity . Past Surgical History Cholecystostomy on 02/04/17 Tonsillectomy and adenoidectomy Dental surgery . Coded Allergies: Lyrica (Verified Adverse Reaction, Severe, Drowsiness, 03/22/17) Medications Current Medications Medications (Trade) Dose Ordered Sig/Robert Route PRN Reason Start Time Stop Time Status Last Admin Dose Admin Miscellaneous (Pill Splitter) 1 ea UNSCH PRN OTHER SEE LABEL COMMENTS 03/22/17 16:15 Acetaminophen/ Hydrocodone Bitart ([place] 5-325 Mg) 1 tab Q4H PRN PO SEE LABEL COMMENTS 03/23/17 14:00 Morphine Sulfate (Morphine Inj) 2 mg Q30M PRN IV SEE LABEL COMMENTS 03/23/17 14:00 Acetaminophen/ Hydrocodone Bitart ([place] 5-325 Mg) 2 tab Q4H PRN PO SEE LABEL COMMENTS 03/23/17 14:00 03/25/17 04:00 Warfarin Sodium (Coumadin) 1 mg DAILY@16 PO 03/25/17 16:00 Alprazolam (Xanax) 0.25 mg Q8H PRN PO MILD ANXIETY 03/25/17 11:00 03/25/17 12:37 Ondansetron HCl (Zofran Inj) 4 mg Q6HR PRN IV PUSH NAUSEA 03/25/17 11:45 03/25/17 12:36 Carbidopa/Levodopa (Sinemet 25-100 Mg) 1 tab TID@07,12,16 PO 03/25/17 12:00 Gabapentin (Neurontin) 100 mg Q12H PO 03/25/17 12:00 03/25/17 12:37 Patient Own Medication PT OWN MED: MYRBET... DAILY PO 03/26/17 09:00 Future Hold Patient Own Medication PT OWN MED: RAPA... DAILY PO 03/26/17 09:00 Future Hold Metoprolol Tartrate (Lopressor) 12.5 mg Q12HR PO 03/25/17 21:00 Family History unk Social History No ETOH in 30 y, no tobacco in 38y, no illicit drug use Review of Systems Constitutional: COMPLAINS OF: Weight loss Eyes: DENIES: Blurred vision Ears, nose, mouth, throat: DENIES: Hearing loss Respiratory: DENIES: Cough Cardiovascular: DENIES: Chest pain Gastrointestinal: COMPLAINS OF: Abdominal pain, Nausea, Swelling of Abdomen, DENIES: Black stools, Bloody stools, Diarrhea, Vomiting, Difficulty Swallowing, Heartburn, Hematemesis Genitourinary: DENIES: Hematuria Musculoskeletal: DENIES: Muscle aches Integumentary: DENIES: Rash Hematologic/lymphatic: DENIES: Bruising Neurologic: DENIES: Abnormal gait Psychiatric: COMPLAINS OF: Anxiety GI Exam Vitals I&O Vital Signs Date Time Temp Pulse Resp B/P Pulse Ox O2 Delivery O2 Flow Rate FiO2 03/25/17 12:00 96.6 104 19 139/71 94 03/25/17 08:00 96.3 100 17 168/88 92 155/74 03/25/17 05:00 18 03/25/17 04:00 97.1 102 22 131/74 94 03/25/17 00:00 96.9 96 22 139/71 94 03/24/17 20:00 96.3 100 22 153/74 93 03/24/17 16:00 95.3 95 19 144/78 94 I/O 03/24/17 03/24/17 03/24/17 03/25/17 03/25/17 03/25/17 07:00 15:00 23:00 07:00 15:00 23:00 Intake Total 120 ml 562 ml 1234 ml 316 ml 275 ml Output Total 200 ml 50 ml 125 ml Balance 120 ml 362 ml 1234 ml 266 ml 150 ml Intake Oral 120 ml 175 ml 1146 ml 240 ml 275 ml IV Total 387 ml 88 ml 76 ml Output Urine Total 200 ml 50 ml 125 ml # Voids 1 1 2 2 2 # Bowel Movements 0 0 1 0 2 Imaging Last Impressions Chest CT 03/24/17 0000 Signed Impressions: Service Date/Time: March 22:40 - CONCLUSION: 1. Development of moderate bilateral pleural effusion since prior chest CT. Is also patchy mostly peripheral consolidation in both lungs and some interstitial prominence. 2. Mild mediastinal and pericardial adenopathy, slightly increased from prior study in November. 3. Moderate coronary artery calcifications. Christopher Ruano MD Abdomen/Pelvis CT 03/24/17 0000 Signed Impressions: Service Date/Time: , March 24, 2017 22:40 - CONCLUSION: 1. Development of mild ascites and mild anasarca since November 2016. 2. Evolving splenic infarct. 3. Removal of cholecystostomy tube with some residual calcifications in the gallbladder characteristic of gallstones. No bowel obstruction. Colonic diverticulosis. No free air. Christopher Ruano MD Laboratory Test 03/24/17 03/25/17 03/25/17 20:30 03:41 11:53 Activated Partial 71.1 SEC 70.6 SEC 37.1 SEC Thromboplast Time Tumor Marker Alpha Fetoprotein 1.5 NG/ML Carcinoembryonic Antigen 21.3 NG/ML CA 19-9 Antigen 1397.1 U/ML Prothrombin Time 21.4 SEC Prothromb Time International 1.9 RATIO Ratio Physical Examination HEENT: EOMI; normocephalic; atraumatic; no jaundice. CHEST: CTA CARDIAC: RRR + murmur ABDOMEN: Soft, distended, mild diffuse TTP; no hepatosplenomegaly; bowel sounds are present in all four quadrants. EXTREMITIES: No clubbing, cyanosis, or edema. SKIN: Normal; no rash; no jaundice. LENS MOLD SETTER: No focal deficits; alert and oriented times three. Assessment and Plan Plan ASSESSMENT - abdominal pain, weight loss - loss 20lbs in 5m. Onset abd pain 5 months ago approx (pt poor historian), no other GI sx. CT as below. Pt not sure when his last colonoscopy was or what was found never had EGD. - abdominal carcinomatosis - peritoneal carcinomatosis, poss gallbladder carcinoma. S/P diagnostic laparoscopy, drainage ascites, periotoneal bx pending. GI consulted for panendoscopy to look for primary tumor. CA 19-9 1397, CEA 21.3. CT 03-24-17 ---> 1. Development of mild ascites and mild anasarca since November 2016. 2. Evolving splenic infarct. 3. Removal of cholecystostomy tube with some residual calcifications in the gallbladder characteristic of gallstones. No bowel obstruction. Colonic diverticulosis. No free air. PLAN - EGD/colonoscopy Tuesday - obtain consents - clears tuesday - NPO after midnight Tuesday - [facility] - will need to start pt on heparin and hold coumadin Further recommendations based on above This pt seen by myself and Dr Ogden and this note is written on his behalf Mya Bell March 25, 2017 15:35
[2017-03-25 16:00] VITALS: BP 139/71; PULSE 111; RESP 18; TEMP 96.2; O2SAT 91
[2017-03-25] MEDS: WARFARIN SOD 1 MG TAB PO SCH (16:00)
[2017-03-25] MEDS ORDERED: HEPARIN-D5W INJ 250 ML IV SCH (18:15)
[2017-03-25] MEDS: METOPROLOL TARTRATE 25 MG TAB PO SCH (19:45)
[2017-03-25 20:00] VITALS: BP 123/59; PULSE 108; RESP 22; TEMP 96.8; O2SAT 93
[2017-03-25 20:21] LABS: APTT (PATIENT) 33.3 SEC (24.3-30.1)
[2017-03-26] VITALS (7 sets, daily range): BP systolic 102–131; BP diastolic 57–66; PULSE 86–100; RESP 16–22; TEMP 95.7–97.6; O2SAT 90–96
[2017-03-26 02:57] LABS: HEMATOCRIT 39.1 % (39.0-51.0); MEAN CELL VOLUME 90.2 FL (80.0-100.0); MEAN CORPUSCULAR HEMOGLOBIN 29.4 PG (27.0-34.0); MEAN CORPUSCULAR HGB CONC 32.6 % (32.0-36.0); PLATELET COUNT 144 TH/MM3 (150-450); RED BLOOD COUNT 4.34 MIL/MM3 (4.50-5.90); RED CELL DISTRIBUTION WIDTH 14.9 % (11.6-17.2); REVIEW FLAG FINAL; WHITE BLOOD COUNT 19.1 TH/MM3 (4.0-11.0)
[2017-03-26 03:05] LABS: PROTHROMBIN TIME - PATIENT 34.9 SEC (9.8-11.6)
[2017-03-26 03:14] LABS: POTASSIUM 4.5 MEQ/L (3.5-5.1)
[2017-03-26] MEDS: CARBIDOPA/LEVODOPA 25 MG/100 MG TAB PO SCH ×3 (05:25→16:00)
[2017-03-26] MEDS: ACETAMINOPHEN/HYDROcodone 325 MG/5 MG TAB PO PRN ×2 (05:29→15:09)
--- NOTE | 2017-03-26 07:58 | HHI.PR ---
Subjective Subjective Notes comfortable. Poor appetite. has been up to chair. Likes SCDs. Objective Vitals/I&O Vital Signs Date Time Temp Pulse Resp B/P Pulse Ox O2 Delivery O2 Flow Rate FiO2 03/26/17 04:00 97.6 97 22 128/60 94 03/24/17 08:52 21 03/23/17 15:54 Nasal Cannula 2.00 Labs Laboratory Tests Test 03/25/17 03/25/17 03/26/17 11:53 19:45 02:40 Activated Partial 37.1 33.3 43.0 Thromboplast Time White Blood Count 19.1 Red Blood Count 4.34 Hemoglobin 12.7 Hematocrit 39.1 Mean Corpuscular Volume 90.2 Mean Corpuscular Hemoglobin 29.4 Mean Corpuscular Hemoglobin 32.6 Concent Red Cell Distribution Width 14.9 Platelet Count 144 Mean Platelet Volume 6.2 Prothrombin Time 34.9 Prothromb Time International 3.0 Ratio Sodium Level 139 Potassium Level 4.5 Chloride Level 105 Carbon Dioxide Level 25.0 Anion Gap 9 Blood Urea Nitrogen 23 Creatinine 1.28 Estimat Glomerular Filtration 54 Rate Random Glucose 81 Calcium Level 7.5 Abdomen: Non-distended, Non-tender, Other (incisions healing well. No erythema. protuberant abdomen. BS normal.) Extremities: Perfused, SCD's on A/P Assessment and Plan postop lap bx mets cancer, GB primary. May benefit from palliative care/hospice Pete Walker MD March 26, 2017 07:58
[2017-03-26] MEDS: MYRBETRIQ 25 MG PO SCH (08:04)
[2017-03-26] MEDS: SILODOSIN 8 MG PO SCH (08:05)
[2017-03-26] MEDS: METOPROLOL TARTRATE 25 MG TAB PO SCH ×2 (08:05→20:31)
[2017-03-26] MEDS: ALPRAZolam 0.25 MG TAB PO PRN (08:21)
[2017-03-26] MEDS ORDERED: NON-FORMULARY DRUG (Silodosin (Rapaflo) 8 MG) PO SCH (09:00)
[2017-03-26] MEDS ORDERED: PT OWN - MYRBETRIQ 25 MG PO SCH (09:00)
[2017-03-26] MEDS ORDERED: NON-FORMULARY DRUG (Mirabegron (Myrbetriq) 25 MG) PO SCH (09:00)
[2017-03-26] MEDS ORDERED: RAPAFLO 8 MG PO SCH (09:00)
[2017-03-26] MEDS: GABAPENTIN 100 MG CAP PO SCH ×2 (12:23→23:30)
[2017-03-26 12:27] LABS: APTT (PATIENT) 207.5 SEC (24.3-30.1)
--- NOTE | 2017-03-26 13:16 | HHI.PR ---
Subjective Subjective Remarks poor appetite no fever mild cough, non productive no abd. pain didn't sleep well daughters at bsd Review of Systems Constitutional Constitutional Remarks 12 point ROS completed, negative except as noted above Vitals/Results Intake & Output 03/25/17 03/25/17 03/26/17 15:00 23:00 07:00 Intake Total 275 ml 240 ml 240 ml Output Total 125 ml 100 ml 175 ml Balance 150 ml 140 ml 65 ml Intake Oral 275 ml 240 ml 240 ml Output Urine Total 125 ml 100 ml 175 ml # Voids 2 1 1 # Bowel Movements 2 0 0 Vital Signs Vital Signs Date Time Temp Pulse Resp B/P Pulse Ox O2 Delivery O2 Flow Rate FiO2 03/26/17 12:00 97.6 88 16 102/57 95 03/26/17 08:00 97.1 94 17 131/66 93 03/26/17 04:00 97.6 97 22 128/60 94 03/26/17 00:00 96.6 89 22 114/62 93 03/25/17 20:00 96.8 108 22 123/59 93 03/25/17 16:00 96.2 111 18 139/71 91 CBC/BMP: 03/26/17 0240 03/26/17 0240 Lab Results Laboratory Tests Test 03/25/17 03/26/17 03/26/17 19:45 02:40 11:30 Activated Partial 33.3 SEC 43.0 SEC 207.5 SEC Thromboplast Time White Blood Count 19.1 TH/MM3 Red Blood Count 4.34 MIL/MM3 Hemoglobin 12.7 GM/DL Hematocrit 39.1 % Mean Corpuscular Volume 90.2 FL Mean Corpuscular Hemoglobin 29.4 PG Mean Corpuscular Hemoglobin 32.6 % Concent Red Cell Distribution Width 14.9 % Platelet Count 144 TH/MM3 Mean Platelet Volume 6.2 FL Prothrombin Time 34.9 SEC Prothromb Time International 3.0 RATIO Ratio Sodium Level 139 MEQ/L Potassium Level 4.5 MEQ/L Chloride Level 105 MEQ/L Carbon Dioxide Level 25.0 MEQ/L Anion Gap 9 MEQ/L Blood Urea Nitrogen 23 MG/DL Creatinine 1.28 MG/DL Estimat Glomerular Filtration 54 ML/MIN Rate Random Glucose 81 MG/DL Calcium Level 7.5 MG/DL Physical Exam General General Appearance: Well Developed, No Acute Distress, Comfortable Eyes Eye Exam: Pupils Equal, Pupils Reactive Ears & Nose Ears & Nose Exam: Nasal Mucosa Kramer Throat Throat Exam: Oral Mucosa Kramer & Moist Neck Neck Exam: Neck Supple, Trachea Midline Pulmonary Resp Exam: No Distress, Rhonchi Cardiology CV Exam: Regular, Good Perfusion Gastrointestinal/Abdomen GI Exam: Soft, Bowel Sounds Present, Positive Bowel Movement, Non-Distended GI Remarks abd. incisions intact Musculoskeletal MS Exam: Joints Intact Integumentary Skin Exam: Warm, Dry Extremeties Extremities Exam: Pedal Pulses Palpable, Trace Edema Neurologic Neuro Exam: Alert, Awake, Oriented, Speech Clear, Moving All Extremities, No Focal Deficits Psychiatric Psych Exam: Appropriate Responses VTE Prophylaxis VTE Prophylaxis Meds: Heparin Assessment/Plan Problem List: (1) Abdominal carcinomatosis (2) CLL (chronic lymphocytic leukemia) (3) Anxiety (4) Debility (5) COPD (chronic obstructive pulmonary disease) (6) Hyperlipidemia (7) History of CVA (cerebrovascular accident) (8) Chronic anticoagulation (9) KEO on CPAP (10) Thrombocytopenia (11) Leukocytosis Assessment/Plan Abdominal pain, wt loss surgery following, input appreciated Plan was to do cholecystectomy, however, pt.found with ascites s/p diagnostic laparoscopy, drainage of ascites, peritoneal biopsy 03/23 bx pending, 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 Oncologist on board, frozen section was consistent with carcinoma. 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 Ca 19.9 1397.1, CEA 21.3 GI consult requested for panendoscopy to look for GI primary tumor pathology from peritoneal biopsy is pending per oncology noted, poor performance status, may not be a good candidate for palliative chemotherapy especially if this turns out to be a gallbladder carcinoma. Dr. Mantilla is his oncologist, follows him for CLL appreciate GI input, for panendoscopy Tuesday. Recent cholecystitis s/p cholecystostomy no surgery done this time continue with medical management surgery following diet as tolerated Tachycardic, BP trending upwards, hx HTN-not on meds at home HR improving continue with Lopressor 12.5 mg po bid will check EKG HLP hold statins for now Recent CVA (bilat) on chronic anticoagulation Neurology following, Dr. 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 cough today will check CXR OOB to chair IS may need abx ANDREI-stable now monitor B/C Anemia, mild monitor HH Thrombocytopenia, poss sec. malignancy, on anticoagulation monitor Plat monitor for bleeding Neuropathy continue Gabapentin anxiety-Xanax PRN ordered. Enc PO intake PT eval and tx, OOB Palliative consult in place, input appreciated. At this time continue with aggressive care until bx results are known. continue with supportive care and symptom management Labs in am d/w pt and daughters, they want pt. to come home with [facility]. They want to continue with aggressive care for now, poss. chemo D/W RN D/W pt and family D/W Dr. Irby This patient was seen by myself and Dr. Irby, this H&P is written on his behalf. Problem Qualifiers (1) COPD (chronic obstructive pulmonary disease): Qualified Code: J44.9 - Chronic obstructive pulmonary disease, unspecified COPD type (2) Hyperlipidemia: Qualified Code: E78.5 - Hyperlipidemia, unspecified hyperlipidemia type (3) Leukocytosis: Qualified Code: D72.829 - Leukocytosis, unspecified type Tonya Barrett March 26, 2017 13:16
--- NOTE | 2017-03-26 14:01 | HHI.FF ---
Face to Face Verification Diagnosis: (1) Abdominal carcinomatosis (2) CLL (chronic lymphocytic leukemia) (3) Deep venous embolism and thrombosis of left lower extremity (4) Anxiety (5) Debility (6) COPD (chronic obstructive pulmonary disease) (7) Abdominal pain (8) Leukocytosis (9) KEO on CPAP (10) History of CVA (cerebrovascular accident) (11) Chronic anticoagulation (12) Hypertension (13) Thrombocytopenia (14) Hyperlipidemia (15) Nausea Physical Therapy Order: Evaluate and Treat Home Health Nursing Order: Medical education Oxygen administration education Nursing assessment with vital signs Instructions: MONITOR INR Core Winder Order: To Evaluate: Support services Order: To Provide: Long range planning I have seen patient Vinay Olivier on 03/26/17. My clinical findings support the need for the requested home health care services because: Deconditioned w/ increased weakness Need for psychosocial assistance Impaired cognition/judgement High risk of falls I certify that my clinical findings support that this patient is homebound because: Post-op weakness Unsteady gait/balance Unsafe to leave home unassisted Need for psychosocial assistance Tonya Barrett March 26, 2017 14:01
--- NOTE | 2017-03-26 14:25 | HHI.GIFU ---
Subjective Remarks Patient is resting in bed accompanied by family. He denies N/V, hematemesis, hematochezia or abd pain. (Lester Garcia) Objective Vitals I&O Vital Signs Date Time Temp Pulse Resp B/P Pulse Ox O2 Delivery O2 Flow Rate FiO2 03/26/17 12:00 97.6 88 16 102/57 95 03/26/17 08:00 97.1 94 17 131/66 93 03/26/17 04:00 97.6 97 22 128/60 94 03/26/17 00:00 96.6 89 22 114/62 93 03/25/17 20:00 96.8 108 22 123/59 93 03/25/17 16:00 96.2 111 18 139/71 91 I/O 03/25/17 03/25/17 03/25/17 03/26/17 03/26/17 03/26/17 07:00 15:00 23:00 07:00 15:00 23:00 Intake Total 316 ml 275 ml 240 ml 240 ml Output Total 50 ml 125 ml 100 ml 175 ml Balance 266 ml 150 ml 140 ml 65 ml Intake Oral 240 ml 275 ml 240 ml 240 ml IV Total 76 ml Output Urine Total 50 ml 125 ml 100 ml 175 ml # Voids 2 2 1 1 # Bowel Movements 0 2 0 0 Laboratory Laboratory Tests Test 03/25/17 03/26/17 03/26/17 19:45 02:40 11:30 Activated Partial 33.3 43.0 207.5 Thromboplast Time White Blood Count 19.1 Red Blood Count 4.34 Hemoglobin 12.7 Hematocrit 39.1 Mean Corpuscular Volume 90.2 Mean Corpuscular Hemoglobin 29.4 Mean Corpuscular Hemoglobin 32.6 Concent Red Cell Distribution Width 14.9 Platelet Count 144 Mean Platelet Volume 6.2 Prothrombin Time 34.9 Prothromb Time International 3.0 Ratio Sodium Level 139 Potassium Level 4.5 Chloride Level 105 Carbon Dioxide Level 25.0 Anion Gap 9 Blood Urea Nitrogen 23 Creatinine 1.28 Estimat Glomerular Filtration 54 Rate Random Glucose 81 Calcium Level 7.5 Imaging Last Impressions Chest CT 03/24/17 0000 Signed Impressions: Service Date/Time: March 22:40 - CONCLUSION: 1. Development of moderate bilateral pleural effusion since prior chest CT. Is also patchy mostly peripheral consolidation in both lungs and some interstitial prominence. 2. Mild mediastinal and pericardial adenopathy, slightly increased from prior study in November. 3. Moderate coronary artery calcifications. Christopher Ruano MD Abdomen/Pelvis CT 03/24/17 0000 Signed Impressions: Service Date/Time: , March 24, 2017 22:40 - CONCLUSION: 1. Development of mild ascites and mild anasarca since November 2016. 2. Evolving splenic infarct. 3. Removal of cholecystostomy tube with some residual calcifications in the gallbladder characteristic of gallstones. No bowel obstruction. Colonic diverticulosis. No free air. Christopher Ruano MD Physical Exam HEENT: normocephalic; atraumatic; no jaundice. NECK: Neck is supple, no JVD, no lymphadenopathy. CHEST: Chest is clear to auscultation and percussion. CARDIAC: Regular rate and rhythm with no murmur gallop or rubs. ABDOMEN: Soft, nondistended, nontender; no hepatosplenomegaly; bowel sounds are present in all four quadrants. EXTREMITIES: No clubbing, cyanosis, or edema. SKIN: ecchymosis DIRECTOR OF TECHNOLOGY: No focal deficits; alert and oriented times three. (Lester Garcia) Assessment and Plan Plan ASSESSMENT - abdominal pain, weight loss - loss 20lbs in 5m. Onset abd pain 5 months ago approx (pt poor historian), no other GI sx. CT as below. Pt not sure when his last colonoscopy was or what was found never had EGD. - abdominal carcinomatosis - peritoneal carcinomatosis, poss gallbladder carcinoma. S/P diagnostic laparoscopy, drainage ascites, periotoneal bx showing adenocarcinoma GI consulted for panendoscopy to look for primary tumor. CA 19-9 1397, CEA 21.3. CT 03-24-17 ---> 1. Development of mild ascites and mild anasarca since November 2016. 2. Evolving splenic infarct. 3. Removal of cholecystostomy tube with some residual calcifications in the gallbladder characteristic of gallstones. No bowel obstruction. Colonic diverticulosis. No free air. - Chronic lymphocytic leukemia - Hx of DVT, currently on anticoagulation - Stroke twice - DM PLAN - ARIEL - No real additional benefit of having EGD/colonoscopy and would not alter treatment options, patient with DVT, can cont. on Coumadin - Cont. Coumadin - Case was discussed with oncology - EGD/colonoscopy can be done as an OP This pt seen by myself and Dr Ogden and this note is written on his behalf ( Lester Garcia) Plan I spoke with the oncology covering physician who did not feel that knowing the primary site of cancer would change therapy, so plans to perform EGD and Colonoscopy were put on hold. (Derrick Ogden MD) Lester Garcia March 26, 2017 14:25 Derrick Ogden MD March 27, 2017 10:52
--- NOTE | 2017-03-26 14:36 | RADRPT ---
EXAM DATE/TIME: 03/26/2017 13:40 [facility] COMPARISON: CHEST SINGLE AP, February 01, 2017, 12:27. INDICATIONS : Congestion. MEDICAL HISTORY : Chronic obstructive pulmonary disease. SURGICAL HISTORY : None. ENCOUNTER: Initial ACUITY: 1 day PAIN SCORE: 0/10 LOCATION: Bilateral chest FINDINGS: Single AP view of the chest. Small to moderate-sized bilateral pleural effusions. Bilateral pulmonary parenchymal opacity with lower lung zone predominance likely representing pulmonary edema. No eviden ce of pneumothorax. CONCLUSION: Bilateral pulmonary parenchymal opacity likely represent pulmonary edema and small to moderate-sized bilateral pleural effusions. Leonard Blair MD on March 26, 2017 at 14:34 Board Certified Radiologist. This report was verified electronically.
--- NOTE | 2017-03-26 16:08 | EKG ---
Date Performed: 03/26/2017 Time Performed: 14:24:35 PTAGE: 81 years EKG: Sinus rhythm WITH MARKED SINUS ARRHYTHMIA BORDERLINE LEFT AXIS DEVIATION LOW QRS VOLTAGE IN EXTREMITY LEADS RADHADE RLINE ECG PREVIOUS TRACING : 02/01/2017 12.24 Compared to prior tracing no significant change DOCTOR: Tamanna Pedro Interpretating Date/Time 03/26/2017 16:07:42
[2017-03-26 19:00] LABS: APTT (PATIENT) 48.3 SEC (24.3-30.1); INTERNATIONAL NORMALIZED RATIO 3.6 RATIO; PROTHROMBIN TIME - PATIENT 42.2 SEC (9.8-11.6)
[2017-03-27] VITALS: BP 117/63; PULSE 92; RESP 17; TEMP 96; O2SAT 96
[2017-03-27] MEDS: ACETAMINOPHEN/HYDROcodone 325 MG/5 MG TAB PO PRN ×2 (03:01→18:12)
[2017-03-27] MEDS: ALPRAZolam 0.25 MG TAB PO PRN ×2 (06:14→15:53)
[2017-03-27] MEDS: ONDANSETRON HCL 4 MG/2 ML VIAL IV PUSH PRN ×2 (06:14→12:00)
[2017-03-27 06:15] LABS: AUTOMATED NEUTROPHIL # 10.4 TH/MM3 (1.8-7.7); BASOPHIL # 0.2 TH/MM3 (0-0.2); BASOPHIL % 1.1 % (0.0-2.0); EOSINOPHIL % 0.2 % (0.0-4.0); HEMATOCRIT 38.6 % (39.0-51.0); LYMPH % 42.6 % (9.0-44.0); LYMPHOCYTE # 8.3 TH/MM3 (1.0-4.8); MEAN CELL VOLUME 89.8 FL (80.0-100.0); MEAN CORPUSCULAR HEMOGLOBIN 29.5 PG (27.0-34.0); MEAN CORPUSCULAR HGB CONC 32.9 % (32.0-36.0); MONO % 2.8 % (0.0-8.0); NEUT % 53.3 % (16.0-70.0); PLATELET COUNT 146 TH/MM3 (150-450); RED CELL DISTRIBUTION WIDTH 14.8 % (11.6-17.2); WHITE BLOOD COUNT 19.6 TH/MM3 (4.0-11.0)
[2017-03-27 06:18] LABS: HEMO FLAGS AUTO DIFF
[2017-03-27 06:25] LABS: INTERNATIONAL NORMALIZED RATIO 4.3 RATIO; PROTHROMBIN TIME - PATIENT 50.4 SEC (9.8-11.6)
[2017-03-27] MEDS: CARBIDOPA/LEVODOPA 25 MG/100 MG TAB PO SCH ×3 (06:28→15:53)
[2017-03-27 08:00] VITALS: BP 121/57; PULSE 92; RESP 20; TEMP 98.4; O2SAT 95
[2017-03-27] MEDS: SILODOSIN 8 MG PO SCH (09:04)
[2017-03-27] MEDS: METOPROLOL TARTRATE 25 MG TAB PO SCH ×2 (09:04→21:35)
[2017-03-27] MEDS: MYRBETRIQ 25 MG PO SCH (09:05)
[2017-03-27 10:16] LABS: BANDS 1 % (0-6); BASOPHILS 1 % (0-2); NEUTROPHIL # MANUAL DIFF 9.2 TH/MM3 (1.8-7.7); PLATELET ESTIMATE SMEAR NORMAL (NORMAL); PLATELET MORPHOLOGY NORMAL (NORMAL); POLYS (SEG NEUTROPHILS) 46 % (16-70); SCAN/DIFF FINAL DIFF MANUAL; SMUDGE CELLS PRESENT PRESENT; WBC DIFF SAMPLE 100
--- NOTE | 2017-03-27 11:07 | HHI.GIFU ---
Subjective Remarks Pt reports feeling fairly good. Wants to know if cancer can be cured. Moving bowels and eating, slowly. Had Colonoscopy 5 years ago and had a few polyps. Never had EGD. He is willing to do whatever is needed to define and treat his cancer. Objective Vitals I&O Vital Signs Date Time Temp Pulse Resp B/P Pulse Ox O2 Delivery O2 Flow Rate FiO2 03/27/17 08:00 98.4 92 20 121/57 95 03/27/17 04:00 20 03/27/17 00:00 96.0 92 17 117/63 96 03/26/17 20:00 95.7 100 17 110/58 94 03/26/17 18:11 96 Nasal Cannula 2.00 03/26/17 16:00 97.4 86 16 110/57 90 03/26/17 12:00 97.6 88 16 102/57 95 I/O 03/26/17 03/26/17 03/26/17 03/27/17 03/27/17 03/27/17 07:00 15:00 23:00 07:00 15:00 23:00 Intake Total 240 ml 0 ml 240 ml 240 ml 120 ml Output Total 175 ml 100 ml 100 ml 150 ml Balance 65 ml -100 ml 140 ml 90 ml 120 ml Intake Oral 240 ml 0 ml 240 ml 240 ml 120 ml IV Total 0 ml Output Urine Total 175 ml 100 ml 100 ml 150 ml # Voids 1 # Bowel Movements 0 2 Laboratory Laboratory Tests Test 03/26/17 03/26/17 03/27/17 11:30 18:24 05:58 Activated Partial 207.5 48.3 Thromboplast Time Prothrombin Time 42.2 50.4 Prothromb Time International 3.6 4.3 Ratio White Blood Count 19.6 Red Blood Count 4.30 Hemoglobin 12.7 Hematocrit 38.6 Mean Corpuscular Volume 89.8 Mean Corpuscular Hemoglobin 29.5 Mean Corpuscular Hemoglobin 32.9 Concent Red Cell Distribution Width 14.8 Platelet Count 146 Mean Platelet Volume 6.2 Neutrophils (%) (Auto) 53.3 Lymphocytes (%) (Auto) 42.6 Monocytes (%) (Auto) 2.8 Eosinophils (%) (Auto) 0.2 Basophils (%) (Auto) 1.1 Neutrophils # (Auto) 10.4 Lymphocytes # (Auto) 8.3 Monocytes # (Auto) 0.5 Eosinophils # (Auto) 0.0 Basophils # (Auto) 0.2 CBC Comment AUTO DIFF Differential Total Cells 100 Counted Neutrophils % (Manual) 46 Band Neutrophils % 1 Lymphocytes % 49 Monocytes % 3 Basophils % 1 Neutrophils # (Manual) 9.2 Differential Comment FINAL DIFF MANUAL Smudge Cells PRESENT Platelet Estimate NORMAL Platelet Morphology Comment NORMAL Red Cell Morphology Comment NORMAL Physical Exam HEENT: normocephalic; atraumatic; no jaundice. NECK: Neck is supple, no JVD, no lymphadenopathy. CHEST: Chest is clear to auscultation and percussion. CARDIAC: Regular rate and rhythm with no murmur gallop or rubs. ABDOMEN: Distended and firm, nontender. Bowel sounds present. EXTREMITIES: No cyanosis SKIN: ecchymosis CORE PILER: No focal deficits; alert and oriented times three. 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 Low performance status. Recent stroke. On coumadin. INR today is high. EGD is low risk procedure and he has never had one. Last colonoscopy 5 years ago ? Plan: Hold coumadin Schedule for EGD tomorrow if INR permits. Otherwise wait another day and consider prepping for colonoscopy as well. Derrick Ogden MD March 27, 2017 11:07
[2017-03-27] MEDS: GABAPENTIN 100 MG CAP PO SCH (11:34)
[2017-03-27 12:00] VITALS: BP 105/57; PULSE 100; RESP 18; TEMP 97.1; O2SAT 96
--- NOTE | 2017-03-27 13:13 | HHI.PR ---
Subjective Subjective Remarks felt anxious and nauseous this morning better now appetite fair no fever some cough, with sputum no cp no sob discussing biopsy findings, states he wants treatment Review of Systems Constitutional Constitutional Remarks 12 point ROS completed, negative except as noted above Vitals/Results Intake & Output 03/26/17 03/26/17 03/27/17 15:00 23:00 07:00 Intake Total 0 ml 240 ml 240 ml Output Total 100 ml 100 ml 150 ml Balance -100 ml 140 ml 90 ml Intake Oral 0 ml 240 ml 240 ml IV Total 0 ml Output Urine Total 100 ml 100 ml 150 ml # Bowel Movements 2 Vital Signs Vital Signs Date Time Temp Pulse Resp B/P Pulse Ox O2 Delivery O2 Flow Rate FiO2 03/27/17 08:00 98.4 92 20 121/57 95 03/27/17 04:00 20 03/27/17 00:00 96.0 92 17 117/63 96 03/26/17 20:00 95.7 100 17 110/58 94 03/26/17 18:11 96 Nasal Cannula 2.00 03/26/17 16:00 97.4 86 16 110/57 90 CBC/BMP: 03/27/17 0558 03/26/17 0240 Lab Results Laboratory Tests Test 03/26/17 03/27/17 18:24 05:58 Prothrombin Time 42.2 SEC 50.4 SEC Prothromb Time International 3.6 RATIO 4.3 RATIO Ratio Activated Partial 48.3 SEC Thromboplast Time White Blood Count 19.6 TH/MM3 Red Blood Count 4.30 MIL/MM3 Hemoglobin 12.7 GM/DL Hematocrit 38.6 % Mean Corpuscular Volume 89.8 FL Mean Corpuscular Hemoglobin 29.5 PG Mean Corpuscular Hemoglobin 32.9 % Concent Red Cell Distribution Width 14.8 % Platelet Count 146 TH/MM3 Mean Platelet Volume 6.2 FL Neutrophils (%) (Auto) 53.3 % Lymphocytes (%) (Auto) 42.6 % Monocytes (%) (Auto) 2.8 % Eosinophils (%) (Auto) 0.2 % Basophils (%) (Auto) 1.1 % Neutrophils # (Auto) 10.4 TH/MM3 Lymphocytes # (Auto) 8.3 TH/MM3 Monocytes # (Auto) 0.5 TH/MM3 Eosinophils # (Auto) 0.0 TH/MM3 Basophils # (Auto) 0.2 TH/MM3 CBC Comment AUTO DIFF Differential Total Cells 100 Counted Neutrophils % (Manual) 46 % Band Neutrophils % 1 % Lymphocytes % 49 % Monocytes % 3 % Basophils % 1 % Neutrophils # (Manual) 9.2 TH/MM3 Differential Comment FINAL DIFF MANUAL Smudge Cells PRESENT Platelet Estimate NORMAL Platelet Morphology Comment NORMAL Red Cell Morphology Comment NORMAL Physical Exam General General Appearance: Well Developed, No Acute Distress, Comfortable Eyes Eye Exam: Pupils Equal, Pupils Reactive Ears & Nose Ears & Nose Exam: Nasal Mucosa Tancred Throat Throat Exam: Oral Mucosa Tancred & Moist Neck Neck Exam: Neck Supple, Trachea Midline Pulmonary Resp Exam: No Distress, Crackles, Rhonchi Cardiology CV Exam: Regular, Good Perfusion Gastrointestinal/Abdomen GI Exam: Soft, Bowel Sounds Present, Positive Bowel Movement, Non-Distended GI Remarks abd. incisions intact Musculoskeletal MS Exam: Joints Intact Integumentary Skin Exam: Warm, Dry Extremeties Extremities Exam: Pedal Pulses Palpable, Trace Edema Neurologic Neuro Exam: Alert, Awake, Oriented, Speech Clear, Moving All Extremities, No Focal Deficits Psychiatric Psych Exam: Appropriate Responses VTE Prophylaxis VTE Prophylaxis Meds: Heparin Assessment/Plan Problem List: (1) Abdominal carcinomatosis (2) CLL (chronic lymphocytic leukemia) (3) Anxiety (4) Debility (5) COPD (chronic obstructive pulmonary disease) (6) Hyperlipidemia (7) History of CVA (cerebrovascular accident) (8) Chronic anticoagulation (9) KEO on CPAP (10) Thrombocytopenia (11) Leukocytosis Assessment/Plan Abdominal pain, wt loss surgery following, input appreciated Plan was to do cholecystectomy, however, pt.found with ascites s/p diagnostic laparoscopy, drainage of ascites, peritoneal biopsy 03/23 bx pending, 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 Oncologist on board, frozen section was consistent with carcinoma. 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 Ca 19.9 1397.1, CEA 21.3 GI consult requested for panendoscopy to look for GI primary tumor pathology from peritoneal biopsy is pending per oncology noted, poor performance status, may not be a good candidate for palliative chemotherapy especially if this turns out to be a gallbladder carcinoma. Dr. Mantilla is his oncologist, follows him for CLL d/w Dr. Ogden, recommends EGD, he spoke to oncology yesterday. No colonoscopy at this time. will hold Coumadin, off Heparin now. Would like INR at 2 Recent cholecystitis s/p cholecystostomy no surgery done this time continue with medical management surgery following diet as tolerated Tachycardic, BP trending upwards, hx HTN-not on meds at home HR improving continue with Lopressor 12.5 mg po bid HLP hold statins for now Recent CVA (bilat) on chronic anticoagulation Neurology following, Dr. Parekh's input appreciated off Heparin now, Coumadin on hold INR 4.6 Hx DVT on Coumadin, held at this time Chronic obstructive pulmonary disease with obstructive sleep apnea continue to monitor Duonebs PRN Oxygen PRN Leukocytosis, WBC 19.6 CT chest 03/24 pleural effusions, consolidations CXR results noted -bilat parenchymal opacities, ? pulm edema to moderate size pleural effusion may need thoracentesis? will given Lasix 20 mg IV x 1 monitor sats IS q 2 ANDRIE-stable now monitor B/C Anemia, mild monitor HH Thrombocytopenia, poss sec. malignancy, on anticoagulation monitor Plat monitor for bleeding Neuropathy continue Gabapentin anxiety-Xanax PRN ordered. Enc PO intake PT eval and tx, OOB Palliative consult in place, input appreciated. At this time continue with aggressive care until bx results are known. continue with supportive care and symptom management Labs in am Hopefully dc home with [facility] next week CM consult for dc planning, resume [facility]. D/W RN D/W pt and family D/W Dr. Irby This patient was seen by myself and Dr. Irby, this H&P is written on his behalf. Problem Qualifiers (1) COPD (chronic obstructive pulmonary disease): Qualified Code: J44.9 - Chronic obstructive pulmonary disease, unspecified COPD type (2) Hyperlipidemia: Qualified Code: E78.5 - Hyperlipidemia, unspecified hyperlipidemia type (3) Leukocytosis: Qualified Code: D72.829 - Leukocytosis, unspecified type Tonya Barrett March 27, 2017 13:13
[2017-03-27] MEDS ORDERED: FUROSEMIDE 20 MG/2 ML VIAL IV PUSH ONE (14:00)
[2017-03-27] MEDS: WARFARIN SOD 1 MG TAB PO SCH (15:50)
[2017-03-27 16:00] VITALS: BP 131/60; PULSE 81; RESP 17; TEMP 97.4; O2SAT 95
[2017-03-27] MEDS ORDERED: PEG (High)/E-LYTE SOLN 4000 ML BTL PO ONE (16:00)
--- NOTE | 2017-03-27 19:09 | HHI.PR ---
Review/Management Diagnosis Remote stroke Gall bladder cancer On Coumadin For follow up of INR Plan Hold anticoagulation Follow up INR Keep INR [2.0-2.5] Diagnosis/Plan: Subjective Subjective Comments No acute events reported INR is elevated at 4.3 Patient with no neurologic complaints Active Medications Current Medications Medications (Trade) Dose Ordered Sig/Robert Route Start Time Stop Time Status Last Admin (Pill Splitter) 1 ea UNSCH PRN OTHER 03/22/17 16:15 ([place] 5-325 Mg) 1 tab Q4H PRN PO 03/23/17 14:00 03/26/17 05:29 (Morphine Inj) 2 mg Q30M PRN IV 03/23/17 14:00 ([place] 5-325 Mg) 2 tab Q4H PRN PO 03/23/17 14:00 03/27/17 18:12 (Coumadin) 1 mg DAILY@16 PO 03/25/17 16:00 (Xanax) 0.25 mg Q8H PRN PO 03/25/17 11:00 03/27/17 15:53 (Zofran Inj) 4 mg Q6HR PRN IV PUSH 03/25/17 11:45 03/27/17 12:00 (Sinemet 25-100 Mg) 1 tab TID@07,12,16 PO 03/25/17 12:00 03/27/17 15:53 (Neurontin) 100 mg Q12H PO 03/25/17 12:00 03/27/17 11:34 (Lopressor) 12.5 mg Q12HR PO 03/25/17 21:00 03/27/17 09:04 Patient Own Medication PT OWN MED: MYRBET... DAILY PO 03/26/17 09:00 03/27/17 09:05 Patient Own Medication PT OWN MED: RAPA... DAILY PO 03/26/17 09:00 03/27/17 09:04 (Coumadin Consult Pharmacy) ml @ 0 mls/hr UNSCH OTHER 03/26/17 22:45 Allergies Allergies Coded Allergies Lyrica (Verified Adverse Reaction, Severe, Drowsiness, 03/22/17) Exam I&O / VS 03/26/17 03/26/17 03/27/17 15:00 23:00 07:00 Intake Total 0 ml 240 ml 240 ml Output Total 100 ml 100 ml 150 ml Balance -100 ml 140 ml 90 ml Intake Oral 0 ml 240 ml 240 ml IV Total 0 ml Output Urine Total 100 ml 100 ml 150 ml # Bowel Movements 2 Vital Signs Date Time Temp Pulse Resp B/P Pulse Ox O2 Delivery O2 Flow Rate FiO2 03/27/17 16:00 97.4 81 17 131/60 95 03/27/17 12:00 97.1 100 18 105/57 96 03/27/17 08:00 98.4 92 20 121/57 95 03/27/17 04:00 20 03/27/17 00:00 96.0 92 17 117/63 96 03/26/17 20:00 95.7 100 17 110/58 94 Respiratory: Lungs CTA, Non-labored respirations, BS equal Cardiology: Normal rate, Regular Rhythm Musculoskeletal: Tenderness Objective Radiology Results Last 72 hours Impressions Chest X-Ray 03/26/17 0000 Signed Impressions: Service Date/Time: Sunday, March 26, 2017 13:40 - CONCLUSION: Bilateral pulmonary parenchymal opacity likely represent pulmonary edema and small to moderate-sized bilateral pleural effusions. Leonard Blair MD Micro and Labs Laboratory Tests Test 03/27/17 05:58 White Blood Count 19.6 Red Blood Count 4.30 Hemoglobin 12.7 Hematocrit 38.6 Mean Corpuscular Volume 89.8 Mean Corpuscular Hemoglobin 29.5 Mean Corpuscular Hemoglobin 32.9 Concent Red Cell Distribution Width 14.8 Platelet Count 146 Mean Platelet Volume 6.2 Neutrophils (%) (Auto) 53.3 Lymphocytes (%) (Auto) 42.6 Monocytes (%) (Auto) 2.8 Eosinophils (%) (Auto) 0.2 Basophils (%) (Auto) 1.1 Neutrophils # (Auto) 10.4 Lymphocytes # (Auto) 8.3 Monocytes # (Auto) 0.5 Eosinophils # (Auto) 0.0 Basophils # (Auto) 0.2 CBC Comment AUTO DIFF Differential Total Cells 100 Counted Neutrophils % (Manual) 46 Band Neutrophils % 1 Lymphocytes % 49 Monocytes % 3 Basophils % 1 Neutrophils # (Manual) 9.2 Differential Comment FINAL DIFF MANUAL Smudge Cells PRESENT Platelet Estimate NORMAL Platelet Morphology Comment NORMAL Red Cell Morphology Comment NORMAL Prothrombin Time 50.4 Prothromb Time International 4.3 Ratio Kadeem Reed MD March 27, 2017 19:08
[2017-03-27 20:00] VITALS: BP 115/61; PULSE 95; RESP 17; TEMP 96.2; O2SAT 94
--- NOTE | 2017-03-27 20:23 | HHI.PR ---
Subjective Subjective Notes C/O some pain left mid-abdomen No nausea or emesis. Objective Vitals/I&O Vital Signs Date Time Temp Pulse Resp B/P Pulse Ox O2 Delivery O2 Flow Rate FiO2 03/27/17 16:00 97.4 81 17 131/60 95 03/26/17 18:11 Nasal Cannula 2.00 03/24/17 08:52 21 Labs Laboratory Tests Test 03/27/17 05:58 White Blood Count 19.6 Red Blood Count 4.30 Hemoglobin 12.7 Hematocrit 38.6 Mean Corpuscular Volume 89.8 Mean Corpuscular Hemoglobin 29.5 Mean Corpuscular Hemoglobin 32.9 Concent Red Cell Distribution Width 14.8 Platelet Count 146 Mean Platelet Volume 6.2 Neutrophils (%) (Auto) 53.3 Lymphocytes (%) (Auto) 42.6 Monocytes (%) (Auto) 2.8 Eosinophils (%) (Auto) 0.2 Basophils (%) (Auto) 1.1 Neutrophils # (Auto) 10.4 Lymphocytes # (Auto) 8.3 Monocytes # (Auto) 0.5 Eosinophils # (Auto) 0.0 Basophils # (Auto) 0.2 CBC Comment AUTO DIFF Differential Total Cells 100 Counted Neutrophils % (Manual) 46 Band Neutrophils % 1 Lymphocytes % 49 Monocytes % 3 Basophils % 1 Neutrophils # (Manual) 9.2 Differential Comment FINAL DIFF MANUAL Smudge Cells PRESENT Platelet Estimate NORMAL Platelet Morphology Comment NORMAL Red Cell Morphology Comment NORMAL Prothrombin Time 50.4 Prothromb Time International 4.3 Ratio Lungs: Clear Abdomen: Non-distended Narrative Exam Sites clean and dry A/P Assessment and Plan Assessment and Plan postop day #4 lap bx mets cancer, GB primary. Long discussion with patient and son re: EGD tomorrow (to look for other possible primary that might be treatable), and other Rxs vs. palliative care. Juancho Liang MD March 27, 2017 20:23
[2017-03-28] VITALS: BP 111/58; PULSE 82; RESP 17; TEMP 96; O2SAT 95
[2017-03-28] MEDS: GABAPENTIN 100 MG CAP PO SCH ×4 (02:02→23:28)
[2017-03-28] MEDS: ACETAMINOPHEN/HYDROcodone 325 MG/5 MG TAB PO PRN ×3 (02:02→23:28)
[2017-03-28] MEDS: CARBIDOPA/LEVODOPA 25 MG/100 MG TAB PO SCH ×3 (06:19→18:08)
[2017-03-28 06:29] LABS: HEMATOCRIT 41.2 % (39.0-51.0); MEAN CELL VOLUME 90.6 FL (80.0-100.0); MEAN CORPUSCULAR HEMOGLOBIN 29.5 PG (27.0-34.0); MEAN CORPUSCULAR HGB CONC 32.6 % (32.0-36.0); PLATELET COUNT 146 TH/MM3 (150-450); RED BLOOD COUNT 4.55 MIL/MM3 (4.50-5.90); RED CELL DISTRIBUTION WIDTH 14.6 % (11.6-17.2); REVIEW FLAG FINAL; WHITE BLOOD COUNT 16.8 TH/MM3 (4.0-11.0)
[2017-03-28 06:37] LABS: INTERNATIONAL NORMALIZED RATIO 5.1 RATIO
[2017-03-28 06:38] LABS: POTASSIUM 4.7 MEQ/L (3.5-5.1)
[2017-03-28 08:00] VITALS: BP 133/62; PULSE 20; RESP 20; TEMP 97.3; O2SAT 96
[2017-03-28] MEDS: MYRBETRIQ 25 MG PO SCH (08:31)
[2017-03-28] MEDS ORDERED: PHYTONADIONE 5 MG TAB PO STA (08:31)
[2017-03-28] MEDS: SILODOSIN 8 MG PO SCH (08:32)
[2017-03-28] MEDS: METOPROLOL TARTRATE 25 MG TAB PO SCH ×2 (08:33→20:15)
[2017-03-28] MEDS: PILL SPLITTER OTHER PRN (08:33)
--- NOTE | 2017-03-28 08:38 | HHI.PR ---
Subjective Remarks gall bladder ca Objective Vital Signs Date Time Temp Pulse Resp B/P Pulse Ox O2 Delivery O2 Flow Rate FiO2 03/28/17 00:00 96.0 82 17 111/58 95 03/27/17 20:00 96.2 95 17 115/61 94 03/27/17 16:00 97.4 81 17 131/60 95 03/27/17 12:00 97.1 100 18 105/57 96 I/O 03/27/17 03/27/17 03/27/17 03/28/17 03/28/17 03/28/17 07:00 15:00 23:00 07:00 15:00 23:00 Intake Total 240 ml 600 ml 240 ml 0 ml Output Total 150 ml 500 ml 100 ml 300 ml Balance 90 ml 100 ml 140 ml -300 ml Intake Oral 240 ml 600 ml 240 ml 0 ml IV Total 0 ml Output Urine Total 150 ml 500 ml 100 ml 300 ml # Voids 1 # Bowel Movements 2 1 Result Diagram: 03/28/17 0535 03/28/17 0535 Objective Remarks awake alert nl speech in chair moves all well nad n bleeding looks well Assessment and Plan Assessment and Plan inr 5 coumadin held dc hep keep inr 2-2.5 onc on case the cancer could acct for his cva hypercoag? 25 vit k recheck inr 4 pm for egd Pete Parekh MD March 28, 2017 08:38
--- NOTE | 2017-03-28 09:45 | MB ---
cc: BEATRIZ RODRIGUEZ MD,ZE SOTO,NORA CHI M.D. DATE OF CONSULTATION: 03/24/2017 REQUESTING PHYSICIAN: Dr. Ze Longoria. 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 CHIEF COMPLAINT: Recurrent acute and chronic cholecystitis status post cholecystectomy tube. REASON FOR VISIT: The patient is being evaluated for possible palliative radiotherapeutic treatment options. HISTORY OF PRESENT ILLNESS: This is an 81-year white male patient of Dr. Longoria who was taken to the operating room for recurrent acute chronic cholecystitis. On discussing this case with Dr. Longoria, it appears that upon entering the abdomen he saw widespread disease most likely carcinomatosis and a frozen section was taken which was apparently positive for carcinoma. Due to the findings of carcinomatosis, the gallbladder was not removed. On evaluation of the note from Dr. Longoria, it appears that the gallbladder was visualized with a suspicious malignant tumor adherent to it. The gallbladder was also adherent to the wall of the abdomen. Due to the current diagnosis, a consult has been placed for me to discuss with the patient possible palliative radiation therapy. The patient had some abdominal discomfort due to his diagnosis. The patient also has a previous history of chronic lymphocytic leukemia being diagnosed a few years ago. No treatment for that. PAST MEDICAL HISTORY: His past medical history is as above. Also: 1. History of hypertension. 2. History of sepsis. 3. Anxiety. 4. Diabetes type 2. 5. Pressure ulcers. 6. DVT. 7. COPD. 8. History of previous skin carcinoma treated with possible radiation therapy back in October of 2016. 9. History of stroke. 10. History of anxiety. 11. Prostate carcinoma treated with radiation therapy. 12. Bladder cancer followed by urology. 13. Peripheral neuropathy. 14. Stroke x2. 15. Hyperlipidemia. 16. Left lower extremity deep venous thrombosis. 17. Chronic obstructive pulmonary disease. MEDICATIONS: 1. Warfarin. 2. Hydrocodone. 3. Morphine sulfate. ALLERGIES: LYRICA. FAMILY HISTORY: No family history of carcinoma. SOCIAL HISTORY The patient denies any EtOH intake. He used to smoke heavily but quit about four years ago. REVIEW OF SYSTEMS: A fourteen point review of systems was reviewed with the patient: CONSTITUTIONAL: The patient with fatigue, decreased appetite. The patient has lost about 20 pounds in the last couple of months. ALLERGIES: The patient has not had a major allergic reaction recently. EYES: Unremarkable. ENT: Unremarkable. NECK: Unremarkable. INTEGUMENTARY: Unremarkable. CARDIOVASCULAR: Unremarkable. RESPIRATORY: Unremarkable. GASTROINTESTINAL: Abdominal pain and discomfort, especially in the left upper quadrant. This is better since being admitted to the hospital but having constant discomfort. The patient denies any nausea or vomiting presently. GENITOURINARY: History of prostatic carcinoma. Otherwise unremarkable. MUSCULOSKELETAL: Unremarkable. NEUROLOGICAL: History of strokes but no clinical signs or symptoms of stroke at the present time. No decrease in cognitive functions. No motor function deficits. PSYCHIATRIC Unremarkable. ENDOCRINE: Unremarkable. HEMATOLOGIC: Unremarkable. DERMATOLOGIC: Unremarkable. PHYSICAL EXAMINATION: GENERAL: The patient oriented x3 and in no acute distress at time of evaluation. VITAL SIGNS: Temperature 97.1, pulse 92, respiratory rate 20, blood pressure 107/61. Pulse oximetry 94%. LUNGS: To palpation, the bilateral lungs were clear to auscultation with appropriate ventilatory respiratory effort. HEART: Regular rate and rhythm. No murmurs. NECK: Palpation of the neck and bilateral supraclavicular structures are free. ABDOMEN: To palpation of the abdominal cavity, there is distention of the abdominal cavity. Ports are noted from recent laparoscopy. There is irregularity and fullness of the right upper quadrant. I cannot palpate any true masses but it is definitely more bulky and irregular in shape. This area is slightly tender to palpation. EXTREMITIES: No lower extremity edema is detected. NEUROLOGIC: Neurologically the patient has no neurological motor function deficits. Cognitive functions are preserved. RADIOLOGY: Vascular ultrasound on 03/24/2017 was reviewed. 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 The patient is being evaluated for palliative radiotherapeutic treatment options. PLAN: I had an extensive discussion with the patient and his two daughters who were present at the time of the evaluation. I discussed this case personally with both Dr. Longoria. I advised the patient that potentially we could do some radiation for palliation in the area of the gallbladder for the patient's pain relief and some relief of the discomfort. I personally would like to stage the patient further with possible MRI of the abdomen as well as a PET scan as this may help me direct the radiation of better. Another option would be to do palliative chemotherapy or a combination of both to some degree. I discussed this with the family members of the patient as well as the patient. The patient wants to be very aggressive and wants to do everything possible. From the records, it appears that the patient had some radiation therapy to the face but never completed all the treatments. He had seen Dr. Kay in the past. I will discuss this case further with both Dr. Peraza and Dr. Longoria. I plan to add the patient for the tumor board discussion. The patient was advised that we will probably wait until he gets discharged to move forward with some imaging studies to determine how to proceed. I did discuss the merits of the radiation therapy as well as the potential side effects and complications. They understood everything that was explained. They were advised that if I could be of any further assistance, to please let me know, otherwise we will proceed as above. The patient will be given an appointment in about two weeks to return for discussion. ADDENDUM: 03/29/17, Case discussed at tumor board and option of palliative XRT to the area recommended. Patient wanting to go to [place] for a second opinion. Patient given an appointment to return to my office and orders placed for MRI abdomen and pet. Dr. Longoria, Thank you very much for placing this consult and for allowing me to participate in the care of your patient. Should you have any further questions or concerns, please do not hesitate to contact me. MD JENNIFER Singleton/HAILEY /6:53 PM /9:43 AM JANELLE
[2017-03-28 10:40] LABS: INDIRECT BILIRUBIN 0.4 MG/DL (0.0-0.8); TOTAL BILIRUBIN ADULT 0.5 MG/DL (0.2-1.0)
--- NOTE | 2017-03-28 11:21 | PD.ONC.PN ---
Subjective Subjective Remarks Afebrile overnight. Patient resting comfortably in room. (seen at 10AM). Patient asking to eat. He was NPO for EGD today but it was canceled due to elevated INR. Denies obvious bleeding. Objective Data Date Time Temp Pulse Resp B/P Pulse Ox O2 Delivery O2 Flow Rate FiO2 03/28/17 08:00 97.3 20 20 133/62 96 03/28/17 00:00 96.0 82 17 111/58 95 03/27/17 20:00 96.2 95 17 115/61 94 03/27/17 16:00 97.4 81 17 131/60 95 03/27/17 12:00 97.1 100 18 105/57 96 03/28/17 03/28/17 03/28/17 06:59 14:59 22:59 Intake Total 0 ml 0 ml Output Total 300 ml Balance -300 ml 0 ml Result Diagram: 03/28/17 0535 03/28/17 0535 Laboratory Results Laboratory Tests Test 03/28/17 05:35 White Blood Count 16.8 TH/MM3 Red Blood Count 4.55 MIL/MM3 Hemoglobin 13.4 GM/DL Hematocrit 41.2 % Mean Corpuscular Volume 90.6 FL Mean Corpuscular Hemoglobin 29.5 PG Mean Corpuscular Hemoglobin 32.6 % Concent Red Cell Distribution Width 14.6 % Platelet Count 146 TH/MM3 Mean Platelet Volume 6.3 FL Prothrombin Time 61.0 SEC Prothromb Time International 5.1 RATIO Ratio Fibrinogen 437 mg/dL Sodium Level 135 MEQ/L Potassium Level 4.7 MEQ/L Chloride Level 105 MEQ/L Carbon Dioxide Level 21.0 MEQ/L Anion Gap 9 MEQ/L Blood Urea Nitrogen 29 MG/DL Creatinine 1.53 MG/DL Estimat Glomerular Filtration 44 ML/MIN Rate Random Glucose 95 MG/DL Calcium Level 7.8 MG/DL Total Bilirubin 0.5 MG/DL Direct Bilirubin 0.1 MG/DL Indirect Bilirubin 0.4 MG/DL Aspartate Amino Transf 42 U/L (AST/SGOT) Alanine Aminotransferase 8 U/L (ALT/SGPT) Alkaline Phosphatase 139 U/L Total Protein 5.1 GM/DL Albumin 1.3 GM/DL Administered Medications Medications (Trade) Dose Ordered Sig/Robert Route PRN Reason Start Time Stop Time Status Last Admin Dose Admin Miscellaneous (Pill Splitter) 1 ea UNSCH PRN OTHER SEE LABEL COMMENTS 03/22/17 16:15 03/28/17 08:33 Acetaminophen/ Hydrocodone Bitart ([place] 5-325 Mg) 1 tab Q4H PRN PO SEE LABEL COMMENTS 03/23/17 14:00 03/28/17 02:02 Acetaminophen/ Hydrocodone Bitart ([place] 5-325 Mg) 2 tab Q4H PRN PO SEE LABEL COMMENTS 03/23/17 14:00 03/27/17 18:12 Alprazolam (Xanax) 0.25 mg Q8H PRN PO MILD ANXIETY 03/25/17 11:00 03/27/17 15:53 Ondansetron HCl (Zofran Inj) 4 mg Q6HR PRN IV PUSH NAUSEA 03/25/17 11:45 03/27/17 12:00 Carbidopa/Levodopa (Sinemet 25-100 Mg) 1 tab TID@07,12,16 PO 03/25/17 12:00 03/28/17 06:19 Gabapentin (Neurontin) 100 mg Q12H PO 03/25/17 12:00 03/28/17 02:02 Metoprolol Tartrate (Lopressor) 12.5 mg Q12HR PO 03/25/17 21:00 03/28/17 08:33 Patient Own Medication PT OWN MED: MYRBET... DAILY PO 03/26/17 09:00 03/28/17 08:31 Patient Own Medication PT OWN MED: RAPA... DAILY PO 03/26/17 09:00 03/28/17 08:32 Objective Remarks GENERAL: Elderly male, lying supine in bed SKIN: Warm and dry. HEAD: Normocephalic. EYES: No injection or drainage. NECK: Supple, trachea midline. CARDIOVASCULAR: Regular rate and rhythm RESPIRATORY: Breath sounds equal bilaterally. No accessory muscle use. GASTROINTESTINAL: Abdomen soft, non-tender EXTREMITIES: No cyanosis MUSCULOSKELETAL: Adequate muscle tone. NEUROLOGICAL: awake and alert, normal speech. moving all extremities. Assessment/Plan Problem List: (1) Abdominal carcinomatosis Status: Acute Plan: --Peritoneal carcinomatosis. --ex lap-->diffuse peritoneal, hepatic and visceral carcinomatosis with dense inflammatory adhesions versus malignant adhesion of the gallbladder, frozen section was consistent with carcinoma. Dr. Gamenthaler felt that this could be a gallbladder carcinoma. ++20 pounds weight loss. --will consult GI for panendoscopy to look for GI primary tumor --pathology from peritoneal biopsy is pending ++poor performance status. He may not be a good candidate for palliative chemotherapy especially if this turns out to be a gallbladder carcinoma. --this is a Dr. 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 (3) CLL (chronic lymphocytic leukemia) Status: Chronic Plan: --follows Dr. Mantilla --not receiving any treatment. His white blood cell count has been stable. Assessment 81y/o with newly discovered carcinomatosis, worrisome for metastatic gallbladder cancer. h/o Hypertension. Anxiety. Cholecystitis. Prostate cancer treated radiation. Bladder cancer followed by urology. Diabetes mellitus. Peripheral neuropathy. Chronic lymphocytic leukemia. Stroke x2. Pressure ulcer. Hyperlipidemia. Left lower extremity deep venous thrombosis. Chronic obstructive pulmonary disease. Plan 1. await pathology 2. EGD once INR improves 3. vitamin K 2.5mg x 1 Attending Statement The exam, history, and the medical decision-making described in the above note were completed with the assistance of the mid-level provider. I reviewed and agree with the findings presented. I attest that I had a [id number] encounter with the patient on the same day, and personally performed and documented my assessment and findings in the medical record. Mild left sided abdominal pain. Reviewed path with pt which showed adenocarcinoma. Possibly gallbladder primary which carries a poor prognosis and does not respond to chemotx very well. Await EGD and colonoscopy to make lynn he does not have other GI tract primary that has better prognosis and may respond better to palliative chemotx. Rani June March 28, 2017 11:21 Juan Manuel Peraza MD March 28, 2017 12:31
[2017-03-28 12:00] VITALS: BP 102/59; PULSE 94; RESP 20; TEMP 96.1; O2SAT 97
--- NOTE | 2017-03-28 12:15 | HHI.GIFU ---
Subjective Remarks Resting in chair. No n/v. No abdominal pain. Did eat some cream of wheat and yogurt today. States he would like to proceed with EGD first and if that is negative, then consider colonoscopy. He does not want to plan for both at the same time. He would like to know what the primary site is. (Mala Bledsoe) Objective Vitals I&O Vital Signs Date Time Temp Pulse Resp B/P Pulse Ox O2 Delivery O2 Flow Rate FiO2 03/28/17 08:00 97.3 20 20 133/62 96 03/28/17 00:00 96.0 82 17 111/58 95 03/27/17 20:00 96.2 95 17 115/61 94 03/27/17 16:00 97.4 81 17 131/60 95 I/O 03/27/17 03/27/17 03/27/17 03/28/17 03/28/17 03/28/17 07:00 15:00 23:00 07:00 15:00 23:00 Intake Total 240 ml 600 ml 240 ml 0 ml 0 ml Output Total 150 ml 500 ml 100 ml 300 ml Balance 90 ml 100 ml 140 ml -300 ml 0 ml Intake Oral 240 ml 600 ml 240 ml 0 ml 0 ml IV Total 0 ml Output Urine Total 150 ml 500 ml 100 ml 300 ml # Voids 1 # Bowel Movements 2 1 Laboratory Laboratory Tests Test 03/28/17 05:35 White Blood Count 16.8 Red Blood Count 4.55 Hemoglobin 13.4 Hematocrit 41.2 Mean Corpuscular Volume 90.6 Mean Corpuscular Hemoglobin 29.5 Mean Corpuscular Hemoglobin 32.6 Concent Red Cell Distribution Width 14.6 Platelet Count 146 Mean Platelet Volume 6.3 Prothrombin Time 61.0 Prothromb Time International 5.1 Ratio Fibrinogen 437 Sodium Level 135 Potassium Level 4.7 Chloride Level 105 Carbon Dioxide Level 21.0 Anion Gap 9 Blood Urea Nitrogen 29 Creatinine 1.53 Estimat Glomerular Filtration 44 Rate Random Glucose 95 Calcium Level 7.8 Total Bilirubin 0.5 Direct Bilirubin 0.1 Indirect Bilirubin 0.4 Aspartate Amino Transf 42 (AST/SGOT) Alanine Aminotransferase 8 (ALT/SGPT) Alkaline Phosphatase 139 Total Protein 5.1 Albumin 1.3 Imaging Last Impressions Chest X-Ray 03/26/17 0000 Signed Impressions: Service Date/Time: Sunday, March 26, 2017 13:40 - CONCLUSION: Bilateral pulmonary parenchymal opacity likely represent pulmonary edema and small to moderate-sized bilateral pleural effusions. Leonard Blair MD Chest CT 03/24/17 0000 Signed Impressions: Service Date/Time: March 22:40 - CONCLUSION: 1. Development of moderate bilateral pleural effusion since prior chest CT. Is also patchy mostly peripheral consolidation in both lungs and some interstitial prominence. 2. Mild mediastinal and pericardial adenopathy, slightly increased from prior study in November. 3. Moderate coronary artery calcifications. Christopher Ruano MD Abdomen/Pelvis CT 03/24/17 0000 Signed Impressions: Service Date/Time: March 22:40 - CONCLUSION: 1. Development of mild ascites and mild anasarca since November 2016. 2. Evolving splenic infarct. 3. Removal of cholecystostomy tube with some residual calcifications in the gallbladder characteristic of gallstones. No bowel obstruction. Colonic diverticulosis. No free air. Christopher Ruano MD Physical Exam HEENT: Normocephalic; atraumatic CHEST: CTA CARDIAC: RRR ABDOMEN: Semifirm, distended, ascites. Bowel sounds present. EXTREMITIES: No cyanosis SKIN: ecchymosis TIRE MANAGER: No focal deficits; alert and oriented times three. (Mala Bledsoe) Assessment and Plan Plan ASSESSMENT: -Poorly differentiated adenocarcinoma of uncertain primary. S/P Diagnostic and staging laparoscopy, laparoscopic drainage of intraabdominal ascites, peritoneal biopsy with intraoperative frozen section. Pathology gallbladder invasive poorly differentiated adenocarcinoma, peritoneum invasive poorly differentiated adenocarcinoma. ? Primary, GI consulted for endoscopic evaluation to see if there is a GI primary. D/W patient EGD/Colonoscopy vs. EGD. He would like to find out the primary site, but states he wants to start with the EGD and only do the bowel prep and colonoscopy if this is negative. He was scheduled for EGD today, but had an INR of 5.1 and therefore this was cancelled. He had Vitamin K this am, and he has not received his coumadin since 03/24. Oncology/Palliative care following. - Recent CVA, has been on coumadin, but has been hold since 03/24. INR 5.1. S/ P Vitamin K. Plan: - Plan for EGD once INR allows - Obtain consents - NPO after MN - PT/INR at 5 am - If INR > 1.5 then give 4 units FFP - Pt seen and examined by Dr. Ga and myself and this note is written on his behalf (Mala Bledsoe) Physician Comments Patient seen and examined Agree with above Continue with current supportive care Monitor labs Plan EGD and a colonoscopy tomorrow We will need to also correct his coagulopathy (Oskar Ga MD) Mala Bledsoe March 28, 2017 12:15 Oskar Ga MD March 28, 2017 22:41
--- NOTE | 2017-03-28 12:34 | HHI.HCPN ---
Reason for visit a. To assist with evaluation and management of symptoms including: Debility and pain. b. To assist medical decision maker(s) with: better understanding of current medical conditions; weighing benefits/burdens of medical treatment options; making medical treatment decisions. . (Stephanie North) Subjective/Interval History Palliative care follow up for clarifications of goals of care and emotional support. Patient was seen in his room, he was sitting up in chair in no acute distress. Patient endorsing productive cough, bringing up phlegm that is described as white in color. Patient also endorsing mild abdominal pain, dull, exacerbated with physical exertion and alleviated with pain medication and rest. EGD scheduled for this morning canceled secondary to INR of 5.1. Patient was given vitamin K, EGD likely to be rescheduled once INR therapeutic. Patient afebrile, stable hemodynamically. Chest x-ray 03/26/17 showing bilateral pulmonary opacities likely represent pulmonary edema. Laboratory work Today showing WBC 16.8, Hgb 13.4, platelet count 146. Sodium 135, potassium 4.7, BUN/creatinine 29/1.53. Gallbladder and peritoneal biopsy positive for invasive poorly differentiated adenocarcinoma. Spoke with patient, son Dusty and daughter Juliette. Discussed biopsy results, uncertain primary site. EGD offered to identify primary site. Patient verbalize wishing to proceed with EGD and colonoscopy if indicated. Patient verbalized wishing pursue aggressive care to include any treatment offered to him. Discussed with patient and family difference between curative treatment versus palliative treatment for pain/symptom management and/or prolongation of survival. Discussed with patient that even by knowing primary site, it would not change terminal diagnosis. Shared concerns of patient's ability to receive palliative chemotherapy secondary to profound physical deconditioning. Reviewed with patient that even if a diagnostic procedure or treatment is offered, he has the right to evaluate benefits, risks and limitations and to accept or decline such procedure or treatment. Patient was encouraged to discuss further goals of care with family. Case discussed with Mitchel EDWARDS. . Family/friend interactions See interval note. . (Stephanie North) Advance Directives Living Will: Copy in medical record Health Care Surrogate: Copy in medical record Durable Power of Land Surveyor Manager: Completed, but not made available (Stephanie North) Advance Directive Specifics Date completed: November 26, 2015. . Health Care Surrogate(s): Patient designating daughter Christina Genao as primary healthcare surrogate, alternated son Dusty Olivier. . Documented care wishes: Living will with standard verbiage as it pertains to terminal condition, and stage condition or persistent vegetative state. Patient electing not to prolong his life in the event of the above-mentioned conditions. He further desires that nutrition be withheld or withdrawn when the application of such procedures would only serve to prolong artificially the process of dying. . Significant change in goals: Full code. Patient wishing to proceed with EGD. Patient wishing to continue aggressive care. (Stephanie North) Objective Vital Signs Date Time Temp Pulse Resp B/P Pulse Ox O2 Delivery O2 Flow Rate FiO2 03/28/17 08:00 97.3 20 20 133/62 96 03/28/17 00:00 96.0 82 17 111/58 95 03/27/17 20:00 96.2 95 17 115/61 94 03/27/17 16:00 97.4 81 17 131/60 95 03/27/17 12:00 97.1 100 18 105/57 96 Intake & Output 03/28/17 03/28/17 07:00 19:00 Intake Total 240 ml 0 ml Output Total 400 ml Balance -160 ml 0 ml Intake Oral 240 ml 0 ml Output Urine Total 400 ml # Bowel Movements 1 Physical Exam CONSTITUTIONAL/GENERAL: This is an adequately nourished patient, in no apparent distress. TUBES/LINES/DRAINS: PIV's. SKIN: No jaundice, rashes, or lesions. Ecchymoses on upper extremities. Surgical incisions to left abdomen and umbilicus. Incision is closed, well approximated with no discharge or redness noted. Skin temperature appropriate. Not diaphoretic. HEAD: Atraumatic. Normocephalic. EYES: Pupils equal and round and reactive. Wears eyeglasses. Extraocular motions intact. No scleral icterus. ENT: Hearing grossly normal. Nose without bleeding or purulent drainage. Throat without visible erythema, exudates, masses, or lesions. NECK: Trachea midline. Supple, nontender. CARDIOVASCULAR: Regular rate and rhythm without murmurs, gallops, or rubs. Peripheral pulses symmetric. RESPIRATORY/CHEST: Symmetric, unlabored respirations. Clear to auscultation. Breath sounds equal bilaterally, diminished. GASTROINTESTINAL: Abdomen soft, tender secondary to recent surgical intervention , distended. Bowel sounds present. GENITOURINARY: Without palpable bladder distension. MUSCULOSKELETAL: Extremities without clubbing. Trace edema to bilateral lower extremities. NEUROLOGICAL: Awake and alert. Motor and sensory grossly within normal limits. Follows commands. Cognitively sharp. Moves all extremities. PSYCHIATRIC: No obvious anxiety/depression. no apparent hallucinations or other psychotic thought process. Patient is pleasant and cooperative. . (Stephanie North) Diagnostic Tests Laboratory Laboratory Tests Test 03/25/17 03/25/17 03/26/17 03/26/17 11:53 19:45 02:40 11:30 Activated Partial 37.1 SEC 33.3 SEC 43.0 SEC 207.5 SEC Thromboplast Time (24.3-30.1) (24.3-30.1) (24.3-30.1) (24.3-30.1) White Blood Count 19.1 TH/MM3 (4.0-11.0) Red Blood Count 4.34 MIL/MM3 (4.50-5.90) Hemoglobin 12.7 GM/DL (13.0-17.0) Hematocrit 39.1 % (39.0-51.0) Mean Corpuscular Volume 90.2 FL (80.0-100.0) Mean Corpuscular Hemoglobin 29.4 PG (27.0-34.0) Mean Corpuscular Hemoglobin 32.6 % Concent (32.0-36.0) Red Cell Distribution Width 14.9 % (11.6-17.2) Platelet Count 144 TH/MM3 (150-450) Mean Platelet Volume 6.2 FL (7.0-11.0) Prothrombin Time 34.9 SEC (9.8-11.6) Prothromb Time International 3.0 RATIO Ratio Sodium Level 139 MEQ/L (136-145) Potassium Level 4.5 MEQ/L (3.5-5.1) Chloride Level 105 MEQ/L (98-107) Carbon Dioxide Level 25.0 MEQ/L (21.0-32.0) Anion Gap 9 MEQ/L (5-15) Blood Urea Nitrogen 23 MG/DL (7-18) Creatinine 1.28 MG/DL (0.60-1.30) Estimat Glomerular Filtration 54 ML/MIN (>89) Rate Random Glucose 81 MG/DL (74-106) Calcium Level 7.5 MG/DL (8.5-10.1) Test 03/26/17 03/27/17 03/28/17 18:24 05:58 05:35 Prothrombin Time 42.2 SEC 50.4 SEC 61.0 SEC (9.8-11.6) (9.8-11.6) (9.8-11.6) Prothromb Time International 3.6 RATIO 4.3 RATIO 5.1 RATIO Ratio Activated Partial 48.3 SEC Thromboplast Time (24.3-30.1) White Blood Count 19.6 TH/MM3 16.8 TH/MM3 (4.0-11.0) (4.0-11.0) Red Blood Count 4.30 MIL/MM3 4.55 MIL/MM3 (4.50-5.90) (4.50-5.90) Hemoglobin 12.7 GM/DL 13.4 GM/DL (13.0-17.0) (13.0-17.0) Hematocrit 38.6 % 41.2 % (39.0-51.0) (39.0-51.0) Mean Corpuscular Volume 89.8 FL 90.6 FL (80.0-100.0) (80.0-100.0) Mean Corpuscular Hemoglobin 29.5 PG 29.5 PG (27.0-34.0) (27.0-34.0) Mean Corpuscular Hemoglobin 32.9 % 32.6 % Concent (32.0-36.0) (32.0-36.0) Red Cell Distribution Width 14.8 % 14.6 % (11.6-17.2) (11.6-17.2) Platelet Count 146 TH/MM3 146 TH/MM3 (150-450) (150-450) Mean Platelet Volume 6.2 FL 6.3 FL (7.0-11.0) (7.0-11.0) Neutrophils (%) (Auto) 53.3 % (16.0-70.0) Lymphocytes (%) (Auto) 42.6 % (9.0-44.0) Monocytes (%) (Auto) 2.8 % (0.0-8.0) Eosinophils (%) (Auto) 0.2 % (0.0-4.0) Basophils (%) (Auto) 1.1 % (0.0-2.0) Neutrophils # (Auto) 10.4 TH/MM3 (1.8-7.7) Lymphocytes # (Auto) 8.3 TH/MM3 (1.0-4.8) Monocytes # (Auto) 0.5 TH/MM3 (0-0.9) Eosinophils # (Auto) 0.0 TH/MM3 (0-0.4) Basophils # (Auto) 0.2 TH/MM3 (0-0.2) CBC Comment AUTO DIFF Differential Total Cells 100 Counted Neutrophils % (Manual) 46 % (16-70) Band Neutrophils % 1 % (0-6) Lymphocytes % 49 % (9-44) Monocytes % 3 % (0-8) Basophils % 1 % (0-2) Neutrophils # (Manual) 9.2 TH/MM3 (1.8-7.7) Differential Comment FINAL DIFF MANUAL Smudge Cells PRESENT Platelet Estimate NORMAL (NORMAL) Platelet Morphology Comment NORMAL (NORMAL) Red Cell Morphology Comment NORMAL (NORMAL) Fibrinogen 437 mg/dL (227-377) Sodium Level 135 MEQ/L (136-145) Potassium Level 4.7 MEQ/L (3.5-5.1) Chloride Level 105 MEQ/L (98-107) Carbon Dioxide Level 21.0 MEQ/L (21.0-32.0) Anion Gap 9 MEQ/L (5-15) Blood Urea Nitrogen 29 MG/DL (7-18) Creatinine 1.53 MG/DL (0.60-1.30) Estimat Glomerular Filtration 44 ML/MIN (>89) Rate Random Glucose 95 MG/DL (74-106) Calcium Level 7.8 MG/DL (8.5-10.1) Total Bilirubin 0.5 MG/DL (0.2-1.0) Direct Bilirubin 0.1 MG/DL (0.0-0.2) Indirect Bilirubin 0.4 MG/DL (0.0-0.8) Aspartate Amino Transf 42 U/L (15-37) (AST/SGOT) Alanine Aminotransferase 8 U/L (12-78) (ALT/SGPT) Alkaline Phosphatase 139 U/L (45-117) Total Protein 5.1 GM/DL (6.4-8.2) Albumin 1.3 GM/DL (3.4-5.0) (Stephanie North) Result Diagram: 03/28/17 0535 03/28/17 0535 Imaging Last Impressions Chest X-Ray 03/26/17 0000 Signed Impressions: Service Date/Time: Sunday, March 26, 2017 13:40 - CONCLUSION: Bilateral pulmonary parenchymal opacity likely represent pulmonary edema and small to moderate-sized bilateral pleural effusions. Leonard Blair MD Chest CT 03/24/17 0000 Signed Impressions: Service Date/Time: , March 24, 2017 22:40 - CONCLUSION: 1. Development of moderate bilateral pleural effusion since prior chest CT. Is also patchy mostly peripheral consolidation in both lungs and some interstitial prominence. 2. Mild mediastinal and pericardial adenopathy, slightly increased from prior study in November. 3. Moderate coronary artery calcifications. Christopher Ruano MD Abdomen/Pelvis CT 03/24/17 0000 Signed Impressions: Service Date/Time: , March 24, 2017 22:40 - CONCLUSION: 1. Development of mild ascites and mild anasarca since November 2016. 2. Evolving splenic infarct. 3. Removal of cholecystostomy tube with some residual calcifications in the gallbladder characteristic of gallstones. No bowel obstruction. Colonic diverticulosis. No free air. Christopher Ruano MD Procedures * 03/23/17 -diagnostic laparoscopy, drainage of ascites and peritoneal biopsy. . 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 Pending peritoneal biopsy. 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 (3) COPD (chronic obstructive pulmonary disease) Symptom Scale: (1) Abdominal pain 0-10 Scale: 3 Comment: Secondary to burden of disease and recent surgical intervention. (2) Anxiety 0-10 Scale: Unable to quantify (3) Nausea 0-10 Scale: 0 (4) Debility 0-10 Scale: Unable to quantify Comment: Secondary to CVA 2, burden of disease and multiple prolonged hospitalizations. . Pertinent Non-Medical Issues Psychosocial: . Has 4 living children. Originally from [place], former [facility]. Spiritual: Sabianist linh. Legal: Living will has been completed, copy in chart. Ethical issues impacting care: No ethical issues have been identified. . Important Contacts Daughter/HCS: Jane Genao [phone] Son/alternate HCS: Dusty Olivier . . Prognosis Mr. Olivier is an 81 y/o male with a medical history significant for CCL, prostate cancer, COPD and CVA x 2 who presented to the ED on 03/22/17 endorsing persistent abdominal pain. patient with recent history of cholecystitis s/p cholecystostomy on 02/04/17. Patient status post diagnostic laparoscopy showing carcinomatosis with malignant ascites. 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 Patient with multiple prolonged hospitalizations since first stroke in November 2016. Patient's prognosis is very poor given his terminal condition, multiple comorbidities, and profound physical deconditioning. Patient appears hospice appropriate if he elects comfort-directed care. . Code Status: Full Code Plan * CODE STATUS: Full code at this time. Discussed benefits, risks and limitations of CPR, intubation and mechanical ventilation given patient's profound debility, multiple recent hospitalizations, multiple comorbidities, advanced age and terminal condition/carcinomatosis. Patient and family electing to continue full code at this time. * MEDICAL DECISION-MAKING: Patient participating in medical decision-making. Patient designating daughter Christina Genao as primary healthcare surrogate, alternate surrogate son Dusty Olivier. * GOALS OF CARE: Full code. Continue current aggressive management to include EGD and colonoscopy if indicated. -Spoke with patient, son Dusty and daughter Juliette. Discussed biopsy results, uncertain primary site. EGD offered to identify primary site. Patient verbalize wishing to proceed with EGD and colonoscopy if indicated. Patient verbalized wishing pursue aggressive care to include any treatment offered to him. Discussed with patient and family difference between curative treatment versus palliative treatment for pain/ symptom management and/or prolongation of survival. Discussed with patient that even by knowing primary site, it would not change terminal diagnosis. Shared concerns of patient's ability to receive palliative chemotherapy secondary to profound physical deconditioning. Reviewed with patient that even if a diagnostic procedure or treatment is offered, he has the right to evaluate benefits, risks and limitations and to accept or decline such procedure or treatment. Patient was encouraged to discuss further goals of care with family. Hospice philosophy and benefits has been introduced to patient and family. * SYMPTOMS: = Abdominal pain: Secondary to burden of disease, recent surgical intervention. [place] and morphine available as needed. Patient reports [place] is effective for pain. No further recommendations. = Anxiety: Chronic, exacerbated by hospitalization. Alprazolam 0.25 every 8 hours as needed. = Nausea: Secondary to burden of disease. Zofran available as needed. = Debility : Secondary to burden of disease, CVA 2, multiple recent prolonged hospitalizations. No further recommendations at this time. * Case discussed with JERRY Romero. * Palliative care contact information has been provided to patient and family. * Palliative care will continue to follow-up for further clarifications of goals of care as his medical course evolves. . (Stephanie North) Time Spent Total Floor Time (mins): 42 (Total time to include review medical records, physical exam, goals of care discussion with patient and family, and case discussion with JERRY Spence. ) >50% Counseling/Coord of Care: Yes (Stephanie North) Attestation To help prompt me to consider important information that might be impacting today's encounter and assessment, information from prior notes written by myself or my colleagues may have been "brought forward" into today's note. My signature on this note, however, is an attestation that I personally performed the exam, history, and/or decision-making noted today, and, unless otherwise indicated, the interactions with patient, family, and staff as well as the review of records all occurred today. I also attest that the listed assessment and stated plan reflect my best clinical judgment today based on the combination of historical information, prior notes, and today's exam/ interactions. When time spent is documented, it refers only to time spent today by the signer, or if indicated, combined time spent today by collaborating physician/nurse practitioner. (Stephanie North) Collaborating MD Comments . Chart reviewed. Case discussed with palliative care SHOPPER INSIGHTS MANAGER. I have reviewed above JERRY note and I concur. . (Eric Miller MD) Stephanie North March 28, 2017 12:33 Eric Miller MD April 05, 2017 12:36
--- NOTE | 2017-03-28 14:58 | HHI.PR ---
Subjective Subjective Remarks sitting up in chair less sob and cough no fever no cp some anxiety family at [facility], 2 daughters and 1 son, multiple questions asked, somewhat anxious and upset with plan of care. Answered their questions and clarified some points. Review of Systems Constitutional Constitutional Remarks 12 point ROS completed, negative except as noted above Vitals/Results Intake & Output 03/27/17 03/27/17 03/28/17 15:00 23:00 07:00 Intake Total 600 ml 240 ml 0 ml Output Total 500 ml 100 ml 300 ml Balance 100 ml 140 ml -300 ml Intake Oral 600 ml 240 ml 0 ml Output Urine Total 500 ml 100 ml 300 ml # Voids 1 # Bowel Movements 2 1 Vital Signs Vital Signs Date Time Temp Pulse Resp B/P Pulse Ox O2 Delivery O2 Flow Rate FiO2 03/28/17 12:00 96.1 94 20 102/59 97 03/28/17 08:00 97.3 20 20 133/62 96 03/28/17 00:00 96.0 82 17 111/58 95 03/27/17 20:00 96.2 95 17 115/61 94 03/27/17 16:00 97.4 81 17 131/60 95 CBC/BMP: 03/28/17 0535 03/28/17 0535 Lab Results Laboratory Tests Test 03/28/17 05:35 White Blood Count 16.8 TH/MM3 Red Blood Count 4.55 MIL/MM3 Hemoglobin 13.4 GM/DL Hematocrit 41.2 % Mean Corpuscular Volume 90.6 FL Mean Corpuscular Hemoglobin 29.5 PG Mean Corpuscular Hemoglobin 32.6 % Concent Red Cell Distribution Width 14.6 % Platelet Count 146 TH/MM3 Mean Platelet Volume 6.3 FL Prothrombin Time 61.0 SEC Prothromb Time International 5.1 RATIO Ratio Fibrinogen 437 mg/dL Sodium Level 135 MEQ/L Potassium Level 4.7 MEQ/L Chloride Level 105 MEQ/L Carbon Dioxide Level 21.0 MEQ/L Anion Gap 9 MEQ/L Blood Urea Nitrogen 29 MG/DL Creatinine 1.53 MG/DL Estimat Glomerular Filtration 44 ML/MIN Rate Random Glucose 95 MG/DL Calcium Level 7.8 MG/DL Total Bilirubin 0.5 MG/DL Direct Bilirubin 0.1 MG/DL Indirect Bilirubin 0.4 MG/DL Aspartate Amino Transf 42 U/L (AST/SGOT) Alanine Aminotransferase 8 U/L (ALT/SGPT) Alkaline Phosphatase 139 U/L Total Protein 5.1 GM/DL Albumin 1.3 GM/DL Physical Exam General General Appearance: Well Developed, No Acute Distress, Comfortable Eyes Eye Exam: Pupils Equal, Pupils Reactive Ears & Nose Ears & Nose Exam: Nasal Mucosa [place] Throat Throat Exam: Oral Mucosa [place] & Moist Neck Neck Exam: Neck Supple, Trachea Midline Pulmonary Resp Exam: No Distress Resp Remarks faint rales Cardiology CV Exam: Regular, Good Perfusion Gastrointestinal/Abdomen GI Exam: Soft, Bowel Sounds Present, Positive Bowel Movement, Non-Distended GI Remarks abd. incisions intact Musculoskeletal MS Exam: Joints Intact Integumentary Skin Exam: Warm, Dry Extremeties Extremities Exam: Pedal Pulses Palpable, Trace Edema Neurologic Neuro Exam: Alert, Awake, Oriented, Speech Clear, Moving All Extremities, No Focal Deficits Psychiatric Psych Exam: Appropriate Responses VTE Prophylaxis VTE Prophylaxis Meds: Heparin Assessment/Plan Problem List: (1) Abdominal carcinomatosis (2) CLL (chronic lymphocytic leukemia) (3) Anxiety (4) Debility (5) COPD (chronic obstructive pulmonary disease) (6) Hyperlipidemia (7) History of CVA (cerebrovascular accident) (8) Chronic anticoagulation (9) KEO on CPAP (10) Thrombocytopenia (11) Leukocytosis (12) Pleural effusion Assessment/Plan Abdominal pain, wt loss surgery following, input appreciated Plan was to do cholecystectomy, however, pt.found with ascites s/p diagnostic laparoscopy, drainage of ascites, peritoneal biopsy 03/23 bx pending, 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 Oncologist on board, frozen section was consistent with carcinoma. 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 Ca 19.9 1397.1, CEA 21.3 GI consult requested for panendoscopy to look for GI primary tumor pathology from peritoneal and GB biopsy poorly differentiated adenocarcinoma per oncology noted, poor performance status, may not be a good candidate for palliative chemotherapy especially if this turns out to be a gallbladder carcinoma. Dr. Mantilla is his oncologist, follows him for CLL EGD cancelled, INR 5.1, received Vit K, tentatively schedule for tomorrow. No colonoscopy at this time, pt. will decide after EGD Recent cholecystitis s/p cholecystostomy no surgery done this time continue with medical management surgery following diet as tolerated Tachycardic, BP trending upwards, hx HTN-not on meds at home HR improving continue with Lopressor 12.5 mg po bid HLP hold statins for now Recent CVA (bilat) on chronic anticoagulation Neurology following, Dr. Parekh's input appreciated INR 5.1, coumadin on hold Hx DVT on Coumadin, held at this time Chronic obstructive pulmonary disease with obstructive sleep apnea continue to monitor Duonebs PRN Oxygen PRN Leukocytosis, WBC trending down, 16.8 CT chest 03/24 pleural effusions, consolidations CXR results noted -bilat parenchymal opacities, ? pulm edema to moderate size pleural effusion received Lasix, better today continue with supplemental oxygen, monitor sats, IS q 2 ANDREI- some elevation in creat now, monitor Anemia, mild monitor HH Elevated LFTs continue to monitor. Thrombocytopenia, poss sec. malignancy, on anticoagulation monitor Plat 146 monitor for bleeding Neuropathy continue Gabapentin anxiety-Xanax PRN ordered. Enc PO intake PT eval and tx, OOB Palliative consult in place, input appreciated. Spoke to palliative care, she met with pt and family. Pt. wants to proceed with EGD and is interested in treatment if indicated. spoke to pt and family, questions answered in detail. His children are supportive of his decision, however they realize that the outcome won't change. Multiple questions asked about cancer diagnosis and treatment, I directed them to ask these of oncologist. continue with supportive care Labs in am CM for dc planning, hopefully home with [facility] in 1-2 days after work up done. D/W RN D/W pt and family D/W Dr. Irby This patient was seen by myself and Dr. Irby, this H&P is written on his behalf. Problem Qualifiers (1) COPD (chronic obstructive pulmonary disease): Qualified Code: J44.9 - Chronic obstructive pulmonary disease, unspecified COPD type (2) Hyperlipidemia: Qualified Code: E78.5 - Hyperlipidemia, unspecified hyperlipidemia type (3) Leukocytosis: Qualified Code: D72.829 - Leukocytosis, unspecified type Tonya Barrett March 28, 2017 14:58
[2017-03-28 16:00] VITALS: BP 122/59; PULSE 96; RESP 20; TEMP 97.9; O2SAT 95
--- NOTE | 2017-03-28 17:12 | HHI.PR ---
Subjective Subjective Notes Resting in bed Dusty (son) at bedside Patient reports he is eating better Objective Vitals/I&O Vital Signs Date Time Temp Pulse Resp B/P Pulse Ox O2 Delivery O2 Flow Rate FiO2 03/28/17 16:00 97.9 96 20 122/59 95 03/26/17 18:11 Nasal Cannula 2.00 03/24/17 08:52 21 Labs Laboratory Tests Test 03/28/17 05:35 White Blood Count 16.8 Red Blood Count 4.55 Hemoglobin 13.4 Hematocrit 41.2 Mean Corpuscular Volume 90.6 Mean Corpuscular Hemoglobin 29.5 Mean Corpuscular Hemoglobin 32.6 Concent Red Cell Distribution Width 14.6 Platelet Count 146 Mean Platelet Volume 6.3 Prothrombin Time 61.0 Prothromb Time International 5.1 Ratio Fibrinogen 437 Sodium Level 135 Potassium Level 4.7 Chloride Level 105 Carbon Dioxide Level 21.0 Anion Gap 9 Blood Urea Nitrogen 29 Creatinine 1.53 Estimat Glomerular Filtration 44 Rate Random Glucose 95 Calcium Level 7.8 Total Bilirubin 0.5 Direct Bilirubin 0.1 Indirect Bilirubin 0.4 Aspartate Amino Transf 42 (AST/SGOT) Alanine Aminotransferase 8 (ALT/SGPT) Alkaline Phosphatase 139 Total Protein 5.1 Albumin 1.3 Cardiovascular: Regular Lungs: Clear Abdomen: Non-distended, Non-tender, Other (lap sites c/d/i; ) Extremities: No edema A/P Assessment and Plan 81 year old male POD5 diagnostic laparoscopy, drainage of ascites, peritoneal biopsy -Pathology reviewed--- invasive poorly differentiated adenocarcinoma -Appreciate Palliative Care consult -Oncology following -GI planning to do EGD tomorrow if INR allows -Regular diet---encouraged smaller more frequent meals; NPO after MN for possible EGD -Pain control -Okay for family to bring food from home Attending Statement The exam, history, and the medical decision-making described in the above note were completed with the assistance of the mid-level provider. I reviewed and agree with the findings presented. I attest that I had a [id number] encounter with the patient on the same day, and personally performed and documented my assessment and findings in the medical record. Abdominal exam stable feels well, pain ok working on DC plan with palliation Myrna Zaidi March 28, 2017 17:11 Juan Antonio Longoria MD April 05, 2017 17:03
[2017-03-28 18:34] LABS: INTERNATIONAL NORMALIZED RATIO 3.7 RATIO; PROTHROMBIN TIME - PATIENT 43.9 SEC (9.8-11.6)
[2017-03-28 20:00] VITALS: BP 116/59; PULSE 96; RESP 17; TEMP 97; O2SAT 97
[2017-03-28 23:56] VITALS: BP 113/57; PULSE 94; RESP 18; TEMP 97.2; O2SAT 94
[2017-03-29 04:00] VITALS: BP 114/63; PULSE 92; RESP 18; TEMP 96.7; O2SAT 96
[2017-03-29 05:21] LABS: HEMATOCRIT 38.2 % (39.0-51.0); MEAN CELL VOLUME 90.2 FL (80.0-100.0); MEAN CORPUSCULAR HEMOGLOBIN 29.5 PG (27.0-34.0); MEAN CORPUSCULAR HGB CONC 32.7 % (32.0-36.0); PLATELET COUNT 142 TH/MM3 (150-450); RED BLOOD COUNT 4.24 MIL/MM3 (4.50-5.90); RED CELL DISTRIBUTION WIDTH 14.8 % (11.6-17.2); WHITE BLOOD COUNT 15.7 TH/MM3 (4.0-11.0)
[2017-03-29 05:38] LABS: APTT (PATIENT) 51.3 SEC (24.3-30.1); INTERNATIONAL NORMALIZED RATIO 2.5 RATIO; PROTHROMBIN TIME - PATIENT 28.9 SEC (9.8-11.6)
[2017-03-29 05:47] LABS: HEMO FLAGS AUTO DIFF
[2017-03-29] MEDS: CARBIDOPA/LEVODOPA 25 MG/100 MG TAB PO SCH ×3 (06:46→17:25)
[2017-03-29] MEDS: ALPRAZolam 0.25 MG TAB PO PRN ×2 (06:48→21:00)
[2017-03-29 06:57] LABS: NEUTROPHIL # MANUAL DIFF 8.2 TH/MM3 (1.8-7.7); POLYS (SEG NEUTROPHILS) 52 % (16-70); WBC DIFF SAMPLE 100
[2017-03-29 06:59] LABS: PLATELET ESTIMATE SMEAR LOW (NORMAL); PLATELET MORPHOLOGY NORMAL (NORMAL); SCAN/DIFF FINAL DIFF MANUAL; SMUDGE CELLS PRESENT PRESENT
[2017-03-29 08:00] VITALS: BP 120/57; PULSE 92; RESP 20; TEMP 96.4; O2SAT 96
[2017-03-29] MEDS: METOPROLOL TARTRATE 25 MG TAB PO SCH ×2 (09:16→19:50)
[2017-03-29] MEDS: PILL SPLITTER OTHER PRN (09:17)
[2017-03-29] MEDS: MYRBETRIQ 25 MG PO SCH (09:19)
[2017-03-29] MEDS: SILODOSIN 8 MG PO SCH (09:19)
--- NOTE | 2017-03-29 11:15 | PD.ONC.PN ---
Subjective Subjective Remarks Afebrile overnight. Patient resting comfortably without complaint. Waiting to go down for EGD. Objective Data Date Time Temp Pulse Resp B/P Pulse Ox O2 Delivery O2 Flow Rate FiO2 03/29/17 08:00 96.4 92 20 120/57 96 03/29/17 04:00 96.7 92 18 114/63 96 03/29/17 00:46 20 03/28/17 23:56 97.2 94 18 113/57 94 03/28/17 20:00 97.0 96 17 116/59 97 03/28/17 16:00 97.9 96 20 122/59 95 03/28/17 12:00 96.1 94 20 102/59 97 03/29/17 03/29/17 03/29/17 06:59 14:59 22:59 Output Total 350 ml Balance -350 ml Result Diagram: 03/29/17 0508 03/28/17 0535 Laboratory Results Laboratory Tests Test 03/28/17 03/29/17 18:08 05:08 Prothrombin Time 43.9 SEC 28.9 SEC Prothromb Time International 3.7 RATIO 2.5 RATIO Ratio White Blood Count 15.7 TH/MM3 Red Blood Count 4.24 MIL/MM3 Hemoglobin 12.5 GM/DL Hematocrit 38.2 % Mean Corpuscular Volume 90.2 FL Mean Corpuscular Hemoglobin 29.5 PG Mean Corpuscular Hemoglobin 32.7 % Concent Red Cell Distribution Width 14.8 % Platelet Count 142 TH/MM3 Mean Platelet Volume 6.1 FL Neutrophils (%) (Auto) % Lymphocytes (%) (Auto) % Monocytes (%) (Auto) % Eosinophils (%) (Auto) % Basophils (%) (Auto) % Neutrophils # (Auto) TH/MM3 Lymphocytes # (Auto) TH/MM3 Monocytes # (Auto) TH/MM3 Eosinophils # (Auto) TH/MM3 Basophils # (Auto) TH/MM3 CBC Comment AUTO DIFF Differential Total Cells 100 Counted Neutrophils % (Manual) 52 % Lymphocytes % 45 % Monocytes % 3 % Neutrophils # (Manual) 8.2 TH/MM3 Differential Comment FINAL DIFF MANUAL Smudge Cells PRESENT Platelet Estimate LOW Platelet Morphology Comment NORMAL Red Cell Morphology Comment NORMAL Activated Partial 51.3 SEC Thromboplast Time Fibrinogen 421 mg/dL Administered Medications Medications (Trade) Dose Ordered Sig/Robert Route PRN Reason Start Time Stop Time Status Last Admin Dose Admin Miscellaneous (Pill Splitter) 1 ea UNSCH PRN OTHER SEE LABEL COMMENTS 03/22/17 16:15 03/29/17 09:17 Acetaminophen/ Hydrocodone Bitart ([place] 5-325 Mg) 1 tab Q4H PRN PO SEE LABEL COMMENTS 03/23/17 14:00 03/28/17 23:28 Acetaminophen/ Hydrocodone Bitart ([place] 5-325 Mg) 2 tab Q4H PRN PO SEE LABEL COMMENTS 03/23/17 14:00 03/28/17 14:26 Alprazolam (Xanax) 0.25 mg Q8H PRN PO MILD ANXIETY 03/25/17 11:00 03/29/17 06:48 Ondansetron HCl (Zofran Inj) 4 mg Q6HR PRN IV PUSH NAUSEA 03/25/17 11:45 03/27/17 12:00 Carbidopa/Levodopa (Sinemet 25-100 Mg) 1 tab TID@07,12,16 PO 03/25/17 12:00 03/29/17 06:46 Gabapentin (Neurontin) 100 mg Q12H PO 03/25/17 12:00 03/28/17 23:28 Metoprolol Tartrate (Lopressor) 12.5 mg Q12HR PO 03/25/17 21:00 03/29/17 09:16 Patient Own Medication PT OWN MED: MYRBET... DAILY PO 03/26/17 09:00 03/29/17 09:19 Patient Own Medication PT OWN MED: RAPA... DAILY PO 03/26/17 09:00 03/29/17 09:19 Objective Remarks GENERAL: Elderly male, lying in bed in nad. SKIN: Warm and dry. HEAD: Normocephalic. EYES: No injection or drainage. NECK: Supple, trachea midline. CARDIOVASCULAR: Regular rate and rhythm RESPIRATORY: Breath sounds equal bilaterally. No accessory muscle use. GASTROINTESTINAL: Abdomen soft, non-tender. mild distension EXTREMITIES: No cyanosis MUSCULOSKELETAL: Adequate muscle tone. NEUROLOGICAL: aox3. normal speech. Assessment/Plan Problem List: (1) Abdominal carcinomatosis Status: Acute Plan: --Peritoneal carcinomatosis. --ex lap-->diffuse peritoneal, hepatic and visceral carcinomatosis with dense inflammatory adhesions versus malignant adhesion of the gallbladder, frozen section was consistent with carcinoma. 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 ++20 pounds weight loss. --will consult GI for panendoscopy to look for GI primary tumor --pathology from peritoneal biopsy shows invasive poorly differentiated adenocarcinoma. ++poor performance status. He may not be a good candidate for palliative chemotherapy especially if this turns out to be a gallbladder carcinoma. --this is a Dr. 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 (3) CLL (chronic lymphocytic leukemia) Status: Chronic Plan: --follows Dr. Mantilla --not receiving any treatment. His white blood cell count has been stable. Assessment 81y/o with newly discovered carcinomatosis, worrisome for metastatic gallbladder cancer. h/o Hypertension. Anxiety. Cholecystitis. Prostate cancer treated radiation. Bladder cancer followed by urology. Diabetes mellitus. Peripheral neuropathy. Chronic lymphocytic leukemia. Stroke x2. Pressure ulcer. Hyperlipidemia. Left lower extremity deep venous thrombosis. Chronic obstructive pulmonary disease. Plan 1. EGD per GI 2. follow up with oncology outpatient--patient states he is planning to go to [facility], or may follow up with Dr. Mantilla his hematology/oncologist outpatient. Attending Statement The exam, history, and the medical decision-making described in the above note were completed with the assistance of the mid-level provider. I reviewed and agree with the findings presented. I attest that I had a [id number]-[id number] encounter with the patient on the same day, and personally performed and documented my assessment and findings in the medical record. Has left abdominal pain but stable. Reviewed path with pathologist. 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 Awaiting EGD to make sure he does not have other GI primary tumor. I told pt that his cancer is not curable. Given his poor performance status, he may not tolerate chemo very well. He still wants to be aggressive with treatment. He is planning to go to [place] for another opinion. He can f/u with Dr. Mantilla after d/c. Can resume coumadin after the EGD. Rani June March 29, 2017 11:11 Juan Manuel Peraza MD March 29, 2017 16:45
--- NOTE | 2017-03-29 11:45 | HHI.PR ---
Subjective Subjective Notes Resting in bed Family at bedside ---asking if patient stable to go to have EGD done JANEE Roman also at bedside---Dr. Parekh and Dr. Jain have talked and agree that INR of 2.5 if safe the procedure Objective Vitals/I&O Vital Signs Date Time Temp Pulse Resp B/P Pulse Ox O2 Delivery O2 Flow Rate FiO2 03/29/17 08:00 96.4 92 20 120/57 96 03/26/17 18:11 Nasal Cannula 2.00 Labs Laboratory Tests Test 03/28/17 03/29/17 18:08 05:08 Prothrombin Time 43.9 28.9 Prothromb Time International 3.7 2.5 Ratio White Blood Count 15.7 Red Blood Count 4.24 Hemoglobin 12.5 Hematocrit 38.2 Mean Corpuscular Volume 90.2 Mean Corpuscular Hemoglobin 29.5 Mean Corpuscular Hemoglobin 32.7 Concent Red Cell Distribution Width 14.8 Platelet Count 142 Mean Platelet Volume 6.1 Neutrophils (%) (Auto) Lymphocytes (%) (Auto) Monocytes (%) (Auto) Eosinophils (%) (Auto) Basophils (%) (Auto) Neutrophils # (Auto) Lymphocytes # (Auto) Monocytes # (Auto) Eosinophils # (Auto) Basophils # (Auto) CBC Comment AUTO DIFF Differential Total Cells 100 Counted Neutrophils % (Manual) 52 Lymphocytes % 45 Monocytes % 3 Neutrophils # (Manual) 8.2 Differential Comment FINAL DIFF MANUAL Smudge Cells PRESENT Platelet Estimate LOW Platelet Morphology Comment NORMAL Red Cell Morphology Comment NORMAL Activated Partial 51.3 Thromboplast Time Fibrinogen 421 Cardiovascular: Regular Lungs: Clear Abdomen: Non-distended, Other (lap sites c/d/i ), Post-op tenderness Extremities: No edema A/P Assessment and Plan 81 year old male POD6 diagnostic laparoscopy, drainage of ascites, peritoneal biopsy -GI planning EGD today -Pathology reviewed--- invasive poorly differentiated adenocarcinoma -Appreciate Palliative Care consult -Oncology following -NPO for procedure; regular diet after -Pain control -Okay for family to bring food from home Attending Statement The exam, history, and the medical decision-making described in the above note were completed with the assistance of the mid-level provider. I reviewed and agree with the findings presented. I attest that I had a vuyb-[id number]-[id number] encounter with the patient on the same day, and personally performed and documented my assessment and findings in the medical record. Abdominal exam postop tenderness, incisions looks ok, CTA shows resolution of artery kinking/pathology Myrna Zaidi March 29, 2017 11:45 Juan Antonio Longoria MD April 05, 2017 17:07
[2017-03-29] MEDS: GABAPENTIN 100 MG CAP PO SCH (12:00)
[2017-03-29] MEDS ORDERED: PROPOFOL 200 MG/20 ML AMP IV ONE (15:00)
--- NOTE | 2017-03-29 15:22 | PD.PROCEDR ---
GI Procedure REFERRING PHYSICIAN Dr. Longoria PROCEDURE PERFORMED EGD with biopsy INDICATION FOR PROCEDURE Adenocarcinoma of unclear origin patient needing an EGD PROCEDURE: The procedure, risks and benefits were discussed with Mr. Olivier and informed consent was obtained. Anesthesia sedated him with Diprivan. He was placed in the left lateral decubitus position. EGD: The Pentax videoscope was introduced through the oropharynx and advanced to the second portion of the duodenum under direct visualization. Retroflexion was performed in the stomach. FINDINGS: Esophagus this was normal Stomach there was a large antral ulcer with raised edges clean-based suspicious for malignancy biopsies were taken from the edges and the base with little to no bleeding noted Duodenum there was some patchy erythema noted in the duodenal mucosa but no ulcers or erosions ESTIMATED BLOOD LOSS: None SPECIMENS REMOVED: Antral ulcer COMPLICATIONS: None IMPRESSION: Large antral ulcer suspicious for malignancy PLAN: Await biopsies Continue supportive care Patient high risk for bleeding from this ulcer with anticoagulation Oskar Ga MD March 29, 2017 15:22
[2017-03-29] MEDS ORDERED: *morphine SULFATE 8 MG/ML PERIprocedure ONLY ONE (15:45)
[2017-03-29] MEDS ORDERED: DO NOT ADM ANY ANTICOAGULANT DRUGS PRN (16:00)
[2017-03-29] MEDS ORDERED: WARFARIN SOD 1 MG TAB PO ONE (16:00)
[2017-03-29] MEDS ORDERED: WARFARIN SOD 2 MG TAB PO SCH (16:00)
--- NOTE | 2017-03-29 16:09 | HHI.PR ---
Subjective Subjective Remarks EGD today resting in bed Afebrile Abdomen taut, mild distention Color pale (Maribell Cortez) Review of Systems Constitutional Constitutional: Fatigue, Weakness (generalized) Constitutional Remarks 10 point ROS done positives noted otherwise systems negative are unremarkable ( Maribell Cortez) Throat Throat Remarks Cough (Maribell Cortez) Pulmonary Respiratory: Coughing (occasional) (Maribell Cortez) GI/Abdomen GI/Abdomen Remarks Appetite fair Status post EGD, abdomen with mild distention, tympanic (Maribell Cortez) Musculoskeletal MS: Weakness, Stiffness (Maribell Cortez) Integumentary Skin: Wounds (abdominal small surgical incisions no erythema or edema) (Maribell Cortez) Vitals/Results Intake & Output 03/28/17 03/28/17 03/29/17 15:00 23:00 07:00 Intake Total 0 ml 260 ml Output Total 300 ml 350 ml Balance 0 ml -40 ml -350 ml Intake Oral 0 ml 260 ml Output Urine Total 300 ml 350 ml # Voids 3 # Bowel Movements 2 Vital Signs Vital Signs Date Time Temp Pulse Resp B/P Pulse Ox O2 Delivery O2 Flow Rate FiO2 03/29/17 08:00 96.4 92 20 120/57 96 03/29/17 04:00 96.7 92 18 114/63 96 03/29/17 00:46 20 03/28/17 23:56 97.2 94 18 113/57 94 03/28/17 20:00 97.0 96 17 116/59 97 (Maribell Cortez) CBC/BMP: 03/29/17 0508 03/28/17 0535 Lab Results Laboratory Tests Test 03/28/17 03/29/17 18:08 05:08 Prothrombin Time 43.9 SEC 28.9 SEC Prothromb Time International 3.7 RATIO 2.5 RATIO Ratio White Blood Count 15.7 TH/MM3 Red Blood Count 4.24 MIL/MM3 Hemoglobin 12.5 GM/DL Hematocrit 38.2 % Mean Corpuscular Volume 90.2 FL Mean Corpuscular Hemoglobin 29.5 PG Mean Corpuscular Hemoglobin 32.7 % Concent Red Cell Distribution Width 14.8 % Platelet Count 142 TH/MM3 Mean Platelet Volume 6.1 FL Neutrophils (%) (Auto) % Lymphocytes (%) (Auto) % Monocytes (%) (Auto) % Eosinophils (%) (Auto) % Basophils (%) (Auto) % Neutrophils # (Auto) TH/MM3 Lymphocytes # (Auto) TH/MM3 Monocytes # (Auto) TH/MM3 Eosinophils # (Auto) TH/MM3 Basophils # (Auto) TH/MM3 CBC Comment AUTO DIFF Differential Total Cells 100 Counted Neutrophils % (Manual) 52 % Lymphocytes % 45 % Monocytes % 3 % Neutrophils # (Manual) 8.2 TH/MM3 Differential Comment FINAL DIFF MANUAL Smudge Cells PRESENT Platelet Estimate LOW Platelet Morphology Comment NORMAL Red Cell Morphology Comment NORMAL Activated Partial 51.3 SEC Thromboplast Time Fibrinogen 421 mg/dL Current Medications Administered Medications Medications (Trade) Dose Ordered Sig/Robert Route PRN Reason Start Time Stop Time Status Last Admin Dose Admin Miscellaneous (Pill Splitter) 1 ea UNSCH PRN OTHER SEE LABEL COMMENTS 03/22/17 16:15 03/29/17 09:17 Acetaminophen/ Hydrocodone Bitart ([place] 5-325 Mg) 1 tab Q4H PRN PO SEE LABEL COMMENTS 03/23/17 14:00 03/28/17 23:28 Acetaminophen/ Hydrocodone Bitart ([place] 5-325 Mg) 2 tab Q4H PRN PO SEE LABEL COMMENTS 03/23/17 14:00 03/28/17 14:26 Alprazolam (Xanax) 0.25 mg Q8H PRN PO MILD ANXIETY 03/25/17 11:00 03/29/17 06:48 Ondansetron HCl (Zofran Inj) 4 mg Q6HR PRN IV PUSH NAUSEA 03/25/17 11:45 03/27/17 12:00 Carbidopa/Levodopa (Sinemet 25-100 Mg) 1 tab TID@07,12,16 PO 03/25/17 12:00 03/29/17 06:46 Gabapentin (Neurontin) 100 mg Q12H PO 03/25/17 12:00 03/28/17 23:28 Metoprolol Tartrate (Lopressor) 12.5 mg Q12HR PO 03/25/17 21:00 03/29/17 09:16 Patient Own Medication PT OWN MED: MYRBET... DAILY PO 03/26/17 09:00 03/29/17 09:19 Patient Own Medication PT OWN MED: RAPA... DAILY PO 03/26/17 09:00 03/29/17 09:19 (Maribell Cortez. HIGH SCHOOL DIRECTOR) Physical Exam General General Appearance: Well Developed, No Acute Distress, Comfortable (Dana, Maribell M. HIGH SCHOOL DIRECTOR) Eyes Eye Exam: Pupils Equal, Pupils Reactive (Stephens,Maribell M. HIGH SCHOOL DIRECTOR) Ears & Nose Ears & Nose Exam: Nasal Mucosa [place] (Stephens,Maribell M. HIGH SCHOOL DIRECTOR) Throat Throat Exam: Oral Mucosa [place] & Moist (Dana,Maribell M. HIGH SCHOOL DIRECTOR) Neck Neck Exam: Neck Supple, Trachea Midline (DanaMaribell M. HIGH SCHOOL DIRECTOR) Pulmonary Resp Exam: No Distress (Stephens,Maribell M. HIGH SCHOOL DIRECTOR) Cardiology CV Exam: Regular, Good Perfusion (DanaMaribell M. HIGH SCHOOL DIRECTOR) Gastrointestinal/Abdomen GI Exam: Soft, Bowel Sounds Present, Positive Bowel Movement, Non-Distended ( Dana,Maribell M. HIGH SCHOOL DIRECTOR) Musculoskeletal MS Exam: Joints Intact (StephensSejalMaribell M. HIGH SCHOOL DIRECTOR) Integumentary Skin Exam: Warm, Dry (StephensMaribell M. HIGH SCHOOL DIRECTOR) Extremeties Extremities Exam: Pedal Pulses Palpable, Trace Edema (Dana,Maribell M. HIGH SCHOOL DIRECTOR) Neurologic Neuro Exam: Alert, Awake, Oriented, Speech Clear, Moving All Extremities, No Focal Deficits (DanaMaribell M. HIGH SCHOOL DIRECTOR) Psychiatric Psych Exam: Appropriate Responses (DanaMaribell M. HIGH SCHOOL DIRECTOR) VTE Prophylaxis VTE Prophylaxis Meds: Heparin (DanaSejalMaribell M. 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 Oncologist on board, frozen section was consistent with carcinoma. 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 Ca 19.9 1397.1, CEA 21.3 GI consult requested for panendoscopy to look for GI primary tumor pathology from peritoneal and GB biopsy poorly differentiated adenocarcinoma per oncology noted, poor performance status, may not be a good candidate for palliative chemotherapy especially if this turns out to be a gallbladder carcinoma. Dr. Mantilla is his oncologist, follows him for CLL Patient is status post EGD, ulcer seen Recent cholecystitis s/p cholecystostomy, no further surgical management at this time Medical management, appetite has tolerated to his desire Recent CVA (bilat) on chronic anticoagulation Neurology following, Dr. Parekh's input appreciated INR 5.1, coumadin on hold Hx DVT on Coumadin, held at this time Chronic obstructive pulmonary disease with obstructive sleep apnea continue to monitor, patient is using O2 per nasal cannula when necessary and has his on CPAP machine at night Will have respiratory eval with her oxygen can be popped into his current CPAP machine, if not he may have to use another type if he wishes to have CPAP and oxygen. Duonebs PRN Leukocytosis, continues to trending on 15.7 Anemia secondary to current cancer diagnosis and or chronic disease, stable at 12.5 CT chest 03/24 pleural effusions, consolidations, mild cough continues Continue with Lasix 40 mg daily, will recheck chest x-ray continue with supplemental oxygen, monitor sats, IS q 2 ANDREI-medical management monitoring Elevated LFTs, possibly secondary to his adenocarcinoma continue to monitor. Thrombocytopenia, poss sec. malignancy, on anticoagulation monitor Plat 146 monitor for bleeding anxiety-Xanax PRN ordered. Enc PO intake and food intake PT eval and tx, OOB for his mobility and strengthening Palliative consult in place, input appreciated. Spoke to palliative care, she met with pt and family. Currently patient and family want full code full aggressive care. Supportive care to their questions continue with supportive care CM for dc planning, hopefully home with [facility] in 1-2 days after work up done. Supportive family to assist him D/W RN D/W pt and family D/W Dr carrion, seen on her behalf (Maribell Cortez) Assessment/Plan patient seen and examined s/p EGD, will await results cancerous ulcer seen per verbal report, awaiting Biopsy results CXR in am continue current care discussed with patient, family at be Maribell garcia (Wilda Carrion MD) Problem Qualifiers (1) COPD (chronic obstructive pulmonary disease): Qualified Code: J44.9 - Chronic obstructive pulmonary disease, unspecified COPD type (2) Hyperlipidemia: Qualified Code: E78.5 - Hyperlipidemia, unspecified hyperlipidemia type (3) Leukocytosis: Qualified Code: D72.829 - Leukocytosis, unspecified type Maribell Cortez March 29, 2017 16:09 Wilda Carrion MD March 29, 2017 17:09
[2017-03-29] MEDS: FUROSEMIDE 40 MG TAB PO SCH (17:25)
[2017-03-29 17:34] VITALS: BP 108/58; PULSE 111
--- NOTE | 2017-03-29 17:53 | RADRPT ---
EXAM DATE/TIME: 03/29/2017 17:42 [place] COMPARISON: CT THORAX W/O CONTRAST, March 24, 2017, 22:40. CHEST SINGLE AP, March 26, 2017, 13:40. INDICATIONS : Cough. MEDICAL HISTORY : Congestive heart failure. SURGICAL HISTORY : None. ENCOUNTER: Initial ACUITY: 1 day PAIN SCORE: 0/10 LOCATION: Bilateral chest FINDINGS: Bilateral basilar and peripheral infiltrates and superimposed effusions persist, essentially stable. The cardiac contours are unchanged. CONCLUSION: Stable chest appearance Duncan Pitts MD on March 29, 2017 at 17:51 Board Certified Radiologist. This report was verified electronically.
[2017-03-29] MEDS: PANTOPRAZOLE SOD 40 MG DELAYED RELEASE TAB PO SCH (19:50)
[2017-03-29 20:00] VITALS: BP 134/68; PULSE 102; RESP 21; TEMP 96.9; O2SAT 92
[2017-03-30] VITALS: BP 117/58; PULSE 91; RESP 16; TEMP 96.9; O2SAT 96
[2017-03-30] MEDS: GABAPENTIN 100 MG CAP PO SCH ×2 (00:56→12:24)
[2017-03-30 05:39] LABS: HEMATOCRIT 37.5 % (39.0-51.0); MEAN CELL VOLUME 91.4 FL (80.0-100.0); MEAN CORPUSCULAR HEMOGLOBIN 30.6 PG (27.0-34.0); MEAN CORPUSCULAR HGB CONC 33.5 % (32.0-36.0); PLATELET COUNT 146 TH/MM3 (150-450); RED CELL DISTRIBUTION WIDTH 15.3 % (11.6-17.2); REVIEW FLAG FINAL; WHITE BLOOD COUNT 15.2 TH/MM3 (4.0-11.0)
[2017-03-30] MEDS: ACETAMINOPHEN/HYDROcodone 325 MG/5 MG TAB PO PRN ×3 (06:04→21:16)
[2017-03-30] MEDS: CARBIDOPA/LEVODOPA 25 MG/100 MG TAB PO SCH ×3 (06:04→17:05)
[2017-03-30 07:21] LABS: INTERNATIONAL NORMALIZED RATIO 2.2 RATIO; PROTHROMBIN TIME - PATIENT 24.8 SEC (9.8-11.6)
[2017-03-30 08:00] VITALS: BP 133/63; PULSE 93; RESP 20; TEMP 96.6; O2SAT 97
--- NOTE | 2017-03-30 08:22 | HHI.PR ---
Subjective Remarks gall bladder ca ulcer bx looked suspicious on egd Objective Vital Signs Date Time Temp Pulse Resp B/P Pulse Ox O2 Delivery O2 Flow Rate FiO2 03/30/17 08:00 96.6 93 20 133/63 97 03/30/17 00:00 96.9 91 16 117/58 96 03/29/17 20:00 96.9 102 21 134/68 92 03/29/17 17:34 111 108/58 03/29/17 16:10 98.5 96 15 103/58 99 03/29/17 16:00 97 15 105/68 98 03/29/17 15:45 97 16 113/64 98 03/29/17 15:24 98.6 100 15 115/62 99 I/O 03/29/17 03/29/17 03/29/17 03/30/17 03/30/17 03/30/17 07:00 15:00 23:00 07:00 15:00 23:00 Intake Total 0 ml 930 ml 240 ml Output Total 350 ml 350 ml 380 ml Balance -350 ml 0 ml 580 ml -140 ml Intake Oral 0 ml 280 ml 240 ml IV Total 50 ml Other 600 ml Output Urine Total 350 ml 300 ml 380 ml Estimated Blood Loss 50 ml # Voids 1 Result Diagram: 03/30/17 0442 03/28/17 0535 Objective Remarks awake alert nl speech in chair moves all well nad n bleeding looks well abd soft ble 5/5 weakened gait Assessment and Plan Assessment and Plan inr 2.2 coumadin1 mg keep inr 2-2.5 onc on case the cancer could acct for his cva hypercoag? ok dc neurowise i can fu inr o/p until he gets another pcp Pete Parekh MD March 30, 2017 08:21
[2017-03-30] MEDS: METOPROLOL TARTRATE 25 MG TAB PO SCH (08:27)
[2017-03-30] MEDS: FUROSEMIDE 40 MG TAB PO SCH (08:27)
[2017-03-30] MEDS: SILODOSIN 8 MG PO SCH (08:27)
[2017-03-30] MEDS: MYRBETRIQ 25 MG PO SCH (08:27)
[2017-03-30] MEDS: PANTOPRAZOLE SOD 40 MG DELAYED RELEASE TAB PO SCH ×2 (08:27→19:51)
[2017-03-30] MEDS: PILL SPLITTER OTHER PRN (08:27)
[2017-03-30] MEDS: ALPRAZolam 0.25 MG TAB PO PRN ×2 (08:36→17:16)
[2017-03-30 12:00] VITALS: BP 98/56; PULSE 86; RESP 20; TEMP 97.3; O2SAT 95
--- NOTE | 2017-03-30 12:44 | HHI.PR ---
Subjective Subjective Notes Resting in bed Wants to go home tomorrow ----wants HHC Frustrated because he does not want to have blood work every day Objective Vitals/I&O Vital Signs Date Time Temp Pulse Resp B/P Pulse Ox O2 Delivery O2 Flow Rate FiO2 03/30/17 08:00 96.6 93 20 133/63 97 03/26/17 18:11 Nasal Cannula 2.00 Labs Laboratory Tests Test 03/30/17 03/30/17 04:42 07:06 White Blood Count 15.2 Red Blood Count 4.10 Hemoglobin 12.6 Hematocrit 37.5 Mean Corpuscular Volume 91.4 Mean Corpuscular Hemoglobin 30.6 Mean Corpuscular Hemoglobin 33.5 Concent Red Cell Distribution Width 15.3 Platelet Count 146 Mean Platelet Volume 6.4 Prothrombin Time 24.8 Prothromb Time International 2.2 Ratio Cardiovascular: Regular Lungs: Clear Abdomen: Other (lap sites c/d/i; abdomen soft), Post-op tenderness Extremities: No edema A/P Assessment and Plan 81 year old male POD7 diagnostic laparoscopy, drainage of ascites, peritoneal biopsy -Await bx results from EGD -Pathology reviewed--- invasive poorly differentiated adenocarcinoma -Appreciate Palliative Care consult -Oncology following -Tolerating regular diet -Pain control -Okay for family to bring food from home -CM consult for HHC + PT Attending Statement The exam, history, and the medical decision-making described in the above note were completed with the assistance of the mid-level provider. I reviewed and agree with the findings presented. I attest that I had a [id number]-[id number] encounter with the patient on the same day, and personally performed and documented my assessment and findings in the medical record. Abdominal exam stable, nothing to add from a surgical standpoint, ok to DC home once home health and/or Hospice set up Myrna Zaidi March 30, 2017 12:44 Juan Antonio Longoria MD April 05, 2017 17:11
--- NOTE | 2017-03-30 13:40 | HHI.HCPN ---
Reason for visit a. To assist with evaluation and management of symptoms including: Debility and pain. b. To assist medical decision maker(s) with: better understanding of current medical conditions; weighing benefits/burdens of medical treatment options; making medical treatment decisions. . (Stephanie North) Subjective/Interval History Palliative care follow up for clarifications of goals of care and emotional support. Patient was seen in his room, he was sitting up in chair in no acute distress. Patient denying any pain, shortness of breath, nausea/vomiting or abdominal discomfort. Endorsing minor hoarseness secondary to EGD performed yesterday. No hemoptysis reported. Patient remains afebrile, stable hemodynamically. Tolerating O2 via nasal cannula at 2 L. Oxygen saturation in the high 90s. Reporting some dyspnea on exertion. Most recent chest x-ray yesterday showing stable chest. Laboratory workup to include WBC 15.2, Hgb 12.6 , platelet count 146. Sodium 135, potassium 4.7, BUN/creatinine 29/1.53. Albumin 1.3. INR 2.2. Patient underwent EGD with biopsy yesterday 03/29/17, large antral ulcer suspicious for malignancy. Pending biopsy results. Spoke with patient and daughter Juliette at bedside. Patient reports feeling ready for discharge, he will like to be discharge home with home health/ physical therapy for strengthening. Patient tells me that he is to follow-up with his primary oncologist Dr. Mantilla, and will likely seek second opinion at [facility]. Patient wishing to pursue second opinion and aggressive care. Patient wishing to remain full code at this time. Shared with patient concerns about likelihood of for further complications, continue decline and given terminal condition. Discussed the future role of hospice should clinical course worsen or additional decline. All questions were answered in great detail. . Family/friend interactions See interval note. . (Stephanie North) Advance Directives Living Will: Copy in medical record Health Care Surrogate: Copy in medical record Durable Power of Engineering Assistant: Completed, but not made available (Stephanie North) Advance Directive Specifics Date completed: November 26, 2015. . Health Care Surrogate(s): Patient designating daughter Christina Genao as primary healthcare surrogate, alternated son Dusty Olivier. . Documented care wishes: Living will with standard verbiage as it pertains to terminal condition, and stage condition or persistent vegetative state. Patient electing not to prolong his life in the event of the above-mentioned conditions. He further desires that nutrition be withheld or withdrawn when the application of such procedures would only serve to prolong artificially the process of dying. . Significant change in goals: Full code. Continue aggressive management. Patient to seek second opinion at [facility]. . (Stephanie North) Objective Vital Signs Date Time Temp Pulse Resp B/P Pulse Ox O2 Delivery O2 Flow Rate FiO2 03/30/17 08:00 96.6 93 20 133/63 97 03/30/17 00:00 96.9 91 16 117/58 96 03/29/17 20:00 96.9 102 21 134/68 92 03/29/17 17:34 111 108/58 03/29/17 16:10 98.5 96 15 103/58 99 03/29/17 16:00 97 15 105/68 98 03/29/17 15:45 97 16 113/64 98 03/29/17 15:24 98.6 100 15 115/62 99 Intake & Output 03/30/17 03/30/17 07:00 19:00 Intake Total 520 ml Output Total 680 ml Balance -160 ml Intake Oral 520 ml Output Urine Total 680 ml Physical Exam CONSTITUTIONAL/GENERAL: This is an adequately nourished patient, in no apparent distress. TUBES/LINES/DRAINS: PIV's. SKIN: No jaundice, rashes, or lesions. Ecchymoses on upper extremities. Surgical incisions to left abdomen and umbilicus. Incision is closed, well approximated with no discharge or redness noted. Skin temperature appropriate. Not diaphoretic. HEAD: Atraumatic. Normocephalic. EYES: Pupils equal and round and reactive. Wears eyeglasses. Extraocular motions intact. No scleral icterus. ENT: Hearing grossly normal. Nose without bleeding or purulent drainage. Throat without visible erythema, exudates, masses, or lesions. NECK: Trachea midline. Supple, nontender. CARDIOVASCULAR: Regular rate and rhythm without murmurs, gallops, or rubs. Peripheral pulses symmetric. RESPIRATORY/CHEST: Symmetric, unlabored respirations. Clear to auscultation. Breath sounds equal bilaterally, diminished. GASTROINTESTINAL: Abdomen soft, nontender, distended. Bowel sounds present. GENITOURINARY: Without palpable bladder distension. MUSCULOSKELETAL: Extremities without clubbing. Trace edema to bilateral lower extremities. NEUROLOGICAL: Awake and alert. Motor and sensory grossly within normal limits. Follows commands. Cognitively sharp. Moves all extremities. PSYCHIATRIC: No obvious anxiety/depression. no apparent hallucinations or other psychotic thought process. Patient is pleasant and cooperative. . (Stephanie North) Diagnostic Tests Laboratory Laboratory Tests Test 03/28/17 03/28/17 03/29/17 03/30/17 05:35 18:08 05:08 04:42 White Blood Count 16.8 TH/MM3 15.7 TH/MM3 15.2 TH/MM3 (4.0-11.0) (4.0-11.0) (4.0-11.0) Red Blood Count 4.55 MIL/MM3 4.24 MIL/MM3 4.10 MIL/MM3 (4.50-5.90) (4.50-5.90) (4.50-5.90) Hemoglobin 13.4 GM/DL 12.5 GM/DL 12.6 GM/DL (13.0-17.0) (13.0-17.0) (13.0-17.0) Hematocrit 41.2 % 38.2 % 37.5 % (39.0-51.0) (39.0-51.0) (39.0-51.0) Mean Corpuscular Volume 90.6 FL 90.2 FL 91.4 FL (80.0-100.0) (80.0-100.0) (80.0-100.0) Mean Corpuscular Hemoglobin 29.5 PG 29.5 PG 30.6 PG (27.0-34.0) (27.0-34.0) (27.0-34.0) Mean Corpuscular Hemoglobin 32.6 % 32.7 % 33.5 % Concent (32.0-36.0) (32.0-36.0) (32.0-36.0) Red Cell Distribution Width 14.6 % 14.8 % 15.3 % (11.6-17.2) (11.6-17.2) (11.6-17.2) Platelet Count 146 TH/MM3 142 TH/MM3 146 TH/MM3 (150-450) (150-450) (150-450) Mean Platelet Volume 6.3 FL 6.1 FL 6.4 FL (7.0-11.0) (7.0-11.0) (7.0-11.0) Prothrombin Time 61.0 SEC 43.9 SEC 28.9 SEC (9.8-11.6) (9.8-11.6) (9.8-11.6) Prothromb Time International 5.1 RATIO 3.7 RATIO 2.5 RATIO Ratio Fibrinogen 437 mg/dL 421 mg/dL (227-377) (227-377) Sodium Level 135 MEQ/L (136-145) Potassium Level 4.7 MEQ/L (3.5-5.1) Chloride Level 105 MEQ/L (98-107) Carbon Dioxide Level 21.0 MEQ/L (21.0-32.0) Anion Gap 9 MEQ/L (5-15) Blood Urea Nitrogen 29 MG/DL (7-18) Creatinine 1.53 MG/DL (0.60-1.30) Estimat Glomerular Filtration 44 ML/MIN (>89) Rate Random Glucose 95 MG/DL (74-106) Calcium Level 7.8 MG/DL (8.5-10.1) Total Bilirubin 0.5 MG/DL (0.2-1.0) Direct Bilirubin 0.1 MG/DL (0.0-0.2) Indirect Bilirubin 0.4 MG/DL (0.0-0.8) Aspartate Amino Transf 42 U/L (15-37) (AST/SGOT) Alanine Aminotransferase 8 U/L (12-78) (ALT/SGPT) Alkaline Phosphatase 139 U/L (45-117) Total Protein 5.1 GM/DL (6.4-8.2) Albumin 1.3 GM/DL (3.4-5.0) Neutrophils (%) (Auto) % (16.0-70.0) Lymphocytes (%) (Auto) % (9.0-44.0) Monocytes (%) (Auto) % (0.0-8.0) Eosinophils (%) (Auto) % (0.0-4.0) Basophils (%) (Auto) % (0.0-2.0) Neutrophils # (Auto) TH/MM3 (1.8-7.7) Lymphocytes # (Auto) TH/MM3 (1.0-4.8) Monocytes # (Auto) TH/MM3 (0-0.9) Eosinophils # (Auto) TH/MM3 (0-0.4) Basophils # (Auto) TH/MM3 (0-0.2) CBC Comment AUTO DIFF Differential Total Cells 100 Counted Neutrophils % (Manual) 52 % (16-70) Lymphocytes % 45 % (9-44) Monocytes % 3 % (0-8) Neutrophils # (Manual) 8.2 TH/MM3 (1.8-7.7) Differential Comment FINAL DIFF MANUAL Smudge Cells PRESENT Platelet Estimate LOW (NORMAL) Platelet Morphology Comment NORMAL (NORMAL) Red Cell Morphology Comment NORMAL (NORMAL) Activated Partial 51.3 SEC Thromboplast Time (24.3-30.1) Test 03/30/17 07:06 Prothrombin Time 24.8 SEC (9.8-11.6) Prothromb Time International 2.2 RATIO Ratio (Stephanie North) Result Diagram: 03/30/17 0442 03/28/17 0535 Imaging Last 48 hours Impressions Chest X-Ray 03/29/17 0000 Signed Impressions: Service Date/Time: Wednesday, March 29, 2017 17:42 - CONCLUSION: Stable chest appearance Duncan Pitts MD Procedures * 03/29/17 -EGD with biopsy. * 03/23/17 -diagnostic laparoscopy, drainage of ascites and peritoneal biopsy. . 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 Pending peritoneal biopsy. 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 (3) COPD (chronic obstructive pulmonary disease) Symptom Scale: (1) Abdominal pain 0-10 Scale: 3 Comment: Secondary to burden of disease and recent surgical intervention. (2) Anxiety 0-10 Scale: 0 (3) Nausea 0-10 Scale: 0 (4) Debility 0-10 Scale: Unable to quantify Comment: Secondary to CVA 2, burden of disease and multiple prolonged hospitalizations. . Pertinent Non-Medical Issues Psychosocial: . Has 4 living children. Originally from [place], former [facility]. Spiritual: [employer]. Legal: Living will has been completed, copy in chart. Ethical issues impacting care: No ethical issues have been identified. . Important Contacts Daughter/HCS: Jane Genao [phone] Son/alternate HCS: Dusty Olivier . . Prognosis Mr. Olivier is an 81 y/o male with a medical history significant for CCL, prostate cancer, COPD and CVA x 2 who presented to the ED on 03/22/17 endorsing persistent abdominal pain. patient with recent history of cholecystitis s/p cholecystostomy on 02/04/17. Patient status post diagnostic laparoscopy showing carcinomatosis with malignant ascites. 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 Patient with multiple prolonged hospitalizations since first stroke in November 2016. Patient's prognosis is very poor given his terminal condition, multiple comorbidities, and profound physical deconditioning. Patient appears hospice appropriate if he elects comfort-directed care. . Code Status: Full Code Plan * CODE STATUS: Full code at this time. Discussed benefits, risks and limitations of CPR, intubation and mechanical ventilation given patient's profound debility, multiple recent hospitalizations, multiple comorbidities, advanced age and terminal condition/carcinomatosis. Patient and family electing to continue full code at this time. * MEDICAL DECISION-MAKING: Patient participating in medical decision-making. Patient designating daughter Christina Genao as primary healthcare surrogate, alternate surrogate son Dusty Olivier. * GOALS OF CARE: Patient elected to continue full aggressive management to include seeking second opinion at [facility]. -Spoke with patient and daughter Juliette at bedside. Patient reports feeling ready for discharge, he will like to be discharge home with home health/physical therapy for strengthening. Patient tells me that he is to follow-up with his primary oncologist Dr. Mantilla, and will likely seek second opinion at [facility]. Patient wishing to pursue second opinion and aggressive care. Patient wishing to remain full code at this time. Shared concerns related to high likelihood of further complications, continue decline and given terminal condition. Discussed the future role of hospice should clinical course worsen or additional decline. * SYMPTOMS: = Abdominal pain: Secondary to burden of disease, recent surgical intervention. [place] and morphine available as needed. Patient reports [place] is effective for pain. No further recommendations. = Anxiety: Chronic, exacerbated by hospitalization. Alprazolam 0.25 every 8 hours as needed. = Nausea: Secondary to burden of disease. Zofran available as needed. = Debility : Secondary to burden of disease, CVA 2, multiple recent prolonged hospitalizations. Will likely need rehabilitation versus home health/PT upon discharge. * Palliative care contact information has been provided to patient and family. * Palliative care will continue to follow-up as needed for further clarifications of goals of care as his medical course evolves. . (Stephanie North) Time Spent Total Floor Time (mins): 38 (Total time to include review medical records, physical exam, goals of care conversation with patient and daughter Juliette.) Face to Face Time (mins): 28 >50% Counseling/Coord of Care: Yes (Stephanei North) Attestation To help prompt me to consider important information that might be impacting today's encounter and assessment, information from prior notes written by myself or my colleagues may have been "brought forward" into today's note. My signature on this note, however, is an attestation that I personally performed the exam, history, and/or decision-making noted today, and, unless otherwise indicated, the interactions with patient, family, and staff as well as the review of records all occurred today. I also attest that the listed assessment and stated plan reflect my best clinical judgment today based on the combination of historical information, prior notes, and today's exam/ interactions. When time spent is documented, it refers only to time spent today by the signer, or if indicated, combined time spent today by collaborating physician/nurse practitioner. (Stephanie North) Collaborating MD Comments . Chart reviewed. Case discussed with palliative care ACID CONDENSER. Above ACID CONDENSER note reviewed and I concur. . (Eric Miller MD) Stephanie North March 30, 2017 13:40 Eric Miller MD April 05, 2017 16:26
[2017-03-30] MEDS ORDERED: SODIUM CHLORID 0.9% 500 ML INJ 500 ML IV SCH (14:30)
--- NOTE | 2017-03-30 14:38 | HHI.PR ---
Subjective Subjective Remarks Sitting up in chair, eating a late lunch Awake alert, 2 of his children in the room Afebrile Abdomen taut, mild distention continues Color pale, emely (Maribell Cortez) Review of Systems Constitutional Constitutional: Fatigue, Weakness (generalized) Constitutional Remarks 10 point ROS done positives noted otherwise systems negative are unremarkable ( Maribell Cortez) Throat Throat Remarks Cough (Maribell Cortez) Pulmonary Respiratory: Coughing (occasional) (Maribell Cortez) GI/Abdomen GI/Abdomen Remarks Appetite fair (Mairbell Cortez) Musculoskeletal MS: Weakness, Stiffness (Maribell Cortez) Integumentary Skin: Wounds (abdominal small surgical incisions no erythema or edema) (Maribell Cortez) Vitals/Results Intake & Output 03/29/17 03/29/17 03/30/17 15:00 23:00 07:00 Intake Total 0 ml 930 ml 240 ml Output Total 350 ml 380 ml Balance 0 ml 580 ml -140 ml Intake Oral 0 ml 280 ml 240 ml IV Total 50 ml Other 600 ml Output Urine Total 300 ml 380 ml Estimated Blood Loss 50 ml # Voids 1 Vital Signs Vital Signs Date Time Temp Pulse Resp B/P Pulse Ox O2 Delivery O2 Flow Rate FiO2 03/30/17 12:00 97.3 86 20 98/56 95 03/30/17 08:00 96.6 93 20 133/63 97 03/30/17 00:00 96.9 91 16 117/58 96 03/29/17 20:00 96.9 102 21 134/68 92 03/29/17 17:34 111 108/58 03/29/17 16:10 98.5 96 15 103/58 99 03/29/17 16:00 97 15 105/68 98 03/29/17 15:45 97 16 113/64 98 03/29/17 15:24 98.6 100 15 115/62 99 (Maribell Cortez) CBC/BMP: 03/30/17 0442 03/28/17 0535 Lab Results Laboratory Tests Test 03/30/17 03/30/17 04:42 07:06 White Blood Count 15.2 TH/MM3 Red Blood Count 4.10 MIL/MM3 Hemoglobin 12.6 GM/DL Hematocrit 37.5 % Mean Corpuscular Volume 91.4 FL Mean Corpuscular Hemoglobin 30.6 PG Mean Corpuscular Hemoglobin 33.5 % Concent Red Cell Distribution Width 15.3 % Platelet Count 146 TH/MM3 Mean Platelet Volume 6.4 FL Prothrombin Time 24.8 SEC Prothromb Time International 2.2 RATIO Ratio Current Medications Administered Medications Medications (Trade) Dose Ordered Sig/Robert Route PRN Reason Start Time Stop Time Status Last Admin Dose Admin Miscellaneous (Pill Splitter) 1 ea UNSCH PRN OTHER SEE LABEL COMMENTS 03/22/17 16:15 03/30/17 08:27 Acetaminophen/ Hydrocodone Bitart ([place] 5-325 Mg) 1 tab Q4H PRN PO SEE LABEL COMMENTS 03/23/17 14:00 03/30/17 12:59 Acetaminophen/ Hydrocodone Bitart ([place] 5-325 Mg) 2 tab Q4H PRN PO SEE LABEL COMMENTS 03/23/17 14:00 03/28/17 14:26 Alprazolam (Xanax) 0.25 mg Q8H PRN PO MILD ANXIETY 03/25/17 11:00 03/30/17 08:36 Ondansetron HCl (Zofran Inj) 4 mg Q6HR PRN IV PUSH NAUSEA 03/25/17 11:45 03/27/17 12:00 Carbidopa/Levodopa (Sinemet 25-100 Mg) 1 tab TID@07,12,16 PO 03/25/17 12:00 03/30/17 12:24 Gabapentin (Neurontin) 100 mg Q12H PO 03/25/17 12:00 03/30/17 12:24 Patient Own Medication PT OWN MED: MYRBET... DAILY PO 03/26/17 09:00 03/30/17 08:27 Patient Own Medication PT OWN MED: RAPA... DAILY PO 03/26/17 09:00 03/30/17 08:27 Pantoprazole Sodium (Protonix) 40 mg BID PO 03/29/17 21:00 03/30/17 08:27 Furosemide (Lasix) 40 mg DAILY PO 03/29/17 17:00 03/30/17 08:27 (Raymond,Maribell M. RIVET MAKER) Physical Exam General General Appearance: Well Developed, No Acute Distress, Comfortable (RaymondMaribell miller M. RIVET MAKER) Eyes Eye Exam: Pupils Equal, Pupils Reactive (Maribell Cortez M. RIVET MAKER) Ears & Nose Ears & Nose Exam: Nasal Mucosa Wilhoit (Maribell Cortez M. RIVET MAKER) Throat Throat Exam: Oral Mucosa [place]it & Moist (DanaSejal scalesan M. RIVET MAKER) Neck Neck Exam: Neck Supple, Trachea Midline (Dana,Susan M. RIVET MAKER) Pulmonary Resp Exam: No Distress (RaymondSejal scalesan M. RIVET MAKER) Cardiology CV Exam: Regular, Good Perfusion (Dana,Susan M. RIVET MAKER) Gastrointestinal/Abdomen GI Exam: Soft, Bowel Sounds Present, Positive Bowel Movement, Non-Distended ( Raymond,Susan M. RIVET MAKER) Musculoskeletal MS Exam: Joints Intact (Dana,Susan M. RIVET MAKER) Integumentary Skin Exam: Warm, Dry (Maribell Cortez M. RIVET MAKER) Extremeties Extremities Exam: Pedal Pulses Palpable, Trace Edema (Dana,Maribell M. RIVET MAKER) Neurologic Neuro Exam: Alert, Awake, Oriented, Speech Clear, Moving All Extremities, No Focal Deficits (Raymond,Maribell M. RIVET MAKER) Psychiatric Psych Exam: Appropriate Responses (Maribell Cortez M. RIVET MAKER) VTE Prophylaxis VTE Prophylaxis Meds: Heparin (Raymond,Susan M. RIVET MAKER) Assessment/Plan Problem List: (1) Abdominal carcinomatosis (2) CLL (chronic lymphocytic leukemia) (3) Anxiety (4) Debility (5) COPD (chronic obstructive pulmonary disease) (6) Hyperlipidemia (7) History of CVA (cerebrovascular accident) (8) Chronic anticoagulation (9) KEO on CPAP (10) Thrombocytopenia (11) Leukocytosis (12) Pleural effusion Assessment/Plan Assessment/Plan Vital signs reviewed, BP for today with systolic 98/56, since chest x-ray is stable we will give him a 500 cc fluid bolus over a 5 hour period and monitor for any acute shortness of breath. Decrease his metoprolol dose to 12.5 daily. No dose this p.m. and we will monitor BP and pulse needs Labs reviewed stable hemoglobin and leukocytosis, recheck BMP in the morning Abdominal pain with some distention and tympany, pain management is effective, surgery input appreciated bx pending, likely GB cancer per surgical opinion continue with post op care and pain management, monitor abdominal distentio Oncology following now. Oncologist on board, frozen section was consistent with carcinoma. 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 Results still pending GI consult requested for panendoscopy to look for GI primary tumor, endoscopy done yesterday gastric ulcer was found but no stomach mass pathology from peritoneal biopsy poorly differentiated adenocarcinoma per oncology noted, poor performance status, may not be a good candidate for palliative chemotherapy especially if this turns out to be a gallbladder carcinoma. Dr. Mantilla is his oncologist, follows him for CLL Recent cholecystitis s/p cholecystostomy, no further surgical management at this time Medical management, appetite has tolerated to his desire Recent CVA (bilat) on chronic anticoagulation Neurology following, Dr. Parekh's input appreciated Monitoring PT/INR Hx DVT on Coumadin, held at this time Chronic obstructive pulmonary disease with obstructive sleep apnea continue to monitor, patient is using O2 per nasal cannula when necessary and has his on CPAP machine at night Will have respiratory eval with her oxygen can be popped into his current CPAP machine, if not he may have to use another type if he wishes to have CPAP and oxygen. Duonebs PRN Leukocytosis, continues to trending on 15.2 Anemia secondary to current cancer diagnosis and or chronic disease, stable at 12. Chest x-ray with improvement, patient still has decreased breath sounds in his bases. Encouraged to turn cough and deep breathing keep moving Continues to want to use his CPAP at night with O2 filtered through. Respiratory is aware of this process included with the plan continue with supplemental oxygen, monitor sats, IS q 2 Supportive care to patient and his family throughout this difficult diagnosis and hospital stay. Questions answered (Marbiell Cortez) Assessment/Plan patient seen and examined wants to go home with [facility] early tomorrow morning he has an appointment with his primary Oncologist Dr Austin Mantilla at noon met with hospice, but not ready to go with it yet. wants to seek a second opinion from [facility] biopsy results pending discussed with patient and son at bed side in detail all questions answered discussed with Maribell EDWARDS (Wilda Carrion MD) Problem Qualifiers (1) COPD (chronic obstructive pulmonary disease): Qualified Code: J44.9 - Chronic obstructive pulmonary disease, unspecified COPD type (2) Hyperlipidemia: Qualified Code: E78.5 - Hyperlipidemia, unspecified hyperlipidemia type (3) Leukocytosis: Qualified Code: D72.829 - Leukocytosis, unspecified type Maribell Cortez March 30, 2017 14:38 Wilda Carrion MD March 30, 2017 17:02
--- NOTE | 2017-03-30 14:58 | HHI.GIFU ---
Subjective Remarks Patient is sitting up in chair, accompanied by family. He denies abd pain, nausea, vomiting or bleeding. The plan is to go home and f/u with medical oncology and hospice evaluation (Lester Garcia) Objective Vitals I&O Vital Signs Date Time Temp Pulse Resp B/P Pulse Ox O2 Delivery O2 Flow Rate FiO2 03/30/17 12:00 97.3 86 20 98/56 95 03/30/17 08:00 96.6 93 20 133/63 97 03/30/17 00:00 96.9 91 16 117/58 96 03/29/17 20:00 96.9 102 21 134/68 92 03/29/17 17:34 111 108/58 03/29/17 16:10 98.5 96 15 103/58 99 03/29/17 16:00 97 15 105/68 98 03/29/17 15:45 97 16 113/64 98 03/29/17 15:24 98.6 100 15 115/62 99 I/O 03/29/17 03/29/17 03/29/17 03/30/17 03/30/17 03/30/17 07:00 15:00 23:00 07:00 15:00 23:00 Intake Total 0 ml 930 ml 240 ml Output Total 350 ml 350 ml 380 ml Balance -350 ml 0 ml 580 ml -140 ml Intake Oral 0 ml 280 ml 240 ml IV Total 50 ml Other 600 ml Output Urine Total 350 ml 300 ml 380 ml Estimated Blood Loss 50 ml # Voids 1 Laboratory Laboratory Tests Test 03/30/17 03/30/17 04:42 07:06 White Blood Count 15.2 Red Blood Count 4.10 Hemoglobin 12.6 Hematocrit 37.5 Mean Corpuscular Volume 91.4 Mean Corpuscular Hemoglobin 30.6 Mean Corpuscular Hemoglobin 33.5 Concent Red Cell Distribution Width 15.3 Platelet Count 146 Mean Platelet Volume 6.4 Prothrombin Time 24.8 Prothromb Time International 2.2 Ratio Imaging Last Impressions Chest X-Ray 03/29/17 0000 Signed Impressions: Service Date/Time: Wednesday, March 29, 2017 17:42 - CONCLUSION: Stable chest appearance Duncan Pitts MD Chest CT 03/24/17 0000 Signed Impressions: Service Date/Time: March 22:40 - CONCLUSION: 1. Development of moderate bilateral pleural effusion since prior chest CT. Is also patchy mostly peripheral consolidation in both lungs and some interstitial prominence. 2. Mild mediastinal and pericardial adenopathy, slightly increased from prior study in November. 3. Moderate coronary artery calcifications. Christopher Ruano MD Abdomen/Pelvis CT 03/24/17 0000 Signed Impressions: Service Date/Time: , March 24, 2017 22:40 - CONCLUSION: 1. Development of mild ascites and mild anasarca since November 2016. 2. Evolving splenic infarct. 3. Removal of cholecystostomy tube with some residual calcifications in the gallbladder characteristic of gallstones. No bowel obstruction. Colonic diverticulosis. No free air. Christopher Ruano MD Physical Exam HEENT: Normocephalic; atraumatic CHEST: CTA CARDIAC: RRR ABDOMEN: Semifirm, distended, ascites. Bowel sounds present. EXTREMITIES: No cyanosis SKIN: ecchymosis PAINTER HELPER: No focal deficits; alert and oriented times three. (Lester Garcia) Assessment and Plan Plan ASSESSMENT: -Poorly differentiated adenocarcinoma of uncertain primary. S/P EGD on (03/29/17 ) ----> large gastric ulcer suspicious for malignancy, bx pending S/P Diagnostic and staging laparoscopy, laparoscopic drainage of intraabdominal ascites, peritoneal biopsy with intraoperative frozen section. Pathology gallbladder invasive poorly differentiated adenocarcinoma, peritoneum invasive poorly differentiated adenocarcinoma. ? Primary, GI consulted for endoscopic evaluation to see if there is a GI primary. D Oncology/Palliative care following. CA 19-9 1397.1, CEA 21.3, AFP1.5 - Recent CVA, has been on Coumadin, but has been hold since 03/24. INR 5.1. S/ P Vitamin K. Plan: - ARIEL - Await bx - Send home with PPI - Patient is high risk for bleeding with anticoagulation - Oncology/surgery on the case - There is plan for hospice - Pt seen and examined by Dr. Ga and myself and this note is written on his behalf (Lester Garcia) Physician Comments Patient seen and examined Agree with above Continue with current supportive care Monitor labs Most likely his prognosis is poor Not much to add from a GI standpoint we will sign off (Oskar Ga MD ) Lester Garcia March 30, 2017 14:58 Oskar Ga MD March 30, 2017 21:20
[2017-03-30] MEDS ORDERED: COUM1TAB PO (15:14)
[2017-03-30] MEDS ORDERED: PROT40TA PO (15:19)
[2017-03-30 16:00] VITALS: BP 108/57; PULSE 92; RESP 16; TEMP 97.5; O2SAT 95
[2017-03-30] MEDS ORDERED: WARFARIN SOD 1 MG TAB PO SCH (16:00)
--- NOTE | 2017-03-30 16:25 | PD.ONC.PN ---
Subjective Subjective Remarks No N/V, no abdominal pain. No bleeding. Objective Data Date Time Temp Pulse Resp B/P Pulse Ox O2 Delivery O2 Flow Rate FiO2 03/30/17 12:00 97.3 86 20 98/56 95 03/30/17 08:00 96.6 93 20 133/63 97 03/30/17 00:00 96.9 91 16 117/58 96 03/29/17 20:00 96.9 102 21 134/68 92 03/29/17 17:34 111 108/58 03/30/17 03/30/17 03/30/17 07:00 15:00 23:00 Intake Total 240 ml Output Total 380 ml Balance -140 ml Result Diagram: 03/30/17 0442 03/28/17 0535 Laboratory Results Laboratory Tests Test 03/30/17 03/30/17 04:42 07:06 White Blood Count 15.2 TH/MM3 Red Blood Count 4.10 MIL/MM3 Hemoglobin 12.6 GM/DL Hematocrit 37.5 % Mean Corpuscular Volume 91.4 FL Mean Corpuscular Hemoglobin 30.6 PG Mean Corpuscular Hemoglobin 33.5 % Concent Red Cell Distribution Width 15.3 % Platelet Count 146 TH/MM3 Mean Platelet Volume 6.4 FL Prothrombin Time 24.8 SEC Prothromb Time International 2.2 RATIO Ratio Administered Medications Medications (Trade) Dose Ordered Sig/Robert Route PRN Reason Start Time Stop Time Status Last Admin Dose Admin Miscellaneous (Pill Splitter) 1 ea UNSCH PRN OTHER SEE LABEL COMMENTS 03/22/17 16:15 03/30/17 08:27 Acetaminophen/ Hydrocodone Bitart (Union 5-325 Mg) 1 tab Q4H PRN PO SEE LABEL COMMENTS 03/23/17 14:00 03/30/17 12:59 Acetaminophen/ Hydrocodone Bitart (Union 5-325 Mg) 2 tab Q4H PRN PO SEE LABEL COMMENTS 03/23/17 14:00 03/28/17 14:26 Alprazolam (Xanax) 0.25 mg Q8H PRN PO MILD ANXIETY 03/25/17 11:00 03/30/17 08:36 Ondansetron HCl (Zofran Inj) 4 mg Q6HR PRN IV PUSH NAUSEA 03/25/17 11:45 03/27/17 12:00 Carbidopa/Levodopa (Sinemet 25-100 Mg) 1 tab TID@07,12,16 PO 03/25/17 12:00 03/30/17 12:24 Gabapentin (Neurontin) 100 mg Q12H PO 03/25/17 12:00 03/30/17 12:24 Patient Own Medication PT OWN MED: MYRBET... DAILY PO 03/26/17 09:00 03/30/17 08:27 Patient Own Medication PT OWN MED: RAPA... DAILY PO 03/26/17 09:00 03/30/17 08:27 Pantoprazole Sodium (Protonix) 40 mg BID PO 03/29/17 21:00 03/30/17 08:27 Furosemide (Lasix) 40 mg DAILY PO 03/29/17 17:00 03/30/17 08:27 Objective Remarks GENERAL: Well-nourished, well-developed patient. Weak SKIN: Warm and dry. HEAD: Normocephalic. EYES: No scleral icterus. No injection or drainage. NECK: Supple, trachea midline. No JVD or lymphadenopathy. LYMPHATIC: No adenopathy. CARDIOVASCULAR: Regular rate and rhythm without murmurs. RESPIRATORY: Breath sounds equal bilaterally. No accessory muscle use. GASTROINTESTINAL: Abdomen soft, non-tender, nondistended. Surgical site well healed. EXTREMITIES: No cyanosis, trace ankles edema. MUSCULOSKELETAL: Adequate muscle tone. NEUROLOGICAL: No obvious focal deficit. Awake, alert, and oriented x3. PSYCHIATRIC: Appropriate mood and affect; insight and judgment normal. Assessment/Plan Problem List: (1) Abdominal carcinomatosis Status: Acute Plan: --Peritoneal carcinomatosis. --ex lap-->diffuse peritoneal, hepatic and visceral carcinomatosis with dense inflammatory adhesions versus malignant adhesion of the gallbladder, frozen section was consistent with carcinoma. 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 ++20 pounds weight loss. --EGD 03/29 showed large antral ulcers with raised edges suspicious for malignancy, path pending. --pathology from peritoneal biopsy shows invasive poorly differentiated adenocarcinoma. ?primary gallbladder carcinoma vs primary gastric carcinoma ++poor performance status. He may not be a good candidate for palliative chemotherapy especially if this turns out to be a gallbladder carcinoma. --this is a Dr. 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 (3) CLL (chronic lymphocytic leukemia) Status: Chronic Plan: --follows Dr. Mantilla --not receiving any treatment. His white blood cell count has been stable. Assessment 81y/o with newly discovered carcinomatosis, worrisome for metastatic gallbladder cancer. h/o Hypertension. Anxiety. Cholecystitis. Prostate cancer treated radiation. Bladder cancer followed by urology. Diabetes mellitus. Peripheral neuropathy. Chronic lymphocytic leukemia. Stroke x2. Pressure ulcer. Hyperlipidemia. Left lower extremity deep venous thrombosis. Chronic obstructive pulmonary disease. Plan 1. Reviewed EGD result with pt. Path from biopsy of gastric mass pending. ? primary gallbladder cancer vs primary gastric cancer. I told him the prognosis is poor with either cancer and not curative. He is too weak for palliative chemotherapy. However, he still want aggressive treatment. 2. follow up with his primary oncologist Dr. Mantilla. Pt is considering going to [facility] for another opinion. He can be d/c from oncology standpoint. Juan Manuel Peraza MD March 30, 2017 16:25
[2017-03-30 20:00] VITALS: BP 145/68; PULSE 95; RESP 17; TEMP 96.9; O2SAT 94
[2017-03-31] VITALS: BP 121/64; PULSE 95; RESP 19; TEMP 96.2; O2SAT 95
[2017-03-31] MEDS: GABAPENTIN 100 MG CAP PO SCH
[2017-03-31] MEDS: ACETAMINOPHEN/HYDROcodone 325 MG/5 MG TAB PO PRN ×2 (01:30→05:08)
[2017-03-31] MEDS: CARBIDOPA/LEVODOPA 25 MG/100 MG TAB PO SCH (06:23)
[2017-03-31 08:00] VITALS: BP 127/63; PULSE 104; RESP 16; TEMP 97.8; O2SAT 95
--- NOTE | 2017-03-31 08:05 | HHI.DCPOC ---
Discharge Care Plan Diagnosis: (1) Acute acalculous cholecystitis (2) CLL (chronic lymphocytic leukemia) (3) Abdominal carcinomatosis (4) COPD (chronic obstructive pulmonary disease) (5) Debility (6) Abdominal pain (7) Carcinomatosis peritonei Your Health Problems Are: Irregular Bowel Function Goals to Promote Your Health * To prevent worsening of your condition and complications * To maintain your health at the optimal level Directions to Meet Your Goals Take your medications as prescribed Follow your dietary instruction Follow activity as directed Keep your appointments as scheduled Take your immunizations and boosters as scheduled If your symptoms worsen call your PCP, if no PCP go to Urgent Care Center or Emergency Room Smoking is Dangerous to Your Health. Avoid second hand smoke Call the 24-hour hour crisis hotline for domestic abuse at Tonya Barrett [facility] March 31, 2017 08:05
--- NOTE | 2017-03-31 08:23 | HHI.PR ---
Subjective Subjective Remarks off oxygen, on RA sats 94% per RN, sats dropped to high 80's at times no sob no cough weak anxious to go home home, has appointment with Dr. Mantilla today Review of Systems Constitutional Constitutional: Fatigue, Weakness (generalized) Constitutional Remarks 12 point ROS completed, negative except as noted above Pulmonary Respiratory: Coughing (occasional) Musculoskeletal MS: Weakness, Stiffness Integumentary Skin: Wounds (abdominal small surgical incisions no erythema or edema) Vitals/Results Intake & Output 03/30/17 03/30/17 03/31/17 15:00 23:00 07:00 Intake Total 683 ml 240 ml Output Total 400 ml 480 ml Balance 283 ml -240 ml Intake Oral 180 ml 240 ml IV Total 503 ml Output Urine Total 400 ml 480 ml Vital Signs Vital Signs Date Time Temp Pulse Resp B/P Pulse Ox O2 Delivery O2 Flow Rate FiO2 03/31/17 00:00 96.2 95 19 121/64 95 03/30/17 20:00 96.9 95 17 145/68 94 03/30/17 19:49 94 Room Air 2.00 Humidified 03/30/17 16:00 97.5 92 16 108/57 95 03/30/17 12:00 97.3 86 20 98/56 95 CBC/BMP: 03/30/17 0442 03/28/17 0535 Physical Exam General General Appearance: Well Developed, No Acute Distress, Comfortable Eyes Eye Exam: Pupils Equal, Pupils Reactive Ears & Nose Ears & Nose Exam: Nasal Mucosa Edna Throat Throat Exam: Oral Mucosa Edna & Moist Neck Neck Exam: Neck Supple, Trachea Midline Pulmonary Resp Exam: No Distress Resp Remarks faint rales Cardiology CV Exam: Regular, Good Perfusion Gastrointestinal/Abdomen GI Exam: Soft, Bowel Sounds Present, Positive Bowel Movement, Non-Distended GI Remarks abd. incisions intact Musculoskeletal MS Exam: Joints Intact Integumentary Skin Exam: Warm, Dry Extremeties Extremities Exam: Pedal Pulses Palpable, Trace Edema Neurologic Neuro Exam: Alert, Awake, Oriented, Speech Clear, Moving All Extremities, No Focal Deficits Psychiatric Psych Exam: Appropriate Responses VTE Prophylaxis VTE Prophylaxis Meds: Heparin Assessment/Plan Problem List: (1) Abdominal carcinomatosis (2) CLL (chronic lymphocytic leukemia) (3) Anxiety (4) Debility (5) COPD (chronic obstructive pulmonary disease) (6) Hyperlipidemia (7) History of CVA (cerebrovascular accident) (8) Chronic anticoagulation (9) KEO on CPAP (10) Thrombocytopenia (11) Leukocytosis (12) Pleural effusion Assessment/Plan Abdominal pain, wt loss surgery following, input appreciated Plan was to do cholecystectomy, however, pt.found with ascites s/p diagnostic laparoscopy, drainage of ascites, peritoneal biopsy 03/23 bx pending, 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 Oncologist on board, frozen section was consistent with carcinoma. 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 Ca 19.9 1397.1, CEA 21.3 GI consult requested for panendoscopy to look for GI primary tumor pathology from peritoneal and GB biopsy poorly differentiated adenocarcinoma per oncology noted, poor performance status, may not be a good candidate for palliative chemotherapy especially if this turns out to be a gallbladder carcinoma. Dr. Mantilla is his oncologist, follows him for CLL. Plan to f/u with him today and then [facility]. Pt. interested in pursuing treatment. S/P EGD on (03/29/17) ----> large gastric ulcer suspicious for malignancy, bx pending pt. stable for dc per surgery, rx in chart. Recent cholecystitis s/p cholecystostomy no surgery done this time continue with medical management surgery following diet as tolerated Tachycardic, BP trending upwards, hx HTN-not on meds at home dropped BP yesterday, given 500 cc NS bolus will stop BB, BP has been up to 140s and down to 100s HR stable. HLP hold statins for now Recent CVA (bilat) on chronic anticoagulation Neurology following, Dr. Parekh's input appreciated continue Coumadin Hx DVT cont. Coumadin Chronic obstructive pulmonary disease with obstructive sleep apnea continue to monitor Duonebs PRN Oxygen PRN Leukocytosis, WBC trending down CT chest 03/24 pleural effusions, consolidations CXR results noted -bilat parenchymal opacities, ? pulm edema to moderate size pleural effusion continue with supplemental oxygen, monitor sats, IS q 2 dc oxygen, checks walk test, may need oxygen ANDREI- some elevation in creat now, monitor Anemia, mild monitor HH Elevated LFTs continue to monitor. Thrombocytopenia, poss sec. malignancy, on anticoagulation monitor Plat 146 monitor for bleeding Neuropathy continue Gabapentin anxiety-Xanax PRN ordered. Enc PO intake PT eval and tx, OOB Palliative consult in place, input appreciated.Goals remain aggressive. Hospice met with pt. not ready to transition Pt. eager to see Dr. Mantilla, and will seek another opinion from [place] Overall poor prognosis. Pt. not likely to tolerate any treatment. Benefits from hospice services. CM for dc planning, [facility] check walk test, may need oxygen Stable for dc, Rx per surgery in chart Discharge today f/u Dr. Mantilla, has appointment f/u surgery f/u PCP Diet-heart heathy Activity-as tolerated. D/W RN D/W pt D/W Dr. Carrion This patient was seen by myself and Dr. Carrion, this note is written on his behalf. Discharge Minutes: 45 Problem Qualifiers (1) COPD (chronic obstructive pulmonary disease): Qualified Code: J44.9 - Chronic obstructive pulmonary disease, unspecified COPD type (2) Hyperlipidemia: Qualified Code: E78.5 - Hyperlipidemia, unspecified hyperlipidemia type (3) Leukocytosis: Qualified Code: D72.829 - Leukocytosis, unspecified type Tonya Barrett March 31, 2017 08:23
--- NOTE | 2017-03-31 08:37 | HHI.DS ---
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 Procedures s/p diagnostic laparoscopy, drainage of ascites, peritoneal biopsy 03/23 S/P EGD on (03/29/17) ----> large gastric ulcer suspicious for malignancy, bx pending CBC/BMP: 03/30/17 0442 03/28/17 0535 Significant Findings Laboratory Tests Test 03/28/17 03/29/17 03/30/17 03/30/17 18:08 05:08 04:42 07:06 Prothrombin Time 43.9 SEC 28.9 SEC 24.8 SEC (9.8-11.6) (9.8-11.6) (9.8-11.6) White Blood Count 15.7 TH/MM3 15.2 TH/MM3 (4.0-11.0) (4.0-11.0) Red Blood Count 4.24 MIL/MM3 4.10 MIL/MM3 (4.50-5.90) (4.50-5.90) Hemoglobin 12.5 GM/DL 12.6 GM/DL (13.0-17.0) (13.0-17.0) Hematocrit 38.2 % 37.5 % (39.0-51.0) (39.0-51.0) Platelet Count 142 TH/MM3 146 TH/MM3 (150-450) (150-450) Mean Platelet Volume 6.1 FL 6.4 FL (7.0-11.0) (7.0-11.0) Lymphocytes % 45 % (9-44) Neutrophils # (Manual) 8.2 TH/MM3 (1.8-7.7) Platelet Estimate LOW (NORMAL) Activated Partial 51.3 SEC Thromboplast Time (24.3-30.1) Fibrinogen 421 mg/dL (227-377) Hospital Course This is a pleasant, 51 year-old white male who has been struggling with abdominal pain off/on for the past few weeks. The patient states that his pain will initiate in his left upper quadrant and radiate across to the right upper quadrant. He states that the pain waxes and wanes but at times it is fairly intense. The patient has not had any weight gain or weight loss in the past few weeks but note a decrease in his appetite at times. The patient was here back in January 2017, for cholecystitis. Diagnosis and treatment regimen included having a drain placed in for medical management. The patient was back in with some of the same symptoms with his abdominal pain as before. The patient deniedany headache, denied any headache, Denied any chest pain, shortness of breath. No diarrhea, no constipation, no vomiting, he is alert, oriented, he is a fair historian, His daughters were at his side assisting with his history. The patient was currently on coumadin with a therapeutic INR. He was admitted and surgery was evaluating for a cholecystectomy. DIAGNOSTIC DATA: White blood count 13.9, red blood cells 4.03, hemoglobin 12.4, hematocrit 35.5. Platelet count 144. Lymphocyte percentage count 56.4. Smudge cells are present, low platelet count. Sodium is 137, potassium 4, chloride 101, carbon dioxide 27, amnion gap 9, blood urea nitrogen 23, creatinine 1.45. Glomerular filtration rate 46, random glucose is 105, serum osmolarity 282, calcium 7.8, bilirubin 0.5, aspartate aminotransferase 25, ALT less then 6, alkaline phosphatase 129, total protein 5.1. Albumin 1.9. Lipase 313. IMAGING STUDIES: Imaging studies show a pending vascular ultrasound. Pt. admitted for: (1) Abdominal pain, found to be associated with Abdominal carcinomatosis (2) CLL (chronic lymphocytic leukemia) (3) Anxiety (4) Debility (5) COPD (chronic obstructive pulmonary disease) (6) Hyperlipidemia (7) History of CVA (cerebrovascular accident) (8) Chronic anticoagulation (9) KEO on CPAP (10) Thrombocytopenia (11) Leukocytosis (12) Pleural effusion During the course of the hospitalization, the following took place: Patient was admitted, put on IV fluids. Was hydrated cautiously. Surgery was consulted for evaluation Patient was put on heparin drip and Coumadin was stopped. Patient underwent surgery Plan was to do cholecystectomy, however, pt.found with ascites s/p diagnostic laparoscopy, drainage of ascites, peritoneal biopsy 03/23 Based on surgical findings, they likely cause was cancer.Frozen section was consistent with carcinoma. Dr. Longoria felt that this could be a gallbladder Patient known to have CLL, his oncologist outside of the hospitalist was Dr. Mantilla who did not come here. Oncology was consulted, Dr. Peraza evaluated patient. Tumor markers were done which were elevated. Ca 19.9 1397.1, CEA 21.3 pathology from peritoneal and GB biopsy poorly differentiated adenocarcinoma per oncology noted, poor performance status, may not be a good candidate for palliative chemotherapy especially if this turns out to be a gallbladder carcinoma. GI consulted for oncology. Requested for panendoscopy to look for GI primary tumor He has evaluated patient, recommended EGD first and colonoscopy later. Patient agreeable. Coumadin was stopped, his INR was elevated and did require vitamin K. S/P EGD on (03/29/17) ----> large gastric ulcer suspicious for malignancy, bx pending Pt was cleared by surgery, oncology, and GI. Because of his poor functional status, palliative chemotherapy was not recommended and not likely to change outcome. This was discussed with patient and family in detail by consultants. Patient wanted to seek opinion with Dr. Mantilla as well as the [facility]. He wanted to continue aggressive care. For Recent cholecystitis s/p cholecystostomy, which was now removed Pain was minimal. Tolerated diet well Continued with medical managed Was noted Tachycardic, BP trending upwards, hx HTN-not on meds at home Was started on beta blockers Did drop blood pressure a few days later, beta blockers were decreased to daily. Patient did receive a 500 cc normal saline bolus. Blood pressure was noted labile, 100s to 140s. Beta minoo stopped. HR stabilized. HLP held statins for now Recent CVA (bilat) on chronic anticoagulation Neurology evaluated. Dr. Parekh's input appreciated Recommended to continue heparin during hospitalization and then switch to Coumadin when procedures were completed. Hx DVT cont. Coumadin Chronic obstructive pulmonary disease with obstructive sleep apnea continue to monitor Duonebs PRN Oxygen PRN Patient was able to use CPAP from home Leukocytosis, WBC initially trending up worse up to 19,000. CT chest 03/24 pleural effusions, consolidations CXR done, results noted -bilat parenchymal opacities, ? pulm edema to moderate size pleural effusion. Poss. malignancy. continue with supplemental oxygen, monitor sats, IS q 2 Was given Lasix Noted to desat, walk test ordered. Pt. ordered oxygen at discharge. Resp. symptoms improved some, did become SOB with activity. ANDREI- did improved with hydration. Anemia, mild monitored HH Did not require blood transfusion Elevated LFTs continued to monitor. Thrombocytopenia, poss sec. malignancy, on anticoagulation monitored Plat 146 monitored for bleeding Neuropathy continued Gabapentin anxiety-Xanax PRN ordered. Enc PO intake PT eval and tx, OOB Palliative consult in place, input appreciated.Goals remain aggressive. Hospice met with pt. not ready to transition Pt. eager to see Dr. Mantilla, and will seek another opinion from [facility] Overall poor prognosis. Pt. not likely to tolerate any treatment. Benefits from hospice services. CM for dc planning, C Stable for dc, Rx per surgery in chart Discharged in fair condition. f/u Dr. Mantilla, has appointment f/u surgery f/u PCP Diet-heart heathy Activity-as tolerated. Pt Condition on Discharge: Stable Discharge Disposition: Disch w/ Home Health Serv Discharge Instructions DIET: Follow Instructions for: Heart Healthy Diet Additional Diet Instructions: as tolerated, avoid high fat foods Activities you can perform: Partial Weight Bearing Other Activity Instructions: ad denise Follow up Referrals: Oncology New Medications: Pantoprazole (Protonix) 40 Mg Tab 40 MG PO DAILY Reflux #30 Ref 2 TAB Warfarin (Coumadin) 1 Mg Tab 1 MG PO DAILY@1600 anticoagulation Days 30 TAB Continued Medications: Carbidopa-Levodopa (Carbidopa-Levodopa) 25-100 Mg Tab 1 TAB PO TID@07,12,16 #90 Ref 3 TAB Cyanocobalamin (Vitamin B-12) 100 Mcg Tab 100 MCG PO DAILY #30 Ref 1 TAB Folic Acid (Folate) 1 Mg Tab 1 MG PO DAILY #30 Ref 6 TAB Gabapentin (Gabapentin) 100 Mg Cap 100 MG PO Q8H #90 Ref 3 CAP Mirabegron (Myrbetriq) 25 Mg Tab 25 MG PO DAILY Urinary Symptom Managemen #30 Ref 0 TAB Pyridoxine (Vitamin B-6) 50 Mg Tab 50 MG PO DAILY Nutritional Supplement #30 Ref 0 TAB Silodosin (Rapaflo) 8 Mg Cap 8 MG PO DAILY Manage Prostate Problems #30 Ref 0 CAP Discontinued Medications: Atorvastatin (Atorvastatin) 40 Mg Tab 40 MG PO HS Cholesterol Management #30 Ref 0 TAB Folic Acid (Folic Acid) 800 Mcg Tab 1000 MCG PO DAILY Nutritional Supplement Ref 0 TAB Methylcobalamin (E90-[id number]) 1 Mg Chew 1 MG CHEW DAILY Nutritional Supplement Ref 0 TAB Metronidazole (Metronidazole) 500 Mg Tab 500 MG PO TID Infection Ref 0 TAB Warfarin (Coumadin) 2 Mg Tab 2 MG PO DAILY@16 Blood Clot Prevention #30 TAB Tonya Barrett March 31, 2017 08:37
[2017-03-31 08:56] VITALS: O2SAT 92
[2017-03-31] MEDS: MYRBETRIQ 25 MG PO SCH (08:59)
[2017-03-31] MEDS ORDERED: OXYGENTANK NAS.CANULA (08:59)
[2017-03-31] MEDS: SILODOSIN 8 MG PO SCH (08:59)
[2017-03-31] MEDS: PANTOPRAZOLE SOD 40 MG DELAYED RELEASE TAB PO SCH (09:00)
[2017-03-31] MEDS: FUROSEMIDE 40 MG TAB PO SCH (09:00)
[2017-03-31] MEDS ORDERED: METOPROLOL TARTRATE 25 MG TAB PO SCH (09:00)
--- NOTE | 2017-03-31 09:39 | PD.ONC.PN ---
Subjective Subjective Remarks Denies abdominal pain. No CP/SOB. No bleeding. Objective Data Date Time Temp Pulse Resp B/P Pulse Ox O2 Delivery O2 Flow Rate FiO2 03/31/17 08:56 92 Nasal Cannula 2.00 03/31/17 08:55 2.00 03/31/17 08:00 97.8 104 16 127/63 95 03/31/17 00:00 96.2 95 19 121/64 95 03/30/17 20:00 96.9 95 17 145/68 94 03/30/17 19:49 94 Room Air 2.00 Humidified 03/30/17 16:00 97.5 92 16 108/57 95 03/30/17 12:00 97.3 86 20 98/56 95 03/31/17 03/31/17 03/31/17 07:00 15:00 23:00 Intake Total 240 ml Output Total 480 ml Balance -240 ml Result Diagram: 03/30/17 0442 03/28/17 0535 Administered Medications Medications (Trade) Dose Ordered Sig/Robert Route PRN Reason Start Time Stop Time Status Last Admin Dose Admin Miscellaneous (Pill Splitter) 1 ea UNSCH PRN OTHER SEE LABEL COMMENTS 03/22/17 16:15 03/30/17 08:27 Acetaminophen/ Hydrocodone Bitart ([place] 5-325 Mg) 1 tab Q4H PRN PO SEE LABEL COMMENTS 03/23/17 14:00 03/31/17 05:08 Acetaminophen/ Hydrocodone Bitart ([place] 5-325 Mg) 2 tab Q4H PRN PO SEE LABEL COMMENTS 03/23/17 14:00 03/28/17 14:26 Alprazolam (Xanax) 0.25 mg Q8H PRN PO MILD ANXIETY 03/25/17 11:00 03/30/17 17:16 Ondansetron HCl (Zofran Inj) 4 mg Q6HR PRN IV PUSH NAUSEA 03/25/17 11:45 03/27/17 12:00 Carbidopa/Levodopa (Sinemet 25-100 Mg) 1 tab TID@07,12,16 PO 03/25/17 12:00 03/31/17 06:23 Gabapentin (Neurontin) 100 mg Q12H PO 03/25/17 12:00 03/31/17 00:00 Patient Own Medication PT OWN MED: MYRBET... DAILY PO 03/26/17 09:00 03/31/17 08:59 Patient Own Medication PT OWN MED: RAPA... DAILY PO 03/26/17 09:00 03/31/17 08:59 Pantoprazole Sodium (Protonix) 40 mg BID PO 03/29/17 21:00 03/31/17 09:00 Furosemide (Lasix) 40 mg DAILY PO 03/29/17 17:00 03/31/17 09:00 Warfarin Sodium (Coumadin) 1 mg DAILY@1600 PO 03/30/17 16:00 03/30/17 17:04 Metoprolol Tartrate (Lopressor) 12.5 mg DAILY PO 03/31/17 09:00 03/31/17 09:00 Objective Remarks GENERAL: Well-nourished, well-developed patient. Weak SKIN: Warm and dry. HEAD: Normocephalic. EYES: No scleral icterus. No injection or drainage. NECK: Supple, trachea midline. No JVD or lymphadenopathy. LYMPHATIC: No adenopathy. CARDIOVASCULAR: Regular rate and rhythm without murmurs. RESPIRATORY: Breath sounds equal bilaterally. No accessory muscle use. GASTROINTESTINAL: Abdomen soft, non-tender, nondistended. EXTREMITIES: No cyanosis, trace ankles edema. MUSCULOSKELETAL: Adequate muscle tone. NEUROLOGICAL: No obvious focal deficit. Awake, alert, and oriented x3. PSYCHIATRIC: Appropriate mood and affect; insight and judgment normal. Assessment/Plan Problem List: (1) Abdominal carcinomatosis Status: Acute Plan: --Peritoneal carcinomatosis. --ex lap-->diffuse peritoneal, hepatic and visceral carcinomatosis with dense inflammatory adhesions versus malignant adhesion of the gallbladder, frozen section was consistent with carcinoma. 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 ++20 pounds weight loss. --EGD 03/29 showed large antral ulcers with raised edges suspicious for malignancy, path pending. --pathology from peritoneal biopsy shows invasive poorly differentiated adenocarcinoma. ?primary gallbladder carcinoma vs primary gastric carcinoma ++poor performance status. He may not be a good candidate for palliative chemotherapy especially if this turns out to be a gallbladder carcinoma. --this is a Dr. 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 (3) CLL (chronic lymphocytic leukemia) Status: Chronic Plan: --follows Dr. Mantilla --not receiving any treatment. His white blood cell count has been stable. Assessment 81y/o with newly discovered carcinomatosis, worrisome for metastatic gallbladder cancer. h/o Hypertension. Anxiety. Cholecystitis. Prostate cancer treated radiation. Bladder cancer followed by urology. Diabetes mellitus. Peripheral neuropathy. Chronic lymphocytic leukemia. Stroke x2. Pressure ulcer. Hyperlipidemia. Left lower extremity deep venous thrombosis. Chronic obstructive pulmonary disease. Plan 1. Path from biopsy of gastric mass pending. ?primary gallbladder cancer vs primary gastric cancer. I told him the prognosis is poor with either cancer and not curative. He is too weak for palliative chemotherapy. However, he still want aggressive treatment. 2. Follow up with his primary oncologist Dr. Mantilla. Pt is considering going to [facility] for another opinion. He can be d/c from oncology standpoint. Juan Manuel Peraza MD March 31, 2017 09:39
[2017-03-31 10:16] LABS: INTERNATIONAL NORMALIZED RATIO 3.6 RATIO; PROTHROMBIN TIME - PATIENT 41.9 SEC (9.8-11.6)
[2017-03-31 10:35] LABS: POTASSIUM 4.2 MEQ/L (3.5-5.1)
[2017-03-31] MEDS: ALPRAZolam 0.25 MG TAB PO PRN (11:04)
--- NOTE | 2017-04-05 13:14 | HHI.DS ---
Discharge Summary Admission Date March 22, 2017 at 14:19 Discharge Date: March 31, 2017 Admitting Diagnosis Brief History 81 year old male s/p diagnostic laparoscopy, drainage of ascites, peritoneal biopsy PE at Discharge Resting in bed Cardio: RRR Resp: CTAB Abd: lap sites clean and dry Hospital Course This is an 81 year old male s/p diagnostic laparoscopy, drainage of ascites, peritoneal biopsy. The pathology was reviewed--- invasive poorly differentiated adenocarcinoma. Oncology was consulted and is following the patient. Palliative care was also consulted to establish goals of treatment. The patient wants to continue with full treatment goals. The patient has an EGD evaluation as well. The patient was able to tolerate a regular diet. The patient's pain was controlled using oral pain medications. He was DCed home in stable condition with instructions to follow up with his PCP and Dr. Peraza with Oncology. [facility] was arranged. Pt Condition on Discharge: Stable Discharge Disposition: Disch w/ Home Health Serv Discharge Instructions DIET: Follow Instructions for: Heart Healthy Diet Additional Diet Instructions: as tolerated, avoid high fat foods Activities you can perform: Partial Weight Bearing Other Activity Instructions: ad denise Myrna Zaidi April 05, 2017 13:14
== END 2017-03-31 11:37 | disposition home health service (06) | DRG 435 ==
LOC: N07B 14:19 → EDSTATUS 03-23 12:30
PROVIDERS: ADMIT Surgery; ATTEND Surgery
PROC: 0W9G4ZZ Drainage of Peritoneal Cavity, Percutaneous Endoscopic Approach (ICD-10-PCS; 2017-03-23)
PROC: 0DBW4ZX Excision of Peritoneum, Percutaneous Endoscopic Approach, Diagnostic (ICD-10-PCS; principal; 2017-03-23 10:55)
PROC: 0DB68ZX Excision of Stomach, Via Natural or Artificial Opening Endoscopic, Diagnostic (ICD-10-PCS; 2017-03-29)
DX: C23 Malignant neoplasm of gallbladder (principal); E43 Unspecified severe protein-calorie malnutrition; R18.0 Malignant ascites; N17.9 Acute kidney failure, unspecified; J90 Pleural effusion, not elsewhere classified; C91.10 Chronic lymphocytic leukemia of B-cell type not having achieved remission; C78.6 Secondary malignant neoplasm of retroperitoneum and peritoneum; C78.89 Secondary malignant neoplasm of other digestive organs; D69.6 Thrombocytopenia, unspecified; E86.0 Dehydration; K80.12 Calculus of gallbladder with acute and chronic cholecystitis without obstruction; D64.9 Anemia, unspecified; E11.9 Type 2 diabetes mellitus without complications; I10 Essential (primary) hypertension; G62.9 Polyneuropathy, unspecified; J44.9 Chronic obstructive pulmonary disease, unspecified; G47.33 Obstructive sleep apnea (adult) (pediatric); E78.5 Hyperlipidemia, unspecified; K52.9 Noninfective gastroenteritis and colitis, unspecified; D73.5 Infarction of spleen; R60.1 Generalized edema; E87.6 Hypokalemia; R00.0 Tachycardia, unspecified; K57.30 Diverticulosis of large intestine without perforation or abscess without bleeding; D63.0 Anemia in neoplastic disease; M47.896 Other spondylosis, lumbar region; F41.9 Anxiety disorder, unspecified; Z68.31 Body mass index [BMI] 31.0-31.9, adult; Z79.01 Long term (current) use of anticoagulants; Z85.46 Personal history of malignant neoplasm of prostate; Z85.51 Personal history of malignant neoplasm of bladder; Z85.828 Personal history of other malignant neoplasm of skin; Z86.718 Personal history of other venous thrombosis and embolism; Z86.73 Personal history of transient ischemic attack (TIA), and cerebral infarction without residual deficits; Z87.891 Personal history of nicotine dependence; Z92.3 Personal history of irradiation
CPT/HCPCS: 71010; 71250; 74176; 76937; 80048; 80053; 80076; 82105; 82378; 82948; 83690; 83930; 84155; 85007; 85027; 85384; 85610; 85730; 86301; 86850; 86900; 86901; 86920; 88304; 88305; 88312; 88331; 93005; 94150; 94620; 99223; J0690; J1170; J1644; J1940; J2250; J2270; J2370; J2405; J3010; J7030; J7040; J7120; Q9963

== ENCOUNTER 2017-04-02 13:02 | Emergency (ER) | payer MEDICARE, BC, OTHER ==
[~2017-04-02] VITALS: Ht 175.3 cm; Wt 94.2 kg
[~2017-04-02 13:02] MED LIST changes: +COUM1TAB PO; -COUM2TAB PO; +MIRA25TA PO; +OXYGENTANK NAS.CANULA; +PROT40TA PO; +RAPA8CAP PO; +VITA50TA30 PO
[2017-04-02 13:11] VITALS: BP 111/60; PULSE 110; RESP 18; TEMP 97.2; O2SAT 93
[2017-04-02 13:18] VITALS: BP 144/69; PULSE 102; RESP 22; O2SAT 94
[2017-04-02] MEDS ORDERED: VITA100021 SL (13:42)
[2017-04-02] MEDS ORDERED: VITAMIN B6 PO (13:42)
[2017-04-02] MEDS ORDERED: FURO20TA PO (13:42)
[2017-04-02] MEDS ORDERED: STOO100T PO (13:42)
[2017-04-02] MEDS ORDERED: FOLI800T PO (13:42)
[2017-04-02] MEDS ORDERED: HYDR-4107 PO (13:42)
[2017-04-02] MEDS ORDERED: CARB1TAB52 PO (13:42)
[2017-04-02] MEDS ORDERED: METO25TA3 PO (13:42)
--- NOTE | 2017-04-02 13:50 | PD ---
HPI Chief Complaint: Abnormal Results Time Seen by Provider: 13:32 Travel History International Travel<30 days: No Contact w/Intl Traveler<30days: No Traveled to known affect area: No History of Present Illness HPI 82-year-old male was advised by his physician to go the emergency room to have INR checked and possible vitamin K treatment. Patient has history of CVA and was on Coumadin. Patient was advised to stop Coumadin 3 days ago for pending gallbladder biopsy. Patient had home health care nurse check his INR this morning was found to be 6.2 and 6.4. Patient was advised by his neurologist Dr. Parekh to go to ED for evaluation of possible vitamin K treatment. Patient denies any bleeding problem. Patient denies headache. Patient denies any chest pain or shortness of breath. Patient denies abdominal pain. Patient denies any blood in the urine or stool. Patient has history of newly discovered carcinomatosis, worrisome for metastatic gallbladder cancer, hypertension, anxiety, cholecystitis, prostate cancer status post radiation treatment, bladder cancer followed by urologist, diabetes, peripheral neuropathy , CLL, CVA 2, hyperlipidemia, DVT and COPD. PFSH Past Medical History Hx Anticoagulant Therapy: Yes (WARFARIN) Arthritis: Yes (BACK, HANDS ) Asthma: No Autoimmune Disease: No Anxiety: Yes Depression: No Heart Rhythm Problems: No Cancer: Yes (SKIN CXR GI CANCER) Cardiovascular Problems: Yes High Cholesterol: No Chemotherapy: No Chest Pain: No Congestive Heart Failure: No COPD: Yes Cerebrovascular Accident: Yes (CVA TIMES 2) Diabetes: Yes Patient Takes Glucophage: No Diminished Hearing: No Deep Vein Thrombosis: Yes Endocrine: No GERD: Yes Genitourinary: No Hiatal Hernia: No Hypertension: Yes Immune Disorder: No Kidney Stones: No Musculoskeletal: Yes Neurologic: No Psychiatric: Yes Reproductive: No Respiratory: Yes (COPD) Immunizations Current: Yes Migraines: No Radiation Therapy: Yes Renal Failure: No Seizures: No Sickle Cell Disease: No Sleep Apnea: Yes (CPAP ) Thyroid Disease: No Ulcer: No Tetanus Vaccination: < 5 Years Influenza Vaccination: Yes Past Surgical History AICD: No Arteriovenous Shunt: No Cardiac Surgery: No Ear Surgery: No Endocrine Surgery: No Eye Surgery: No Gynecologic Surgery: No Insulin Pump: No Joint Replacement: No Oral Surgery: No Pacemaker: No Thoracic Surgery: No Tonsillectomy: Yes Other Surgery: Yes (PREVIOUS GALLBLADER DRAIN ) Social History Alcohol Use: No Tobacco Use: No Substance Use: No Allergies-Medications (Allergen,Severity, Reaction): Coded Allergies: Lyrica (Verified Adverse Reaction, Severe, Drowsiness, 04/02/17) Reported Meds & Prescriptions Reported Meds & Active Scripts Active Oxygen tank (Oxygen) 1 Ea Tank 2 Liter PENNIE.CANULA CONTINUOUS Oxygen Concentrator Portable Gaseous 2 L/min via Nasal Cannula Continuous For 99 months Protonix (Pantoprazole Sodium) 40 Mg Tab 40 Mg PO DAILY Coumadin (Warfarin) 1 Mg Tab 1 Mg PO DAILY@1600 30 Days Reported Stool Softener (Docusate Sodium) 100 Mg Tab 1 Tab PO DAILY Hydrocodone-Acetaminophen 5-300 Mg Tab 1 Tab PO Q4H PRN Metoprolol Tartrate 25 Mg Tab 25 Mg PO BID Furosemide 20 Mg Tab 20 Mg PO DAILY Carbidopa 25 Mg Tab 12.5 Mg PO TID Vitamin B-12 (Cyanocobalamin) 1,000 Mcg Subl 1,000 Mcg SL DAILY Folic Acid 800 Mcg Tab 1 Mg PO DAILY Vitamin B-6 (Pyridoxine HCl) 50 Mg Tab 50 Mg PO DAILY Myrbetriq (Mirabegron) 25 Mg Tab 25 Mg PO DAILY Rapaflo (Silodosin) 8 Mg Cap 8 Mg PO DAILY Review of Systems General / Constitutional: No: Fever Eyes: No: Visual changes HENT: No: Headaches Cardiovascular: No: Chest Pain or Discomfort Respiratory: No: Shortness of Breath Gastrointestinal: No: Abdominal Pain Genitourinary: No: Dysuria Musculoskeletal: No: Pain Skin: No Rash Neurologic: No: Weakness Psychiatric: No: Depression Endocrine: No: Polydipsia Hematologic/Lymphatic: No: Easy Bruising Physical Exam Narrative GENERAL: Well-nourished, well-developed patient. SKIN: Focused skin assessment warm/dry. HEAD: Normocephalic. EYES: No scleral icterus. No injection or drainage. NECK: Supple, trachea midline. No JVD or lymphadenopathy. CARDIOVASCULAR: Regular rate and rhythm without murmurs, gallops, or rubs. RESPIRATORY: Breath sounds equal bilaterally. No accessory muscle use. GASTROINTESTINAL: Abdomen soft, non-tender, nondistended. MUSCULOSKELETAL: No cyanosis, or edema. BACK: Nontender without obvious deformity. No CVA tenderness. Neurologic exam normal. Data Data Last Documented VS Vital Signs Date Time Temp Pulse Resp B/P Pulse Ox O2 Delivery O2 Flow Rate FiO2 04/02/17 13:18 102 22 144/69 94 Nasal Cannula 2 04/02/17 13:11 97.2 Orders Prothrombin Time / Inr (Pt) (04/02/17 13:39) Labs Laboratory Tests Test 04/02/17 14:07 Prothrombin Time 62.9 SEC Prothromb Time International 5.3 RATIO Ratio MDM Medical Decision Making Medical Screen Exam Complete: Yes Emergency Medical Condition: Yes Medical Record Reviewed: Yes Interpretation(s) 15 11 PM. INR 5.3 today. Differential Diagnosis Differential diagnosis including coagulopathy, Narrative Course 82-year-old male with elevated INR. Patient was on Coumadin until 3 days ago for history of CVA and DVT. Patient's off Coumadin for the past 3 days pending gallbladder biopsy. Patient has elevated INR this morning. INR this afternoon 5.3. Vitamin K 5 mg subcutaneous given. Diagnosis Primary Impression: Coagulopathy Patient Instructions: General Instructions Additional Instructions: No Coumadin until cleared by personal physician. Check INR in the morning either by home health nurse or return to ED for recheck. Return immediately if any bleeding problem. Med/Other Pt SpecificInfo: Med Stopped Disposition: 01 DISCHARGE HOME Condition: Stable Alfred Kaufman MD April 02, 2017 13:50
[2017-04-02 15:02] LABS: INTERNATIONAL NORMALIZED RATIO 5.3 RATIO; PROTHROMBIN TIME - PATIENT 62.9 SEC (9.8-11.6)
[2017-04-02] MEDS ORDERED: PHYTONADIONE 10 MG/ML VIAL SQ ONE (15:15)
[2017-04-02 15:17] VITALS: BP 144/69; PULSE 88; RESP 20; O2SAT 97
== END 2017-04-02 15:37 | disposition home or self-care (01) ==
LOC: PHED 13:02
DX: D68.9 Coagulation defect, unspecified (principal)
CPT/HCPCS: 85610; 96372; 99284; J3430

== ENCOUNTER 2017-04-05 14:41 | Inpatient (IN) | payer MEDICARE, BC, OTHER ==
[2017-04-05] VITALS (7 sets, daily range): BP systolic 99–121; BP diastolic 60–74; PULSE 87–102; RESP 16–20; TEMP 96.3–97.4; O2SAT 94–97
[~2017-04-05] VITALS: Ht 175.3 cm; Wt 99.0 kg
[~2017-04-05 14:41] MED LIST changes: +CARB1TAB52 PO; -CARB25TA9 PO; -FOLI1TAB4 PO; +FOLI800T PO; +FURO20TA PO; -GABA100C4 PO; +HYDR-4107 PO; +METO25TA3 PO; +STOO100T PO; +VITA100021 SL; -VITA100T PO
[2017-04-05] MEDS ORDERED: SODIUM CHLORIDE 0.9% FLUSH 10 ML FLUSH IVF PRN (15:15)
[2017-04-05] MEDS ORDERED: methylPREDNISolone SOD SUCC 125 MG/2 ML VIAL IVP ONE (15:15)
--- NOTE | 2017-04-05 15:30 | PD ---
HPI Chief Complaint: Respiratory Symptoms Time Seen by Provider: 14:58 Travel History International Travel<30 days: No Contact w/Intl Traveler<30days: No Traveled to known affect area: No History of Present Illness HPI Patient is an 82-year-old male with history of hypertension, anxiety disorder, recent cholecystitis, CVA 2, diabetes mellitus type 2, peripheral neuropathy, CLL, hyperlipidemia, DVT, COPD who presents to emergency room with complaints of shortness of breath and back pain. Patient reports that his left lung has been hurting him for the past 45 minutes, reports that he feels a "burning sensation to his lung " reports that he has had a cough and has had increased congestion for the past few days. Patient reports that he has been feeling increasingly short of breath with symptoms. Patient reports that he has history of COPD, he does use 2 L of oxygen at all times. Patient denies any chest pain at this time, no fevers or chills. Patient reports that he was recently admitted to the hospital for workup of his abdominal pain which has since resolved. Upon review of his medical records, patient was admitted to the hospital on the 2016 and was discharged on March 31, 2017 for evaluation of abdominal pain. 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 Patient was seen by oncologist and will follow-up with them as an outpatient. Patient reports that he has not been feeling better since he was discharged to home. PFSH Past Medical History Hx Anticoagulant Therapy: Yes (WARFARIN) Arthritis: Yes (BACK, HANDS ) Asthma: No Autoimmune Disease: No Anxiety: Yes Depression: No Heart Rhythm Problems: No Cancer: Yes (SKIN CXR GI CANCER) Cardiovascular Problems: Yes High Cholesterol: No Chemotherapy: No Chest Pain: No Congestive Heart Failure: No COPD: Yes Cerebrovascular Accident: Yes (CVA TIMES 2) Diabetes: Yes Patient Takes Glucophage: No Diminished Hearing: No Deep Vein Thrombosis: Yes Endocrine: No GERD: Yes Genitourinary: No Hiatal Hernia: No Hypertension: Yes Immune Disorder: No Kidney Stones: No Musculoskeletal: Yes Neurologic: No Psychiatric: Yes Reproductive: No Respiratory: Yes (COPD) Immunizations Current: Yes Migraines: No Radiation Therapy: Yes Renal Failure: No Seizures: No Sickle Cell Disease: No Sleep Apnea: Yes (CPAP ) Thyroid Disease: No Ulcer: No Past Surgical History AICD: No Arteriovenous Shunt: No Cardiac Surgery: No Ear Surgery: No Endocrine Surgery: No Eye Surgery: No Gynecologic Surgery: No Insulin Pump: No Joint Replacement: No Oral Surgery: No Pacemaker: No Thoracic Surgery: No Tonsillectomy: Yes Other Surgery: Yes (PREVIOUS GALLBLADER DRAIN ) Social History Alcohol Use: No Tobacco Use: No Substance Use: No Allergies-Medications (Allergen,Severity, Reaction): Coded Allergies: Lyrica (Verified Adverse Reaction, Severe, Drowsiness, 04/05/17) Reported Meds & Prescriptions Reported Meds & Active Scripts Active Oxygen tank (Oxygen) 1 Ea Tank 2 Liter [facility] CONTINUOUS Oxygen Concentrator Portable Gaseous 2 L/min via Nasal Cannula Continuous For 99 months Protonix (Pantoprazole Sodium) 40 Mg Tab 40 Mg PO DAILY Coumadin (Warfarin) 1 Mg Tab 1 Mg PO DAILY@1600 30 Days Reported Stool Softener (Docusate Sodium) 100 Mg Tab 1 Tab PO DAILY Hydrocodone-Acetaminophen 5-300 Mg Tab 1 Tab PO Q4H PRN Metoprolol Tartrate 25 Mg Tab 25 Mg PO BID Furosemide 20 Mg Tab 20 Mg PO DAILY Carbidopa 25 Mg Tab 12.5 Mg PO TID Vitamin B-12 (Cyanocobalamin) 1,000 Mcg Subl 1,000 Mcg SL DAILY Folic Acid 800 Mcg Tab 1 Mg PO DAILY Vitamin B-6 (Pyridoxine HCl) 50 Mg Tab 50 Mg PO DAILY Myrbetriq (Mirabegron) 25 Mg Tab 25 Mg PO DAILY Rapaflo (Silodosin) 8 Mg Cap 8 Mg PO DAILY Review of Systems General / Constitutional: No: Fever Eyes: No: Visual changes HENT: No: Headaches Cardiovascular: No: Chest Pain or Discomfort, Irregular Rhythm Respiratory: Positive: Cough, Shortness of Breath, Wheezing Gastrointestinal: No: Abdominal Pain Genitourinary: No: Dysuria Musculoskeletal: No: Pain Skin: No Rash Neurologic: No: Weakness Psychiatric: No: Depression Endocrine: No: Polydipsia Hematologic/Lymphatic: No: Easy Bruising Physical Exam Narrative GENERAL: moderate distress SKIN: Focused skin assessment warm/dry. HEAD: Atraumatic. Normocephalic. EYES: Pupils equal and round. No scleral icterus. No injection or drainage. ENT: No nasal bleeding or discharge. Mucous membranes pink and moist. NECK: Trachea midline. No JVD. CARDIOVASCULAR: Regular rate and rhythm. No murmur appreciated. RESPIRATORY: No accessory muscle use. Patient with expiratory wheezing on exam. GASTROINTESTINAL: Abdomen soft, non-tender, nondistended. Hepatic and splenic margins not palpable. MUSCULOSKELETAL: No obvious deformities. No clubbing. No cyanosis. No edema. NEUROLOGICAL: Awake and alert. No obvious cranial nerve deficits. Motor grossly within normal limits. Normal speech. PSYCHIATRIC: Appropriate mood and affect; insight and judgment normal. Data Data Last Documented VS Vital Signs Date Time Temp Pulse Resp B/P Pulse Ox O2 Delivery O2 Flow Rate FiO2 04/05/17 18:34 97 04/05/17 15:49 Aerosol Mask 04/05/17 14:46 97.4 89 16 99/63 Orders Complete Blood Count With Diff (04/05/17 15:11) Comprehensive Metabolic Panel (04/05/17 15:11) B-Type Natriuretic Peptide (04/05/17 15:11) Act Partial Throm Time (Ptt) (04/05/17 15:11) Prothrombin Time / Inr (Pt) (04/05/17 15:11) Magnesium (Mg) (04/05/17 15:11) Ckmb (Isoenzyme) Profile (04/05/17 15:11) Troponin I (04/05/17 15:11) Urinalysis - C+S If Indicated (04/05/17 15:11) Blood Culture (04/05/17 15:11) Iv Access Insert/Monitor (04/05/17 15:11) Electrocardiogram (04/05/17 15:11) Ecg Monitoring (04/05/17 15:11) Oximetry (04/05/17 15:11) Oxygen Administration (04/05/17 15:11) Chest, Single Ap (04/05/17 15:11) Sodium Chloride 0.9% Flush (Ns Flush) (04/05/17 15:15) Methylprednisolone So Succ Inj (Solumedr (04/05/17 15:15) Albuterol-Ipratropium Neb (Duoneb Neb) (04/05/17 15:15) Piperacil-Tazo 3.375 Gm Premix (Zosyn 3. (04/05/17 18:30) Cyanocobalamin (Vitamin B12) (04/06/17 09:00) Folic Acid (Folate) (04/06/17 09:00) Pantoprazole (Protonix) (04/06/17 09:00) Pyridoxine (Vitamin B6) (04/06/17 09:00) Warfarin (Coumadin) (04/06/17 16:00) (Nf) Carbidopa (04/06/17 09:00) Patient Own Medication (04/06/17 09:00) Tamsulosin (Flomax) (04/06/17 09:00) Admit To Inpatient (04/05/17 ) Vital Signs (Adult) Q4H (04/05/17 18:30) Activity Oob With Assistance (04/05/17 18:30) Bedside Glucose MARICRUZ.AC&HS (04/05/17 18:30) Cash Manager / Telemetry .CONTINUOUS (04/05/17 18:30) Intake + Output MARICRUZ.QSHIFT (04/05/17 18:30) Diet Heart Healthy (04/05/17 Dinner) Sodium Chlor 0.9% 1000 Ml Inj (Ns 1000 M (04/05/17 18:30) Sodium Chloride 0.9% Flush (Ns Flush) (04/05/17 18:30) Sodium Chloride 0.9% Flush (Ns Flush) (04/05/17 21:00) Acetaminophen (Tylenol) (04/05/17 18:30) Comprehensive Metabolic Panel (04/06/17 06:00) Complete Blood Count With Diff (04/06/17 06:00) Troponin I (04/05/17 18:30) Troponin I (04/06/17 00:30) Prothrombin Time / Inr (Pt) (04/06/17 06:00) Blood Culture (04/05/17 18:30) Electrocardiogram (04/06/17 06:00) Resp Oxygen Pennie C Titrat 1-4 L (04/05/17 ) Pt Request For Service (04/05/17 18:30) Ot Request For Service (04/05/17 18:30) Case Management Consult (04/05/17 18:30) Heparin Inj (Heparin Inj) (04/05/17 20:00) Acetaminophen (Tylenol) (04/05/17 18:30) Acetamin-Hydrocod 325-5 Mg ([place] 5-325 (04/05/17 18:30) Naloxone Inj (Narcan Inj) (04/05/17 18:30) Docusate Sodium-Senna (Jessica-Colace) (04/05/17 21:00) Inpatient Certification (04/05/17 ) Admit Order (Ed Use Only) (04/05/17 18:32) Labs Laboratory Tests Test 04/05/17 04/05/17 16:45 16:50 Urine Color YELLOW Urine Turbidity CLEAR Urine pH 5.0 Urine Specific [place] 1.016 Urine Protein TRACE mg/dL Urine Glucose (UA) NEG mg/dL Urine Ketones NEG mg/dL Urine Occult Blood NEG Urine Nitrite NEG Urine Bilirubin NEG Urine Leukocyte Esterase NEG Urine RBC 0-3 /hpf Urine WBC 0-2 /hpf Urine Squamous Epithelial 0-5 /hpf Cells Urine Amorphous Sediment SMALL Urine Mucus FEW /lpf Urine Sperm FEW Microscopic Urinalysis Comment CULT NOT INDICATED White Blood Count 17.6 TH/MM3 Red Blood Count 4.52 MIL/MM3 Hemoglobin 13.5 GM/DL Hematocrit 41.2 % Mean Corpuscular Volume 91.1 FL Mean Corpuscular Hemoglobin 29.8 PG Mean Corpuscular Hemoglobin 32.7 % Concent Red Cell Distribution Width 15.0 % Platelet Count 222 TH/MM3 Mean Platelet Volume 6.4 FL Neutrophils (%) (Auto) % Lymphocytes (%) (Auto) % Monocytes (%) (Auto) % Eosinophils (%) (Auto) % Basophils (%) (Auto) % Neutrophils # (Auto) TH/MM3 Lymphocytes # (Auto) TH/MM3 Monocytes # (Auto) TH/MM3 Eosinophils # (Auto) TH/MM3 Basophils # (Auto) TH/MM3 CBC Comment AUTO DIFF Differential Total Cells 100 Counted Neutrophils % (Manual) 75 % Lymphocytes % 23 % Monocytes % 1 % Basophils % 1 % Neutrophils # (Manual) 13.2 TH/MM3 Differential Comment FINAL DIFF MANUAL Platelet Estimate NORMAL Platelet Morphology Comment NORMAL Prothrombin Time 17.4 SEC Prothromb Time International 1.5 RATIO Ratio Activated Partial 36.5 SEC Thromboplast Time Sodium Level 139 MEQ/L Potassium Level 4.4 MEQ/L Chloride Level 102 MEQ/L Carbon Dioxide Level 28.8 MEQ/L Anion Gap 8 MEQ/L Blood Urea Nitrogen 65 MG/DL Creatinine 3.00 MG/DL Estimat Glomerular Filtration 20 ML/MIN Rate Random Glucose 119 MG/DL Calcium Level 7.8 MG/DL Magnesium Level 2.2 MG/DL Total Bilirubin 0.6 MG/DL Aspartate Amino Transf 25 U/L (AST/SGOT) Alanine Aminotransferase LESS THAN 6 U/L (ALT/SGPT) Alkaline Phosphatase 147 U/L Total Creatine Kinase 88 U/L Troponin I 0.02 NG/ML B-Type Natriuretic Peptide 41 PG/ML Total Protein 5.8 GM/DL Albumin 1.8 GM/DL MDM Medical Decision Making Medical Screen Exam Complete: Yes Emergency Medical Condition: Yes Interpretation(s) EKG at 1521: NSR at 89bpm, qt/qtc: 388/438, nonspecific changes, no acute changes Vital Signs Date Time Temp Pulse Resp B/P Pulse Ox O2 Delivery O2 Flow Rate FiO2 04/05/17 14:46 97.4 89 16 99/63 97 Differential Diagnosis ACS, arrhythmia, electrolyte abnormality, COPD exacerbation, pneumonia, pleural effusions Narrative Course Patient is an 82-year-old male who returns to emergency room with complaints of shortness of breath. Patient does use 2 L home O2 at all times, reports that he has been more short of breath today, reports that he has been having increased wheezing with cough and congestion. Patient was recently discharged from the hospital for an abdominal workup and was seen in the ER on April 02 as his INR was elevated. Reports that INR was 1.8 today. Patient was placed on a dermatology sales representative upon arrival to the emergency room. X- ray of the chest, lab work, and blood cultures ordered. Was called back to room as patient now complaining of chest pain. Reports that chest pain is located in left breast. EKG with NSR at 89bpm, nonspecific changes. Will continue to monitor Vital Signs Date Time Temp Pulse Resp B/P Pulse Ox O2 Delivery O2 Flow Rate FiO2 04/05/17 15:49 99 Aerosol Mask 04/05/17 14:46 97.4 89 16 99/63 97 Laboratory Tests Test 04/05/17 04/05/17 16:45 16:50 Urine Color YELLOW (YELLW/STRAW) Urine Turbidity CLEAR (CLEAR) Urine pH 5.0 (5.0-8.5) Urine Specific [place] 1.016 (1.002-1.035) Urine Protein TRACE mg/dL (NEG-TRACE) Urine Glucose (UA) NEG mg/dL (NEG) Urine Ketones NEG mg/dL (NEG) Urine Occult Blood NEG (NEG) Urine Nitrite NEG (NEG) Urine Bilirubin NEG (NEG) Urine Leukocyte Esterase NEG (NEG) Urine RBC 0-3 /hpf (0-3) Urine WBC 0-2 /hpf (0-5) Urine Squamous Epithelial 0-5 /hpf (0-5) Cells Urine Amorphous Sediment SMALL Urine Mucus FEW /lpf (OCC) Urine Sperm FEW (NONE) Microscopic Urinalysis Comment CULT NOT INDICATED White Blood Count 17.6 TH/MM3 (4.0-11.0) Red Blood Count 4.52 MIL/MM3 (4.50-5.90) Hemoglobin 13.5 GM/DL (13.0-17.0) Hematocrit 41.2 % (39.0-51.0) Mean Corpuscular Volume 91.1 FL (80.0-100.0) Mean Corpuscular Hemoglobin 29.8 PG (27.0-34.0) Mean Corpuscular Hemoglobin 32.7 % Concent (32.0-36.0) Red Cell Distribution Width 15.0 % (11.6-17.2) Platelet Count 222 TH/MM3 (150-450) Mean Platelet Volume 6.4 FL (7.0-11.0) Neutrophils (%) (Auto) % (16.0-70.0) Lymphocytes (%) (Auto) % (9.0-44.0) Monocytes (%) (Auto) % (0.0-8.0) Eosinophils (%) (Auto) % (0.0-4.0) Basophils (%) (Auto) % (0.0-2.0) Neutrophils # (Auto) TH/MM3 (1.8-7.7) Lymphocytes # (Auto) TH/MM3 (1.0-4.8) Monocytes # (Auto) TH/MM3 (0-0.9) Eosinophils # (Auto) TH/MM3 (0-0.4) Basophils # (Auto) TH/MM3 (0-0.2) CBC Comment AUTO DIFF Prothrombin Time 17.4 SEC (9.8-11.6) Prothromb Time International 1.5 RATIO Ratio Activated Partial 36.5 SEC Thromboplast Time (24.3-30.1) Sodium Level 139 MEQ/L (136-145) Potassium Level 4.4 MEQ/L (3.5-5.1) Chloride Level 102 MEQ/L (98-107) Carbon Dioxide Level 28.8 MEQ/L (21.0-32.0) Anion Gap 8 MEQ/L (5-15) Blood Urea Nitrogen 65 MG/DL (7-18) Creatinine 3.00 MG/DL (0.60-1.30) Estimat Glomerular Filtration 20 ML/MIN (>89) Rate Random Glucose 119 MG/DL (74-106) Calcium Level 7.8 MG/DL (8.5-10.1) Magnesium Level 2.2 MG/DL (1.5-2.5) Total Bilirubin 0.6 MG/DL (0.2-1.0) Aspartate Amino Transf 25 U/L (15-37) (AST/SGOT) Alanine Aminotransferase LESS THAN 6 (ALT/SGPT) U/L (12-78) Alkaline Phosphatase 147 U/L (45-117) Total Creatine Kinase 88 U/L (39-308) Troponin I 0.02 NG/ML (0.02-0.05) Total Protein 5.8 GM/DL (6.4-8.2) Albumin 1.8 GM/DL (3.4-5.0) Last Impressions Chest X-Ray 04/05/17 1511 Signed Impressions: Service Date/Time: Wednesday, April 05, 2017 15:21 - CONCLUSION: No significant interval change. Danilo Del Rosario MD Patient's cr today is 3.0, baseline CR 1.76, patient is in acute renal failure wbc is 17.6 which appears to be baseline for him INR is subtherapeutic at 1.5, he does take coumadin as he has history of dvt case reviewed with Dr. Robbins who accepts pt to service Diagnosis Primary Impression: Pneumonia Additional Impressions: Chest pain Leukocytosis Acute renal failure Admitting Information Admitting Physician Requests: Observation Sera Ng DO April 05, 2017 15:30
[2017-04-05] MEDS: RESP: ALBUTEROL 2.5 MG/IPRATROPIUM 0.5 MG NEB (SCH) INH (15:32)
--- NOTE | 2017-04-05 15:59 | RADHPO ---
EXAM DATE/TIME: 04/05/2017 15:21 [facility] COMPARISON: CHEST SINGLE AP, March 29, 2017, 17:42. INDICATIONS : Short of breath and congestion. MEDICAL HISTORY : Chronic obstructive pulmonary disease. Congestive heart failure. Stroke. SURGICAL HISTORY : None. ENCOUNTER: Initial ACUITY: 4 - 6 months PAIN SCORE: 0/10 LOCATION: Bilateral chest FINDINGS: There continue to be infiltrates in both lung bases as well as bilateral effusions. These findings ar e not significantly changed compared to the prior exam. There is increase in essential markings bilat erally suggestive of some edema. The heart size is stable. There is no pneumothorax. CONCLUSION: No significant interval change. Danilo Del Rosario MD on April 05, 2017 at 15:56 Board Certified Radiologist. This report was verified electronically.
[2017-04-05 17:30] LABS: BLOOD, URINE NEG (NEG); GLUCOSE,URINE NEG (NEG); KETONE, URINE NEG (NEG); NITRITE,URINE NEG (NEG)
[2017-04-05 17:31] LABS: CHLORIDE 102 MEQ/L (98-107); POTASSIUM 4.4 MEQ/L (3.5-5.1); SODIUM (NA) 139 MEQ/L (136-145)
[2017-04-05 17:35] LABS: ANION GAP 8 MEQ/L (5-15); BICARBONATE 28.8 MEQ/L (21.0-32.0); BLOOD UREA NITROGEN 65 MG/DL (7-18); MAGNESIUM 2.2 MG/DL (1.5-2.5)
[2017-04-05 17:38] LABS: ALT (GPT) LESS THAN 6 U/L (12-78)
[2017-04-05 17:39] LABS: AST (GOT) 25 U/L (15-37); GLOMERULAR FILTRATION RATE 20 ML/MIN (>89)
[2017-04-05 17:40] LABS: HEMATOCRIT 41.2 % (39.0-51.0); MEAN CELL VOLUME 91.1 FL (80.0-100.0); MEAN CORPUSCULAR HEMOGLOBIN 29.8 PG (27.0-34.0); MEAN CORPUSCULAR HGB CONC 32.7 % (32.0-36.0); PLATELET COUNT 222 TH/MM3 (150-450); RED BLOOD COUNT 4.52 MIL/MM3 (4.50-5.90); WHITE BLOOD COUNT 17.6 TH/MM3 (4.0-11.0)
[2017-04-05 17:41] LABS: ALKALINE PHOSPHATASE 147 U/L (45-117); APTT (PATIENT) 36.5 SEC (24.3-30.1); INTERNATIONAL NORMALIZED RATIO 1.5 RATIO; PROTHROMBIN TIME - PATIENT 17.4 SEC (9.8-11.6)
[2017-04-05 17:42] LABS: TOTAL BILIRUBIN ADULT 0.6 MG/DL (0.2-1.0)
[2017-04-05 17:46] LABS: HEMO FLAGS AUTO DIFF
[2017-04-05 17:49] LABS: URINE COLOR YELLOW (YELLW/STRAW)
[2017-04-05 17:51] LABS: COMMENT (UR) CULT NOT INDICATED; CULTURE IF INDICATED CULT NOT INDICATED; MUCUS URINE FEW /lpf (OCC); RBC, URINE 0-3 /hpf (0-3); SQUAMOUS EPITHELIAL CELL URINE 0-5 /hpf (0-5); WBC, URINE 0-2 /hpf (0-5)
[2017-04-05 17:56] LABS: CREATINE KINASE 88 U/L (39-308)
[2017-04-05 18:27] LABS: BASOPHILS 1 % (0-2); NEUTROPHIL # MANUAL DIFF 13.2 TH/MM3 (1.8-7.7); POLYS (SEG NEUTROPHILS) 75 % (16-70); WBC DIFF SAMPLE 100
[2017-04-05 18:28] LABS: PLATELET ESTIMATE SMEAR NORMAL (NORMAL); PLATELET MORPHOLOGY NORMAL (NORMAL); SCAN/DIFF FINAL DIFF MANUAL
[2017-04-05] MEDS ORDERED: VANCOMYCIN INJ 1,450 MG in SODIUM CHLORID 0.9% 500 ML INJ 500 ML IV ONE (18:30)
[2017-04-05] MEDS ORDERED: NALOXONE HCL 0.4 MG/ML AMP IV PRN (18:30)
[2017-04-05] MEDS ORDERED: SODIUM CHLORIDE 0.9% FLUSH 10 ML FLUSH IV FLUSH PRN (18:30)
[2017-04-05] MEDS ORDERED: ACETAMINOPHEN 325 MG TAB PO PRN ×2 (18:30)
[2017-04-05] MEDS ORDERED: PIPERACIL-TAZO 3.375 GM PREMIX 50 ML IV ONE (18:30)
[2017-04-05] MEDS: SODIUM CHLOR 0.9% 1000 ML INJ 1,000 ML IV SCH (18:41)
[2017-04-05] MEDS ORDERED: Vancomycin Consult Pharmacy 1 EA OTHER SCH (18:45)
[2017-04-05] MEDS ORDERED: WARFARIN SOD 1 MG TAB PO SCH (18:45)
[2017-04-05] MEDS ORDERED: WARFARIN SOD 1 MG TAB PO ONE (18:45)
[2017-04-05] MEDS: HEPARIN SODIUM - SQ 10,000 UNITS/ML VIAL SQ SCH (19:49)
[2017-04-05] MEDS ORDERED: VANCOMYCIN 1,500 MG/NS 500 ML IV ONE ×2 (20:00)
[2017-04-05] MEDS: ACETAMINOPHEN/HYDROcodone 325 MG/5 MG TAB PO PRN (20:47)
[2017-04-05] MEDS: DOCUSATE SODIUM 50 MG/SENNA 8.6 MG TAB PO SCH (21:56)
[2017-04-05] MEDS: SODIUM CHLORIDE 0.9% FLUSH 10 ML FLUSH IV FLUSH SCH (21:56)
[2017-04-06] VITALS (9 sets, daily range): BP systolic 112–149; BP diastolic 62–91; PULSE 99–112; RESP 18–25; TEMP 95.6–96.6; O2SAT 92–99
[2017-04-06] MEDS: PIPERACIL-TAZO 2.25 GM PREMIX 50 ML IV SCH ×3 (00:56→17:46)
[2017-04-06] MEDS: HEPARIN SODIUM - SQ 10,000 UNITS/ML VIAL SQ SCH (03:55)
[2017-04-06] MEDS: SODIUM CHLOR 0.9% 1000 ML INJ 1,000 ML IV SCH (03:55)
[2017-04-06] MEDS ORDERED: MYRBETRIQ 25 MG PO SCH (09:00)
[2017-04-06] MEDS: DOCUSATE SODIUM 50 MG/SENNA 8.6 MG TAB PO SCH ×2 (09:00→21:00)
[2017-04-06] MEDS: SODIUM CHLORIDE 0.9% FLUSH 10 ML FLUSH IV FLUSH SCH ×2 (09:00→21:22)
--- NOTE | 2017-04-06 09:32 | MH ---
cc: BEATRIZ RODRIGUEZ MD DATE OF ADMISSION 04/05/2017 CHIEF COMPLAINT Increasing shortness of breath, left-sided chest and abdominal pain. ADMISSION DIAGNOSIS Chest pain, rule out OR, abdominal pain, recent diagnosis of metastatic gallbladder cancer. HISTORY OF PRESENT ILLNESS Mr. Olivier is an 82-year-old white male here for a first-time visit with me. He was initially scheduled in the office, but had missed due to hospitalizations. He was actually scheduled to see me in the office today. He notes that he had a recent hospitalization for abdominal pain, had a laparoscopy performed, found to have a gallbladder cancer with metastatic disease to the abdomen and has had discussions with oncology regarding options for therapy. He was discharged home about a week and half ago and notes that since that time, he has had increased abdominal distension, left-sided discomfort, gassy sensation, decreased appetite, increased shortness of breath. He came back to the hospital yesterday due to increasing shortness of breath. He is feeling better at this time regarding his shortness of breath. He notes that the discomfort is really related to position. If he moves to either side, he is very uncomfortable. He is most comfortable laying on his back with his head propped just a little bit. We did discuss his overall goals of care and it does appear that palliative care is more of his concern at this point. He states that he did meet with Dr. Peraza in the hospital, but he is seen Dr. Mantilla [facility] for a history of chronic lymphocytic leukemia. Both Dr. Peraza and Dr. Mantilla had recommended that in his current state of health with his peripheral neuropathy, COPD, sleep apnea and general debility, that chemotherapy would not be in his best interest. He is comfortable with the idea of comfort care at home at this point and his goal is mainly to be as pain-free and as free of shortness of breath as possible. PAST MEDICAL HISTORY Significant for: 1. Hypertension 2. 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 3. History of sepsis. 4. Recent cholecystitis with elevated bilirubin. He had a drain in place her a short period time. 5. He has had skin cancers the face. 6. Type 2 diabetes which apparently has resolved per his report. 7. History of strokes. 8. Chronic lymphocytic leukemia. 9. History of pressure ulcers on his buttocks that apparently Resolved. 10. Hyperlipidemia 11. DVT of the left lower extremity and that he states occurred within the past year. 12. Chronic obstructive pulmonary disease 13. Sleep apnea 14. CLL PAST SURGICAL HISTORY 1. Tonsillectomy/adenoidectomy 2. Dental surgery 3. Biliary drain placements 4. Laparoscopy a few weeks ago with biopsies of the omentum and the gallbladder ALLERGIES LYRICA, UNCERTAIN REACTION AND DIOVAN. SOCIAL HISTORY His passed in February OF 2017. His daughter, Juliette, lives with him. He does have a son who is [place] who I spoke to on the phone. He has 2 other daughters, one he is close to the other was adopted (Sharda) and he notes she has been somewhat estranged from the family. He has a distant history of tobacco use, quit more than 40 years ago. He had a history of alcohol use, quit more than a year ago also. No illicit drug use. 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 He notes Jane is his POA for healthcare and that he has his living will and afairs in order. He is Mormon and active in his caodaism through home visits. REVIEW OF SYSTEMS He denies any changes in vision or hearing. No sore throat. No difficulty swallowing, but notes he has no appetite. He denies gastroesophageal reflux, but has abdominal discomfort with distension and gas production. He notes he feels better after passing gas. He notes left-sided discomfort. He notes he has been able to have bowel movements and is urinating well but does have some discomfort with urination. No blood in his urine. He has occasional cough with clear sputum. He has not had any bloody emesis. He does get short of breath with minimal activity. He is comfortable at rest. He is able to lay relatively flat without distress. He does wear C-PAP at night. He notes that any movement from supine increases his abdominal pain and the pain persists once he is in that position. He notes for the past year he has really only been able to stand up and transfer to a wheelchair. He is, for the most part, able to mobilize himself about the house in the wheelchair, but sometimes does need help. He has had chronic lower extremity edema ongoing for more than a year. He denies any pain in his legs but notes that they are numb. His gait is altered secondary to the neuropathy. He notes increased abdominal distension over the past few weeks since his last hospitalization. Remainder of review of systems is negative other than as stated. OBJECTIVE Temperature is 97.4, he has been afebrile throughout his hospitalization so far. Heart rate has been in the 80s to 100's, blood pressure 99/63 on admit, now up to 146/83, O2 sat 97% on two liters nasal cannula. It does look like he was on an aerosol mask at one point overnight with 99% O2. I am not sure if that was with his nebulizer therapy. He did get IV fluids overnight. He has had urine output, but it is not recorded. GENERAL: In general, he is an elderly white male laying supine in bed with his head approximately 20-30 degrees. He is in no acute distress and able to speak with me coherently without being too winded with speaking. HEAD, EYES, EARS, NOSE, AND THROAT: Pupils are equal and reactive. Nose, no discharge. NECK: Supple without lymphadenopathy. No supraclavicular adenopathy. CARDIOVASCULAR: Regular rate and rhythm. No murmurs, rubs or gallops audible. LUNGS: His lungs are clear, but diminished throughout. He has slight accessory muscle use. No wheezes or rhonchi audible. Slight crackles to the bases. ABDOMEN: Distended, tympanic, soft, mildly tender to palpation. He has three wounds that are healing very well from his previous laparoscopy. There is no erythema or discharge noted. He does appear to have a bit of a fluid wave. EXTREMITIES: Lower extremities show 2-3+ pitting edema up to the knees. He has a full range of motion at the ankles and the arms. I did not really have him mobilize out of bed, but he seems to be able to reposition a little bit in bed on his own. He has no wounds noted to his lower extremities. NO visible lesions to his skin but I didn't roll him to view his buttocks due to pain. LABS White count 17.6, hemoglobin 13.5, hematocrit 41.2, platelets of 222 with 75% neutrophils. INR last night was 1.5. Chemistry last evening showed a creatinine of 3, his baseline is normal about 1.74, glucose was 119, AST and ALT was within normal limits. Protein was slightly low. His troponins were negative overnight. Pending AM labs that haven 't been drawn yet. Urinalysis was clear. He had no white cells or signs of infection. Chest x-ray showed some signs of mild edema. There was no pneumothorax. There was no significant interval change from a prior chest x-ray. ASSESSMENT/PLAN Increasing shortness of breath. This is likely secondary to a combination of COPD, increasing abdominal girth secondary to the metastatic gallbladder cancer likely with ascites. I have asked for an abdominal ultrasound to evaluate for ascites. If there is significant ascites that can be tapped, we will then hold his Coumadin and see if we can tap that to refer therapeutic concerns and make him a little bit more comfortable. He was amenable to doing that. Metastatic gallbladder cancer. We had a long discussion today regarding options for care. He has decided that he would like to go with hospice care. He and his daughter and Dr. Mantilla had already spoke with that and he has a card of a hospice organization. He asked me to speak with Jane regarding this before making the consultation. His goals are to be as pain-free and comfortable in his breathing. He does have the [employer] linh and is still involved with his caodaism through home visits. COPD. We will continue him on his Combivent nebulizers, O2 nasal cannula for comfort. Sleep apnea, continue his C-PAP as tolerated. History of CLL this is not a current issues at this time and is not going to be treated. Acute on chronic renal insufficiency. He did receive IV fluids overnight. I am awaiting his a.m. labs. He notes that they had difficulty getting his blood work today. We will check on that soon. History of DVT. He has been on Coumadin for that for an uncertain amount of time. I will see if I can speak with his daughter, Jane, in that regard. He is definitely at risk for recurrent DVT/pulmonary embolism with active cancer. We will continue the Coumadin for now and will discuss that. Peripheral lower extremity edema likely secondary to his gallbladder cancer and lymphatic obstruction. Elevate his legs as possible. HIEU hose during the day and diuretics p.r.n. however, I do not feel that will be specifically helpful. MD CHAUNCEY Stover/EDWARD /8:34 AM /9:02 AM MTDMarine
--- NOTE | 2017-04-06 09:34 | EKG ---
Date Performed: 04/05/2017 Time Performed: 15:21:02 PTAGE: 82 years EKG: Sinus rhythm Short CO interval Leftward axis Poor R wave progression - probable normal variant Anterior T wave ch anges are nonspecific Generalized low QRS voltages Borderline ECG PREVIOUS TRACING : 03/26/2017 14.24 DOCTOR: Neil Breaux Interpretating Date/Time 04/06/2017 09:33:20
[2017-04-06] MEDS: FOLIC ACID 1 MG TAB PO SCH (09:40)
[2017-04-06] MEDS: CYANOCOBALAMIN 1,000 MCG TAB PO SCH (09:40)
[2017-04-06] MEDS: TAMSULOSIN HCL 0.4 MG CAP PO SCH (09:40)
[2017-04-06] MEDS: PYRIDOXINE HCL 50 MG TAB PO SCH (09:40)
[2017-04-06] MEDS: PANTOPRAZOLE SOD 40 MG DELAYED RELEASE TAB PO SCH (09:40)
--- NOTE | 2017-04-06 10:33 | RADHPO ---
EXAM DATE/TIME: 04/06/2017 09:32 [facility] COMPARISON: No previous studies available for comparison. INDICATIONS : Ascites. MEDICAL HISTORY : Stroke. Deep venous thrombosis. Chronic obstructive pulmonary disease. Hyperlipidemia. GERD. Skin can cer. GI cancer. Measles. Radiation therapy. SURGICAL HISTORY : Tonsillectomy. Cystoscopy. ENCOUNTER: Initial ACUITY: 1 day PAIN SCORE: 2/10 LOCATION: Abdomen. AREA EVALUATED: Abdomen. FINDINGS: Imaging of the abdomen and pelvis was performed to evaluate for ascites for possible paracentesis. T here is moderate to large amount of ascites with fluid noted in all 4 quadrants. CONCLUSION: 1. Moderate to large amount of ascites with fluid noted in all 4 quadrants. Ramón Encranacion MD on April 06, 2017 at 10:30 Board Certified Radiologist. This report was verified electronically.
--- NOTE | 2017-04-06 12:31 | EKG ---
Date Performed: 04/06/2017 Time Performed: 05:38:54 PTAGE: 82 years EKG: Sinus rhythm with PVC(s) Leftward axis Poor R wave progression - probable normal variant Generalized low QRS volt ages Borderline ECG PREVIOUS TRACING : 04/05/2017 15.21 DOCTOR: Neil Breaux Interpretating Date/Time 04/06/2017 12:29:13
[2017-04-06 12:36] LABS: AUTOMATED NEUTROPHIL # 10.3 TH/MM3 (1.8-7.7); BASOPHIL # 0.2 TH/MM3 (0-0.2); BASOPHIL % 1.1 % (0.0-2.0); LYMPH % 34.6 % (9.0-44.0); LYMPHOCYTE # 5.8 TH/MM3 (1.0-4.8); MEAN CELL VOLUME 90.1 FL (80.0-100.0); MEAN CORPUSCULAR HEMOGLOBIN 30.1 PG (27.0-34.0); MEAN CORPUSCULAR HGB CONC 33.4 % (32.0-36.0); MONO % 2.7 % (0.0-8.0); NEUT % 61.6 % (16.0-70.0); PLATELET COUNT 216 TH/MM3 (150-450); RED BLOOD COUNT 4.55 MIL/MM3 (4.50-5.90); RED CELL DISTRIBUTION WIDTH 14.3 % (11.6-17.2); WHITE BLOOD COUNT 16.8 TH/MM3 (4.0-11.0)
[2017-04-06 12:37] LABS: HEMO FLAGS DIFF FINAL
[2017-04-06 12:38] LABS: CHLORIDE 104 MEQ/L (98-107); INTERNATIONAL NORMALIZED RATIO 1.6 RATIO; POTASSIUM 4.5 MEQ/L (3.5-5.1); PROTHROMBIN TIME - PATIENT 18.5 SEC (9.8-11.6); SODIUM (NA) 141 MEQ/L (136-145)
[2017-04-06 12:43] LABS: ANION GAP 11 MEQ/L (5-15)
[2017-04-06 12:44] LABS: BLOOD UREA NITROGEN 66 MG/DL (7-18)
[2017-04-06 12:47] LABS: ALT (GPT) LESS THAN 6 U/L (12-78); AST (GOT) 25 U/L (15-37); GLOMERULAR FILTRATION RATE 22 ML/MIN (>89)
[2017-04-06 12:48] LABS: TOTAL BILIRUBIN ADULT 0.6 MG/DL (0.2-1.0)
[2017-04-06 12:49] LABS: ALKALINE PHOSPHATASE 137 U/L (45-117)
--- NOTE | 2017-04-06 12:55 | HHI.PR ---
Addendum to Inpatient Note Addendum Reason: Additional Documentation Additional Information I spoke with pts daughter, Jane, just now and she is in favor of my plan from this AM. She notes that they had previously considered [facility] and wanted them to be consulted. Will proceed wtih therapeutic paracentesis and plan on discharge home once that can be done .Carissa Garzon MD April 06, 2017 12:55
--- NOTE | 2017-04-06 13:44 | OTSOAPIP ---
RECEIVED OCCUPATIONAL THERAPY ORDERS. THE PATIENT AND FAMILY HAVE ELECTED HOSPICE FOR COMFORT CARE, THEREFORE OCCUPATIONAL THERAPY WILL SIGN OFF. INTERDISCIPLINARY COMMUNICATION: REVIEWED ELECTRONIC MEDICAL RECORD, SPOKE WITH JANEE MICHEL Therapist: Radha Shea OTR/L Signature on file
[2017-04-06] MEDS ORDERED: PILL SPLITTER OTHER PRN (14:00)
[2017-04-06] MEDS: ACETAMINOPHEN/HYDROcodone 325 MG/5 MG TAB PO PRN (15:20)
[2017-04-06] MEDS: CARBIDOPA/LEVODOPA 25 MG/100 MG TAB PO SCH ×2 (15:20→17:47)
[2017-04-06] MEDS ORDERED: WARFARIN SOD 1 MG TAB PO SCH (16:00)
[2017-04-06] MEDS ORDERED: ALBUMIN HUMAN 25% 12.5GM-W/25GM FOR 37.5GM IV ONE (17:15)
[2017-04-06] MEDS ORDERED: ALBUMIN HUMAN 25% 25GM-W/12.5GM FOR 37.5GM IV ONE (17:15)
[2017-04-06] MEDS ORDERED: VANCOMYCIN INJ 1,250 MG in SODIUM CHLOR 0.9% 250 ML INJ 250 ML IV SCH (19:00)
[2017-04-07] VITALS: BP 113/69; PULSE 107; RESP 18; TEMP 97.8; O2SAT 95
[2017-04-07] MEDS: ACETAMINOPHEN/HYDROcodone 325 MG/5 MG TAB PO PRN ×2 (00:32→12:29)
[2017-04-07] MEDS: PIPERACIL-TAZO 2.25 GM PREMIX 50 ML IV SCH (02:20)
[2017-04-07 04:00] VITALS: BP 120/77; PULSE 106; RESP 19; TEMP 97.2; O2SAT 94
[2017-04-07] MEDS: RESP: ALBUTEROL 2.5 MG/IPRATROPIUM 0.5 MG NEB (PRN) NEB ×2 (06:42→14:02)
[2017-04-07 07:15] VITALS: PULSE 109
--- NOTE | 2017-04-07 07:15 | HHI.DS ---
Discharge Summary Admission Date April 05, 2017 at 18:34 Discharge Date: Apr 07, 2017 Admitting Diagnosis Pneumonia, acute renal insuffiency (1) ANDREI (acute kidney injury) Diagnosis: Principal Plan: Better after IVF on admit but now seeming more SOB. SOB likely a combo of pleural effusion, abdominal ascites with compression of the lung and COPD. Will restart the metoprolol and lasix to help with the pleural effusion if possible. He was initially SOB when I came in today but after talking and discussing his issues he seemed to calm down. Anxiety is likely a contributing factor in the dyspnea also. O2 sat was 95% on 2L n/c. (2) Abdominal carcinomatosis Diagnosis: Principal Plan: He has elected for comfort care. I spoke with patient, daughter Jane and son Anibal yesterday and they are all supportive of hospice care. Pt states he spoke with a manufacturer's representative yesterday and they discussed the care center vs home. He hasn't decided yet but is leaning toward the care center. He notes his abdomen is less distended since the 5.1 liter aspiration of ascites, the pressure and discomfort is a bit better but not resolved. He still notes discomfort when rolling over. Plan for discharge today either home or to the care center with hospice support. Adjust diuretics, pain meds, anxiety meds as needed. (3) COPD (chronic obstructive pulmonary disease) Diagnosis: Principal Plan: severe prior to this admission. On chronic O2 at home and nebs. (4) Pleural effusion Diagnosis: Secondary Plan: restart lasix. (5) History of CVA (cerebrovascular accident) Diagnosis: Secondary Plan: restart the coumadin with goal 2-3. He would like to keep on coumadin at this time. (6) KEO on CPAP Diagnosis: Secondary Plan: continue use of CPAP as tolerated. HE notes he feels better on it. [facility]. Procedures Paracentisis of 5.1 liters of fluid CBC/BMP: 04/06/17 1215 04/06/17 1215 Significant Findings Laboratory Tests Test 04/05/17 04/05/17 04/06/17 16:45 16:50 12:15 Urine Mucus FEW /lpf (OCC) Urine Sperm FEW (NONE) White Blood Count 17.6 TH/MM3 16.8 TH/MM3 (4.0-11.0) (4.0-11.0) Mean Platelet Volume 6.4 FL 6.0 FL (7.0-11.0) (7.0-11.0) Neutrophils % (Manual) 75 % (16-70) Neutrophils # (Manual) 13.2 TH/MM3 (1.8-7.7) Prothrombin Time 17.4 SEC 18.5 SEC (9.8-11.6) (9.8-11.6) Activated Partial 36.5 SEC Thromboplast Time (24.3-30.1) Blood Urea Nitrogen 65 MG/DL (7-18) 66 MG/DL (7-18) Creatinine 3.00 MG/DL 2.80 MG/DL (0.60-1.30) (0.60-1.30) Estimat Glomerular Filtration 20 ML/MIN (>89) 22 ML/MIN (>89) Rate Random Glucose 119 MG/DL 128 MG/DL (74-106) (74-106) Calcium Level 7.8 MG/DL 8.0 MG/DL (8.5-10.1) (8.5-10.1) Alanine Aminotransferase LESS THAN 6 LESS THAN 6 (ALT/SGPT) U/L (12-78) U/L (12-78) Alkaline Phosphatase 147 U/L 137 U/L (45-117) (45-117) Total Protein 5.8 GM/DL 5.8 GM/DL (6.4-8.2) (6.4-8.2) Albumin 1.8 GM/DL 1.9 GM/DL (3.4-5.0) (3.4-5.0) Neutrophils # (Auto) 10.3 TH/MM3 (1.8-7.7) Lymphocytes # (Auto) 5.8 TH/MM3 (1.0-4.8) PE at Discharge Gen: elderly WM, slightly more SOB CV: mildly tachy at 100 Lungs: CTA bilaterally without wheezing, mild accessory muscle use, initially SOB when talking but that improved as we talked Abd: less distended, mildly tender Ext: 2+ edema to the thighs, no sores. Hospital Course Pt admitted with possible pneumonia, however CXR was stable compared to prior, had increased abdominal ascites, etc. Suspect issue is more progression of his disease (gallbladder CA). Pt seemed more at peace with his decision for hospice and family is supportive. Discussed goals for care and will work on comfort. Pt Condition on Discharge: Deteriorating Discharge Disposition: Hospice/Med Facility Discharge Instructions DIET: Follow Instructions for: As Tolerated, No Restrictions Activities you can perform: Regular-No Restrictions Other Activity Instructions: as tolerated, he has been increasingly weak and needing supervision for transfer to bed/toilet/wheelchair, not really ambulatory Carissa Kumar MD Apr 07, 2017 07:15
[2017-04-07] MEDS ORDERED: IPRASOL NEB (07:20)
[2017-04-07] MEDS ORDERED: LORA-392 PO (07:20)
[2017-04-07] MEDS ORDERED: Simethicone Chew CHEW (07:20)
[2017-04-07] MEDS ORDERED: SENN1TAB PO (07:20)
[2017-04-07 08:00] VITALS: BP 160/73; PULSE 109; RESP 18; TEMP 97.9; O2SAT 95
[2017-04-07 08:30] VITALS: O2SAT 95
[2017-04-07] MEDS: SODIUM CHLORIDE 0.9% FLUSH 10 ML FLUSH IV FLUSH SCH (09:00)
[2017-04-07] MEDS ORDERED: FUROSEMIDE 20 MG TAB PO SCH (09:00)
[2017-04-07] MEDS ORDERED: SIMETHICONE 80 MG CHEWABLE TAB CHEW PRN (09:00)
[2017-04-07] MEDS ORDERED: METOPROLOL TARTRATE 25 MG TAB PO SCH (09:00)
[2017-04-07] MEDS: CYANOCOBALAMIN 1,000 MCG TAB PO SCH (09:00)
[2017-04-07] MEDS: PANTOPRAZOLE SOD 40 MG DELAYED RELEASE TAB PO SCH (09:51)
[2017-04-07] MEDS: FOLIC ACID 1 MG TAB PO SCH (09:52)
[2017-04-07] MEDS: DOCUSATE SODIUM 50 MG/SENNA 8.6 MG TAB PO SCH (09:52)
[2017-04-07] MEDS: TAMSULOSIN HCL 0.4 MG CAP PO SCH (09:52)
[2017-04-07] MEDS: PYRIDOXINE HCL 50 MG TAB PO SCH (09:52)
[2017-04-07] MEDS: CARBIDOPA/LEVODOPA 25 MG/100 MG TAB PO SCH ×2 (09:54→12:29)
--- NOTE | 2017-04-07 10:09 | RADHPO ---
EXAM DATE/TIME: 04/06/2017 15:50 [facility] COMPARISON: No previous studies available for comparison. INDICATIONS : Ascites. MEDICAL HISTORY : Chronic obstructive pulmonary disease. Deep venous thrombosis. Gastroesophageal reflux disease. Strok e. Hyperlipidemia. Sleep apnea. Arthritis. Skin cancer. GI cancer. SURGICAL HISTORY : Colonoscopy. Cystoscopy. Chemotherapy. ENCOUNTER: Initial ACUITY: 1 day PAIN SCORE: 3/10 LOCATION: Right lower quadrant FLUID: Total volume of 5100 cc of clear, red fluid was removed. Fluid was discarded. Paracentesis was therapeutic only. Post procedure scanning reveals no hematoma or other complication. TECHNIQUE: 1. Ultrasound guidance for abdominal paracentesis. 2. Paracentesis. The risks, benefits, and alternatives to ultrasound guided paracentesis were explained to the patient in detail including the risk of bleeding and infection. Written and verbal informed consent was obt ained. With the patient on the ultrasound table, ultrasound imaging was used to select the most appropriate approach for paracentesis. Overlying skin was prepped and draped in the usual sterile fashion and wi th a local anesthetic, a dermatotomy was made with an 11 blade scalpel. A 6 [id number] ca theter was introduced into the peritoneal cavity and fluid was collected. The patient tolerated the procedure well and left the ultrasound suite in stable condition. CONCLUSION: Uncomplicated ultrasound guided paracentesis. John Woodard MD on April 07, 2017 at 10:08 Board Certified Radiologist. This report was verified electronically.
[2017-04-07] MEDS ORDERED: WARFARIN SOD 2 MG TAB PO ONE (16:00)
--- NOTE | 2017-04-08 08:47 | PQ ---
Physician Query Response Document PATIENT: BRETT LOU : 1935 ADMIT DATE: 04/05/2017 6:34 PM DISCH DATE: 04/07/2017 2:21 PM RESPONDING PROVIDER #: [email or web address] QUERY TEXT: Clarification of Clinical Diagnostic Findings Please clarify documentation or clinical relevance for the clinical / diagnostic findings or whether those are insignificant or unable to be further specified. IN YOUR CLINICAL OPINION, ARE YOU TREATING: ? in heart failure ? malignant ? due to chrrhosis, hepatitis ? chylous ( nonfilarial) ? 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 I cannot be certain if the pleural fluid is malignant vs mild CHF but most likely due to malignan cy. I did not proceed to further cardiac work up given his end stage malignancy and desire for comfor t care so I treated clinically. slb Electronically signed by: Carissa Kumar MD 04/08/2017 8:43 AM
== END 2017-04-07 14:21 | disposition hospice, inpatient (51) | DRG 375 ==
LOC: PHED 14:41 → PHEDA 18:34 → PH3A 21:51
PROVIDERS: ADMIT Family Medicine; ATTEND Family Medicine
PROC: 0W9G3ZZ Drainage of Peritoneal Cavity, Percutaneous Approach (ICD-10-PCS; principal; 2017-04-06)
DX: C78.6 Secondary malignant neoplasm of retroperitoneum and peritoneum (principal); C23 Malignant neoplasm of gallbladder; R18.0 Malignant ascites; N17.9 Acute kidney failure, unspecified; J90 Pleural effusion, not elsewhere classified; D68.9 Coagulation defect, unspecified; Z99.81 Dependence on supplemental oxygen; J44.9 Chronic obstructive pulmonary disease, unspecified; G62.9 Polyneuropathy, unspecified; Z51.5 Encounter for palliative care; M47.9 Spondylosis, unspecified; E78.5 Hyperlipidemia, unspecified; N18.9 Chronic kidney disease, unspecified; I12.9 Hypertensive chronic kidney disease with stage 1 through stage 4 chronic kidney disease, or unspecified chronic kidney disease; F41.9 Anxiety disorder, unspecified; G47.33 Obstructive sleep apnea (adult) (pediatric); Z79.01 Long term (current) use of anticoagulants; Z86.718 Personal history of other venous thrombosis and embolism; Z85.828 Personal history of other malignant neoplasm of skin; Z86.73 Personal history of transient ischemic attack (TIA), and cerebral infarction without residual deficits; Z87.891 Personal history of nicotine dependence
CPT/HCPCS: 36600; 49083; 71010; 76705; 80053; 80202; 81001; 82550; 82948; 83735; 83880; 84484; 85007; 85025; 85027; 85610; 85730; 87040; 87070; 87205; 93005; 94640; 94664; 96372; 96374; C1729; J1644; J2543; J2930; J3370; J3430; J7030; J7040; P9047